=== PATIENT | male | born 1955 | race Caucasian/White ===

== ENCOUNTER → 2017-12-18 15:24 | Outpatient (CLI) | payer OTHER, SELFPAY ==
[2017-12-18 17:50] LABS: Absolute Lymphocyte Count 1.99 X10^3/ul (0.83-4.51); Absolute Neutrophil Count 5.2 X10^3/uL (2.0-7.7); Basophil# 0.02 X10^3/uL; Basophil% 0.2 % (0-1); Eosinophil# 0.21 X10^3/uL; Eosinophils% 2.5 % (0-5); Hematocrit 45.1 % (40-54); Hemoglobin 14.9 g/dl (13.0-16.5); Lymphocyte # 1.99 X10^3/ul (4.0); Lymphocyte % 23.8 % (19-41); Mean Corpuscular Hgb 31.4 pg (27.0-32.0); Mean Corpuscular Volume 94.9 fL (80-94); Mean Platelet Vol. 9.7 fl (6.2-12.0); Monocyte% 10.8 % (0-10); Neutrophil # 5.22 X10^3/uL (2.7-7.7); Neutrophil % 62.3 % (47-70); Platelet Count 208 K/mm3 (150-450); RBC Distribution Width SD 44.8 fl (35.1-43.9); Red Blood Count 4.75 M/mm3 (4.6-6.2); White Blood Count 8.4 K/mm3 (4.4-11.0)
[2017-12-18 17:52] LABS: POSITIVE COUNT NO; POSITIVE DIFFERENTIAL NO; POSITIVE MORPHOLOGY NO
[2017-12-18 18:12] LABS: ALB/GLOB Ratio 1.4 RATIO (0.9-2.4); AST(SGOT) 32 U/L (15-37); Alanine Aminotransfer ALT/SGPT 39 U/L (16-61); Albumin, Serum 4.1 g/dL (3.2-5.0); Alkaline Phosphatase 37 U/L (45-117); Anion Gap 7 (5-15); BUN 19 mg/dL (7-18); BUN/Creat Ratio 15.6 RATIO (10-20); Calcium,Total 9.3 mg/dL (8.5-10.1); Chloride 105 mmol/L (98-107); Creatinine, Serum 1.22 mg/dL (0.70-1.30); EST Glomerular Filtration Rate 64 mL/min (>60); Est Glom Filt Rate - Afr Amer 77 mL/min (>60); Glucose 89 mg/dL (74-106); Potassium 4.1 mmol/L (3.5-5.1); Protein, Total 7.1 g/dL (6.4-8.2); Sodium Level 142 mmol/L (136-145)
== END ==
PROVIDERS: Family Provider Family Medicine; PCP Family Medicine; Visit Provider Internal Medicine Rheumatology
DX: M06.4 Inflammatory polyarthropathy (principal); M79.7 Fibromyalgia; K76.0 Fatty (change of) liver, not elsewhere classified; M48.00 Spinal stenosis, site unspecified; F32.89 Other specified depressive episodes
CPT/HCPCS: 36415; 80053; 85025

== ENCOUNTER → 2018-06-19 14:04 | Outpatient (CLI) | payer OTHER, SELFPAY ==
[2018-06-19 15:49] LABS: Absolute Lymphocyte Count 1.81 X10^3/ul (0.83-4.51); Absolute Neutrophil Count 4.2 X10^3/uL (2.0-7.7); Basophil# 0.03 X10^3/uL; Basophil% 0.4 % (0-1); Eosinophil# 0.21 X10^3/uL; Eosinophils% 3.1 % (0-5); Hematocrit 44.8 % (40-54); Hemoglobin 14.5 g/dl (13.0-16.5); Lymphocyte # 1.81 X10^3/ul (4.0); Lymphocyte % 26.5 % (19-41); Mean Corp Hgb Conc 32.4 g/gl (32-36); Mean Corpuscular Hgb 31.3 pg (27.0-32.0); Mean Corpuscular Volume 96.8 fL (80-94); Mean Platelet Vol. 9.9 fl (6.2-12.0); Monocyte% 8.8 % (0-10); Neutrophil # 4.17 X10^3/uL (2.7-7.7); Neutrophil % 61.1 % (47-70); Platelet Count 171 K/mm3 (150-450); RBC Distribution Width SD 45.5 fl (35.1-43.9); Red Blood Count 4.63 M/mm3 (4.6-6.2); White Blood Count 6.8 K/mm3 (4.4-11.0)
[2018-06-19 15:58] LABS: POSITIVE COUNT NO; POSITIVE DIFFERENTIAL NO; POSITIVE MORPHOLOGY NO
[2018-06-19 16:02] LABS: ALB/GLOB Ratio 1.2 RATIO (0.9-2.4); AST(SGOT) 25 U/L (15-37); Alanine Aminotransfer ALT/SGPT 37 U/L (16-61); Albumin, Serum 3.8 g/dL (3.2-5.0); Alkaline Phosphatase 36 U/L (45-117); Anion Gap 8 (5-15); BUN 21 mg/dL (7-18); BUN/Creat Ratio 20.4 RATIO (10-20); Calcium,Total 9.1 mg/dL (8.5-10.1); Chloride 108 mmol/L (98-107); Creatinine, Serum 1.03 mg/dL (0.70-1.30); EST Glomerular Filtration Rate 77 mL/min (>60); Est Glom Filt Rate - Afr Amer 93 mL/min (>60); Globulin 3.2 g/dL (2.2-4.2); Glucose 98 mg/dL (74-106); Potassium 4.4 mmol/L (3.5-5.1); Sodium Level 144 mmol/L (136-145)
== END ==
PROVIDERS: Family Provider Nurse Practitioner Family; PCP Nurse Practitioner Family; Visit Provider Internal Medicine Rheumatology
DX: M06.4 Inflammatory polyarthropathy (principal); M79.7 Fibromyalgia; K76.0 Fatty (change of) liver, not elsewhere classified; M48.00 Spinal stenosis, site unspecified; F32.89 Other specified depressive episodes
CPT/HCPCS: 36415; 80053; 85025

== ENCOUNTER → 2018-12-20 14:40 | Outpatient (CLI) | payer MEDICARE, OTHER, SELFPAY ==
[2015-10-01 09:45] VITALS: BMI 39.2
[2018-12-20 16:23] LABS: Absolute Lymphocyte Count 2.13 X10^3/ul (0.83-4.51); Absolute Neutrophil Count 4.4 X10^3/uL (2.0-7.7); Basophil# 0.03 X10^3/uL; Basophil% 0.4 % (0-1); Eosinophil# 0.27 X10^3/uL; Eosinophils% 3.6 % (0-5); Hematocrit 46.3 % (40-54); Lymphocyte # 2.13 X10^3/ul (4.0); Lymphocyte % 28.4 % (19-41); Mean Corp Hgb Conc 32.4 g/gl (32-36); Mean Corpuscular Hgb 31.2 pg (27.0-32.0); Mean Corpuscular Volume 96.3 fL (80-94); Mean Platelet Vol. 9.8 fl (6.2-12.0); Neutrophil # 4.44 X10^3/uL (2.7-7.7); Neutrophil % 59.2 % (47-70); Platelet Count 198 K/mm3 (150-450); RBC Distribution Width SD 45.3 fl (35.1-43.9); Red Blood Count 4.81 M/mm3 (4.6-6.2); White Blood Count 7.5 K/mm3 (4.4-11.0)
[2018-12-20 16:26] LABS: POSITIVE COUNT NO; POSITIVE DIFFERENTIAL NO; POSITIVE MORPHOLOGY NO
[2018-12-20 16:52] LABS: ALB/GLOB Ratio 1.2 RATIO (0.9-2.4); AST(SGOT) 26 U/L (15-37); Alanine Aminotransfer ALT/SGPT 42 U/L (16-61); Albumin, Serum 3.8 g/dL (3.2-5.0); Alkaline Phosphatase 36 U/L (45-117); Anion Gap 9 (5-15); BUN 23 mg/dL (7-18); BUN/Creat Ratio 20.7 RATIO (10-20); Calcium,Total 9.2 mg/dL (8.5-10.1); Chloride 111 mmol/L (98-107); Creatinine, Serum 1.11 mg/dL (0.70-1.30); EST Glomerular Filtration Rate 71 mL/min (>60); Est Glom Filt Rate - Afr Amer 85 mL/min (>60); Globulin 3.2 g/dL (2.2-4.2); Glucose 100 mg/dL (74-106); Potassium 4.2 mmol/L (3.5-5.1); Sodium Level 146 mmol/L (136-145)
== END ==
PROVIDERS: Family Provider Nurse Practitioner Family; PCP Nurse Practitioner Family; Referring Provider Internal Medicine Rheumatology; Visit Provider Internal Medicine Rheumatology
DX: M06.4 Inflammatory polyarthropathy (principal); K76.0 Fatty (change of) liver, not elsewhere classified; M48.00 Spinal stenosis, site unspecified; M79.7 Fibromyalgia; F32.89 Other specified depressive episodes
CPT/HCPCS: 36415; 80053; 85025

== ENCOUNTER → 2019-02-17 14:00 | Outpatient (CLI) | payer MEDICARE, OTHER, SELFPAY ==
--- NOTE | 2019-02-17 14:03 | CT_ITS ---
STUDY: CT ABDOMEN AND PELVIS WITH CONTRAST REASON FOR EXAM: Male, 63 years old. Gross hematuria history of TURP procedure and appendectomy. RADIATION DOSAGE (If Supplied By Facility): CTDIvol = ( 28.33 ) mGy, DLP = ( 3852.88 ) mGycm TECHNIQUE: Transaxial images were obtained from the dome of the diaphragm to the symphysis pubis without oral contrast. 100ML IV Isovue 300 was administered. Sagittal and coronal images were reconstructed. Individualized dose optimization techniques were used for this CT. COMPARISON: None. FINDINGS: The visualized lung bases are unremarkable. The visualized portions of the heart are within normal limits. Normal liver. There are at least 3 calcified gallstones without visualized gallbladder wall thickening or inflammatory change. There is no biliary ductal dilatation. Normal spleen. There is a small calcification in the pancreatic head. The possibility of a distal CBD calculus cannot be ruled out although there is no evidence of ductal dilatation. The pancreas is otherwise unremarkable. There is a 1.6 x 1.3 x 1.5 cm soft tissue mass in the right adrenal gland. Question adenoma. Normal left adrenal gland. Normal right kidney. Normal left kidney. Normal visualized ureters. Normal visualized stomach. Normal small intestine. There is descending and sigmoid diverticulosis without acute inflammatory change. The proximal colon is unremarkable. There are surgical clips in the region of the appendix consistent with a prior appendectomy. Normal abdominal aorta. Normal inferior vena cava. Normal retroperitoneum. The urinary bladder is poorly distended with uniformly thickened wall. The prostate is minimally enlarged. There are multiple phleboliths in pelvis without lymphadenopathy. No free air or free fluid is seen within the peritoneal cavity. Normal abdominal wall. There are diffuse degenerative changes of the visualized lumbar spine. CT/Abdomen/Pelvis W IV Cont ONLY IMPRESSION: 1. No evidence of renal or ureteral abnormality. 2. Mildly enlarged prostate with thickened bladder wall. Question outlet obstruction or cystitis. 3. Diverticulosis without acute inflammatory change. 4. Gallstones without acute inflammatory process. 5. Calcification and pancreas. Distal biliary ductal stone versus pancreatic calcification. There is no associated biliary ductal dilatation. 6. Degenerative changes of the lumbar spine. Electronically Signed: Migel Felix DO at 17:10 EDT Tel [phone], Service support ,
[2019-02-17 14:26] LABS: CREATININE FINGERSTICK 1.6 mg/dL (0.70-1.30)
== END ==
PROVIDERS: Family Provider Nurse Practitioner Family; PCP Nurse Practitioner Family; Referring Provider Nurse Practitioner Adult Health; Visit Provider Nurse Practitioner Adult Health
DX: R31.0 Gross hematuria (principal)
CPT/HCPCS: 74177; Q9967

== ENCOUNTER → 2019-06-19 | Outpatient (CLI) | payer MEDICARE, OTHER, SELFPAY ==
[2015-10-01 09:45] VITALS: BMI 39.2
[2019-06-19 14:08] LABS: Absolute Lymphocyte Count 2.01 X10^3/uL (0.83-4.51); Absolute Neutrophil Count 4.3 X10^3/uL (2.0-7.7); Basophil# 0.05 X10^3/uL; Basophil% 0.7 % (0-1); Eosinophil# 0.36 X10^3/uL; Eosinophils% 4.8 % (0-5); Hematocrit 45.9 % (40-54); Hemoglobin 14.9 g/dL (13.0-16.5); Lymphocyte # 2.01 X10^3/ul (4.0); Lymphocyte % 26.9 % (19-41); Mean Corp Hgb Conc 32.5 g/dL (32-36); Mean Corpuscular Volume 98.5 fL (80-94); Mean Platelet Vol. 9.6 fl (6.2-12.0); Monocyte# 0.69 X10^3/uL; Monocyte% 9.2 % (0-10); NRBC Flagged by Analyzer 0 % (0-5); Neutrophil # 4.33 X10^3/uL (2.7-7.7); Neutrophil % 57.9 % (47-70); Platelet Count 192 K/mm3 (150-450); RBC Distribution Width CV 12.8 % (11.6-14.6); Red Blood Count 4.66 M/mm3 (4.6-6.2); White Blood Count 7.5 K/mm3 (4.4-11.0)
[2019-06-19 14:31] LABS: ALB/GLOB Ratio 1.1 RATIO (0.9-2.4); AST(SGOT) 26 U/L (15-37); Alanine Aminotransfer ALT/SGPT 36 U/L (16-61); Albumin, Serum 3.6 g/dL (3.2-5.0); Alkaline Phosphatase 35 U/L (45-117); Anion Gap 7 (5-15); BUN 17 mg/dL (7-18); BUN/Creat Ratio 17.1 RATIO (10-20); Calcium,Total 9.1 mg/dL (8.5-10.1); Chloride 110 mmol/L (98-107); Creatinine, Serum 0.99 mg/dL (0.70-1.30); EST Glomerular Filtration Rate 80 mL/min (>60); Est Glom Filt Rate - Afr Amer 97 mL/min (>60); Globulin 3.4 g/dL (2.2-4.2); Glucose 92 mg/dL (74-106); Potassium 4.7 mmol/L (3.5-5.1); Sodium Level 146 mmol/L (136-145)
== END | disposition home or self-care (01) ==
LOC: MTLAB 11:59
PROVIDERS: Family Provider Nurse Practitioner Family; PCP Nurse Practitioner Family; Referring Provider Internal Medicine Rheumatology; Visit Provider Internal Medicine Rheumatology
DX: M06.4 Inflammatory polyarthropathy (principal); M79.7 Fibromyalgia; K76.0 Fatty (change of) liver, not elsewhere classified; M48.00 Spinal stenosis, site unspecified; F32.89 Other specified depressive episodes
CPT/HCPCS: 36415; 80053; 85025

== ENCOUNTER 2019-09-06 12:53 | Emergency (ER) | payer MEDICARE, OTHER, SELFPAY ==
[2019-09-06] VITALS (9 sets, daily range): BP systolic 118–141; BP diastolic 71–93; PULSE 56–63; RESP 10–18; TEMP 37.2; O2SAT 95–98; BMI 45.8
--- NOTE | 2019-09-06 13:00 | RAD_ITS ---
STUDY: X-RAY - RIGHT ANKLE REASON FOR EXAM: Male, 64 years old. Status post fall TECHNIQUE: 2 view(s) of the ankle. COMPARISON: None. FINDINGS: There is a fracture of the mid fibula with medial apex angulation. The ankle is dislocated with the lateral aspect of the tibia overlying the talus. There is a widened appearance of the intraosseous space. The lateral view shows the offset disrupted ankle. The posterior tibia is not well seen. A fracture is likely. RAD/Ankle min 3 Views IMPRESSION: Fracture dislocation of the ankle. Acute lateral angulated comminuted fracture of the mid fibula. Electronically Signed: Ilsa Pedersen MD at 13:41 EST Tel , Service support ,
--- NOTE | 2019-09-06 13:25 | RAD_ITS ---
STUDY: X-RAY - RIGHT TIBIA AND FIBULA REASON FOR EXAM: Male, 64 years old. Status post fall TECHNIQUE: 2 view(s) of the tibia and fibula were obtained. COMPARISON: None. FINDINGS: Normal visualized tibia. There is a comminuted fracture of the mid shaft of the fibula. The angulation is less apparent than on the ankle x-ray. RAD/Tibia & Fibula 2 Views IMPRESSION: Fracture of the mid shaft of the fibula associated with ankle dislocation. Electronically Signed: Ilsa Pedersen MD at 13:43 EST Tel , Service support ,
[2019-09-06] MEDS: Propofol 200 MG/20 ML Vial IV BOLUS (13:48)
--- NOTE | 2019-09-06 13:56 | CT_ITS ---
Type of exam: CT lower extremity without contrast injection. Right. Reason for exam: trauma. Technique multiple axial images of the left lower extremity were obtained from the proximal tibia and fibula through the calcaneus. Sagittal coronal reformatted images are performed. COMPARISON: September 06, 2019 tibia and fibula x-ray. Prior study there is been improved alignment of the ankle. There is a posterior malleolus fracture in the lumbar or D8. There is a age-indeterminate osteochondral lesion within the medial aspect of the talar surface. There is a visualized comminuted fracture of the mid fibula which appears to have improved alignment since prior study. There is superficial soft tissue edema. There is no visualized fracture of the calcaneus. Impression Improved alignment status post dislocation Better visualize fracture of the posterior malleolus. Fracture of the mid fibula. 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 Recommend follow-up MRI when appropriate. Soft tissue edema. Electronically Signed: Ilsa Pedersen MD at 15:01 EST Tel , Service support , CT/Extremity Lower without Contra
--- NOTE | 2019-09-06 13:56 | RAD_ITS ---
STUDY: X-RAY - RIGHT ANKLE REASON FOR EXAM: Male, 64 years old. Post reduction TECHNIQUE: 3 view(s) of the ankle. COMPARISON: September 06, 2019 FINDINGS: As been a reduction of the fracture dislocation of the ankle. There is a fracture of the posterior malleolus. There is a visualized and age-indeterminate tibiotalar osteochondral lesion seen on the AP view. RAD/Ankle min 3 Views IMPRESSION: Improved alignment. Persistent fracture of the fibula. Visualized fraction of the posterior malleolus. Age-indeterminate talar osteochondral lesion. Electronically Signed: Ilsa Pedersen MD at 15:09 EST Tel , Service support ,
--- NOTE | 2019-09-06 15:04 | ED.VISSUMM ---
- ER Visit Summary Date of Service: 09/06/19 Chief Complaint: [Fall with injury to right ankle] History of Present Illness: The patient is a 64 M [resents to the emergency department with a fall that occurred prior to arrival in the emergency department. Patient presents via EMS. Patient states that he picked up his dog and try to step onto his porch with the dog in his arms when he lost his balance and fell injuring his right foot and ankle. He denies striking his head or loss of consciousness. He denies any chest pain or belly pain. He denies any neck pain or paresthesias. Unable to bear weight afterwards. No significant medical history otherwise.] Physical Examination: [HEENT-PERRLA, EOMI. Cranial nerves II through XII grossly intact. TMs clear. Mucous membranes moist. No adenopathy. Cardiovascular-regular rate and rhythm without murmur or ectopy Lungs-clear to auscultation, chest wall stable without crepitus or subcu emphysema Abdomen-normoactive bowel sounds, soft, nontender, no rebound or rigidity, no peritoneal signs. Extremities-intact ?4, normal range of motion, normal pulses. Right ankle-patient does have obvious ankle dislocation on exam. There is no open skin noted. He is neurovascular intact distally with normal station normal cap refill. He has normal dorsal pedal posterior tibial pulses. She also has tenderness palpation over the mid fibula. Test Results: [Trace of the right tib-fib and right ankle obtained showed a dislocation of the tibiotalar joint and fracture of the mid fibula.] Emergency Department Course and Treatment: [Patient was placed on a lunchroom monitor and IV line was established. Patient had been medicated with fentanyl by EMS. Patient was consented for procedural sedation. Patient was given propofol total of 100 mg IV with good sedation. Using gentle traction we were able to easily reduce the ankle. Patient was placed in a posterior and stirrup type splint. Postreduction x-rays performed showed good reduction of the ankle. At the request of orthopedics I was asked to order a CT scan of the ankle as well as it was suspected possible bony fragment within the joint which was performed. Patient will be given crutches and he will follow-up with orthopedics] Treatment Plan: [Will be given a prescription for pain medication. Patient is to be nonweightbearing. Patient to follow-up with Dr. Snow in 3 to 5 days.] Disposition: [Discharged home in stable condition.] Impression: [Right ankle dislocation-reduced by emergency physician Right mid fibula fracture comminuted] This note was generated with [employer] dictation software. It may contain incorrect words, spelling, and punctuation that were not noted in review of the chart prior to signing ED Disposition - Plan for ED Patient: Referrals: Isiah Bowman, [employer]ICER-C [Primary Care Provider] -
--- NOTE | 2019-09-06 15:07 | ED.DEP ---
ED Disposition - Plan for ED Patient: Instructions: ANKLE FRACTURE (Distal Fibula), closed, ANKLE DISLOCATION, Reduced Prescriptions: Oxycodone HCl/Acetaminophen [Percocet 5/325] 1 tab PO Q6H PRN PRN 5 Days #20 tab PRN Reason: Pain Score 4-10/10 Prescription Printed Referrals: Isiah Bowman, GÓMEZ-C [Primary Care Provider] - Lokesh Snow MD [STAFF PHYSICIAN] - 3-5 Days
[2019-09-06] MEDS: HYDROmorphone 1 MG/ML Syringe IV (15:42)
--- NOTE | 2019-09-06 16:30 | ED.RN ---
PT'S SON BROUGHT IN PATIENTS CRUTCHES FROM HOME. THIS RN DID NOT DISPENSE CRUTCHES FROM ED. DR OWEN SIBLEY.
== END 2019-09-06 16:30 | disposition home or self-care (01) ==
LOC: ED 13:37
PROVIDERS: Emergency Provider Emergency Medicine; Family Provider Nurse Practitioner Family; PCP Nurse Practitioner Family
DX: S82.451A Displaced comminuted fracture of shaft of right fibula, initial encounter for closed fracture (principal); W01.0XXA Fall on same level from slipping, tripping and stumbling without subsequent striking against object, initial encounter; Y93.9 Activity, unspecified; Y92.008 Other place in unspecified non-institutional (private) residence as the place of occurrence of the external cause; Y99.9 Unspecified external cause status; Z79.01 Long term (current) use of anticoagulants; Z79.82 Long term (current) use of aspirin; Z79.899 Other long term (current) drug therapy
CPT/HCPCS: 27781; 73590; 73610; 73700; 99285; J7030; A4216

== ENCOUNTER 2019-09-07 09:40 | Inpatient (IN) | payer MEDICARE, OTHER, SELFPAY ==
[2019-09-06 12:54] VITALS: BMI 45.8
[2019-09-07 09:41] VITALS: BP 158/93; PULSE 63; RESP 20; TEMP 37.1; O2SAT 94; BMI 44.4
[2019-09-07 09:44] VITALS: BP 158/93; PULSE 63; RESP 20; TEMP 37.1; O2SAT 94
[2019-09-07 10:14] LABS: Basophil# 0.04 X10^3/uL; Basophil% 0.5 % (0-1); Eosinophil# 0.19 X10^3/uL; Eosinophils% 2.4 % (0-5); Hematocrit 44.2 % (40-54); Hemoglobin 14.6 g/dL (13.0-16.5); Lymphocyte % 21.2 % (19-41); Mean Corpuscular Hgb 31.5 pg (27.0-32.0); Mean Corpuscular Volume 95.5 fL (80-94); Mean Platelet Vol. 9.5 fl (6.2-12.0); Monocyte# 1.04 X10^3/uL; NRBC Flagged by Analyzer 0 % (0-5); Neutrophil # 5.03 X10^3/uL (2.7-7.7); Neutrophil % 62.5 % (47-70); Platelet Count 158 K/mm3 (150-450); RBC Distribution Width CV 12.4 % (11.6-14.6); RBC Distribution Width SD 43.8 fl (35.1-43.9); Red Blood Count 4.63 M/mm3 (4.6-6.2)
[2019-09-07 10:22] VITALS: BP 134/87; PULSE 61; RESP 22; O2SAT 96
[2019-09-07] MEDS: Ondansetron 4 MG/2 ML Vial IV (10:23)
[2019-09-07] MEDS: HYDROmorphone 1 MG/ML Syringe 0.5 MG IV (10:25)
[2019-09-07 10:26] LABS: Anion Gap 6 (5-15); BUN 19 mg/dL (7-18); BUN/Creat Ratio 18.6 RATIO (10-20); Chloride 108 mmol/L (98-107); Creatinine, Serum 1.02 mg/dL (0.70-1.30); EST Glomerular Filtration Rate 78 mL/min (>60); Est Glom Filt Rate - Afr Amer 94 mL/min (>60); Estimated Creatinine Clearance 73.56 ml/min; Glucose 115 mg/dL (74-106); Potassium 4.1 mmol/L (3.5-5.1); Sodium Level 141 mmol/L (136-145)
--- NOTE | 2019-09-07 11:23 | ED.VIS.GEN ---
History of Present Illness Chief Complaint: Other, Pain/Inj Detail of Chief Complaint: Right leg pain Informant: Patient Onset: Yesterday Current Severity: Moderate Maximum Severity: Severe Narrative: Patient presents with continued pain to his right lower extremity. Patient was seen yesterday after a fall in which he dislocated his ankle and broke his fibula. There is also evidence of a posterior malleolar fracture. Patient was reduced and splinted last evening. He was discharged home with crutches and Percocet. Patient states he had a difficult time getting in his home with his crutches. He was able to get propped up in a recliner. Patient has not been able to get up from the chair since that time. He states he urinated on himself twice overnight because he was unable to get up and care for himself. He has been taking his Percocet every 2 hours and complains of continued pain. He does not have paresthesias and can wiggle toes without difficulty. He has not noted any color change in his toes. - Past Medical History (1) Hypertension Status: Chronic (2) GERD (gastroesophageal reflux disease) Status: Chronic (3) Anxiety Status: Chronic (4) Depression Status: Chronic Past Medical History - Allergies and Home Meds Allergies/Adverse Reactions: Allergies No Known Allergies Allergy (Verified 09/06/19 12:57) Primary Care Physician: Isiah Bowman NP-C [Primary Care Provider] - Prior records reviewed: Yes Lives: Alone Smoking Status: Never smoker Review of Systems General: Denies: Chills, Fever Eyes: Denies: Visual changes - bilaterally ENT: Denies: Bilateral ear pain Cardiovascular: Denies: Chest pain Respiratory: Denies: Dyspnea, Cough Gastrointestinal: Denies: Abdominal pain Musculoskeletal: Reports: Extremity Pain Neurological: Denies: Parasthesia Hematologic: Denies: Easy bruising, Easy bleeding Allergy: Denies: Uticaria Physical Exam Vital Signs/Narrative: Vital Signs Temp Pulse Resp BP Pulse Ox 09/07/19 10:22 61 22 H 134/87 H 96 09/07/19 09:44 98.8 F 63 20 H 158/93 H 94 09/07/19 09:41 98.8 F 63 20 H 158/93 H 94 Inital Vital Signs reviewed: Yes General: Well nourished, Well developed ENT: Moist mucous membranes Cardiovascular: Regular rate, Regular rhythm Respiratory: No distress, CTA bilaterally Abdomen: Soft, Nontender Extremities: - - Right lower extremity in a splint. Patient is able to wiggle toes without difficulty. Good sensation and cap refill in his toes. I am able to palpate pulse in his foot. Neurological: Alert, Oriented x3 Psychological: Normal affect Diagnostic/Tx/Re-eval Laboratory Results 09/07/19 09/07/19 10:05 10:05 WBC 8.0 RBC 4.63 Hgb 14.6 Hct 44.2 MCV 95.5 H MCH 31.5 MCHC 33.0 RDW Std Deviation 43.8 RDW Coeff of Adam 12.4 Plt Count 158 MPV 9.5 Immature Gran % (Auto) 0.400 Neut % (Auto) 62.5 Lymph % (Auto) 21.2 Gordon % (Auto) 13.0 H Eos % (Auto) 2.4 Baso % (Auto) 0.5 Absolute Neuts (auto) 5.0 Absolute Lymphs (auto) 1.70 Nucleated RBC % 0 Sodium 141 Potassium 4.1 Chloride 108 H Carbon Dioxide 27.0 Anion Gap 6 BUN 19 H Creatinine 1.02 Estim Creat Clear Calc 73.56 Est GFR (MDRD) Af Amer 94 Est GFR (MDRD) Non-Af 78 BUN/Creatinine Ratio 18.6 Glucose 115 H Calcium 9.0 - Medical Decision Making Patient was given 0.5 mg of Dilaudid along with Zofran. On repeat evaluation he still reports pain, but it is improved. He will be given a second dose of Dilaudid. Patient is not able to care for himself at home and will require hospitalization tonight and possible placement to rehab or [place] [facility]. ED Disposition - Plan for ED Patient: Disposition: Acute Care [facility] Diagnosis: Leg fracture, right, Declining functional status Referrals: Isiah Bowman, GÓMEZ-C [Primary Care Provider] -
[2019-09-07 12:00] VITALS: BP 156/86; PULSE 82; RESP 19; O2SAT 96
[2019-09-07] MEDS: HYDROmorphone 0.5 MG/0.5 ML SYRINGE IV ×2 (12:14→18:57)
--- NOTE | 2019-09-07 12:39 | PCM.HP.STD ---
Problem List (1) Hypertension Status: Chronic Qualifiers: Hypertension type: essential hypertension Qualified Code(s): I10 - Essential (primary) hypertension (2) GERD (gastroesophageal reflux disease) Status: Chronic Qualifiers: Esophagitis presence: esophagitis presence not specified Qualified Code(s): K21.9 - Gastro-esophageal reflux disease without esophagitis (3) Anxiety Status: Chronic (4) Depression Status: Chronic Qualifiers: Depression Type: unspecified Qualified Code(s): F32.9 - Major depressive disorder, single episode, unspecified (5) Leg fracture, right Status: Acute Qualifiers: Encounter type: initial encounter Fracture type: closed Qualified Code(s): S82.91XA - Unspecified fracture of right lower leg, initial encounter for closed fracture (6) MICHAEL (obstructive sleep apnea) Status: Chronic (7) BPH (benign prostatic hyperplasia) Status: Chronic Qualifiers: Lower urinary tract symptom presence: symptoms absent Qualified Code(s): N40.0 - Benign prostatic hyperplasia without lower urinary tract symptoms History of Present Illness Date of Admission: 09/07/19 Chief Complaint: Inability to walk, right leg pain The patient is a 64 year old M who fell off from his deck in his house on 09/06/19. Patient gives a history of his dog who is very sick and anemic. He was helping the dog go outside to the bathroom. He was carrying his dog. As he was walking back into the house, he stepped onto his porch and lost his balance. He thinks he tried to catch his weight with his right leg. Seen in the emergency department and x-rays showed right fibula fracture and right tibiotalar joint dislocation. Patient's fracture was reduced. He was given crutches, putting splint, and asked to follow-up with Dr. Cordova in 3 to 5 days. Overnight, patient has been unable to move from his recliner. He complains of CVA pain. Unable to ambulate. He is open to even going somewhere for acute rehab. Denied any chest pain or dizziness palpitations or shortness of breath. His blood pressure is 158/93, heart rate 63, respiratory rate is 20, SPO2 is 4% on room air. His CBC D is unremarkable. His BMP is also unremarkable CT Scan of the right ankle done yesterday showed improved alignment status post disc location and reduction, fracture of the posterior malleolus, fracture of the mid fibula, age-indeterminate osteochondral lesion suggestive of osteonecrosis on the medial patella surface, soft tissue edema. Past Medical History Past Medical History (Chronic Problems): Chronic Problems Hypertension (Chronic) GERD (gastroesophageal reflux disease) (Chronic) Anxiety (Chronic) Depression (Chronic) MICHAEL (obstructive sleep apnea) (Chronic) BPH (benign prostatic hyperplasia) (Chronic) Allergies No Known Allergies Allergy (Verified 09/06/19 12:57) Home Medications: Ambulatory Orders Medication Instructions Recorded Aspirin [Aspirin, Baby] 81 mg PO DAILY@0800 11/07/13 Calcium Carbonate/Vitamin D3 1 each PO DAILY 11/07/13 [Calcium 600 + Vit D Tablet] Fenofibrate,Micronized [] 134 mg PO DAILY 11/07/13 Hydroxychloroquine [Plaquenil] 200 mg PO BIDCM 11/07/13 Sertraline HCl [Zoloft] 200 mg PO DAILY 11/07/13 Tramadol HCl [Tramadol HCl ER] 200 mg PO DAILY 11/07/13 Doxepin HCl [Silenor] 10 mg PO DAILY 09/27/15 Finasteride [Proscar] 5 mg PO DAILY 09/27/15 Gabapentin [Neurontin] 100 mg PO BIDCM 09/27/15 Methylphenidate HCl 27 mg PO DAILY 09/27/15 [Methylphenidate ER] Propranolol HCl [Inderal (Beta 20 mg PO DAILY 09/27/15 Edilma)] Tamsulosin HCl [Flomax] 0.4 mg PO BID 09/27/15 Zafirlukast [Accolate] 20 mg PO BID 09/27/15 Ciprofloxacin [Cipro] 250 mg PO BID #10 tablet 10/03/15 Oxycodone HCl/Acetaminophen 1 tab PO Q6H PRN PRN 5 Days #20 tab 09/06/19 [Percocet 5/325] Surgical History: - - Lateral carpal tunnel release, bilateral Achilles surgeries, right knee surgery Psychiatric History: Anxiety, Depression Lives: Alone Smoking Status: Never smoker Tobacco Use: Non-smoker Alcohol: Occasional Drugs: None - *Family History Maternal History Items: Cancer - colon Paternal History Items: Cancer - lung Review of Systems Constitutional: Denies: Anorexia, Chills, Fever, Malaise, Weakness, Weight Change, Fatigue Eyes: Denies: Blurred vision, Cataracts, Conjunctivae Inflammation, Pain, Redness HEENT: Denies: Difficulty Hearing, Difficulty Swallowing, Head Aches, Hearing Changes, Sinus Congestion, Sinus Drainage Cardiovascular: Denies: Chest Pain, Claudication, Orthopnea, Palpitations, Paroxysmal Noc. Dyspnea Respiratory: Denies: Cough, Hemoptysis, Shortness of breath at rest, Shortness of breath upon exertion, Sputum production Gastrointestinal: Denies: Abdominal Pain, Nausea, Vomiting Genitourinary: Denies: Dysuria, Incontinence Musculoskeletal: Denies: Arm Pain, Joint Pain, Joint stiffness, Joint swelling, Joint Tenderness Skin: Denies: Rash, Wounds Neurological: Denies: Numbness, Tingling, Focal weakness Psychiatric: Denies: Anxiety, Depression, Homicidal Ideations, Suicidal Ideations Hematologic/ Lymphatic: Denies: Easy Bruising, Easy Bleeding VTE Information - Inpt Only VTE Present on Admission: No VTE Pharm Prophylaxis ordered?: Yes Patient Problems: Active and Suspected Problems Leg fracture, right (Acute) Declining functional status (Acute) - Physical Exam Vitals/I&O's: Vital Signs Temp Pulse Resp BP Pulse Ox 98.8 F 82 19 H 156/86 H 96 09/07/19 09:44 09/07/19 12:00 09/07/19 12:00 09/07/19 12:00 09/07/19 12:00 Oxygen Delivery Method Room Air Weight: 140.5 kg Body Mass Index (BMI) 44.4 General: Alert, Oriented x3, Cooperative, - - morbidly obese, not on oxygen HEENT: Atraumatic, PERRLA, EOMI, Normocephalic Oral: Moist Mucosa Neck: Supple Lungs: Clear to auscultation, Normal air movement Cardiovascular: Regular rate, Regular Rhythm, Normal S1, Normal S2, No murmurs Abdomen: Bowel Sounds Present, Soft, Non Tender, Non-Distended, Distended, Obese Extremities: Edema - right lower leg is dressed, splinted and KAITLYNN-wrapped, able to wiggle toes Skin: No rashes, No breakdown Musculoskeletal: No Tenderness to Palpation of Joints or Extremities Lymphatic: No Cervical, Supraclavicular, or Inguinal Adenopathy Neurological: Cranial nerves II-XII grossly intact, Neuro grossly intact Psych/Mental Status: Normal Affect, Appropriate Laboratory Results 09/07/19 10:05: WBC 8.0, RBC 4.63, Hgb 14.6, Hct 44.2, MCV 95.5 H, MCH 31.5, MCHC 33.0, RDW Std Deviation 43.8, RDW Coeff of Adam 12.4, Plt Count 158, MPV 9.5, Immature Gran % (Auto) 0.400, Neut % (Auto) 62.5, Lymph % (Auto) 21.2, [place] % (Auto) 13.0 H, Eos % (Auto) 2.4, Baso % (Auto) 0.5, Absolute Neuts (auto) 5.0, Absolute Lymphs (auto) 1.70, Nucleated RBC % 0 09/07/19 10:05: Sodium 141, Potassium 4.1, Chloride 108 H, Carbon Dioxide 27.0, Anion Gap 6, BUN 19 H, Creatinine 1.02, Estim Creat Clear Calc 73.56, Est GFR (MDRD) Af Amer 94, Est GFR (MDRD) Non-Af 78, BUN/Creatinine Ratio 18.6, Glucose 115 H, Calcium 9.0 Assessment/Plan All Active Problems Leg fracture, right (Acute) Declining functional status (Acute) 64 year old M who fell off from his deck in his house on 09/06/19 presented to the emergency department and was diagnosed with acute fracture of the right mid fibula as well as right posterior malleolus. He underwent reduction, splinting and discharged home with crutches. Patient presents with inability to walk and progressive pain. 1. Debility secondary to acute fractures -right mid fibula, right posterior malleolar fracture Admitting EKG showed no acute ST-T changes. He has no previous cardiac problems. No acute current cardiac symptoms Admit to MedSurg, pain control, orthopedic surgery consult, PT and OT to evaluate Patient is moderate risk for planned procedure account of his morbid obesity and underlying MICHAEL 2. Rheumatoid arthritis, on Plaquenil 3. MICHAEL on CPAP 4. BPH, on Flomax, Proscar 5. Anxiety/depression, on Zoloft, doxepin 6. Hyperlipidemia, on fenofibrate 7. DVT prophylaxis with heparin subcu Code Visit Inpatient E&M: 52438 Init Hosp L2
--- NOTE | 2019-09-07 12:50 | EKG12_ITS ---
Test Reason : Blood Pressure : / mmHG Vent. Rate : 064 BPM Atrial Rate : 064 BPM P-R Int : 146 ms QRS Dur : 090 ms QT Int : 416 ms P-R-T Axes : 035 000 050 degrees QTc Int : 429 ms Normal sinus rhythm Normal ECG Confirmed by ALFREDO PEREZ, BLADE ([id number]), editor index CHARLENE PEREZ ([id number]) on 09/09/2019 11:42:07 AM Referred By: Lauryn Ellis Confirmed By:BLADE FUENTES MD
--- NOTE | 2019-09-07 12:53 | NURSING ---
306 debility/ankle fx paintsil
--- NOTE | 2019-09-07 13:16 | ECHOCS_ITS ---
Version 2 Reason For Study: Pre-op clearance Procedure This was a 2D Doppler, Color Flow transthoracic echocardiogram. The study was technically difficult. Exam performed portable in patient room. Left Ventricle Normal LV size. The estimated ejection fraction is 55 %. No regional wall motion abnormalities noted. Right Ventricle Normal RV size. Normal systolic function. Atria Normal left atrium. Normal right atrium. Mitral Valve Normal mitral valve. Tricuspid Valve Normal tricuspid valve. Mild (1+) tricuspid valve insufficiency. Pulmonary artery systolic pressure is 33 mmHg. Aortic Valve Normal aortic valve. Pulmonic Valve Normal pulmonic valve. Great Vessels Normal aortic root. The pulmonary artery is normal size. Normal inferior vena cava. Pericardium/Pleural No pericardial effusion. Medication Diluted definity 5ml given slow IV push to enhance endocardial definition. MMode/2D Measurements & Calculations LVIDd: 5.8 cm IVSd: 1.1 cm Ao root diam: 3.4 cm LVIDs: 2.8 cm LVPWd: 1.2 cm FS: 51.9 % LAV(MOD-bp): 61.6 ml LA A4 area: 16.4 cm2 LA dimension(2D): 4.1 cm LAV(MOD-bp) Indexed: 24.5 ml/m2 LAV(MOD-sp2): 71.9 ml LAV(MOD-sp4): 42.8 ml RA A4 area: 12.0 cm2 Doppler Measurements & Calculations MV E max kendell: 53.7 cm/sec Lat Peak E' Kendell: 9.2 cm/sec Med Peak E' Kendell: 6.6 cm/sec MV A max kendell: 68.6 cm/sec E/E' lat: 5.9 E/E' med: 8.1 MV E/A: 0.78 Ao V2 max: 122.9 cm/sec LV V1 max: 99.5 cm/sec PA V2 max: 89.6 cm/sec Ao max P.0 mmHg LV V1 max P.0 mmHg TR max kendell: 264.0 cm/sec TR max P.5 mmHg Interpretation Summary Normal LV size. The estimated ejection fraction is 55 %. No regional wall motion abnormalities noted. Mild (1+) tricuspid valve insufficiency. Pulmonary artery systolic pressure is 33 mmHg. Structurally normal valves. Ordering Physician: Lauryn Ellis Referring Physician: Isiah Bowman Performed By: Mary Paige RDCS, RVT
[2019-09-07 13:19] VITALS: BMI 42.7; BMI 42.8
[2019-09-07] MEDS: 0.9% Normal Saline 1,000 ML 100 ML IV ×2 (13:46→23:33)
[2019-09-07] MEDS: Morphine 2 MG/ML Syringe IV ×2 (13:49→17:18)
[2019-09-07] MEDS: Heparin Injection (Vial) 5,000 UNIT/ML VIAL 5000 UNIT SC ×2 (13:51→22:44)
[2019-09-07 14:00] VITALS: BP 137/82; PULSE 95; RESP 18; TEMP 36.6; O2SAT 95
[2019-09-07] MEDS: oxyCODONE 5 MG Tablet PO ×2 (15:49→20:11)
[2019-09-07] MEDS: 0.9% Saline Lock 10 ML Syringe IV ×2 (17:19→22:41)
[2019-09-07 19:59] VITALS: BP 106/75; PULSE 71; RESP 18; TEMP 36.7; O2SAT 94
[2019-09-07] MEDS: Morphine 4 MG/ML Syringe IV (22:37)
[2019-09-07] MEDS: Senna/Docusate Sodium 1 Tablet 2 TABLET PO (22:47)
[2019-09-08] VITALS (7 sets, daily range): BP systolic 151–159; BP diastolic 70–94; PULSE 67–78; RESP 16–18; TEMP 36.9–37.4; O2SAT 85–97
[2019-09-08] MEDS: 0.9% Saline Lock 10 ML Syringe IV ×6 (02:13→19:58)
[2019-09-08] MEDS: Morphine 4 MG/ML Syringe IV ×5 (02:14→19:58)
[2019-09-08] MEDS: Ipratropium/Albuterol Sulfate 3 ML AMPUL.NEB INHALATION (02:55)
[2019-09-08] MEDS: oxyCODONE 5 MG Tablet PO ×3 (03:42→23:32)
[2019-09-08 06:15] LABS: Absolute Neutrophil Count 5.2 X10^3/uL (2.0-7.7); Basophil# 0.02 X10^3/uL; Basophil% 0.2 % (0-1); Eosinophil# 0.24 X10^3/uL; Eosinophils% 2.9 % (0-5); Hematocrit 39.1 % (40-54); Hemoglobin 12.8 g/dL (13.0-16.5); Lymphocyte % 20.9 % (19-41); Mean Corp Hgb Conc 32.7 g/dL (32-36); Mean Corpuscular Hgb 31.5 pg (27.0-32.0); Mean Corpuscular Volume 96.3 fL (80-94); Mean Platelet Vol. 9.9 fl (6.2-12.0); Monocyte% 12.3 % (0-10); NRBC Flagged by Analyzer 0 % (0-5); Neutrophil # 5.15 X10^3/uL (2.7-7.7); Neutrophil % 63.3 % (47-70); Platelet Count 156 K/mm3 (150-450); RBC Distribution Width CV 12.6 % (11.6-14.6); RBC Distribution Width SD 44.9 fl (35.1-43.9); Red Blood Count 4.06 M/mm3 (4.6-6.2); White Blood Count 8.1 K/mm3 (4.4-11.0)
[2019-09-08] MEDS: Heparin Injection (Vial) 5,000 UNIT/ML VIAL 5000 UNIT SC ×3 (06:26→22:13)
[2019-09-08] MEDS: Acetaminophen 325 MG Tablet 650 MG PO ×2 (06:31→23:33)
[2019-09-08 06:41] LABS: AST(SGOT) 46 U/L (15-37); Alanine Aminotransfer ALT/SGPT 60 U/L (16-61); Alkaline Phosphatase 28 U/L (45-117); Anion Gap 6 (5-15); BUN 19 mg/dL (7-18); BUN/Creat Ratio 18.3 RATIO (10-20); Calcium,Total 8.4 mg/dL (8.5-10.1); Chloride 108 mmol/L (98-107); Creatinine, Serum 1.04 mg/dL (0.70-1.30); EST Glomerular Filtration Rate 76 mL/min (>60); Est Glom Filt Rate - Afr Amer 92 mL/min (>60); Estimated Creatinine Clearance 72.14 ml/min; Glucose 114 mg/dL (74-106); Potassium 3.8 mmol/L (3.5-5.1); Sodium Level 141 mmol/L (136-145)
--- NOTE | 2019-09-08 08:11 | PN_ITS ---
Patient Problems: Active and Suspected Problems Leg fracture, right (Acute) Declining functional status (Acute) Subjective: CC follow-up fracture involving the right mid fibula as well as a right posterior malleolus Patient is a 64-year-old gentleman who sustained a fall on 09/06/2019 with subsequent fracture involving the right mid fibula as well as a right posterior malleolus. He underwent reduction and splinting and discharged home presented back to the emergency department with intractable pain. Objective: GENERAL: cooperative HEENT: Atraumatic; EYES; Anicteric, Normal Conjunctiva NECK; supple, normal thyroid, RESPIRATORY: Diminished to auscultation CARDIOVASCULAR: Regular S1 S2, GI: soft, normoactive bowel sounds, : No Renal angle tenderness; EXTREMITIES: No edema, no clubbing, MUSCULOSKELETAL: Right ankle foot immobilized NEURO: Awake; no lateralizing signs. SKIN: No Rash PSYCH; Flat affect Vitals/I&O's: Vital Signs Temp Pulse Resp BP Pulse Ox 98.6 F 67 16 159/94 H 93 09/08/19 07:44 09/08/19 07:44 09/08/19 07:47 09/08/19 07:44 09/08/19 07:47 Oxygen Delivery Method Room Air Weight: 142.6 kg Body Mass Index (BMI) 42.7 Intake and Output for Last 24 Hours 09/06/19 09/07/19 09/08/19 23:59 23:59 23:59 Intake Total 978.33 / 1218.33 1140 / 1140 Output Total 950 / 950 Balance 978.33 / 618.33 190 / 190 Laboratory Results 09/07/19 10:05: WBC 8.0, RBC 4.63, Hgb 14.6, Hct 44.2, MCV 95.5 H, MCH 31.5, MCHC 33.0, RDW Std Deviation 43.8, RDW Coeff of Adam 12.4, Plt Count 158, MPV 9.5, Immature Gran % (Auto) 0.400, Neut % (Auto) 62.5, Lymph % (Auto) 21.2, [place] % (Auto) 13.0 H, Eos % (Auto) 2.4, Baso % (Auto) 0.5, Absolute Neuts (auto) 5.0, Absolute Lymphs (auto) 1.70, Nucleated RBC % 0 09/07/19 10:05: Sodium 141, Potassium 4.1, Chloride 108 H, Carbon Dioxide 27.0, Anion Gap 6, BUN 19 H, Creatinine 1.02, Estim Creat Clear Calc 73.56, Est GFR (MDRD) Af Amer 94, Est GFR (MDRD) Non-Af 78, BUN/Creatinine Ratio 18.6, Glucose 115 H, Calcium 9.0 09/08/19 05:28: WBC 8.1, RBC 4.06 L, Hgb 12.8 L, Hct 39.1 L, MCV 96.3 H, MCH 31.5, MCHC 32.7, RDW Std Deviation 44.9 H, RDW Coeff of Adam 12.6, Plt Count 156, MPV 9.9, Immature Gran % (Auto) 0.400, Neut % (Auto) 63.3, Lymph % (Auto) 20.9, [place] % (Auto) 12.3 H, Eos % (Auto) 2.9, Baso % (Auto) 0.2, Absolute Neuts (auto) 5.2, Absolute Lymphs (auto) 1.70, Nucleated RBC % 0 09/08/19 05:28: Sodium 141, Potassium 3.8, Chloride 108 H, Carbon Dioxide 27.0, Anion Gap 6, BUN 19 H, Creatinine 1.04, Estim Creat Clear Calc 72.14, Est GFR (MDRD) Af Amer 92, Est GFR (MDRD) Non-Af 76, BUN/Creatinine Ratio 18.3, Glucose 114 H, Calcium 8.4 L, Total Bilirubin 0.60, AST 46 H, ALT 60, Alkaline Phosphatase 28 L, Total Protein 6.0 L, Albumin 3.0 L, Globulin 3.0, Albumin/Globulin Ratio 1.0 Current Medications Acetaminophen (Tylenol) 650 mg PO Q6H PRN PRN PRN Reason: Pain Score 1-3/Temp > 100.7 F Last Admin: 09/08/19 06:31 Dose: 650 mg Documented by: Al Hydroxide/Mg Hydroxide (Mylanta Ii) 30 ml PO Q6H PRN PRN PRN Reason: Gastric Burning Albuterol/Ipratropium (Duoneb) 3 ml INHALATION Q4HWA.RT PRN PRN Reason: SOB &/OR WHEEZING Last Admin: 09/08/19 02:55 Dose: 3 ml Documented by: Heparin Sodium (Porcine) (Heparin Na) 5,000 unit SC Q8 [facility] Last Admin: 09/08/19 06:26 Dose: 5,000 unit Documented by: Sodium Chloride () 250 mls @ 15 mls/hr IV .[id number] PRN PRN Reason: Saline Flush Morphine Sulfate () 4 mg IV Q3H PRN PRN PRN Reason: Pain Score 6-10/10 Last Admin: 09/08/19 08:01 Dose: 4 mg Documented by: Nutritional Formula (Lactose Free) (Ensure Enlive) 120 ml PO 4X/DAY [facility] Last Admin: 09/07/19 22:41 Dose: 120 ml Documented by: Ondansetron HCl (Zofran) 4 mg IV Q8H PRN PRN PRN Reason: NAUSEA/VOMITING Oxycodone HCl (Oxyir) 5 mg PO Q4H PRN PRN PRN Reason: Pain Score 4-5/10 Last Admin: 09/08/19 03:42 Dose: 5 mg Documented by: Senna/Docusate Sodium (Senokot-S, Flora-Colace) 2 tablet PO BID [facility] Last Admin: 09/07/19 22:47 Dose: 2 tablet Documented by: Sodium Chloride () 10 - 40 ml IV UD PRN PRN Reason: SALINE FLUSH Last Admin: 09/08/19 08:01 Dose: 10 ml Documented by: STROKE Vital Signs/Narrative: Vital Signs Temp Pulse Resp BP Pulse Ox 09/08/19 07:47 16 93 09/08/19 07:44 98.6 F 67 16 159/94 H 93 09/08/19 07:00 94 Medical Necessity - Tobacco Use Smoking Status: Never smoker Tobacco Use: Non-smoker Assessment/Plan All Active Problems Leg fracture, right (Acute) Declining functional status (Acute) Patient is a 64-year-old gentleman who sustained a fall on 09/06/2019 with subsequent fracture involving the right mid fibula as well as a right posterior malleolus. He underwent reduction and splinting and discharged home presented back to the emergency department with intractable pain. 1. Acute mechanical fall ~ with subsequent right mid fibula, right posterior malleolar fracture patient currently being managed with immobilization pain control with consultation placed to orthopedic surgery. Determine management deferred. 2. Rheumatoid arthritis ~ Symptoms controlled on Plaquenil did continue 3. Morbid obesity with BMI of 45.1 ~ Weight loss and lifestyle medication advised 4. Obstructive sleep apnea ~ Patient is on CPAP at nights 5. BPH ~ Patient is on Flomax and Proscar did continue 6. Depression with anxiety ~ patient is on both Zoloft as well as doxepin did continue 7. Dyslipidemia ~Patient is on fenofibrate did continue 8. DVT prophylaxis ~ patient is on SC heparin Code Visit Inpatient E&M: 04323 Subs Hosp L2
[2019-09-08] MEDS: Senna/Docusate Sodium 1 Tablet 2 TABLET PO ×2 (10:43→22:13)
--- NOTE | 2019-09-08 11:13 | CASEMGMT ---
Social Work SW met with pt in room and introduced self and role of SW. Pt grimacing in pain and states his nurse is aware of pain level. Pt waiting on orthopedic consultation and agreeable to talk with SW. Assessment: Advance Directives: No, pt accepted SW rack card with information but not interested at this time. PCP: Isiah Bowman, STEPHANIE Specialists: Liz Núñez Bavis Pharmacy: [facility] Prescription Coverage: yes, [employer] Living Arrangements: Pt lives in a [place] home with two steps in. Pt son Sherman lives with him but does work and goes to school so gone often. Pt sister and brother in law are supportive and can assist some. ADLS: prior to fall and fx pt was independent with all ADLs and transportation DME: shower chair, crutches, walker, BIPAP Previous HHC/SNF: None Per pt, pt presented to ED on sunday and returned home with crutches. Son had to strenuously assist with getting pt up two stairs and into home. Pt was assisted to recliner chair and was unable to move to adjust chair, or get out of chair at all. Pt is now in great pain and awaiting ortho consult to determine further action. At this time pt is agreeable to go to SNF upon d/c as he states he is not able to move at all at this time. SW explained that Pt will need three day hospital stay for medicare to pay for SNF placement. If pt does not have a three day stay he will need to private pay for a facility. Pt stating he will not pay for a nursing facility but if he gets three day stay and still needs SNF at that time he will go to SNF. Written list of area SNFs left in pt room. SW will await ortho consult and followup with pt once treatment plan is decided. D/C plan: Undetermined at this time. Awaiting treatment plan from Orthopedic. MARTA Pelayo
--- NOTE | 2019-09-09 00:42 | NURSING ---
WENT TO GIVE PT X1 DOSE OF TORADOL. PT SLEEPING. WILL CONTINUE TO MONITOR.
[2019-09-09] MEDS: Ketorolac 15 MG/ML Vial IV (02:45)
[2019-09-09 02:50] VITALS: BP 162/89; PULSE 63; RESP 18; TEMP 36.5; O2SAT 94
--- NOTE | 2019-09-09 06:00 | NURSING ---
PT HAS NOT URINATED SINCE 0000. STATES HE NORMALLY SLEEPS THROUGH THE NIGHT WITHOUT URINATION. WILL CONTINUE TO MONITOR.
[2019-09-09] MEDS: Heparin Injection (Vial) 5,000 UNIT/ML VIAL 5000 UNIT SC ×3 (06:43→21:25)
[2019-09-09 07:20] VITALS: O2SAT 94
--- NOTE | 2019-09-09 07:20 | PN_ITS ---
Patient Problems: Active and Suspected Problems Leg fracture, right (Acute) Declining functional status (Acute) Subjective: CC follow-up right mid fibula, right posterior malleolar fracture line patient seen pain is much improved compared to the day prior. Did place a call to Dr. Snow with orthopedic surgery regarding the consult Objective: GENERAL: cooperative HEENT: Atraumatic; EYES; Anicteric, Normal Conjunctiva NECK; supple, normal thyroid, RESPIRATORY: Diminished to auscultation CARDIOVASCULAR: Regular S1 S2, GI: soft, normoactive bowel sounds, : No Renal angle tenderness; EXTREMITIES: No edema, no clubbing, MUSCULOSKELETAL: Right ankle foot immobilized NEURO: Awake; no lateralizing signs. SKIN: No Rash PSYCH; Flat affect Vitals/I&O's: Vital Signs Temp Pulse Resp BP Pulse Ox 97.7 F L 63 18 162/89 H 94 09/09/19 02:50 09/09/19 02:50 09/09/19 02:50 09/09/19 02:50 09/09/19 02:50 Oxygen Delivery Method Room Air Weight: 142.428 kg Body Mass Index (BMI) 42.7 Intake and Output for Last 24 Hours 09/07/19 09/08/19 09/09/19 23:59 23:59 23:59 Intake Total 978.33 / 1218.33 1140 / 1140 1000 / 1000 Output Total 950 / 950 600 / 600 Balance 978.33 / 618.33 190 / 190 400 / 400 Current Medications Acetaminophen (Tylenol) 650 mg PO Q6H PRN PRN PRN Reason: Pain Score 1-3/Temp > 100.7 F Last Admin: 09/08/19 23:33 Dose: 650 mg Documented by: Al Hydroxide/Mg Hydroxide (Mylanta Ii) 30 ml PO Q6H PRN PRN PRN Reason: Gastric Burning Albuterol/Ipratropium (Duoneb) 3 ml INHALATION Q4HWA.RT PRN PRN Reason: SOB &/OR WHEEZING Last Admin: 09/08/19 02:55 Dose: 3 ml Documented by: Heparin Sodium (Porcine) (Heparin Na) 5,000 unit SC Q8 [facility] Last Admin: 09/09/19 06:43 Dose: 5,000 unit Documented by: Sodium Chloride () 250 mls @ 15 mls/hr IV .[id number] PRN PRN Reason: Saline Flush Morphine Sulfate () 4 mg IV Q2H PRN PRN PRN Reason: Pain Score 6-10/10 Last Admin: 09/08/19 19:58 Dose: 4 mg Documented by: Nutritional Formula (Lactose Free) (Ensure Enlive) 120 ml PO 4X/DAY [facility] Last Admin: 09/08/19 22:13 Dose: 120 ml Documented by: Ondansetron HCl (Zofran) 4 mg IV Q8H PRN PRN PRN Reason: NAUSEA/VOMITING Oxycodone HCl (Oxyir) 5 mg PO Q4H PRN PRN PRN Reason: Pain Score 4-5/10 Last Admin: 09/08/19 23:32 Dose: 5 mg Documented by: Senna/Docusate Sodium (Senokot-S, Flora-Colace) 2 tablet PO BID [facility] Last Admin: 09/08/19 22:13 Dose: 2 tablet Documented by: Sodium Chloride () 10 - 40 ml IV UD PRN PRN Reason: SALINE FLUSH Last Admin: 09/08/19 19:58 Dose: 10 ml Documented by: Medical Necessity - Tobacco Use Smoking Status: Never smoker Tobacco Use: Non-smoker Assessment/Plan All Active Problems Leg fracture, right (Acute) Declining functional status (Acute) Patient is a 64-year-old gentleman who sustained a fall on 09/06/2019 with subsequent fracture involving the right mid fibula as well as a right posterior malleolus. He underwent reduction and splinting and discharged home presented back to the emergency department with intractable pain. 1. Acute mechanical fall ~ with subsequent right mid fibula, right posterior malleolar fracture patient currently being managed with immobilization pain control with consultation placed to orthopedic surgery. Determine management deferred. -09/09/2019; patient seen pain is much improved compared to the day prior. Did place a call to Dr. Snow with orthopedic surgery regarding the consult 2. Rheumatoid arthritis ~ Symptoms controlled on Plaquenil did continue 3. Morbid obesity with BMI of 45.1 ~ Weight loss and lifestyle medication advised 4. Obstructive sleep apnea ~ Patient is on CPAP at nights 5. BPH ~ Patient is on Flomax and Proscar did continue 6. Depression with anxiety ~ patient is on both Zoloft as well as doxepin did continue 7. Dyslipidemia ~Patient is on fenofibrate did continue 8. DVT prophylaxis ~ patient is on SC heparin Code Visit Inpatient E&M: 11496 Subs Hosp L2
--- NOTE | 2019-09-09 08:24 | NURSING ---
Dr. Haas called ortho and reminded of consult this AM-
[2019-09-09 09:29] VITALS: BP 161/74; PULSE 71; RESP 16; TEMP 36.9; O2SAT 96
[2019-09-09] MEDS: Senna/Docusate Sodium 1 Tablet 2 TABLET PO ×2 (09:34→21:25)
[2019-09-09] MEDS: 0.9% Saline Lock 10 ML Syringe IV ×2 (09:34→13:08)
[2019-09-09] MEDS: Morphine 4 MG/ML Syringe IV ×2 (09:34→13:08)
--- NOTE | 2019-09-09 14:36 | PN.ORTHO_ITS ---
Patient Problems: Active and Suspected Problems Leg fracture, right (Acute) Declining functional status (Acute) Subjective: The patient is a 64 year old male seen at bedside resting comfortably. After verbal questioning, patient relates that he fell off from his deck in his house on 09/06/19. Patient states that he was helping the dog go outside to the bathroom. He was carrying his dog. As he was walking back into the house, he stepped onto his porch and lost his balance. He thinks he tried to catch his weight with his right leg. Patient was seen in the [facility] emergency department and x-rays showed right fibula fracture and right tibiotalar joint dislocation. Patient's fracture was reduced, and post reduction films were taken showing good ankle alignment. A CT scan was also taken. He was given crutches, placed in a posterior splint, and asked to follow-up with Dr. Snow in 3 to 5 days. Overnight, patient has been unable to move from his recliner. He returned to the ED and was admitted for further workup and analysis. Patient relates that the pain in his right ankle is getting better. He states that it is gradually improving, and is a 6/10 on average. Patient denies fever/chills/nausea/vomiting/shortness of breath/chest pain. Denied any chest pain or dizziness palpitations or shortness of breath. a. Objective: Right lower Extremity exam: Posterior splint removed revealing significant edema of the right ankle and calf. No fracture blisters noted. Vascular: DP/PT palpable of the right foot and ankle. Cap refill time is less than 3 seconds all digits. Temperature gradient is within normal limits. Significant nonpitting edema noted of the right ankle extending proximally to the mid calf. Neuro: Gross and protective sensation intact to the right lower extremity Ortho: Musculoskeletal assessment deferred due to fracture state. No gross deformity upon reviewing the external right foot, ankle, and leg. No pain upon palpation or compression of the right calcaneus. No pain upon palpation compression of the right foot. No pain upon palpation or compression of the tarsometatarsal joint of the right foot. Derm: Ecchymosis noted on the medial lateral aspect of the right ankle extending distally to the calcaneus. No fracture blisters noted. No breaks in the skin noted. CT scan: CT Scan of the right ankle done showed improved alignment status post dislocation and reduction, fracture of the posterior malleolus, fracture of the mid fibula, age-indeterminate osteochondral lesion suggestive of osteonecrosis on the medial patella surface, soft tissue edema. Original x-rays taken on September 06: Show a comminuted fracture of the fibula along with the severe dislocation of the ankle joint with widening of the syndesmosis and medial deltoid injury. Lateral deviation of the talus in the ankle joint complex. X-ray status post reduction taken on 09/06: Show reduced deformity with talus back into anatomical alignment and tibiofibular overlap obtained. Realignment of fibular fracture noted. - Physical Exam Vitals/I&O's: Vital Signs Temp Pulse Resp BP Pulse Ox 98.5 F 71 16 161/74 H 96 09/09/19 09:29 09/09/19 09:29 09/09/19 09:29 09/09/19 09:29 09/09/19 09:29 Oxygen Delivery Method Room Air Weight: 142.428 kg Body Mass Index (BMI) 42.7 Intake and Output for Last 24 Hours 09/07/19 09/08/19 09/09/19 23:59 23:59 23:59 Intake Total 978.33 / 1218.33 1140 / 1140 1000 / 1000 Output Total 950 / 950 600 / 600 Balance 978.33 / 618.33 190 / 190 400 / 400 General: Alert, Oriented x3, Cooperative, No apparent distress, Well developed, Well nourished HEENT: Atraumatic, PERRLA Neck: Supple, No JVD Lungs: Clear to auscultation, Normal air movement, No rhonchi, No wheeze, No rales Cardiovascular: Regular rate, Regular Rhythm, Normal S1, Normal S2 Abdomen: Bowel Sounds Present, Soft, Non Tender, Non-Distended Extremities: Capillary Refill Less than 3 Seconds Skin: No rashes, No breakdown Musculoskeletal: Tenderness - Upon palpation compression of the right ankle. Neurological: Neuro grossly intact Psych/Mental Status: Normal Affect, Alert and oriented to time, place, person, mood and affect Current Medications Acetaminophen (Tylenol) 650 mg PO Q6H PRN PRN PRN Reason: Pain Score 1-3/Temp > 100.7 F Last Admin: 09/08/19 23:33 Dose: 650 mg Documented by: Al Hydroxide/Mg Hydroxide (Mylanta Ii) 30 ml PO Q6H PRN PRN PRN Reason: Gastric Burning Albuterol/Ipratropium (Duoneb) 3 ml INHALATION Q4HWA.RT PRN PRN Reason: SOB &/OR WHEEZING Last Admin: 09/08/19 02:55 Dose: 3 ml Documented by: Heparin Sodium (Porcine) (Heparin Na) 5,000 unit SC Q8 [facility] Last Admin: 09/09/19 13:15 Dose: 5,000 unit Documented by: Sodium Chloride () 250 mls @ 15 mls/hr IV .[id number] PRN PRN Reason: Saline Flush Morphine Sulfate () 4 mg IV Q2H PRN PRN PRN Reason: Pain Score 6-10/10 Last Admin: 09/09/19 13:08 Dose: 4 mg Documented by: Nutritional Formula (Lactose Free) (Ensure Enlive) 120 ml PO 4X/DAY [facility] Last Admin: 09/09/19 13:15 Dose: 120 ml Documented by: Ondansetron HCl (Zofran) 4 mg IV Q8H PRN PRN PRN Reason: NAUSEA/VOMITING Oxycodone HCl (Oxyir) 10 mg PO Q4H PRN PRN PRN Reason: Pain Score 4-10/10 Senna/Docusate Sodium (Senokot-S, Flora-Colace) 2 tablet PO BID [facility] Last Admin: 09/09/19 09:34 Dose: 2 tablet Documented by: Sodium Chloride () 10 - 40 ml IV UD PRN PRN Reason: SALINE FLUSH Last Admin: 09/09/19 13:08 Dose: 10 ml Documented by: Medical Necessity - Tobacco Use Smoking Status: Never smoker Tobacco Use: Non-smoker Assessment/Plan All Active Problems Leg fracture, right (Acute) Declining functional status (Acute) Patient chart reviewed and patient evaluated Full discussion had with patient about his current clinical clinical condition, with discussion of the CT and radiographic findings. At this point I discussed with the patient that he will need fixation of the syndesmosis injury along with the deltoid injury of the right ankle. He will likely not need open reduction internal fixation of the right fibula since it is reduced back into anatomical alignment. I will defer surgical intervention at this time due to the significant swelling of the right lower extremity. I would like the patient to follow-up in my office with me on September 12, where we will plan outpatient operation. Discussed this with patient and will speak with office to reach out to patient. At this time a multilayer compressive dressing with posterior splint was applied to the right lower extremity. I advised that the patient remain nonweightbearing to the right lower extremity with assistive devices and posterior splint. I recommend continuation of DVT prophylaxis per medicine. I recommended continued pain medication management per medicine. At this point there will be no further intervention by me while the patient is in house. I will see the patient on an outpatient basis. Thank you very much for the consultation and allowing us to take part in the care of your patient. If there are any questions please don't hesitate to contact me.
--- NOTE | 2019-09-09 14:36 | CASEMGMT ---
Addendum entered by Rosa Isela Ji 09/09/19 14:45: FÁTIMA placed a call to PT and asked PT/OT to see pt. PT states they are down in PCU and will be up to see pt soon. Original Note: Social Work Note SW met with pt to confirm discharge plans. Ortho doesn't plan on doing surgery at this time. SW introduced self and role at [facility]. Pt is alert and orientated x3. Pt states that he plans on returning home at discharge. Pt states he has crutches and walker at home but is requesting wheelchair. Pt also states he has to make an appointment at [facility] with Dr. Snow and asked about hospital van transportation. FÁTIMA informed pt that this worker will provide pt with hospital van number and then pt can call to arrange transportation. Pt states understanding. SW asked pt about HHC. Pt denied HHC. Pt states he lives with his son and his brother and sister in law live less than a mile away from him. SW provided pt with list of DME companies. Pt states his preference is [facility]. FÁTIMA provided pt with Hospital Van transportation number. FÁTIMA updated RN MYRNA Oquendo on pt's request for wheelchair. Plan: Home with family support. Pt denied HHC Rosa Isela Ji [employer]NER, [employer]DICTION PROFESSIONAL
[2019-09-09] MEDS: oxyCODONE 5 MG Tablet 10 MG PO ×2 (17:44→22:07)
[2019-09-09 19:20] VITALS: BP 150/85; PULSE 90; RESP 16; TEMP 37; O2SAT 96
[2019-09-09 21:18] VITALS: BP 154/81; PULSE 81; RESP 16; TEMP 37.1; O2SAT 95
[2019-09-10] MEDS: DiphenhydrAMINE 25 MG Capsule PO (00:44)
[2019-09-10 02:51] VITALS: BP 162/86; PULSE 77; RESP 18; TEMP 36.6; O2SAT 98
[2019-09-10] MEDS: oxyCODONE 5 MG Tablet 10 MG PO ×3 (02:54→13:24)
[2019-09-10] MEDS: Heparin Injection (Vial) 5,000 UNIT/ML VIAL 5000 UNIT SC ×2 (05:35→13:21)
--- NOTE | 2019-09-10 07:24 | DCINST_ITS ---
- Discharge Diagnoses Current Active Problems: Current Active and Chronic Problems Hypertension (Chronic) GERD (gastroesophageal reflux disease) (Chronic) Anxiety (Chronic) Depression (Chronic) Leg fracture, right (Acute) Declining functional status (Acute) MICHAEL (obstructive sleep apnea) (Chronic) BPH (benign prostatic hyperplasia) (Chronic) You will use the following diet at home:: Regular Your food should be the consistency of: Regular Discharge Activity: Return to Normal Activity Allergies/Adverse Reactions: Allergies No Known Allergies Allergy (Verified 09/06/19 12:57) Medications to take at Discharge Aspirin [Aspirin, Baby] 81 mg PO DAILY@0800 11/07/13 Fenofibrate,Micronized [Lofibra] 134 mg PO DAILY 11/07/13 Hydroxychloroquine [Plaquenil] 200 mg PO BIDCM 11/07/13 Sertraline HCl [Zoloft] 200 mg PO DAILY 11/07/13 Tramadol HCl [Tramadol HCl ER] 200 mg PO DAILY 11/07/13 Propranolol HCl [Inderal (Beta Edilma)] 20 mg PO DAILY 09/27/15 Tamsulosin HCl [Flomax] 0.4 mg PO DAILY 09/27/15 Oxycodone HCl/Acetaminophen [Percocet 5-325] 1 tab PO Q6H PRN PRN 5 Days #20 tab 09/06/19 Multivitamins,Therapeutic [Multivitamin] 1 tab PO DAILY 09/07/19 Ramipril 5 mg PO DAILY 09/07/19 Primary Care Physician: Isiah Bowman, GÓMEZ-C [Primary Care Provider] - Test Results: Test results from this visit will be discussed in further detail at your follow- up appointment, if applicable. Please Follow Up With: Pritesh Wahl DPM When: on 09/12/2019 Proposed Discharge Date: 09/10/19
[2019-09-10 08:36] VITALS: BP 156/90; PULSE 73; RESP 18; TEMP 36.8; O2SAT 96
--- NOTE | 2019-09-10 08:39 | DS.PCM_ITS ---
Discharge Date and Diagnosis - Problem List Patient Problems: Active and Suspected Problems Leg fracture, right (Acute) Declining functional status (Acute) Date of Admission: 09/07/19 Date of Discharge: 09/10/19 - Primary Discharge Diagnosis Active and Suspected Problems Leg fracture, right (Acute) Declining functional status (Acute) - Secondary Discharge Diagnosis Chronic Problems Hypertension (Chronic) GERD (gastroesophageal reflux disease) (Chronic) Anxiety (Chronic) Depression (Chronic) MICHAEL (obstructive sleep apnea) (Chronic) BPH (benign prostatic hyperplasia) (Chronic) Hospital Course and Treatment Summary of Care Provided: Patient is a 64-year-old gentleman who sustained a fall on 09/06/2019 with subsequent fracture involving the right mid fibula as well as a right posterior malleolus. He underwent reduction and splinting and discharged home presented back to the emergency department with intractable pain. 1. Acute mechanical fall ~ with subsequent right mid fibula, right posterior malleolar fracture patient currently being managed with immobilization pain control with consultation placed to orthopedic surgery. Determine management deferred. Was seen in consultation by the orthopedic service. Plan is for patient to continue with conservative management for now. Patient has an appointment with Dr. Pritesh TeranPBrenden on 09/12/2019. 2. Rheumatoid arthritis ~ Symptoms controlled on Plaquenil did continue 3. Morbid obesity with BMI of 45.1 ~ Weight loss and lifestyle medication advised 4. Obstructive sleep apnea ~ Patient is on CPAP at nights 5. BPH ~ Patient is on Flomax and Proscar did continue 6. Depression with anxiety ~ patient is on both Zoloft as well as doxepin did continue 7. Dyslipidemia ~Patient is on fenofibrate did continue 8. DVT prophylaxis ~ patient is on SC heparin Patient Problems: Active and Suspected Problems Leg fracture, right (Acute) Declining functional status (Acute) Objective: GENERAL: cooperative HEENT: Atraumatic; EYES; Anicteric, Normal Conjunctiva NECK; supple, normal thyroid, RESPIRATORY: Diminished to auscultation CARDIOVASCULAR: Regular S1 S2, GI: soft, normoactive bowel sounds, MUSCULOSKELETAL: Right ankle foot immobilized NEURO: Awake; no lateralizing signs. SKIN: No Rash PSYCH; Flat affect - Physical Exam Vitals/I&O's: Vital Signs Temp Pulse Resp BP Pulse Ox 98 F 77 18 162/86 H 98 09/10/19 02:51 09/10/19 02:51 09/10/19 02:51 09/10/19 02:51 09/10/19 02:51 Oxygen Flow Rate (L/min) 2 Oxygen Delivery Method Nasal Cannula Weight: 313.6 kg Body Mass Index (BMI) 42.7 Intake and Output for Last 24 Hours 09/08/19 09/09/19 09/10/19 23:59 23:59 23:59 Intake Total 1140 / 1140 1000 / 1000 Output Total 950 / 950 1200 / 1200 Balance 190 / 190 -200 / -200 Current Medications Acetaminophen (Tylenol) 650 mg PO Q6H PRN PRN PRN Reason: Pain Score 1-3/Temp > 100.7 F Last Admin: 09/08/19 23:33 Dose: 650 mg Documented by: Al Hydroxide/Mg Hydroxide (Mylanta Ii) 30 ml PO Q6H PRN PRN PRN Reason: Gastric Burning Albuterol/Ipratropium (Duoneb) 3 ml INHALATION Q4HWA.RT PRN PRN Reason: SOB &/OR WHEEZING Last Admin: 09/08/19 02:55 Dose: 3 ml Documented by: Diphenhydramine HCl (Benadryl) 25 mg PO TID PRN PRN PRN Reason: PRURITIS Last Admin: 09/10/19 00:44 Dose: 25 mg Documented by: Heparin Sodium (Porcine) (Heparin Na) 5,000 unit SC Q8 [facility] Last Admin: 09/10/19 05:35 Dose: 5,000 unit Documented by: Sodium Chloride () 250 mls @ 15 mls/hr IV .[id number] PRN PRN Reason: Saline Flush Morphine Sulfate () 4 mg IV Q2H PRN PRN PRN Reason: Pain Score 6-10/10 Last Admin: 09/09/19 13:08 Dose: 4 mg Documented by: Nutritional Formula (Lactose Free) (Ensure Enlive) 120 ml PO 4X/DAY [facility] Last Admin: 09/10/19 08:29 Dose: 120 ml Documented by: Ondansetron HCl (Zofran) 4 mg IV Q8H PRN PRN PRN Reason: NAUSEA/VOMITING Oxycodone HCl (Oxyir) 10 mg PO Q4H PRN PRN PRN Reason: Pain Score 4-10/10 Last Admin: 09/10/19 08:29 Dose: 10 mg Documented by: Senna/Docusate Sodium (Senokot-S, Flora-Colace) 2 tablet PO BID JUNI Last Admin: 09/10/19 08:30 Dose: Not Given Documented by: Sodium Chloride () 10 - 40 ml IV UD PRN PRN Reason: SALINE FLUSH Last Admin: 09/09/19 13:08 Dose: 10 ml Documented by: Discharge Diet: No Restrictions Discharge Activity: Return to Normal Activity Home Medications: Medications to take at Discharge Aspirin [Aspirin, Baby] 81 mg PO DAILY@0800 11/07/13 Fenofibrate,Micronized [Lofibra] 134 mg PO DAILY 11/07/13 Hydroxychloroquine [Plaquenil] 200 mg PO BIDCM 11/07/13 Sertraline HCl [Zoloft] 200 mg PO DAILY 11/07/13 Tramadol HCl [Tramadol HCl ER] 200 mg PO DAILY 11/07/13 Propranolol HCl [Inderal (Beta Edilma)] 20 mg PO DAILY 09/27/15 Tamsulosin HCl [Flomax] 0.4 mg PO DAILY 09/27/15 Oxycodone HCl/Acetaminophen [Percocet 5-325] 1 tab PO Q6H PRN PRN 5 Days #20 tab 09/06/19 Multivitamins,Therapeutic [Multivitamin] 1 tab PO DAILY 09/07/19 Ramipril 5 mg PO DAILY 09/07/19 Primary Care Physician: Isiah Bowman NP-C [Primary Care Provider] - Please Follow Up With: Pritesh Wahl DPM When: on 09/12/2019 Disposition: Home Minutes spent on discharge:: 35 Patient Condition:: Stable Medical Necessity - Tobacco Use Smoking Status: Never smoker Tobacco Use: Non-smoker Meaningful Use Info Meaningful Use Diagnoses (Choose all that apply): None applicable Code Visit Inpatient E&M: 50359 Disch Hosp
[2019-09-10 08:40] VITALS: PULSE 76
--- NOTE | 2019-09-10 09:30 | CASEMGMT ---
Addendum entered by Rosa Isela Ji 09/10/19 13:55: SW spoke with PT/OT who recommend pt go to TCU at discharge. SW spoke with Gretchen in TCU who states she is able to accept pt today. SW updated Gretchen that pt's weight is not accurate and per RN pt only weighs around 314 pounds not 691 pounds. SW in to speak with pt. Pt agreeable to TCU. SW updated pt that he is able to discharge to TCU today. Physician and RN updated. Plan: TCU today Original Note: Social Work Note SW placed a call to referral line for TCU to determine if they would be able to accept pt today if pt is not able to return home. SW waiting for call back. Plan. Home vs TCU Rosa Isela Ji TOUCHER UP, CONCRETE CURER
--- NOTE | 2019-09-10 13:43 | PN.ORTHO_ITS ---
Patient Problems: Active and Suspected Problems Leg fracture, right (Acute) Declining functional status (Acute) Subjective: Patient seen at bedside resting comfortably. Patient admits to improved pain of his right ankle and leg. Patient denies acute overnight events. Patient denies fever, chills, nausea, vomiting, shortness of breath, chest pain. Objective: Examination focused on the right lower extremity: Dressing to right ankle and leg clean, dry, intact. Neurovascular status is deemed intact the digits of the right foot with capillary fill time less than 3 seconds. Patient able to move digits up and down freely without pain. - Physical Exam Vitals/I&O's: Vital Signs Temp Pulse Resp BP Pulse Ox 98.2 F 76 18 156/90 H 96 09/10/19 08:36 09/10/19 08:40 09/10/19 08:36 09/10/19 08:36 09/10/19 08:36 Oxygen Flow Rate (L/min) 2 Oxygen Delivery Method Room Air Weight: 313.6 kg Body Mass Index (BMI) 42.7 Intake and Output for Last 24 Hours 09/08/19 09/09/19 09/10/19 23:59 23:59 23:59 Intake Total 1140 / 1140 1000 / 1000 600 / 600 Output Total 950 / 950 1200 / 1200 600 / 600 Balance 190 / 190 -200 / -200 0 / 0 General: Alert, Oriented x3, Cooperative, No apparent distress Current Medications Acetaminophen (Tylenol) 650 mg PO Q6H PRN PRN PRN Reason: Pain Score 1-3/Temp > 100.7 F Last Admin: 09/08/19 23:33 Dose: 650 mg Documented by: Al Hydroxide/Mg Hydroxide (Mylanta Ii) 30 ml PO Q6H PRN PRN PRN Reason: Gastric Burning Albuterol/Ipratropium (Duoneb) 3 ml INHALATION Q4HWA.RT PRN PRN Reason: SOB &/OR WHEEZING Last Admin: 09/08/19 02:55 Dose: 3 ml Documented by: Diphenhydramine HCl (Benadryl) 25 mg PO TID PRN PRN PRN Reason: PRURITIS Last Admin: 09/10/19 00:44 Dose: 25 mg Documented by: Heparin Sodium (Porcine) (Heparin Na) 5,000 unit SC Q8 [facility] Last Admin: 09/10/19 13:21 Dose: 5,000 unit Documented by: Sodium Chloride () 250 mls @ 15 mls/hr IV .[id number] PRN PRN Reason: Saline Flush Morphine Sulfate () 4 mg IV Q2H PRN PRN PRN Reason: Pain Score 6-10/10 Last Admin: 09/09/19 13:08 Dose: 4 mg Documented by: Nutritional Formula (Lactose Free) (Ensure Enlive) 120 ml PO 4X/DAY JUNI Last Admin: 09/10/19 13:21 Dose: 120 ml Documented by: Ondansetron HCl (Zofran) 4 mg IV Q8H PRN PRN PRN Reason: NAUSEA/VOMITING Oxycodone HCl (Oxyir) 10 mg PO Q4H PRN PRN PRN Reason: Pain Score 4-10/10 Last Admin: 09/10/19 13:24 Dose: 10 mg Documented by: Senna/Docusate Sodium (Senokot-S, Flora-Colace) 2 tablet PO BID JUNI Last Admin: 09/10/19 08:30 Dose: Not Given Documented by: Sodium Chloride () 10 - 40 ml IV UD PRN PRN Reason: SALINE FLUSH Last Admin: 09/09/19 13:08 Dose: 10 ml Documented by: Medical Necessity - Tobacco Use Smoking Status: Never smoker Tobacco Use: Non-smoker Assessment/Plan All Active Problems Leg fracture, right (Acute) Declining functional status (Acute) Patient chart reviewed and patient evaluated. At this time we will keep the splint and dressing clean, dry, intact to the right leg. Patient to remain nonweightbearing to the right foot with assistive devices. Discussed with patient that he will need surgical intervention, but would like the edema to be under control before surgical intervention. Patient displayed verbal understanding. Would like the patient to follow-up in my office as an outpatient either on September 12 or September 14 for outpatient operative planning. Please have patient follow-up in the [place] office at [facility] [place]. Patient displayed verbal understanding to all written and oral instructions at this time. Patient is agreeable to the current treatment plan at this time. All of his questions were answered to his satisfaction and all of his concerns were addressed. Patient is encouraged to reach out with any further questions, concerns. I appreciate the consultation of this patient and allowing me to take part in the care of your patient. At this time I will have the patient follow-up with me as an outpatient for further definitive treatment. No plans for surgical intervention while patient is in-house. Please contact me with any further questions, concerns or inquiries.
[2019-09-10 14:15] VITALS: BP 143/81; PULSE 79; RESP 18; TEMP 36.7; O2SAT 98
--- NOTE | 2019-09-10 14:35 | TREXTCAR_ITS ---
- Diet 09/07/19 13:16 Diet: Regular Diet Food consistency:: Regular Liquid Consistency:: Regular/Thin - Routine Orders/Code Status Code Status: Full Code - Therapies Physical Therapy: Eval and Treat Occupational Therapy: Eval and Treat - Allergies/Procedures Done in Hospital Allergies/Adverse Reactions: Allergies No Known Allergies Allergy (Verified 09/06/19 12:57) - Type of Care/Length of Stay Estimated LOS: Convalescent Care Less Than 30 days Type of Care Needed: Skilled Rehab Potential: Good Prognosis: Good - Additional Orders/Day of Discharge Day of Discharge: 09/10/19 - Dietary and Speech Recommendations Dietitian Recommendations/Changes: Rec diet change to Cardiac d/t pmhx and BMI - Follow Up Care Primary Care Physician: Isiah Bowman, SHEET METAL WELDER-C [Primary Care Provider] - Please Follow Up With: Pritseh Wahl DPM When: sunday
== END 2019-09-10 15:20 | disposition skilled nursing facility (03) | DRG 563 ==
LOC: ED 11:30 → MS3 14:56
PROVIDERS: Admitting Provider Internal Medicine; Emergency Provider Emergency Medicine; Family Provider Nurse Practitioner Family; PCP Nurse Practitioner Family; Referring Provider Internal Medicine; Visit Provider Internal Medicine
DX: S82.401A Unspecified fracture of shaft of right fibula, initial encounter for closed fracture (principal); Z68.42 Body mass index [BMI] 45.0-49.9, adult; S82.891A Other fracture of right lower leg, initial encounter for closed fracture; W17.89XA Other fall from one level to another, initial encounter; Y92.018 Other place in single-family (private) house as the place of occurrence of the external cause; E66.01 Morbid (severe) obesity due to excess calories; M06.9 Rheumatoid arthritis, unspecified; G47.33 Obstructive sleep apnea (adult) (pediatric); N40.0 Benign prostatic hyperplasia without lower urinary tract symptoms; E78.5 Hyperlipidemia, unspecified; I10 Essential (primary) hypertension; K21.9 Gastro-esophageal reflux disease without esophagitis; F41.8 Other specified anxiety disorders; Z79.01 Long term (current) use of anticoagulants; Z79.82 Long term (current) use of aspirin; Z79.899 Other long term (current) drug therapy
CPT/HCPCS: 36415; 73590; 73610; 73700; 80048; 80053; 85025; 93005; 93306; 94640; 96374; 96375; 97116; 97162; 97166; 97802; 99251; 99285; J7030; Q9957; A4216; C8929; G0463; J2405

== ENCOUNTER 2019-09-10 15:30 | Inpatient (IN) | payer MEDICARE, OTHER, SELFPAY ==
[2019-09-07 13:19] VITALS: BMI 42.7
[2019-09-10 15:39] VITALS: BP 159/92; PULSE 78; RESP 18; TEMP 36.9; O2SAT 94; BMI 43.0
[2019-09-10 15:46] VITALS: BMI 44.4
[2019-09-10 15:47] VITALS: BMI 44.5
[2019-09-10] MEDS: Senna/Docusate Sodium 1 Tablet 2 TABLET PO (17:19)
[2019-09-10] MEDS: Hydroxychloroquine 200 MG Tablet PO (17:19)
[2019-09-10] MEDS: Acetaminophen 325 MG Tablet 650 MG PO (17:25)
[2019-09-10] MEDS: traMADol 50 MG Tablet PO (17:25)
--- NOTE | 2019-09-10 21:17 | HP.PCM_ITS ---
Problem List (1) Debility Status: Acute (2) Right fibular fracture Status: Acute (3) Dislocation of right ankle joint Status: Acute (4) Fracture of posterior malleolus of right tibia Status: Acute (5) Hyperlipidemia Status: Chronic (6) Overactive bladder Status: Chronic (7) ADHD Status: Chronic (8) Rheumatoid arthritis Status: Chronic (9) Body mass index (BMI) 40.0-44.9, adult Status: Chronic (10) Hypertension Status: Chronic Qualifiers: (11) GERD (gastroesophageal reflux disease) Status: Chronic Qualifiers: (12) Anxiety Status: Chronic (13) Depression Status: Chronic Qualifiers: (14) MICHAEL (obstructive sleep apnea) Status: Chronic (15) BPH (benign prostatic hyperplasia) Status: Chronic Qualifiers: History of Present Illness Date of Admission: 09/10/19 Chief Complaint: Here for rehabilitation, strengthening, prior to discharge home alone. The patient is a 64 year old Male with below past medical history presented to [facility] Emergency Department 09/07/2019 with fall, right lower extremity injury. 09/06/2019 X-ray right tibia/fibula showed fibula fracture with ankle dislocation. 09/06/2019 X-ray right ankle persistent fibular fracture, fracture posterior malleolus. 09/06/2019 CT right lower extremity showed improved alignment, posterior malleolus fracture, fracture mid fibula, medial talus osteonecrosis lesion. Reduced, splinted, discharged home. Unable to get up at home from recliner. Urinated on himself x 2. Percocet every 2 hours not controlling pain. Dilaudid, Zofran given. Unable to care for self. 09/07/2019 Admit to Hospital. Consult orthopedics for right ankle fracture. PT/OT for debility. 09/07/2019 EKG showed normal sinus rhythm, normal EKG. 09/08/2019 Echo Normal LV size. EF 55% Pulmonary artery systolic pressure 33mm HG. Right lower extremity immobilized. Follow up with Dr. Natanael Wahl. 09/10/2019 Admit to TCU with debility, here for rehabilitation, strengthening, prior to discharge home alone. Past Medical History Past Medical History (Chronic Problems): Chronic Problems Hypertension (Chronic) GERD (gastroesophageal reflux disease) (Chronic) Anxiety (Chronic) Depression (Chronic) MICHAEL (obstructive sleep apnea) (Chronic) BPH (benign prostatic hyperplasia) (Chronic) Hyperlipidemia (Chronic) Overactive bladder (Chronic) ADHD (Chronic) Rheumatoid arthritis (Chronic) Body mass index (BMI) 40.0-44.9, adult (Chronic) Allergies No Known Allergies Allergy (Verified 09/06/19 12:57) Home Medications: Ambulatory Orders Medication Instructions Recorded Aspirin [Aspirin, Baby] 81 mg PO DAILY@0800 11/07/13 Fenofibrate,Micronized [Lofibra] 134 mg PO DAILY 11/07/13 Hydroxychloroquine [Plaquenil] 200 mg PO BIDCM 11/07/13 Sertraline HCl [Zoloft] 200 mg PO DAILY 11/07/13 Propranolol HCl [Inderal (Beta 20 mg PO DAILY 09/27/15 Edilma)] Tamsulosin HCl [Flomax] 0.4 mg PO DAILY 09/27/15 Multivitamins,Therapeutic 1 tab PO DAILY 09/07/19 [Multivitamin] Ramipril 5 mg PO DAILY 09/07/19 Acetaminophen [Tylenol Tablet] 650 mg PO Q6H PRN PRN tab 09/10/19 Ensure Enlive 120 ml PO 4X/DAY liquid 09/10/19 Heparin Injection (Vial) [Heparin 5,000 unit SUBCUT Q8 #0 vial 09/10/19 Na] Ipratropium/Albuterol Sulfate 3 ml INHALATION Q4HWA.RT PRN 09/10/19 [Duoneb] ampul.neb Oxycodone HCl/Acetaminophen 1 tab PO Q6H PRN PRN 2 Days #8 tab 09/10/19 [Percocet 5-325] Senna/Docusate Sodium [Senokot-S] 2 tab PO BID tab 09/10/19 Surgical History: - - Lateral carpal tunnel release, bilateral Achilles surgeries, right knee surgery Psychiatric History: Anxiety, Depression Lives: Alone Smoking Status: Never smoker Tobacco Use: Non-smoker Alcohol: Occasional Drugs: None - *Family History Maternal History Items: Cancer - colon Paternal History Items: Cancer - lung Review of Systems Constitutional: Denies: Chills, Fever, Weight Change HEENT: Denies: Head Aches, Sinus Congestion, Sinus Drainage Cardiovascular: Denies: Chest Pain, Palpitations Respiratory: Denies: Cough, Shortness of breath at rest, Sputum production Gastrointestinal: Denies: Abdominal Pain, Nausea, Vomiting Genitourinary: Denies: Dysuria Musculoskeletal: Reports: Joint Pain - Left shoulder.. Denies: Joint Tenderness Skin: Reports: Rash. Denies: Wounds Neurological: Denies: Numbness, Tingling, Focal weakness Psychiatric: Denies: Anxiety, Depression, Homicidal Ideations, Suicidal Ideat ions Hematologic/ Lymphatic: Denies: Easy Bruising, Easy Bleeding VTE Information - Inpt Only VTE Present on Admission: No VTE Mechan Device Prophylaxis: Knee High LEONORA Hose VTE Pharm Prophylaxis ordered?: Yes Patient Problems: Active and Suspected Problems Debility (Acute) Right fibular fracture (Acute) Dislocation of right ankle joint (Acute) Fracture of posterior malleolus of right tibia (Acute) - Physical Exam Vitals/I&O's: Vital Signs Temp Pulse Resp BP Pulse Ox 98.4 F 78 18 159/92 H 94 09/10/19 15:39 09/10/19 15:39 09/10/19 15:39 09/10/19 15:39 09/10/19 15:39 Oxygen Delivery Method Room Air Weight: 140.614 kg Body Mass Index (BMI) 44.4 Intake and Output for Last 24 Hours 09/08/19 09/09/19 09/10/19 23:59 23:59 23:59 Intake Total 120 / 120 Balance 120 / 120 General: Alert, Oriented x3, Cooperative HEENT: Atraumatic, PERRLA, EOMI, Normocephalic Neck: Supple, No JVD, Negative Carotid Bruits Lungs: Clear to auscultation, Normal air movement Cardiovascular: Regular rate, No murmurs Abdomen: Bowel Sounds Present, Soft, Non Tender Extremities: No edema, Capillary Refill Less than 3 Seconds, - - Right lower extremity splint. Skin: No breakdown, Rash Present - diffuse papular rash upper back. Musculoskeletal: No Tenderness to Palpation of Joints or Extremities Neurological: Cranial nerves II-XII grossly intact Psych/Mental Status: Normal Affect, Appropriate Current Medications Acetaminophen (Tylenol) 650 mg PO Q6H PRN PRN PRN Reason: Pain Score 1-3/Temp > 100.7 F Last Admin: 09/10/19 17:25 Dose: 650 mg Documented by: Albuterol/Ipratropium (Duoneb) 3 ml INHALATION Q4HWA.RT PRN PRN Reason: SOB &/OR WHEEZING Aspirin (Aspirin, Baby) 81 mg PO DAILY@0800 [facility] Fenofibrate (Tricor) 145 mg PO DAILY [facility] Finasteride (Proscar) 5 mg PO DAILY [facility] Heparin Sodium (Porcine) (Heparin Na) 5,000 unit SC Q8 [facility] Hydroxychloroquine Sulfate (Plaquenil) 200 mg PO BIDCM [facility] Last Admin: 09/10/19 17:19 Dose: 200 mg Documented by: Mirabegron (Myrbetriq) 50 mg PO DAILY [facility]it[facility]) [facility] Nutritional Formula (Lactose Free) (Ensure Enlive) 120 ml PO 4X/DAY [facility] Last Admin: 09/10/19 17:19 Dose: 120 ml Documented by: Nystatin (Mycostatin Powder) 1 applic TOPICAL BID@0600,2200 [facility]; Protocol Oxycodone HCl (Oxyir) 5 mg PO Q6H PRN PRN PRN Reason: Pain Score 6-10/10 Propranolol HCl (Inderal) 20 mg PO DAILY [facility] Ramipril (Altace) 5 mg PO DAILY [facility] Senna/Docusate Sodium (Senokot-S, Flora-Colace) 2 tablet PO BID [facility] Last Admin: 09/10/19 17:19 Dose: 2 tablet Documented by: Sertraline HCl (Zoloft) 200 mg PO DAILY [facility] Tamsulosin HCl (Flomax) 0.4 mg PO DAILY [facility] Tramadol HCl (Ultram) 50 mg PO Q6H PRN PRN PRN Reason: Pain Score 4-5/10 Last Admin: 09/10/19 17:25 Dose: 50 mg Documented by: Tuberculin PPD (Tubersol, Aplisol, Ppd) 5 tu ID [id number] ONE Stop: 09/11/19 10:01 Tuberculin PPD (Tubersol, Aplisol, Ppd) 5 tu ID [id number] ONE Stop: 09/18/19 10:01 Assessment/Plan All Active Problems Leg fracture, right (Acute) Declining functional status (Acute) Debility (Acute) Right fibular fracture (Acute) Dislocation of right ankle joint (Acute) Fracture of posterior malleolus of right tibia (Acute) 64 year old male with below past medical history hospitalized for right ankle fracture, treated by Dr. Pritesh Wahl, admitted to TCU with debility, here for rehabilitation, strengthening, prior to discharge home alone. * Debility - PT/OT. * Pain - Tylenol 1000MG Q6H PRN pain (1-3), Tramadol 50MG Q6H PRN pain (4-5), Oxycodone 5MG Q4H PRN pain (6-10). * Bowel - Miralax 17GM daily, Senna/colace 2 tablets BID, Dulcolax 10MG daily PRN. * Adult immunization - Administer Prevnar 13, Pneumovax 23, Fluzone as necessary. * DVT prophylaxis - Lovenox 40MG SC daily. * CV prophylaxis - Aspirin 81MG daily. * Nutrition - MVI daily, Ensure Enlive 120ML 4x/day. * Hyperlipidemia - Tricor 145MG daily. * BPH - Finasteride 5MG daily, Tamsulosin 0.4MG daily. * Rheumatoid Arthritis - Plaquenil 200MG BID. * Shortness of breath - Duoneb 3ML nebulized Q4H PRN. * Overactive Bladder - Myrbetriq 50MG daily. * Tinea Corporis - Nystatin powder BID. * Hypertension - Propranolol 20MG daily, Ramipril 5MG daily. * Depression - Sertraline 200MG daily. * Obstructive sleep apnea - CPAP at night. * BMI 44.5 - Diet, exercise for weight loss. * Rash - Medrol Dose pack, HC 2.5% cream BID. * Left shoulder pain - X-ray left shoulder.
[2019-09-10] MEDS: Nystatin Powder 15gm Bottle 1 APPLIC TOPICAL (22:31)
[2019-09-11] MEDS: oxyCODONE 5 MG Tablet PO ×3 (02:25→20:50)
[2019-09-11 06:01] LABS: Absolute Neutrophil Count 4.5 X10^3/uL (2.0-7.7); Basophil# 0.04 X10^3/uL; Basophil% 0.5 % (0-1); Eosinophil# 0.39 X10^3/uL; Eosinophils% 5.1 % (0-5); Hemoglobin 12.8 g/dL (13.0-16.5); Lymphocyte % 23.4 % (19-41); Mean Corp Hgb Conc 32.8 g/dL (32-36); Mean Corpuscular Hgb 31.6 pg (27.0-32.0); Mean Corpuscular Volume 96.3 fL (80-94); Mean Platelet Vol. 9.7 fl (6.2-12.0); Monocyte# 0.93 X10^3/uL; Monocyte% 12.1 % (0-10); NRBC Flagged by Analyzer 0 % (0-5); Neutrophil # 4.48 X10^3/uL (2.7-7.7); Neutrophil % 58.1 % (47-70); Platelet Count 195 K/mm3 (150-450); RBC Distribution Width CV 12.6 % (11.6-14.6); RBC Distribution Width SD 44.7 fl (35.1-43.9); Red Blood Count 4.05 M/mm3 (4.6-6.2); White Blood Count 7.7 K/mm3 (4.4-11.0)
[2019-09-11 06:21] LABS: Anion Gap 7 (5-15); BUN 21 mg/dL (7-18); BUN/Creat Ratio 21.4 RATIO (10-20); Calcium,Total 8.9 mg/dL (8.5-10.1); Chloride 109 mmol/L (98-107); Creatinine, Serum 0.98 mg/dL (0.70-1.30); EST Glomerular Filtration Rate 81 mL/min (>60); Est Glom Filt Rate - Afr Amer 98 mL/min (>60); Estimated Creatinine Clearance 76.56 ml/min; Glucose 110 mg/dL (74-106); Sodium Level 146 mmol/L (136-145)
--- NOTE | 2019-09-11 06:30 | NURSING ---
Patient noted to have a rash on his back. Patient also c/o increased pain to his left shoulder since he fell. States that it has hurt before he fell but has hurt worse since he has fallen. Will update Dr. Chi and argenis on this.
[2019-09-11] MEDS: Nystatin Powder 15gm Bottle 1 APPLIC TOPICAL ×2 (06:32→20:52)
[2019-09-11] MEDS: Mirabegron 50 MG TAB.ER.24H PO (06:32)
[2019-09-11] MEDS: Propranolol 10 MG Tablet 20 MG PO (06:33)
[2019-09-11] MEDS: Senna/Docusate Sodium 1 Tablet 2 TABLET PO ×2 (06:34→17:53)
[2019-09-11] MEDS: Finasteride 5 MG Tablet PO (06:34)
[2019-09-11] MEDS: Tamsulosin HCl 0.4 MG Capsule PO (06:34)
[2019-09-11] MEDS: Ramipril 5 MG Capsule PO (06:34)
[2019-09-11] MEDS: Fenofibrate 145 MG Tablet PO (06:35)
[2019-09-11] MEDS: Sertraline 100 MG Tablet 200 MG PO (06:38)
[2019-09-11] MEDS: Enoxaparin 40 MG/0.4 ML Syringe SC (06:40)
[2019-09-11 06:50] VITALS: BP 176/98; PULSE 64
[2019-09-11] MEDS: Hydroxychloroquine 200 MG Tablet PO ×2 (08:18→17:53)
[2019-09-11] MEDS: Aspirin 81 MG TAB.CHEW PO (08:18)
[2019-09-11] MEDS: Multivitamins,Therapeutic Tablet 1 TABLET PO (08:18)
--- NOTE | 2019-09-11 08:30 | RAD_ITS ---
STUDY: X-RAY - LEFT SHOULDER REASON FOR EXAM: Male, 64 years old. Left shoulder pain following a fall. TECHNIQUE: 4 view(s) of the shoulder. COMPARISON: None. FINDINGS: There is moderate degenerative arthrosis of the glenohumeral articulation. There is degenerative arthrosis of the acromioclavicular joint without inferior osseous spur formation. Normal acromion. Degenerative spur is seen along the inferior aspect of the humeral head. The soft tissue structures are unremarkable. Normal visualized pulmonary apex. RAD/Shoulder min 2 Views IMPRESSION: Degenerative changes of the glenohumeral joint with a spur in the inferior medial aspect of the humeral head. Electronically Signed: Mansoor France, at 14:57 EST , Service support ,
[2019-09-11] MEDS: Tuberculin,Purif.prot.deriv. 50 TU/ML Vial 5 ML ID (11:54)
[2019-09-11] MEDS: MethylPREDNISolone DosePak 4 MG BOX PO ×3 (11:57→20:51)
[2019-09-11] MEDS: traMADol 50 MG Tablet PO (14:08)
[2019-09-11 15:05] VITALS: BP 149/86; PULSE 84; RESP 18; TEMP 35.9; O2SAT 96
--- NOTE | 2019-09-11 16:40 | CHAPLAIN ---
Type of Pastoral Visit _x__ Initial Visit ___ Follow-up Visit ___ On-call Visit ___ General Patient Visit ___ Spiritual Assessment ___ Family Conference ___ Bereavement ___ Rapid Response ___ Code Blue ___ Other (describe below) Pastoral Care Referral From _x__ Patient ___ Family ___ Nurse ___ Physician ___ Conveyor Feeder ___ Cap Parts Cutter ___ Other (describe below) Sacrament/Intervention _x__ Active listening ___ Anointing ___ Faith ___ Bereavement ___ Communion _x__ Ginger exploration ___ _x__ Life review _x__ Prayer ___ Reconciliation ___ Sacrament of Sick _x__ Supportive presence ___ Wedding ___ Other (describe below) Pastoral Comments
[2019-09-11] MEDS: Acetaminophen 500 MG Tablet 1000 MG PO (20:51)
[2019-09-12] MEDS: oxyCODONE 5 MG Tablet PO ×4 (03:18→20:14)
[2019-09-12] MEDS: Propranolol 10 MG Tablet 20 MG PO (05:29)
[2019-09-12] MEDS: Enoxaparin 40 MG/0.4 ML Syringe SC (05:29)
[2019-09-12] MEDS: Nystatin Powder 15gm Bottle 1 APPLIC TOPICAL ×2 (05:30→20:14)
[2019-09-12] MEDS: Sertraline 100 MG Tablet 200 MG PO (05:30)
[2019-09-12] MEDS: Fenofibrate 145 MG Tablet PO (05:30)
[2019-09-12] MEDS: Tamsulosin HCl 0.4 MG Capsule PO (05:30)
[2019-09-12] MEDS: Mirabegron 50 MG TAB.ER.24H PO (05:30)
[2019-09-12] MEDS: Finasteride 5 MG Tablet PO (05:30)
[2019-09-12] MEDS: Ramipril 5 MG Capsule PO (05:30)
[2019-09-12] MEDS: traMADol 50 MG Tablet PO ×2 (05:35→13:07)
[2019-09-12] MEDS: MethylPREDNISolone DosePak 4 MG BOX PO ×4 (08:43→20:14)
[2019-09-12] MEDS: Multivitamins,Therapeutic Tablet 1 TABLET PO (08:43)
[2019-09-12] MEDS: Aspirin 81 MG TAB.CHEW PO (08:43)
[2019-09-12] MEDS: Hydroxychloroquine 200 MG Tablet PO ×2 (08:43→17:05)
[2019-09-12] MEDS: Acetaminophen 500 MG Tablet 1000 MG PO ×2 (08:50→15:34)
--- NOTE | 2019-09-12 11:35 | PHA.CONS_ITS ---
<Betsy Figueredo - Last Filed: 09/12/19 11:35> Progress Note - Pharmacy Subjective: TCU Admission Objective: Allergies No Known Allergies Allergy (Verified 09/06/19 12:57) Current Medications Generic Name Dose Route Start Last Admin Trade Name Freq PRN Reason Stop Dose Admin Acetaminophen 1,000 mg 09/10/19 21:39 09/12/19 08:50 Tylenol PO 1,000 mg Q6H PRN PRN Administration Pain Score 1-3/10 Albuterol/Ipratropium 3 ml 09/10/19 16:04 Duoneb INHALATION Q4HWA.RT PRN SOB &/OR WHEEZING Aspirin 81 mg 09/11/19 08:00 09/12/19 08:43 Aspirin, Baby PO 81 mg DAILY@0800 JUNI Administration Bisacodyl 10 mg 09/10/19 21:39 Dulcolax PO DAILY PRN Constipation Enoxaparin Sodium 40 mg 09/11/19 06:00 09/12/19 05:29 Lovenox SC 40 mg DAILY@0600 JUNI Administration Fenofibrate 145 mg 09/11/19 06:00 09/12/19 05:30 Tricor PO 145 mg DAILY JUNI Administration Finasteride 5 mg 09/11/19 06:00 09/12/19 05:30 Proscar PO 5 mg DAILY JUNI Administration Hydrocortisone 1 applic 09/11/19 08:30 Hytone TOPICAL TID PRN PRN RASH/TOPICAL IRRITATION Protocol Hydroxychloroquine Sulfate 200 mg 09/10/19 17:00 09/12/19 08:43 Plaquenil PO 200 mg BIDCM JUNI Administration Methylprednisolone 4 mg 09/11/19 12:00 09/12/19 08:43 Medrol Dosepak PO 09/16/19 04:59 4 mg 0800,1200,1700 JUNI Administration Taper Mirabegron 50 mg 09/11/19 06:00 09/12/19 05:30 Myrbetriq PO 50 mg DAILY JUNI Administration Multivitamins 1 tablet 09/11/19 08:00 09/12/19 08:43 Multivitamin PO 1 tablet DAILYCM JUNI Administration Nystatin 1 applic 09/10/19 22:00 09/12/19 05:30 Mycostatin Powder TOPICAL 1 applicatio BID@0600,2200 JUNI Administration Protocol Oxycodone HCl 5 mg 09/10/19 21:39 09/12/19 08:50 Oxyir PO 5 mg Q4H PRN PRN Administration Pain Score 6-10/10 Polyethylene Glycol 17 gm 09/11/19 06:00 09/12/19 05:29 Miralax PO Not Given DAILY [facility] Propranolol HCl 20 mg 09/11/19 06:00 09/12/19 05:29 Inderal PO 20 mg DAILY JUNI Administration Ramipril 5 mg 09/11/19 06:00 09/12/19 05:30 Altace PO 5 mg DAILY [facility] Administration Senna/Docusate Sodium 2 tablet 09/10/19 18:00 09/12/19 05:29 Senokot-S, Flora-Colace PO Not Given BID [facility] Sertraline HCl 200 mg 09/11/19 06:00 09/12/19 05:30 Zoloft PO 200 mg DAILY JUNI Administration Tamsulosin HCl 0.4 mg 09/11/19 06:00 09/12/19 05:30 Flomax PO 0.4 mg DAILY [facility] Administration Tramadol HCl 50 mg 09/10/19 15:58 09/12/19 05:35 Ultram PO 50 mg Q6H PRN PRN Administration Pain Score 4-5/10 Tuberculin PPD 5 tu 09/18/19 10:00 Tubersol, Aplisol, Ppd ID 09/18/19 10:01 X1 ONE Problem List Debility (Acute) Right fibular fracture (Acute) Dislocation of right ankle joint (Acute) Fracture of posterior malleolus of right tibia (Acute) Hyperlipidemia (Chronic) Overactive bladder (Chronic) ADHD (Chronic) Rheumatoid arthritis (Chronic) Body mass index (BMI) 40.0-44.9, adult (Chronic) Vital Signs Temp Pulse Resp BP Pulse Ox 96.6 F L 84 18 149/86 H 96 09/11/19 15:05 09/11/19 15:05 09/11/19 15:05 09/11/19 15:05 09/11/19 15:05 Oxygen Delivery Method Room Air Weight: 140.614 kg Body Mass Index (BMI) 44.4 Sodium 146 mmol/L (136-145) H 09/11/19 05:25 Potassium 4.0 mmol/L (3.5-5.1) 09/11/19 05:25 Chloride 109 mmol/L (98-107) H 09/11/19 05:25 Carbon Dioxide 30.0 mmol/L (21.0-32.0) 09/11/19 05:25 Anion Gap 7 (5-15) 09/11/19 05:25 BUN 21 mg/dL (7-18) H 09/11/19 05:25 Creatinine 0.98 mg/dL (0.70-1.30) 09/11/19 05:25 Est GFR (MDRD) Af Amer 98 mL/min (>60) 09/11/19 05:25 Est GFR (MDRD) Non-Af 81 mL/min (>60) 09/11/19 05:25 BUN/Creatinine Ratio 21.4 RATIO (10-20) H 09/11/19 05:25 Glucose 110 mg/dL (74-106) H 09/11/19 05:25 Assessment/Plan: *1. Pain: acetaminophen 1000mg Q6H PRN pain (1-3/10), tramadol 50mg PO Q6H PRN pain (4-5/10), and oxycodone 5mg PO Q4H PRN pain (6-10/10). Patient has received consistent doses of oxycodone. Please consider changing from PRN to scheduled if patient continues to require consistent doses. Please continue to monitor for respiratory depression and constipation. 2. DVT Prophylaxis: enoxaparin 40mg SC daily. Please continue to monitor for S/S of bleeding, platelets and renal function. 3. Rheumatoid arthritis: hydroxychloroquine 200mg PO BIDCM. Please continue to monitor for worsened rash as it could be a side effect of hydroxychloroquine. 4. Rash: methylprednisolone taper (thru 09/16/19) and hydrocortisone 2.5% cream topically BID to upper back. Please continue to monitor for worsened rash and itching. 5. CV Prophylaxis: aspirin 81mg PO DAILYCM. Please continue to monitor for S/S of bleeding. *6. Hyperlipidemia: fenofibrate 145mg PO daily. I did not see a lipid panel in the patient's chart. Please consider a lipid panel now and then annually as clinically appropriate. Thanks. 7. Hypertension: propranolol 20mg PO daily and ramipril 5mg PO daily. Please continue to monitor renal function, HR and BP. 8. Shortness of breath: ipratropium/albuterol 3mL inhalation Q4HWA.RT PRN SOB/wheezing. Please continue to monitor for SOB/wheezing and PRN usage. 9. Overactive Bladder/BPH: mirabegron 50mg PO daily, finasteride 5mg PO daily, and tamsulosin 0.4mg PO daily. Please continue to monitor for anticholinergic side effects, hypotension, and urine flow. 10. Overall Health: multivitamin 1T PO DAILYCM. Please continue to monitor. 12. Tinea corporis: nystatin powder 1 application topically to the groin BID. Please continue to monitor for rash and itching. Psychotropic Medications: *1. Depression: sertraline 200mg PO daily. Please consider GDR by 02/2020. Unnecessary Medications: *Bowel Regimen: Miralax 17gm PO daily, senna/docusate 2T PO BID, and bisacodyl 10mg PO daily PRN constipation. Patient is refusing Miralax and senna/docusate due to diarrhea based on MAR documentation. Please consider changing from scheduled to PRN. Date of Note:: 09/12/19 - Provider Comments Provider responsibility: Provider responsible to enter orders to implement recommendations <Rk Chi Chi - Last Filed: 09/12/19 14:44> Progress Note - Pharmacy Subjective: [] Objective: Allergies No Known Allergies Allergy (Verified 09/06/19 12:57) Current Medications Generic Name Dose Route Start Last Admin Trade Name Freq PRN Reason Stop Dose Admin Acetaminophen 1,000 mg 09/10/19 21:39 09/12/19 08:50 Tylenol PO 1,000 mg Q6H PRN PRN Administration Pain Score 1-3/10 Albuterol/Ipratropium 3 ml 09/10/19 16:04 Duoneb INHALATION Q4HWA.RT PRN SOB &/OR WHEEZING Aspirin 81 mg 09/11/19 08:00 09/12/19 08:43 Aspirin, Baby PO 81 mg DAILY@0800 [facility] Administration Bisacodyl 10 mg 09/10/19 21:39 Dulcolax PO DAILY PRN Constipation Enoxaparin Sodium 40 mg 09/11/19 06:00 09/12/19 05:29 Lovenox SC 40 mg DAILY@0600 JUNI Administration Fenofibrate 145 mg 09/11/19 06:00 09/12/19 05:30 Tricor PO 145 mg DAILY JUNI Administration Finasteride 5 mg 09/11/19 06:00 09/12/19 05:30 Proscar PO 5 mg DAILY JUNI Administration Hydrocortisone 1 applic 09/11/19 08:30 Hytone TOPICAL TID PRN PRN RASH/TOPICAL IRRITATION Protocol Hydroxychloroquine Sulfate 200 mg 09/10/19 17:00 09/12/19 08:43 Plaquenil PO 200 mg BIDCM JUNI Administration Methylprednisolone 4 mg 09/11/19 12:00 09/12/19 12:00 Medrol Dosepak PO 09/16/19 04:59 4 mg 0800,1200,1700 JUNI Administration Taper Mirabegron 50 mg 09/11/19 06:00 09/12/19 05:30 Myrbetriq PO 50 mg DAILY JUNI Administration Multivitamins 1 tablet 09/11/19 08:00 09/12/19 08:43 Multivitamin PO 1 tablet DAILYCM JUNI Administration Nystatin 1 applic 09/10/19 22:00 09/12/19 05:30 Mycostatin Powder TOPICAL 1 applicatio BID@0600,2200 JUNI Administration Protocol Oxycodone HCl 5 mg 09/10/19 21:39 09/12/19 08:50 Oxyir PO 5 mg Q4H PRN PRN Administration Pain Score 6-10/10 Polyethylene Glycol 17 gm 09/11/19 06:00 09/12/19 05:29 Miralax PO Not Given DAILY [facility] Propranolol HCl 20 mg 09/11/19 06:00 09/12/19 05:29 Inderal PO 20 mg DAILY JUNI Administration Ramipril 5 mg 09/11/19 06:00 09/12/19 05:30 Altace PO 5 mg DAILY JUNI Administration Senna/Docusate Sodium 2 tablet 09/10/19 18:00 09/12/19 05:29 Senokot-S, Flora-Colace PO Not Given BID [facility] Sertraline HCl 200 mg 09/11/19 06:00 09/12/19 05:30 Zoloft PO 200 mg DAILY JUNI Administration Tamsulosin HCl 0.4 mg 09/11/19 06:00 09/12/19 05:30 Flomax PO 0.4 mg DAILY JUNI Administration Tramadol HCl 50 mg 09/10/19 15:58 09/12/19 13:07 Ultram PO 50 mg Q6H PRN PRN Administration Pain Score 4-5/10 Tuberculin PPD 5 tu 09/18/19 10:00 Tubersol, Aplisol, Ppd ID 09/18/19 10:01 X1 ONE Problem List Debility (Acute) Right fibular fracture (Acute) Dislocation of right ankle joint (Acute) Fracture of posterior malleolus of right tibia (Acute) Hyperlipidemia (Chronic) Overactive bladder (Chronic) ADHD (Chronic) Rheumatoid arthritis (Chronic) Body mass index (BMI) 40.0-44.9, adult (Chronic) Vital Signs Temp Pulse Resp BP Pulse Ox 96.6 F L 84 18 149/86 H 96 09/11/19 15:05 09/11/19 15:05 09/11/19 15:05 09/11/19 15:05 09/11/19 15:05 Oxygen Delivery Method Room Air Weight: 140.614 kg Body Mass Index (BMI) 44.4 Sodium 146 mmol/L (136-145) H 09/11/19 05:25 Potassium 4.0 mmol/L (3.5-5.1) 09/11/19 05:25 Chloride 109 mmol/L (98-107) H 09/11/19 05:25 Carbon Dioxide 30.0 mmol/L (21.0-32.0) 09/11/19 05:25 Anion Gap 7 (5-15) 09/11/19 05:25 BUN 21 mg/dL (7-18) H 09/11/19 05:25 Creatinine 0.98 mg/dL (0.70-1.30) 09/11/19 05:25 Est GFR (MDRD) Af Amer 98 mL/min (>60) 09/11/19 05:25 Est GFR (MDRD) Non-Af 81 mL/min (>60) 09/11/19 05:25 BUN/Creatinine Ratio 21.4 RATIO (10-20) H 09/11/19 05:25 Glucose 110 mg/dL (74-106) H 09/11/19 05:25 Assessment/Plan: Psychotropic Medications: Unnecessary Medications: Bowel Regimen: - Provider Comments Provider responsibility: Provider responsible to enter orders to implement recommendations Provider Comments to Recommendations by Pharmacy: Agree
--- NOTE | 2019-09-12 11:41 | NURSING ---
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 dr gonsales viewed it and felt it is not shingles. continue with hytone cream as ordered.
--- NOTE | 2019-09-12 12:01 | NURSING ---
pt returned from appt with ortho. pt to have surgery on 09/23 as long as his edema is improved. wants leg elevated at all times and ice applied behind knee. no hopping exercises with therapy, NWB to RT LE. will updated Dr gonsales and therapy
[2019-09-12 15:11] VITALS: BP 141/71; PULSE 70; RESP 16; TEMP 36.6; O2SAT 95
[2019-09-13] MEDS: traMADol 50 MG Tablet PO (02:12)
[2019-09-13] MEDS: Acetaminophen 500 MG Tablet 1000 MG PO ×3 (06:22→23:28)
[2019-09-13] MEDS: oxyCODONE 5 MG Tablet PO ×3 (06:22→21:13)
[2019-09-13] MEDS: Propranolol 10 MG Tablet 20 MG PO (06:23)
[2019-09-13] MEDS: Sertraline 100 MG Tablet 200 MG PO (06:24)
[2019-09-13] MEDS: Tamsulosin HCl 0.4 MG Capsule PO (06:24)
[2019-09-13] MEDS: Fenofibrate 145 MG Tablet PO (06:24)
[2019-09-13] MEDS: Finasteride 5 MG Tablet PO (06:24)
[2019-09-13] MEDS: Enoxaparin 40 MG/0.4 ML Syringe SC (06:25)
[2019-09-13] MEDS: Ramipril 5 MG Capsule PO (06:25)
[2019-09-13] MEDS: Mirabegron 50 MG TAB.ER.24H PO (06:25)
[2019-09-13] MEDS: Nystatin Powder 15gm Bottle 1 APPLIC TOPICAL ×2 (06:27→21:14)
[2019-09-13] MEDS: MethylPREDNISolone DosePak 4 MG BOX PO ×4 (08:05→21:14)
[2019-09-13] MEDS: Aspirin 81 MG TAB.CHEW PO (08:05)
[2019-09-13] MEDS: Hydroxychloroquine 200 MG Tablet PO ×2 (08:05→17:20)
[2019-09-13] MEDS: Multivitamins,Therapeutic Tablet 1 TABLET PO (08:05)
[2019-09-13 16:00] VITALS: BP 145/77; PULSE 74; RESP 18; TEMP 36.8; O2SAT 96
[2019-09-13] MEDS: Hydrocortisone 2.5% Crm 1 APPLIC TOPICAL (21:22)
[2019-09-14] MEDS: traMADol 50 MG Tablet PO ×2 (01:12→16:45)
[2019-09-14] MEDS: oxyCODONE 5 MG Tablet PO ×4 (03:05→19:39)
[2019-09-14] MEDS: Tamsulosin HCl 0.4 MG Capsule PO (04:54)
[2019-09-14] MEDS: Ramipril 5 MG Capsule PO (04:54)
[2019-09-14] MEDS: Enoxaparin 40 MG/0.4 ML Syringe SC (04:55)
[2019-09-14] MEDS: Nystatin Powder 15gm Bottle 1 APPLIC TOPICAL ×2 (04:55→21:14)
[2019-09-14] MEDS: Propranolol 10 MG Tablet 20 MG PO (04:55)
[2019-09-14] MEDS: Fenofibrate 145 MG Tablet PO (04:56)
[2019-09-14] MEDS: Finasteride 5 MG Tablet PO (04:56)
[2019-09-14] MEDS: Mirabegron 50 MG TAB.ER.24H PO (04:56)
[2019-09-14] MEDS: Sertraline 100 MG Tablet 200 MG PO (04:57)
[2019-09-14] MEDS: Acetaminophen 500 MG Tablet 1000 MG PO ×2 (05:29→16:45)
[2019-09-14] MEDS: MethylPREDNISolone DosePak 4 MG BOX PO ×3 (08:18→21:14)
[2019-09-14] MEDS: Multivitamins,Therapeutic Tablet 1 TABLET PO (08:19)
[2019-09-14] MEDS: Hydroxychloroquine 200 MG Tablet PO ×2 (08:19→16:46)
[2019-09-14] MEDS: Aspirin 81 MG TAB.CHEW PO (08:19)
[2019-09-14] MEDS: Hydrocortisone 2.5% Crm 1 APPLIC TOPICAL ×2 (14:06→21:18)
[2019-09-14 15:36] VITALS: BP 150/89; PULSE 78; RESP 17; TEMP 37; O2SAT 94
[2019-09-15] MEDS: oxyCODONE 5 MG Tablet PO ×4 (00:14→20:08)
[2019-09-15] MEDS: Acetaminophen 500 MG Tablet 1000 MG PO ×3 (00:14→23:51)
[2019-09-15] MEDS: traMADol 50 MG Tablet PO ×2 (04:37→23:51)
[2019-09-15] MEDS: Tamsulosin HCl 0.4 MG Capsule PO (04:39)
[2019-09-15] MEDS: Ramipril 5 MG Capsule PO (04:39)
[2019-09-15] MEDS: Propranolol 10 MG Tablet 20 MG PO (04:40)
[2019-09-15] MEDS: Nystatin Powder 15gm Bottle 1 APPLIC TOPICAL ×2 (04:40→20:09)
[2019-09-15] MEDS: Enoxaparin 40 MG/0.4 ML Syringe SC (04:40)
[2019-09-15] MEDS: Fenofibrate 145 MG Tablet PO (04:41)
[2019-09-15] MEDS: Mirabegron 50 MG TAB.ER.24H PO (04:41)
[2019-09-15] MEDS: Finasteride 5 MG Tablet PO (04:41)
[2019-09-15] MEDS: Sertraline 100 MG Tablet 200 MG PO (04:42)
[2019-09-15] MEDS: Aspirin 81 MG TAB.CHEW PO (07:54)
[2019-09-15] MEDS: MethylPREDNISolone DosePak 4 MG BOX PO ×2 (07:54→20:08)
[2019-09-15] MEDS: Multivitamins,Therapeutic Tablet 1 TABLET PO (07:54)
[2019-09-15] MEDS: Hydroxychloroquine 200 MG Tablet PO ×2 (10:07→17:28)
[2019-09-15 15:49] VITALS: BP 172/84; PULSE 68; RESP 16; TEMP 36.8; O2SAT 95
[2019-09-16] MEDS: oxyCODONE 5 MG Tablet PO ×4 (01:15→19:45)
[2019-09-16] MEDS: Enoxaparin 40 MG/0.4 ML Syringe SC (05:22)
[2019-09-16] MEDS: Sertraline 100 MG Tablet 200 MG PO (05:22)
[2019-09-16] MEDS: Fenofibrate 145 MG Tablet PO (05:22)
[2019-09-16] MEDS: Tamsulosin HCl 0.4 MG Capsule PO (05:23)
[2019-09-16] MEDS: Ramipril 5 MG Capsule PO (05:23)
[2019-09-16] MEDS: Propranolol 10 MG Tablet 20 MG PO (05:23)
[2019-09-16] MEDS: Finasteride 5 MG Tablet PO (05:24)
[2019-09-16] MEDS: Mirabegron 50 MG TAB.ER.24H PO (05:24)
[2019-09-16] MEDS: Nystatin Powder 15gm Bottle 1 APPLIC TOPICAL ×2 (05:25→19:48)
[2019-09-16] MEDS: Multivitamins,Therapeutic Tablet 1 TABLET PO (08:36)
[2019-09-16] MEDS: Aspirin 81 MG TAB.CHEW PO (08:36)
[2019-09-16] MEDS: Hydroxychloroquine 200 MG Tablet PO ×2 (08:36→17:29)
[2019-09-16] MEDS: traMADol 50 MG Tablet PO ×3 (08:40→22:59)
[2019-09-16] MEDS: Acetaminophen 500 MG Tablet 1000 MG PO (11:24)
[2019-09-16 15:53] VITALS: BP 154/89; PULSE 74; RESP 20; TEMP 36.4; O2SAT 96
[2019-09-16] MEDS: Senna/Docusate Sodium 1 Tablet 2 TABLET PO (17:29)
[2019-09-17] MEDS: oxyCODONE 5 MG Tablet PO ×4 (02:09→18:06)
[2019-09-17] MEDS: Senna/Docusate Sodium 1 Tablet 2 TABLET PO (05:08)
[2019-09-17] MEDS: Finasteride 5 MG Tablet PO (05:08)
[2019-09-17] MEDS: Sertraline 100 MG Tablet 200 MG PO (05:08)
[2019-09-17] MEDS: Mirabegron 50 MG TAB.ER.24H PO (05:08)
[2019-09-17] MEDS: Ramipril 5 MG Capsule PO (05:08)
[2019-09-17] MEDS: Propranolol 10 MG Tablet 20 MG PO (05:08)
[2019-09-17] MEDS: Fenofibrate 145 MG Tablet PO (05:08)
[2019-09-17] MEDS: Enoxaparin 40 MG/0.4 ML Syringe SC (05:09)
[2019-09-17] MEDS: Tamsulosin HCl 0.4 MG Capsule PO (05:09)
[2019-09-17] MEDS: Nystatin Powder 15gm Bottle 1 APPLIC TOPICAL ×2 (05:10→20:31)
[2019-09-17] MEDS: Multivitamins,Therapeutic Tablet 1 TABLET PO (08:03)
[2019-09-17] MEDS: Hydroxychloroquine 200 MG Tablet PO ×2 (08:03→16:53)
[2019-09-17] MEDS: Aspirin 81 MG TAB.CHEW PO (08:03)
--- NOTE | 2019-09-17 14:32 | CHAPLAIN ---
Type of Pastoral Visit ___ Initial Visit _x__ Follow-up Visit ___ On-call Visit ___ General Patient Visit ___ Spiritual Assessment ___ Family Conference ___ Bereavement ___ Rapid Response ___ Code Blue ___ Other (describe below) Pastoral Care Referral From _x__ Patient ___ Family ___ Nurse ___ Physician ___ Drilling Manager ___ Vault Person ___ Other (describe below) Sacrament/Intervention _x__ Active listening ___ Anointing ___ Latter-Day ___ Bereavement ___ Communion ___ Ginger exploration ___ ___ Life review _x__ Prayer ___ Reconciliation ___ Sacrament of Sick ___ Supportive presence ___ Wedding ___ Other (describe below) Pastoral Comments
[2019-09-17] MEDS: traMADol 50 MG Tablet PO ×2 (15:11→21:17)
[2019-09-17 15:44] VITALS: BP 147/92; PULSE 76; RESP 17; TEMP 36.7; O2SAT 97
--- NOTE | 2019-09-17 16:30 | NURSING ---
Addendum entered by Vanda Jacobo 09/17/19 16:31: pt updated. Original Note: Ortho office called to let pt know that his surgery would be on Sep 24 or but will call us back with date/time.
[2019-09-17] MEDS: Acetaminophen 500 MG Tablet 1000 MG PO (20:31)
[2019-09-18] MEDS: oxyCODONE 5 MG Tablet PO ×3 (01:43→20:25)
[2019-09-18] MEDS: Enoxaparin 40 MG/0.4 ML Syringe SC (05:16)
[2019-09-18] MEDS: Tamsulosin HCl 0.4 MG Capsule PO (05:16)
[2019-09-18] MEDS: Mirabegron 50 MG TAB.ER.24H PO (05:16)
[2019-09-18] MEDS: Fenofibrate 145 MG Tablet PO (05:16)
[2019-09-18] MEDS: Ramipril 5 MG Capsule PO (05:16)
[2019-09-18] MEDS: Finasteride 5 MG Tablet PO (05:16)
[2019-09-18] MEDS: Propranolol 10 MG Tablet 20 MG PO (05:16)
[2019-09-18] MEDS: Sertraline 100 MG Tablet 200 MG PO (05:16)
[2019-09-18] MEDS: traMADol 50 MG Tablet PO ×2 (05:16→16:31)
[2019-09-18] MEDS: Nystatin Powder 15gm Bottle 1 APPLIC TOPICAL ×2 (05:17→20:19)
[2019-09-18] MEDS: Senna/Docusate Sodium 1 Tablet 2 TABLET PO ×2 (05:17→16:32)
[2019-09-18 05:20] VITALS: BP 154/96; PULSE 67
[2019-09-18] MEDS: Multivitamins,Therapeutic Tablet 1 TABLET PO (08:17)
[2019-09-18] MEDS: Aspirin 81 MG TAB.CHEW PO (08:17)
[2019-09-18] MEDS: Hydroxychloroquine 200 MG Tablet PO ×2 (08:17→16:32)
[2019-09-18] MEDS: Tuberculin,Purif.prot.deriv. 50 TU/ML Vial 5 ML ID (08:24)
[2019-09-18] MEDS: Hydrocortisone 2.5% Crm 1 APPLIC TOPICAL (12:07)
[2019-09-18 15:34] VITALS: BP 164/95; PULSE 75; RESP 17; TEMP 36.7; O2SAT 97
[2019-09-18] MEDS: Acetaminophen 500 MG Tablet 1000 MG PO (16:31)
--- NOTE | 2019-09-18 17:35 | NURSING ---
Elevated BP's reported to Delano Bee NP. Orders received to increase Altace medication.
[2019-09-19] MEDS: oxyCODONE 5 MG Tablet PO ×4 (02:07→20:05)
[2019-09-19] MEDS: traMADol 50 MG Tablet PO ×2 (05:18→23:47)
[2019-09-19] MEDS: Tamsulosin HCl 0.4 MG Capsule PO (05:19)
[2019-09-19] MEDS: Enoxaparin 40 MG/0.4 ML Syringe SC (05:20)
[2019-09-19] MEDS: Nystatin Powder 15gm Bottle 1 APPLIC TOPICAL ×2 (05:20→20:06)
[2019-09-19] MEDS: Propranolol 10 MG Tablet 20 MG PO (05:20)
[2019-09-19] MEDS: Finasteride 5 MG Tablet PO (05:21)
[2019-09-19] MEDS: Senna/Docusate Sodium 1 Tablet 2 TABLET PO ×2 (05:21→16:30)
[2019-09-19] MEDS: Mirabegron 50 MG TAB.ER.24H PO (05:21)
[2019-09-19] MEDS: Fenofibrate 145 MG Tablet PO (05:21)
[2019-09-19] MEDS: Sertraline 100 MG Tablet 200 MG PO (05:22)
[2019-09-19] MEDS: Ramipril 10 MG Capsule PO (05:23)
[2019-09-19 05:45] LABS: Absolute Lymphocyte Count 2.13 X10^3/uL (0.83-4.51); Absolute Neutrophil Count 5.5 X10^3/uL (2.0-7.7); Basophil# 0.07 X10^3/uL; Basophil% 0.8 % (0-1); Eosinophil# 0.48 X10^3/uL; Eosinophils% 5.2 % (0-5); Hematocrit 43.1 % (40-54); Hemoglobin 13.9 g/dL (13.0-16.5); Lymphocyte # 2.13 X10^3/ul (4.0); Mean Corp Hgb Conc 32.3 g/dL (32-36); Mean Corpuscular Hgb 31.7 pg (27.0-32.0); Mean Corpuscular Volume 98.4 fL (80-94); Mean Platelet Vol. 9.1 fl (6.2-12.0); Monocyte# 0.99 X10^3/uL; Monocyte% 10.7 % (0-10); NRBC Flagged by Analyzer 0 % (0-5); Neutrophil # 5.49 X10^3/uL (2.7-7.7); Platelet Count 279 K/mm3 (150-450); RBC Distribution Width CV 12.6 % (11.6-14.6); RBC Distribution Width SD 45.2 fl (35.1-43.9); Red Blood Count 4.38 M/mm3 (4.6-6.2); White Blood Count 9.3 K/mm3 (4.4-11.0)
[2019-09-19 06:22] LABS: Anion Gap 6 (5-15); BUN 27 mg/dL (7-18); BUN/Creat Ratio 29.7 RATIO (10-20); Calcium,Total 9.1 mg/dL (8.5-10.1); Chloride 109 mmol/L (98-107); Creatinine, Serum 0.91 mg/dL (0.70-1.30); EST Glomerular Filtration Rate 89 mL/min (>60); Est Glom Filt Rate - Afr Amer 107 mL/min (>60); Estimated Creatinine Clearance 82.45 ml/min; Glucose 85 mg/dL (74-106); Potassium 4.2 mmol/L (3.5-5.1); Sodium Level 143 mmol/L (136-145)
[2019-09-19] MEDS: Aspirin 81 MG TAB.CHEW PO (09:44)
[2019-09-19] MEDS: Hydroxychloroquine 200 MG Tablet PO ×2 (09:44→16:30)
[2019-09-19] MEDS: Multivitamins,Therapeutic Tablet 1 TABLET PO (09:44)
[2019-09-19 16:00] VITALS: BP 136/87; PULSE 76; RESP 16; TEMP 37.3; O2SAT 94
[2019-09-19] MEDS: Acetaminophen 500 MG Tablet 1000 MG PO (20:04)
[2019-09-20] MEDS: oxyCODONE 5 MG Tablet PO ×4 (02:42→21:35)
[2019-09-20] MEDS: Propranolol 10 MG Tablet 20 MG PO (06:35)
[2019-09-20] MEDS: Finasteride 5 MG Tablet PO (06:35)
[2019-09-20] MEDS: Senna/Docusate Sodium 1 Tablet 2 TABLET PO (06:35)
[2019-09-20] MEDS: Mirabegron 50 MG TAB.ER.24H PO (06:35)
[2019-09-20] MEDS: Nystatin Powder 15gm Bottle 1 APPLIC TOPICAL ×2 (06:36→19:46)
[2019-09-20] MEDS: Fenofibrate 145 MG Tablet PO (06:36)
[2019-09-20] MEDS: Enoxaparin 40 MG/0.4 ML Syringe SC (06:36)
[2019-09-20] MEDS: Ramipril 10 MG Capsule PO (06:36)
[2019-09-20] MEDS: Tamsulosin HCl 0.4 MG Capsule PO (06:36)
[2019-09-20] MEDS: Sertraline 100 MG Tablet 200 MG PO (06:36)
[2019-09-20] MEDS: traMADol 50 MG Tablet PO ×2 (06:43→15:46)
[2019-09-20] MEDS: Multivitamins,Therapeutic Tablet 1 TABLET PO (08:13)
[2019-09-20] MEDS: Aspirin 81 MG TAB.CHEW PO (08:13)
[2019-09-20] MEDS: Hydroxychloroquine 200 MG Tablet PO ×2 (08:13→17:23)
[2019-09-20] MEDS: Acetaminophen 500 MG Tablet 1000 MG PO (13:10)
[2019-09-20] MEDS: Hydrocortisone 2.5% Crm 1 APPLIC TOPICAL ×2 (13:17→21:36)
[2019-09-20 15:58] VITALS: BP 133/88; PULSE 69; RESP 18; TEMP 36.8; O2SAT 96
[2019-09-21] MEDS: oxyCODONE 5 MG Tablet PO ×3 (03:42→17:45)
[2019-09-21] MEDS: Tamsulosin HCl 0.4 MG Capsule PO (04:36)
[2019-09-21] MEDS: Ramipril 10 MG Capsule PO (04:36)
[2019-09-21] MEDS: Nystatin Powder 15gm Bottle 1 APPLIC TOPICAL ×2 (04:37→21:00)
[2019-09-21] MEDS: Propranolol 10 MG Tablet 20 MG PO (04:37)
[2019-09-21] MEDS: Enoxaparin 40 MG/0.4 ML Syringe SC (04:37)
[2019-09-21] MEDS: Finasteride 5 MG Tablet PO (04:38)
[2019-09-21] MEDS: Senna/Docusate Sodium 1 Tablet 2 TABLET PO ×2 (04:38→17:45)
[2019-09-21] MEDS: Mirabegron 50 MG TAB.ER.24H PO (04:38)
[2019-09-21] MEDS: Fenofibrate 145 MG Tablet PO (04:38)
[2019-09-21] MEDS: Sertraline 100 MG Tablet 200 MG PO (04:38)
[2019-09-21] MEDS: Multivitamins,Therapeutic Tablet 1 TABLET PO (08:02)
[2019-09-21] MEDS: Hydroxychloroquine 200 MG Tablet PO ×2 (08:02→17:45)
[2019-09-21] MEDS: Aspirin 81 MG TAB.CHEW PO (08:02)
[2019-09-21] MEDS: traMADol 50 MG Tablet PO ×2 (08:06→21:00)
[2019-09-21 15:30] VITALS: BP 136/79; PULSE 77; RESP 19; TEMP 36.4; O2SAT 95
[2019-09-22] MEDS: Enoxaparin 40 MG/0.4 ML Syringe SC (04:26)
[2019-09-22] MEDS: oxyCODONE 5 MG Tablet PO ×3 (04:26→23:08)
[2019-09-22] MEDS: Finasteride 5 MG Tablet PO (04:26)
[2019-09-22] MEDS: Senna/Docusate Sodium 1 Tablet 2 TABLET PO ×2 (04:26→16:58)
[2019-09-22] MEDS: Mirabegron 50 MG TAB.ER.24H PO (04:26)
[2019-09-22] MEDS: Propranolol 10 MG Tablet 20 MG PO (04:26)
[2019-09-22] MEDS: Tamsulosin HCl 0.4 MG Capsule PO (04:26)
[2019-09-22] MEDS: Sertraline 100 MG Tablet 200 MG PO (04:26)
[2019-09-22] MEDS: Ramipril 10 MG Capsule PO (04:27)
[2019-09-22] MEDS: Fenofibrate 145 MG Tablet PO (04:27)
[2019-09-22] MEDS: Nystatin Powder 15gm Bottle 1 APPLIC TOPICAL ×2 (04:31→23:08)
[2019-09-22] MEDS: traMADol 50 MG Tablet PO ×2 (07:55→14:17)
[2019-09-22] MEDS: Multivitamins,Therapeutic Tablet 1 TABLET PO (07:56)
[2019-09-22] MEDS: Aspirin 81 MG TAB.CHEW PO (07:56)
[2019-09-22] MEDS: Hydroxychloroquine 200 MG Tablet PO ×2 (07:56→16:59)
--- NOTE | 2019-09-22 12:43 | NURSING ---
R' ARRIVED BACK FROM APPT WITH DR. DONTRELL PEREZ AT [facility]. ANIRUDH, FROM OFFICE CALLED AND STATED SURGERY IS PLANNED FOR 09/25 AT [facility]. ORDER FOR CXR, EKG, HEMAGLOBIN A1C, PT/PTT, CBC, BMP TO BE COMPLETED AND FAXED TO OFFICE. WILL UPDATE DR. CHOU ON PRE-OP ORDERS. PER DR. PEREZ: CONTINUE NON-WEIGHT BEARING TO RLE, CONTINUE TO ICE AND ELEVATE, CALL OFFICE FOR FURTHER QUESTIONS.
[2019-09-22 12:56] LABS: Hematocrit 47.5 % (40-54); Hemoglobin 15.9 g/dL (13.0-16.5); Mean Corp Hgb Conc 33.5 g/dL (32-36); Mean Corpuscular Hgb 32.3 pg (27.0-32.0); Mean Corpuscular Volume 96.3 fL (80-94); Mean Platelet Vol. 9.3 fl (6.2-12.0); Platelet Count 369 K/mm3 (150-450); RBC Distribution Width CV 12.5 % (11.6-14.6); RBC Distribution Width SD 44.5 fl (35.1-43.9); Red Blood Count 4.93 M/mm3 (4.6-6.2); White Blood Count 11.5 K/mm3 (4.4-11.0)
[2019-09-22 13:12] LABS: Hemoglobin A1c 5.6 % (4.2-6.3)
--- NOTE | 2019-09-22 13:37 | RAD_ITS ---
STUDY: X-RAY CHEST REASON FOR EXAM: Male, 64 years old. Presurgical. TECHNIQUE: PA and lateral views of the chest. COMPARISON: None. FINDINGS: The lungs are clear and expanded. There is no demonstrated pleural abnormality. Normal size heart. Normal mediastinum and luis antonio. Normal visualized pulmonary arteries. There is atherosclerotic calcification of the aortic arch with tortuosity. There are diffuse degenerative changes of the visualized thoracic spine. There is mild degenerative osteoarthritis of the bilateral shoulders. There is no demonstrated abnormality of the visualized soft tissue structures of the upper abdomen. RAD/Chest PA and Lateral IMPRESSION: No acute cardiopulmonary disease. Electronically Signed: Pastora Sampson MD at 0:28 EST , Service support ,
[2019-09-22 13:46] LABS: Anion Gap 9 (5-15); BUN 35 mg/dL (7-18); BUN/Creat Ratio 24.8 RATIO (10-20); Chloride 108 mmol/L (98-107); Creatinine, Serum 1.41 mg/dL (0.70-1.30); EST Glomerular Filtration Rate 53 mL/min (>60); Est Glom Filt Rate - Afr Amer 65 mL/min (>60); Estimated Creatinine Clearance 53.21 ml/min; Glucose 126 mg/dL (74-106); Potassium 4.7 mmol/L (3.5-5.1); Sodium Level 142 mmol/L (136-145)
--- NOTE | 2019-09-22 13:50 | NURSING ---
R' RESTING IN BED WITH RLE ELEVATED AND ICED. APPEARS TO BE RESTING COMFORTABLY. WILL CONT' TO MONITOR.
[2019-09-22 14:21] LABS: International Normalized Ratio 1.1; Prothrombin Time (Protime)PT. 13.9 SECONDS (11.7-14.9)
[2019-09-22 14:22] LABS: Partial Thromboplast Time 27.5 Seconds (24.1-36.2)
[2019-09-22 16:00] VITALS: BP 156/89; PULSE 80; RESP 18; TEMP 36.7; O2SAT 94
[2019-09-22] MEDS: Acetaminophen 500 MG Tablet 1000 MG PO (19:54)
[2019-09-22] MEDS: Hydrocortisone 2.5% Crm 1 APPLIC TOPICAL (20:07)
[2019-09-23] MEDS: traMADol 50 MG Tablet PO ×3 (01:50→20:01)
[2019-09-23] MEDS: Acetaminophen 500 MG Tablet 1000 MG PO ×2 (03:19→14:09)
[2019-09-23] MEDS: Tamsulosin HCl 0.4 MG Capsule PO (05:20)
[2019-09-23] MEDS: Mirabegron 50 MG TAB.ER.24H PO (05:20)
[2019-09-23] MEDS: Propranolol 10 MG Tablet 20 MG PO (05:21)
[2019-09-23] MEDS: Ramipril 10 MG Capsule PO (05:21)
[2019-09-23] MEDS: Enoxaparin 40 MG/0.4 ML Syringe SC (05:21)
[2019-09-23] MEDS: Fenofibrate 145 MG Tablet PO (05:21)
[2019-09-23] MEDS: Sertraline 100 MG Tablet 200 MG PO (05:21)
[2019-09-23] MEDS: Finasteride 5 MG Tablet PO (05:21)
[2019-09-23] MEDS: Senna/Docusate Sodium 1 Tablet 2 TABLET PO ×2 (05:21→17:45)
[2019-09-23] MEDS: Nystatin Powder 15gm Bottle 1 APPLIC TOPICAL (05:22)
[2019-09-23 06:03] LABS: Anion Gap 3 (5-15); BUN 32 mg/dL (7-18); BUN/Creat Ratio 26.2 RATIO (10-20); Calcium,Total 8.9 mg/dL (8.5-10.1); Chloride 105 mmol/L (98-107); Creatinine, Serum 1.22 mg/dL (0.70-1.30); EST Glomerular Filtration Rate 63 mL/min (>60); Est Glom Filt Rate - Afr Amer 76 mL/min (>60); Glucose 91 mg/dL (74-106); Sodium Level 141 mmol/L (136-145)
[2019-09-23] MEDS: Multivitamins,Therapeutic Tablet 1 TABLET PO (08:26)
[2019-09-23] MEDS: Aspirin 81 MG TAB.CHEW PO (08:26)
[2019-09-23] MEDS: Hydroxychloroquine 200 MG Tablet PO ×2 (08:26→17:45)
[2019-09-23] MEDS: oxyCODONE 5 MG Tablet PO ×3 (11:51→23:43)
--- NOTE | 2019-09-23 13:56 | MDS.RN ---
Information for the mds was obtained from review of the clinical record, interview of resident, staff, and direct observation of resident's care.
--- NOTE | 2019-09-23 14:11 | NURSING ---
Complains of pain to top of Rt foot #9/10 hot pain since the cast was rewrapped yesterday. Ice and oxyir took the edge off but did not relieve. I will address with dr Chi.
[2019-09-23 16:00] VITALS: BP 128/87; PULSE 72; RESP 17; TEMP 36.7; O2SAT 93
--- NOTE | 2019-09-23 18:04 | NURSING ---
Resident in a lot of pain this evening. Shaking with pain to top of rt foot. Toes warm, mobile and top of rt foot does not appear to have redness or warmth. He states the pain started last night and then let up again this AM but is now intensely painful again. Dr gonsales aware and would like us to page dr Natanael hidalgo. Dr Kenny calls and orders to take off hard cast and double wrap with kelix and sukhdev wrap.
--- NOTE | 2019-09-23 18:30 | NURSING ---
SPOKE WITH DR. PEREZ. PATIENT STILL IN PAIN, NUMBNESS TO TOES. RED SPOT IS E PAIN IS LOCALIZED TO THE TOP OF THE FOOT. 2+PEDAL AND DORSAL PEDALIS PULSES. OK TO LEAVE WRAP OFF FOR A FEW HOURS TO SEE IF HELPS PAIN
[2019-09-24] MEDS: Acetaminophen 500 MG Tablet 1000 MG PO ×2 (01:49→14:06)
[2019-09-24] MEDS: Enoxaparin 40 MG/0.4 ML Syringe SC (05:49)
[2019-09-24] MEDS: Nystatin Powder 15gm Bottle 1 APPLIC TOPICAL ×2 (05:49→20:39)
[2019-09-24] MEDS: Ramipril 10 MG Capsule PO (05:49)
[2019-09-24] MEDS: Propranolol 10 MG Tablet 20 MG PO (05:49)
[2019-09-24] MEDS: Mirabegron 50 MG TAB.ER.24H PO (05:49)
[2019-09-24] MEDS: Tamsulosin HCl 0.4 MG Capsule PO (05:49)
[2019-09-24] MEDS: Sertraline 100 MG Tablet 200 MG PO (05:50)
[2019-09-24] MEDS: Finasteride 5 MG Tablet PO (05:50)
[2019-09-24] MEDS: Senna/Docusate Sodium 1 Tablet 2 TABLET PO ×2 (05:50→17:02)
[2019-09-24] MEDS: Fenofibrate 145 MG Tablet PO (05:50)
[2019-09-24] MEDS: oxyCODONE 5 MG Tablet PO ×3 (05:52→17:03)
[2019-09-24] MEDS: Multivitamins,Therapeutic Tablet 1 TABLET PO (08:15)
[2019-09-24] MEDS: Hydroxychloroquine 200 MG Tablet PO ×2 (08:15→17:02)
[2019-09-24] MEDS: Aspirin 81 MG TAB.CHEW PO (08:15)
[2019-09-24] MEDS: traMADol 50 MG Tablet PO ×2 (14:05→22:38)
[2019-09-24 15:52] VITALS: BP 165/70; PULSE 71; RESP 18; TEMP 36.5; O2SAT 97
[2019-09-25] MEDS: Acetaminophen 500 MG Tablet 1000 MG PO ×3 (00:09→18:40)
[2019-09-25] MEDS: oxyCODONE 5 MG Tablet PO ×3 (00:09→18:38)
[2019-09-25 04:53] VITALS: BP 138/81; PULSE 65
[2019-09-25] MEDS: Ramipril 10 MG Capsule PO (04:53)
[2019-09-25] MEDS: Propranolol 10 MG Tablet 20 MG PO (04:53)
[2019-09-25] MEDS: traMADol 50 MG Tablet PO ×2 (04:53→22:00)
[2019-09-25 05:03] VITALS: O2SAT 98
--- NOTE | 2019-09-25 12:00 | NURSING ---
pt off unit to surgery via bed
--- NOTE | 2019-09-25 12:00 | NURSING ---
Pt taken to surgery via bed, cefazolin sent with him
[2019-09-25 18:20] VITALS: BP 149/86; PULSE 88; RESP 18; TEMP 37.4; O2SAT 93
--- NOTE | 2019-09-25 18:31 | NURSING ---
patient returned to unit from surgery at 1820, repositioned for comfort and obtained VS. pt reports pain 9/10 of right ankle. This nurse will obtain pain medication for pt. Provided dinner, pt sitting up in bed.
[2019-09-25] MEDS: Hydroxychloroquine 200 MG Tablet PO (18:38)
--- NOTE | 2019-09-25 18:40 | NURSING ---
pt brought back to room, resting with eyes closed, 10 minutes later pt yelling out in pain. Administered pain meds, oxyir & tylenol. It was reported pt had no pain in PACU, so no pain meds given. polar care placed behind RT knee per order. Spline w/KAITLYNN wrap from toes to knees.
[2019-09-26] MEDS: oxyCODONE 5 MG Tablet PO ×4 (01:17→21:06)
[2019-09-26] MEDS: Acetaminophen 500 MG Tablet 1000 MG PO ×4 (01:17→21:05)
[2019-09-26] MEDS: traMADol 50 MG Tablet PO ×3 (05:43→18:43)
[2019-09-26] MEDS: Finasteride 5 MG Tablet PO (05:43)
[2019-09-26] MEDS: Tamsulosin HCl 0.4 MG Capsule PO (05:43)
[2019-09-26] MEDS: Fenofibrate 145 MG Tablet PO (05:43)
[2019-09-26] MEDS: Sertraline 100 MG Tablet 200 MG PO (05:43)
[2019-09-26] MEDS: Ramipril 10 MG Capsule PO (05:43)
[2019-09-26] MEDS: Propranolol 10 MG Tablet 20 MG PO (05:43)
[2019-09-26] MEDS: Mirabegron 50 MG TAB.ER.24H PO (05:43)
[2019-09-26] MEDS: Nystatin Powder 15gm Bottle 1 APPLIC TOPICAL ×2 (05:45→21:07)
[2019-09-26 05:46] VITALS: BP 155/72; PULSE 65
[2019-09-26] MEDS: Multivitamins,Therapeutic Tablet 1 TABLET PO (08:17)
[2019-09-26] MEDS: Hydroxychloroquine 200 MG Tablet PO ×2 (08:17→16:22)
[2019-09-26] MEDS: Aspirin 325 MG Tablet PO (08:17)
[2019-09-26] MEDS: Gabapentin 300 MG Capsule PO ×3 (10:29→22:51)
--- NOTE | 2019-09-26 11:20 | NURSING ---
functional abilities and goals per therapy notes/head nurse.
[2019-09-26 15:39] VITALS: BP 141/70; PULSE 74; RESP 17; TEMP 36.7; O2SAT 92
[2019-09-27] MEDS: traMADol 50 MG Tablet PO (00:56)
[2019-09-27] MEDS: oxyCODONE 5 MG Tablet PO ×2 (04:08→21:02)
[2019-09-27] MEDS: Mirabegron 50 MG TAB.ER.24H PO (04:09)
[2019-09-27] MEDS: Tamsulosin HCl 0.4 MG Capsule PO (04:09)
[2019-09-27] MEDS: Fenofibrate 145 MG Tablet PO (04:09)
[2019-09-27] MEDS: Finasteride 5 MG Tablet PO (04:09)
[2019-09-27] MEDS: Senna/Docusate Sodium 1 Tablet 2 TABLET PO ×2 (04:10→17:22)
[2019-09-27] MEDS: Sertraline 100 MG Tablet 200 MG PO (04:10)
[2019-09-27] MEDS: Propranolol 10 MG Tablet 20 MG PO (04:10)
[2019-09-27] MEDS: Ramipril 10 MG Capsule PO (04:11)
[2019-09-27] MEDS: Nystatin Powder 15gm Bottle 1 APPLIC TOPICAL ×2 (04:11→21:04)
[2019-09-27] MEDS: Acetaminophen 500 MG Tablet 1000 MG PO ×2 (05:34→17:22)
[2019-09-27] MEDS: Hydroxychloroquine 200 MG Tablet PO ×2 (08:28→17:21)
[2019-09-27] MEDS: Gabapentin 300 MG Capsule PO ×2 (08:28→17:22)
[2019-09-27] MEDS: Aspirin 325 MG Tablet PO (08:29)
[2019-09-27] MEDS: Multivitamins,Therapeutic Tablet 1 TABLET PO (08:29)
[2019-09-27 16:00] VITALS: BP 161/82; PULSE 64; RESP 17; TEMP 36.9; O2SAT 98
[2019-09-28] MEDS: traMADol 50 MG Tablet PO (01:49)
[2019-09-28] MEDS: oxyCODONE 5 MG Tablet PO ×2 (05:31→20:22)
[2019-09-28] MEDS: Sertraline 100 MG Tablet 200 MG PO (05:32)
[2019-09-28] MEDS: Senna/Docusate Sodium 1 Tablet 2 TABLET PO ×2 (05:32→17:27)
[2019-09-28] MEDS: Mirabegron 50 MG TAB.ER.24H PO (05:32)
[2019-09-28] MEDS: Propranolol 10 MG Tablet 20 MG PO (05:33)
[2019-09-28] MEDS: Tamsulosin HCl 0.4 MG Capsule PO (05:33)
[2019-09-28] MEDS: Finasteride 5 MG Tablet PO (05:33)
[2019-09-28] MEDS: Fenofibrate 145 MG Tablet PO (05:34)
[2019-09-28] MEDS: Ramipril 10 MG Capsule PO (05:34)
[2019-09-28] MEDS: Nystatin Powder 15gm Bottle 1 APPLIC TOPICAL ×2 (05:35→20:20)
[2019-09-28] MEDS: Aspirin 325 MG Tablet PO (08:01)
[2019-09-28] MEDS: Hydroxychloroquine 200 MG Tablet PO ×2 (08:01→17:27)
[2019-09-28] MEDS: Multivitamins,Therapeutic Tablet 1 TABLET PO (08:01)
[2019-09-28] MEDS: Acetaminophen 500 MG Tablet 1000 MG PO (08:08)
[2019-09-28] MEDS: Gabapentin 300 MG Capsule PO (08:08)
[2019-09-28 15:28] VITALS: BP 147/76; PULSE 65; RESP 18; TEMP 36.9; O2SAT 96
[2019-09-29] MEDS: traMADol 50 MG Tablet PO ×2 (01:32→17:19)
[2019-09-29] MEDS: Acetaminophen 500 MG Tablet 1000 MG PO ×2 (01:33→17:19)
[2019-09-29] MEDS: oxyCODONE 5 MG Tablet PO ×2 (05:44→15:06)
[2019-09-29] MEDS: Finasteride 5 MG Tablet PO (05:44)
[2019-09-29] MEDS: Propranolol 10 MG Tablet 20 MG PO (05:45)
[2019-09-29] MEDS: Fenofibrate 145 MG Tablet PO (05:45)
[2019-09-29] MEDS: Senna/Docusate Sodium 1 Tablet 2 TABLET PO ×2 (05:45→17:21)
[2019-09-29] MEDS: Ramipril 10 MG Capsule PO (05:45)
[2019-09-29] MEDS: Sertraline 100 MG Tablet 200 MG PO (05:45)
[2019-09-29] MEDS: Tamsulosin HCl 0.4 MG Capsule PO (05:46)
[2019-09-29] MEDS: Mirabegron 50 MG TAB.ER.24H PO (05:46)
[2019-09-29] MEDS: Nystatin Powder 15gm Bottle 1 APPLIC TOPICAL (05:48)
[2019-09-29] MEDS: Aspirin 325 MG Tablet PO (08:01)
[2019-09-29] MEDS: Multivitamins,Therapeutic Tablet 1 TABLET PO (08:02)
[2019-09-29] MEDS: Hydroxychloroquine 200 MG Tablet PO ×2 (08:02→17:21)
[2019-09-29 16:00] VITALS: BP 120/71; PULSE 79; RESP 17; TEMP 37; O2SAT 94
[2019-09-30] MEDS: oxyCODONE 5 MG Tablet PO ×3 (00:55→20:58)
[2019-09-30] MEDS: Acetaminophen 500 MG Tablet 1000 MG PO ×2 (00:56→10:12)
[2019-09-30] MEDS: Sertraline 100 MG Tablet 200 MG PO (05:55)
[2019-09-30] MEDS: Finasteride 5 MG Tablet PO (05:55)
[2019-09-30] MEDS: Fenofibrate 145 MG Tablet PO (05:55)
[2019-09-30] MEDS: Senna/Docusate Sodium 1 Tablet 2 TABLET PO ×2 (05:55→16:35)
[2019-09-30] MEDS: traMADol 50 MG Tablet PO (05:56)
[2019-09-30] MEDS: Tamsulosin HCl 0.4 MG Capsule PO (05:56)
[2019-09-30] MEDS: Ramipril 10 MG Capsule PO (05:56)
[2019-09-30] MEDS: Mirabegron 50 MG TAB.ER.24H PO (05:56)
[2019-09-30] MEDS: Propranolol 10 MG Tablet 20 MG PO (05:56)
[2019-09-30] MEDS: Nystatin Powder 15gm Bottle 1 APPLIC TOPICAL (05:57)
[2019-09-30] MEDS: Multivitamins,Therapeutic Tablet 1 TABLET PO (08:13)
[2019-09-30] MEDS: Aspirin 325 MG Tablet PO (08:13)
[2019-09-30] MEDS: Hydroxychloroquine 200 MG Tablet PO ×2 (08:13→16:35)
[2019-09-30 15:27] VITALS: BP 139/86; PULSE 66; RESP 20; TEMP 36.8; O2SAT 94
--- NOTE | 2019-09-30 15:47 | CASEMGMT ---
Social Work [facility] Pt requesting to DC home 10/04. Explained [facility] and outpatient therapy and nursing care. Pt chose [facility] - provided list of agencies - pt chose [facility]. Referral made to [facility] PT/OT/SN. Referral made to [facility] [place] for 18 in w/c with elevating leg rests. Plan: DC home 10/04 with [facility] PT/OT/SN and w/c. Josefina Cantrell, REEL ASSEMBLER NET LEAD ARCHITECT
[2019-09-30] MEDS: Doxycycline 100 MG CAPSULE PO (16:34)
--- NOTE | 2019-09-30 20:50 | PCM.DC ---
- Discharge Diagnoses Current Active Problems: Current Active and Chronic Problems Debility (Acute) Right fibular fracture (Acute) Dislocation of right ankle joint (Acute) Fracture of posterior malleolus of right tibia (Acute) Hyperlipidemia (Chronic) Overactive bladder (Chronic) ADHD (Chronic) Rheumatoid arthritis (Chronic) Body mass index (BMI) 40.0-44.9, adult (Chronic) You will use the following diet at home:: No restrictions, Regular Your food should be the consistency of: Regular Your liquids should be the consistency of: Regular/Thin Discharge Activity: Return to Normal Activity, May Shower, Use Walker Weight Bearing Status: No weight bearing - Right lower extremity. Keep extremity elevated above heart level: Operative Extremity, Right Leg Call your doctor if you observe: Fever of 101 or Higher, Inability to urinate, Inability to have a bowel movement, Shortness of breath, Chest pain, Uncontrolled pain Allergies/Adverse Reactions: Allergies No Known Allergies Allergy (Verified 09/25/19 12:23) Medications to take at Discharge Aspirin [Aspirin, Baby] 81 mg PO DAILY@0800 11/07/13 Fenofibrate,Micronized [Lofibra] 134 mg PO DAILY 11/07/13 Hydroxychloroquine [Plaquenil] 200 mg PO BIDCM 11/07/13 Sertraline HCl [Zoloft] 200 mg PO DAILY 11/07/13 Propranolol HCl [Inderal (Beta Edilma)] 20 mg PO DAILY 09/27/15 Tamsulosin HCl [Flomax] 0.4 mg PO DAILY 09/27/15 Multivitamins,Therapeutic [Multivitamin] 1 tab PO DAILY 09/07/19 Acetaminophen [Tylenol] 1,000 mg PO Q6H PRN PRN tablet 09/30/19 Aspirin 325 mg PO DAILY@0800 #4 tab 09/30/19 Doxycycline 100 mg PO BID #6 cap 09/30/19 Finasteride [Proscar] 5 mg PO DAILY tablet 09/30/19 Gabapentin [Neurontin] 300 mg PO 4X/DAY PRN #120 cap 09/30/19 Mirabegron [Myrbetriq] 50 mg PO DAILY tab.er.24h 09/30/19 Nystatin Powder [Mycostatin Powder] 1 applic TOPICAL BID@0600,2200 bottle 09/30/19 Oxycodone [Oxyir] 5 - 10 mg PO Q6H PRN PRN 7 Days #28 tablet 12/10/19 Polyethylene Glycol 3350 [Miralax] 17 gm PO DAILY #30 packet 09/30/19 Ramipril [Altace] 10 mg PO DAILY #30 cap 09/30/19 Senna/Docusate Sodium [Senokot-S] 2 tab PO BID #120 tab 09/30/19 traMADol [Ultram] 50 mg PO Q6H PRN PRN #28 tablet 09/30/19 The following prescriptions were given: Ramipril [Altace] 10 mg PO DAILY #30 cap Transmission Status: Pending to [address] Aspirin 325 mg PO DAILY@0800 #4 tab Transmission Status: Pending to [address] Doxycycline 100 mg PO BID #6 cap Transmission Status: Pending to [address] Polyethylene Glycol 3350 [Miralax] 17 gm PO DAILY #30 packet Transmission Status: Pending to [address] Gabapentin [Neurontin] 300 mg PO 4X/DAY PRN #120 cap PRN Reason: nerve pain Transmission Status: Pending to [address] Oxycodone [Oxyir] 5 - 10 mg PO Q6H PRN PRN 7 Days #28 tablet PRN Reason: Pain Score 6-10/10 Transmission Status: Received by [address] Senna/Docusate Sodium [Senokot-S] 2 tab PO BID #120 tab Transmission Status: Pending to [address] traMADol [Ultram] 50 mg PO Q6H PRN PRN #28 tablet PRN Reason: Pain Score 4-5/10 Transmission Status: Received by [address] Primary Care Physician: Isiah Bowman, GÓMEZ-C [Primary Care Provider] - Please follow up with your Primary Care Physician in: 1 week. Test Results: Test results from this visit will be discussed in further detail at your follow-up appointment, if applicable. Please Follow Up With: DR. PEREZ When: 2 weeks. Proposed Discharge Date: 10/04/19
--- NOTE | 2019-09-30 20:51 | PCM.DC.SUM ---
Discharge Date and Diagnosis - Problem List Patient Problems: Active and Suspected Problems Debility (Acute) Right fibular fracture (Acute) Dislocation of right ankle joint (Acute) Fracture of posterior malleolus of right tibia (Acute) Date of Admission: 09/10/19 Date of Discharge: 10/04/19 - Primary Discharge Diagnosis Active and Suspected Problems Debility (Acute) Right fibular fracture (Acute) Dislocation of right ankle joint (Acute) Fracture of posterior malleolus of right tibia (Acute) - Secondary Discharge Diagnosis Chronic Problems Hypertension (Chronic) GERD (gastroesophageal reflux disease) (Chronic) Anxiety (Chronic) Depression (Chronic) MICHAEL (obstructive sleep apnea) (Chronic) BPH (benign prostatic hyperplasia) (Chronic) Hyperlipidemia (Chronic) Overactive bladder (Chronic) ADHD (Chronic) Rheumatoid arthritis (Chronic) Body mass index (BMI) 40.0-44.9, adult (Chronic) Hospital Course and Treatment Imaging Results: 09/25/19 18:13 Diet: Regular Diet Food consistency:: Regular Liquid Consistency:: Regular/Thin Is pt able to select menu?: Yes Clinical Impression(s) from Imaging Studies Shoulder X-Ray 09/11/19 08:30 IMPRESSION: Degenerative changes of the glenohumeral joint with a spur in the inferior medial aspect of the humeral head. Electronically Signed: Mansoor France, at 14:57 EST , Service support , Chest X-Ray 09/22/19 13:37 IMPRESSION: No acute cardiopulmonary disease. Electronically Signed: Pastora Sampson MD at 0:28 EST , Service support , Operations: - - 09/25/2019 Right ankle surgery with Dr. Pritesh Perez. Procedures: None Summary of Care Provided: The patient is a 64 year old Male with below past medical history hospitalized for right ankle fracture, treated by Dr. Pritesh Perez, admitted to TCU with debility, here for rehabilitation, strengthening, prior to discharge home alone. 09/25/2019 Right ankle surgery with Dr. Pritesh Perez. Discharge home alone, [facility] for PT/OT. Patient Problems: Active and Suspected Problems Debility (Acute) Right fibular fracture (Acute) Dislocation of right ankle joint (Acute) Fracture of posterior malleolus of right tibia (Acute) - Physical Exam Vitals/I&O's: Vital Signs Temp Pulse Resp BP Pulse Ox 98.2 F 66 20 H 139/86 H 94 09/30/19 15:27 09/30/19 15:27 09/30/19 15:27 09/30/19 15:27 09/30/19 15:27 Oxygen Delivery Method Room Air Weight: 141.237 kg Body Mass Index (BMI) 44.4 Intake and Output for Last 24 Hours 09/28/19 09/29/19 09/30/19 23:59 23:59 23:59 Intake Total 1140 / 1140 840 / 840 800 / 800 Output Total 500 / 500 500 / 500 Balance 640 / 640 840 / 840 300 / 300 Current Medications Acetaminophen (Tylenol) 1,000 mg PO Q6H PRN PRN PRN Reason: Pain Score 1-3/10 Last Admin: 09/30/19 10:12 Dose: 1,000 mg Documented by: Albuterol/Ipratropium (Duoneb) 3 ml INHALATION Q4HWA.RT PRN PRN Reason: SOB &/OR WHEEZING Aspirin (Aspirin, Baby) 81 mg PO DAILY@0800 [facility] Last Admin: 09/24/19 08:15 Dose: 81 mg Documented by: Aspirin (Aspirin) 325 mg PO DAILY@0800 [facility] Stop: 10/08/19 08:01 Last Admin: 09/30/19 08:13 Dose: 325 mg Documented by: Bisacodyl (Dulcolax) 10 mg PO DAILY PRN PRN Reason: Constipation Doxycycline Monohydrate (Doxycycline) 100 mg PO BID [facility] Stop: 10/07/19 18:01 Last Admin: 09/30/19 16:34 Dose: 100 mg Documented by: Fenofibrate (Tricor) 145 mg PO DAILY [facility] Last Admin: 09/30/19 05:55 Dose: 145 mg Documented by: Finasteride (Proscar) 5 mg PO DAILY [facility] Last Admin: 09/30/19 05:55 Dose: 5 mg Documented by: Gabapentin (Neurontin) 300 mg PO 4X/DAY PRN PRN Reason: nerve pain Last Admin: 09/28/19 08:08 Dose: 300 mg Documented by: Hydrocortisone (Hytone) 1 applic TOPICAL TID PRN PRN; Protocol PRN Reason: RASH/TOPICAL IRRITATION Last Admin: 09/22/19 20:07 Dose: 1 applicatio Documented by: [facility] Admin: 09/30/19 16:35 Dose: 200 mg Documented by: Mirabegron (Myrbetriq) 50 mg PO DAILY [facility] Last Admin: 09/30/19 05:56 Dose: 50 mg Documented by: Multivitamins ([facility]itamin) [facility] Last Admin: 09/30/19 08:13 Dose: 1 tablet Documented by: Nystatin (Mycostatin Powder) 1 applic TOPICAL BID@0600,2200 [facility]; Protocol Last Admin: 09/30/19 05:57 Dose: 1 applicatio Documented by: Oxycodone HCl (Oxyir) 5 - 10 mg PO Q6H PRN PRN PRN Reason: Pain Score 6-10/10 Last Admin: 09/30/19 10:13 Dose: 10 mg Documented by: Polyethylene Glycol (Miralax) 17 gm PO DAILY [facility] Last Admin: 09/30/19 05:57 Dose: Not Given Documented by: Propranolol HCl (Inderal) 20 mg PO DAILY [facility] Last Admin: 09/30/19 05:56 Dose: 20 mg Documented by: Ramipril (Altace) 10 mg PO DAILY [facility] Last Admin: 09/30/19 05:56 Dose: 10 mg Documented by: Senna/Docusate Sodium (Senokot-S, Flora-Colace) 2 tablet PO BID [facility] Last Admin: 09/30/19 16:35 Dose: 2 tablet Documented by: Sertraline HCl (Zoloft) 200 mg PO DAILY [facility] Last Admin: 09/30/19 05:55 Dose: 200 mg Documented by: Tamsulosin HCl (Flomax) 0.4 mg PO DAILY [facility] Last Admin: 09/30/19 05:56 Dose: 0.4 mg Documented by: Tramadol HCl (Ultram) 50 mg PO Q6H PRN PRN PRN Reason: Pain Score 4-5/10 Last Admin: 09/30/19 05:56 Dose: 50 mg Documented by: Discharge Diet: No Restrictions Discharge Activity: Return to Normal Activity, May Shower, Use Walker Weight Bearing Status: No weight bearing - Right lower extremity. Keep extremity elevated above heart level: Operative Extremity, Right Leg Call your doctor if you observe: Fever of 101 or Higher, Inability to urinate, Inability to have a bowel movement, Shortness of breath, Chest pain, Uncontrolled pain Home Medications: Medications to take at Discharge Aspirin [Aspirin, Baby] 81 mg PO DAILY@0800 11/07/13 Fenofibrate,Micronized [Lofibra] 134 mg PO DAILY 11/07/13 Hydroxychloroquine [Plaquenil] 200 mg PO BIDCM 11/07/13 Sertraline HCl [Zoloft] 200 mg PO DAILY 11/07/13 Propranolol HCl [Inderal (Beta Edilma)] 20 mg PO DAILY 09/27/15 Tamsulosin HCl [Flomax] 0.4 mg PO DAILY 09/27/15 Multivitamins,Therapeutic [Multivitamin] 1 tab PO DAILY 09/07/19 Acetaminophen [Tylenol] 1,000 mg PO Q6H PRN PRN tablet 09/30/19 Aspirin 325 mg PO DAILY@0800 #4 tab 09/30/19 Doxycycline 100 mg PO BID #6 cap 09/30/19 Finasteride [Proscar] 5 mg PO DAILY tablet 09/30/19 Gabapentin [Neurontin] 300 mg PO 4X/DAY PRN #120 cap 09/30/19 Mirabegron [Myrbetriq] 50 mg PO DAILY tab.er.24h 09/30/19 Nystatin Powder [Mycostatin Powder] 1 applic TOPICAL BID@0600,2200 bottle 09/30/19 Oxycodone [Oxyir] 5 - 10 mg PO Q6H PRN PRN 7 Days #28 tablet 09/30/19 Polyethylene Glycol 3350 [Miralax] 17 gm PO DAILY #30 packet 09/30/19 Ramipril [Altace] 10 mg PO DAILY #30 cap 09/30/19 Senna/Docusate Sodium [Senokot-S] 2 tab PO BID #120 tab 09/30/19 traMADol [Ultram] 50 mg PO Q6H PRN PRN #28 tablet 09/30/19 Following Prescrptions Were Given to Patient: Ramipril [Altace] 10 mg PO DAILY #30 cap Transmission Status: Pending to [facility] [place] [address] Aspirin 325 mg PO DAILY@0800 #4 tab Transmission Status: Pending to [address] Doxycycline 100 mg PO BID #6 cap Transmission Status: Pending to [address] Polyethylene Glycol 3350 [Miralax] 17 gm PO DAILY #30 packet Transmission Status: Pending to [address] Gabapentin [Neurontin] 300 mg PO 4X/DAY PRN #120 cap PRN Reason: nerve pain Transmission Status: Pending to [address] Oxycodone [Oxyir] 5 - 10 mg PO Q6H PRN PRN 7 Days #28 tablet PRN Reason: Pain Score 6-10/10 Transmission Status: Received by [address] Senna/Docusate Sodium [Senokot-S] 2 tab PO BID #120 tab Transmission Status: Pending to [address] traMADol [Ultram] 50 mg PO Q6H PRN PRN #28 tablet PRN Reason: Pain Score 4-5/10 Transmission Status: Received by [address] Primary Care Physician: Isiah Bowman, LUMBER STACKER DRIVER-C [Primary Care Provider] - Please follow up with your Primary Care Physician in: 1 week. Please Follow Up With: DR. PEREZ When: 2 weeks. Disposition: Home with Home Health Minutes spent on discharge:: 35 Patient Condition:: Stable Medical Necessity - Tobacco Use Smoking Status: Never smoker Tobacco Use: Non-smoker Meaningful Use Info Meaningful Use Diagnoses (Choose all that apply): None applicable
--- NOTE | 2019-09-30 20:54 | HHNOTE_ITS ---
Home Health Note - Plan Overview of reason of hospitalization: The patient is a 64 year old Male with below past medical history hospitalized for right ankle fracture, treated by Dr. Pritesh Wahl, admitted to TCU with debility, here for rehabilitation, strengthening, prior to discharge home alone. 09/25/2019 Right [address] surgery [address] Dr. Pritesh Wahl. Discharge home alone, [facility] for PT/OT. Problems: Patient was seen for Debility (Acute) Right fibular fracture (Acute) Dislocation of right ankle joint (Acute) Fracture of posterior malleolus of right tibia (Acute) Hyperlipidemia (Chronic) Overactive bladder (Chronic) ADHD (Chronic) Rheumatoid arthritis (Chronic) Body mass index (BMI) 40.0-44.9, adult (Chronic) Complete List of Medical Problems Hypertension (Chronic) GERD (gastroesophageal reflux disease) (Chronic) Anxiety (Chronic) Depression (Chronic) Leg fracture, right (Acute) Declining functional status (Acute) MICHAEL (obstructive sleep apnea) (Chronic) BPH (benign prostatic hyperplasia) (Chronic) Debility (Acute) Right fibular fracture (Acute) Dislocation of right ankle joint (Acute) Fracture of posterior malleolus of right tibia (Acute) Hyperlipidemia (Chronic) Overactive bladder (Chronic) ADHD (Chronic) Rheumatoid arthritis (Chronic) Body mass index (BMI) 40.0-44.9, adult (Chronic) - Requirements and Reasons Disciplines Needed/Ordered: Physical Therapy Reason for Disciplines: Gait Training, Stair Training, Fall Prevention, Home Safety/Equipment Instruction, Balance and/or Posture Training, Transfer Training Related To: Change in Medical Treatment Plan, Limited/Poor Endurance, Shortness of Breath with Activity, Physical Impairments, Unsteady Gait/Balance, Intractable Pain, Fall Risk Patient is unable to leave the home: Without Aid of Supportive Devices (crutches, cane, wheelchair, walker), Without the assistance of another person, Because it is medically contraindicated Medically Contraindicated related to: Weight Bearing Status - Additional Disciplines Additional Disciplines Needed/Ordered: Occupational Therapy
[2019-10-01] MEDS: oxyCODONE 5 MG Tablet PO ×3 (03:11→23:07)
[2019-10-01] MEDS: Sertraline 100 MG Tablet 200 MG PO (05:56)
[2019-10-01] MEDS: Senna/Docusate Sodium 1 Tablet 2 TABLET PO ×2 (05:56→17:08)
[2019-10-01] MEDS: Ramipril 10 MG Capsule PO (05:57)
[2019-10-01] MEDS: Doxycycline 100 MG CAPSULE PO ×2 (05:57→17:08)
[2019-10-01] MEDS: Fenofibrate 145 MG Tablet PO (05:57)
[2019-10-01] MEDS: Tamsulosin HCl 0.4 MG Capsule PO (05:57)
[2019-10-01] MEDS: Propranolol 10 MG Tablet 20 MG PO (05:57)
[2019-10-01] MEDS: Mirabegron 50 MG TAB.ER.24H PO (05:57)
[2019-10-01] MEDS: Finasteride 5 MG Tablet PO (05:57)
[2019-10-01] MEDS: Nystatin Powder 15gm Bottle 1 APPLIC TOPICAL ×2 (05:59→23:11)
[2019-10-01] MEDS: Aspirin 325 MG Tablet PO (07:36)
[2019-10-01] MEDS: Hydroxychloroquine 200 MG Tablet PO ×2 (07:36→17:08)
[2019-10-01] MEDS: Multivitamins,Therapeutic Tablet 1 TABLET PO (07:36)
[2019-10-01] MEDS: Acetaminophen 500 MG Tablet 1000 MG PO ×3 (07:40→23:07)
[2019-10-01] MEDS: traMADol 50 MG Tablet PO (07:40)
[2019-10-01 16:00] VITALS: BP 153/86; PULSE 73; RESP 17; TEMP 37.1; O2SAT 97
[2019-10-02] MEDS: Sertraline 100 MG Tablet 200 MG PO (04:37)
[2019-10-02] MEDS: Fenofibrate 145 MG Tablet PO (04:38)
[2019-10-02] MEDS: Propranolol 10 MG Tablet 20 MG PO (04:38)
[2019-10-02] MEDS: Finasteride 5 MG Tablet PO (04:38)
[2019-10-02] MEDS: traMADol 50 MG Tablet PO ×2 (04:38→14:01)
[2019-10-02] MEDS: Mirabegron 50 MG TAB.ER.24H PO (04:38)
[2019-10-02] MEDS: Tamsulosin HCl 0.4 MG Capsule PO (04:38)
[2019-10-02] MEDS: Senna/Docusate Sodium 1 Tablet 2 TABLET PO (04:38)
[2019-10-02] MEDS: Doxycycline 100 MG CAPSULE PO ×2 (04:38→17:46)
[2019-10-02] MEDS: Ramipril 10 MG Capsule PO (04:39)
[2019-10-02] MEDS: Nystatin Powder 15gm Bottle 1 APPLIC TOPICAL ×2 (04:40→23:57)
[2019-10-02] MEDS: Multivitamins,Therapeutic Tablet 1 TABLET PO (08:29)
[2019-10-02] MEDS: Aspirin 325 MG Tablet PO (08:29)
[2019-10-02] MEDS: Hydroxychloroquine 200 MG Tablet PO ×2 (08:29→17:47)
[2019-10-02] MEDS: Acetaminophen 500 MG Tablet 1000 MG PO ×2 (10:26→23:54)
[2019-10-02] MEDS: oxyCODONE 5 MG Tablet PO ×2 (10:27→23:54)
[2019-10-02 15:25] VITALS: BP 154/85; PULSE 76; RESP 17; TEMP 36.4; O2SAT 96
[2019-10-03] MEDS: Tamsulosin HCl 0.4 MG Capsule PO (05:34)
[2019-10-03] MEDS: Mirabegron 50 MG TAB.ER.24H PO (05:34)
[2019-10-03] MEDS: Propranolol 10 MG Tablet 20 MG PO (05:34)
[2019-10-03] MEDS: Fenofibrate 145 MG Tablet PO (05:34)
[2019-10-03] MEDS: Finasteride 5 MG Tablet PO (05:34)
[2019-10-03] MEDS: Sertraline 100 MG Tablet 200 MG PO (05:34)
[2019-10-03] MEDS: Doxycycline 100 MG CAPSULE PO ×2 (05:34→17:26)
[2019-10-03] MEDS: Ramipril 10 MG Capsule PO (05:34)
[2019-10-03] MEDS: Nystatin Powder 15gm Bottle 1 APPLIC TOPICAL ×2 (05:34→19:45)
[2019-10-03] MEDS: Senna/Docusate Sodium 1 Tablet 2 TABLET PO ×2 (05:34→17:26)
[2019-10-03] MEDS: Aspirin 325 MG Tablet PO (07:58)
[2019-10-03] MEDS: Hydroxychloroquine 200 MG Tablet PO ×2 (07:58→17:26)
[2019-10-03] MEDS: oxyCODONE 5 MG Tablet PO ×2 (07:58→19:43)
[2019-10-03] MEDS: Multivitamins,Therapeutic Tablet 1 TABLET PO (07:59)
--- NOTE | 2019-10-03 10:42 | CASEMGMT ---
Social Work BIMS and PHQ-9 completed for MDS assessment. Josefina Cantrell, HIDE MILL WORKER SPINDLE MAKER
[2019-10-03] MEDS: Acetaminophen 500 MG Tablet 1000 MG PO (10:56)
[2019-10-03] MEDS: traMADol 50 MG Tablet PO (10:56)
[2019-10-03 16:00] VITALS: BP 153/78; PULSE 71; RESP 18; TEMP 36.2; O2SAT 95
[2019-10-04] MEDS: oxyCODONE 5 MG Tablet PO ×2 (04:04→10:14)
[2019-10-04] MEDS: Senna/Docusate Sodium 1 Tablet 2 TABLET PO (06:45)
[2019-10-04] MEDS: Sertraline 100 MG Tablet 200 MG PO (06:45)
[2019-10-04] MEDS: Mirabegron 50 MG TAB.ER.24H PO (06:46)
[2019-10-04] MEDS: Propranolol 10 MG Tablet 20 MG PO (06:46)
[2019-10-04] MEDS: Doxycycline 100 MG CAPSULE PO (06:46)
[2019-10-04] MEDS: Tamsulosin HCl 0.4 MG Capsule PO (06:46)
[2019-10-04] MEDS: Fenofibrate 145 MG Tablet PO (06:46)
[2019-10-04] MEDS: Finasteride 5 MG Tablet PO (06:46)
[2019-10-04] MEDS: Ramipril 10 MG Capsule PO (06:48)
[2019-10-04] MEDS: Nystatin Powder 15gm Bottle 1 APPLIC TOPICAL (06:49)
[2019-10-04] MEDS: Multivitamins,Therapeutic Tablet 1 TABLET PO (07:56)
[2019-10-04] MEDS: Aspirin 325 MG Tablet PO (07:56)
[2019-10-04] MEDS: Hydroxychloroquine 200 MG Tablet PO (07:56)
[2019-10-04] MEDS: Acetaminophen 500 MG Tablet 1000 MG PO (07:59)
[2019-10-04] MEDS: traMADol 50 MG Tablet PO (07:59)
[2019-10-04 10:45] VITALS: BP 148/80; PULSE 68; RESP 16; TEMP 36.7; O2SAT 96
== END 2019-10-04 10:40 | disposition home health service (06) | DRG 561 ==
PROVIDERS: Nurse Practitioner Family; Admitting Provider Family Medicine Geriatric Medicine; Family Provider Nurse Practitioner Family; PCP Nurse Practitioner Family; Referring Provider Family Medicine Geriatric Medicine; Visit Provider Family Medicine Geriatric Medicine
DX: S82.391D Other fracture of lower end of right tibia, subsequent encounter for closed fracture with routine healing (principal); S82.491D Other fracture of shaft of right fibula, subsequent encounter for closed fracture with routine healing; W19.XXXD Unspecified fall, subsequent encounter; M06.9 Rheumatoid arthritis, unspecified; K21.9 Gastro-esophageal reflux disease without esophagitis; I10 Essential (primary) hypertension; G47.33 Obstructive sleep apnea (adult) (pediatric); N40.0 Benign prostatic hyperplasia without lower urinary tract symptoms; E78.5 Hyperlipidemia, unspecified; F32.9 Major depressive disorder, single episode, unspecified; F41.9 Anxiety disorder, unspecified; N32.81 Overactive bladder; B35.4 Tinea corporis
CPT/HCPCS: 36415; 71046; 73030; 80048; 83036; 85025; 85027; 85610; 85730; 93005; 97110; 97116; 97162; 97166; 97530; 97535; 97802

== ENCOUNTER 2019-09-25 12:07 | Day surgery (SDC) | payer MEDICARE, OTHER, SELFPAY ==
[2019-09-25 12:33] VITALS: BP 125/75; PULSE 69; RESP 16; TEMP 36.7; O2SAT 97; BMI 44.6
[2019-09-25] MEDS: Lactated Ringers 1,000 ML 100 ML IV ×2 (12:52→17:54)
--- NOTE | 2019-09-25 13:30 | RAD_ITS ---
STUDY: X-RAY - RIGHT ANKLE REASON FOR EXAM: Male, 64 years old. Fluoroscopy TECHNIQUE: Fluoroscopic views of the ankle were performed.. COMPARISON: 06 September 2019 FINDINGS: Fluoroscopy demonstrates placement of plate and screws in the tibia and fibula distally. Refer to the operative report for additional details. RAD/Ankle min 3 Views IMPRESSION: Operative ankle fluoroscopy. Electronically Signed: Yusra Reyes, at 17:14 EST Tel , Service support ,
[2019-09-25] MEDS: Bupivacaine Mpf 0.5% 30 ML VIAL (16:51)
--- NOTE | 2019-09-25 17:04 | DCINST_ITS ---
Discharge Diet: No Restrictions Discharge Activity: May Not Drive, May not drive while taking narcotic pain medications., May Take a Tub Bath, Use Walker, Use Crutches Weight Bearing Status: No weight bearing Keep extremity elevated above heart level: Right Leg Call your doctor if your incision/area has: Continuous Slow Oozing, Sudden Increased Bleeding, Increased Pain/ Swelling Call your doctor if you observe: Fever of 101 or Higher, Coldness, Increased Pain, Change in Color, Shortness of breath, Dizziness, Chest pain, Increased palpitations (irregular heartbeat) Suture Line Care: Avoid Pulling/Pushing, Avoid Pinching/Bending Cleanse incision/area with: Keep Dressing Clean & Dry Additional Dressing/Incision Instructions:: keep dressing clean, dry and intact. do not get dressing wet. protect dressing when sponge bathing with plastic bag and tape or cast protector. elevate right foot above level of heart at all times. ice behind right knee 20 minutes on 20 minutes off every hour while awake for next 7 days. take medications as prescribed. No walking/standing on right foot at all. Use assistive devices as needed. Allergies/Adverse Reactions: Allergies No Known Allergies Allergy (Verified 09/25/19 12:23) Medications to take at Discharge Aspirin [Aspirin, Baby] 81 mg PO DAILY@0800 11/07/13 Fenofibrate,Micronized [Lofibra] 134 mg PO DAILY 11/07/13 Hydroxychloroquine [Plaquenil] 200 mg PO BIDCM 11/07/13 Sertraline HCl [Zoloft] 200 mg PO DAILY 11/07/13 Propranolol HCl [Inderal (Beta Edilma)] 20 mg PO DAILY 09/27/15 Tamsulosin HCl [Flomax] 0.4 mg PO DAILY 09/27/15 Multivitamins,Therapeutic [Multivitamin] 1 tab PO DAILY 09/07/19 Ramipril 5 mg PO DAILY 09/07/19 Acetaminophen [Tylenol Tablet] 650 mg PO Q6H PRN PRN tab 09/10/19 Ensure Enlive 120 ml PO 4X/DAY liquid 09/10/19 Heparin Injection (Vial) [Heparin Na] 5,000 unit SUBCUT Q8 #0 vial 09/10/19 Ipratropium/Albuterol Sulfate [Duoneb] 3 ml INHALATION Q4HWA.RT PRN ampul.neb 09/10/19 Oxycodone HCl/Acetaminophen [Percocet 5-325] 1 tab PO Q6H PRN PRN 2 Days #8 tab 09/10/19 Senna/Docusate Sodium [Senokot-S] 2 tab PO BID tab 09/10/19 Primary Care Physician: Isiah Bowman, HAWAC [Primary Care Provider] - Test Results: Test results from this visit will be discussed in further detail at your follow- up appointment, if applicable. Please Follow Up With: Pritesh Wahl DPM When: in 1 week in office
--- NOTE | 2019-09-25 17:08 | OP.PCM_ITS ---
Problem List (1) Right fibular fracture Status: Acute Qualifiers: Encounter type: initial encounter Fibula location: shaft Fracture type: closed Fracture morphology: comminuted Fracture alignment: displaced Qualified Code(s): S82.451A - Displaced comminuted fracture of shaft of right fibula, initial encounter for closed fracture (2) Dislocation of right ankle joint Status: Acute Qualifiers: Encounter type: initial encounter Qualified Code(s): S93.04XA - Dislocation of right ankle joint, initial encounter (3) Fracture of posterior malleolus of right tibia Status: Acute Qualifiers: Encounter type: initial encounter Fracture type: closed Qualified Code(s): S82.391A - Other fracture of lower end of right tibia, initial encounter for closed fracture Report of Operation Date of Procedure: 09/25/19 Pre-Operative Diagnosis: Right ankle syndemosis rupture, right ankle deltoid ligament rupture, right ankle dislocation, right posterior malleolus fracture, right fibula shaft fracture Post-Operative Diagnosis: same as pre-operative Surgery/Procedure Performed:: 1.) right ankle syndesmosis repair using tightrope 2.)right ankle deltoid ligament repair using internal brace 3.) right fibula fracture closed reduction Description of Surgical Findings:: consistent with diagnosis, reduction of ankle joint mortise achieved with internal fixation chopper gun operator: Sol Peraza Type of Anesthesia:: General/Regional - with popliteal/saphenous block to right lower extremity Anesthesiologist: Robel Murphy Special Medications: 3 grams ancef IV Specimen's removed: None Drains: None Estimated Blood Loss (mL): 150mL Description of Procedure: pathology: None Anesthesia: Gen. with a popliteal saphenous block to the right lower extremity Hemostasis: Pneumatic thigh tourniquet placed at the level of the right thigh at 250 mmHg for 117 minutes Materials: 1.) Arthrex tight rope ?2 with associated plate. 2.) Arthrex internal brace with associated fiber tape. 3.) 2-0 Vicryl. 4.) 3-0 Monocryl. 5.) 3-0 nylon injectables: None Complications: Patient was continued on blood thinners even though he was instructed to stop. His last dose of Lovenox was yesterday. All bleeding was stopped during the surgery, but was slow to stop. condition: Stable Indications: Mr. Davis is a 64-year-old male with multiple medical problems who suffered a slip and fall on September 07. Patient states that he was holding his dog outside and slipped off his deck. Patient placed all his weight on his right ankle and noticed immediate pain and deformity. Patient was then brought to the emergency department for further evaluation. At that time x-rays and a CT scan were taken. Patient was placed in a posterior splint after closed reduction was performed and advised to follow up. After leaving the emergency department, patient began to notice chest pain. Patient returned to the emergency department for further evaluation. Patient was subsequently admitted. I then saw the patient for consult while he was an inpatient. At that time I reviewed the pre-and post closed reduction x-rays. The prereduction x-rays showed a significant widening of the inferior tibial fibular joint along with an increase in widening of the medial portion of the ankle joint mortise. Furthermore a mid to proximal fibular shaft fracture was noted. The fracture was confirmed upon CT evaluation, also showing a nondisplaced minimal posterior malleolar fracture. At that time the patient was noted to be significantly swollen in his right lower extremity. I recommend that the patient continue elevation and a posterior splint and wait for swelling to go down before surgical intervention. Patient subsequently followed up with me in the office for further evaluation. At that time I discussed with the patient that the syndesmotic ligaments along with the deltoid ligaments would need to be repaired to get stability back to his right ankle. A discussion was had with the patient about fixation of the fibular fracture. I discussed with the patient that since the ankle joint mortise was in line in the fibula was noted to be out to length, a closed reduction of the fibular fracture can be performed without internal fixation. I discussed the risks and benefits of leaving this fibular fracture alone versus surgical intervention. At that time patient agreed to surgical intervention to fix his ligaments and states that we do not have to fix the fibula at this time. Operative report: Before the patient was brought to the operating room, all the risks, benefits, possible outcomes, possible complications of the procedure were discussed with the patient. All the patient's questions were answered to his satisfaction and all of his concerns were addressed. No guarantees were made to the outcome of the procedure. The patient understood all aspects of the procedure and consent was then signed by the patient. Before the patient brought to the operating room, the anesthesiologist administered a popliteal block to the right lower extremity. The patient was brought to the operating room and placed on the operating table in supine position. After timeout, under general anesthesia, a well-padded pneumatic thigh tourniquet was placed to the level of the right thigh. Next 10 cc of 0.5% Marcaine plain was distributed proximal saphenous nerve block fashion. The right foot, ankle, leg were then scrubbed, prepped, draped in the usual sterile manner. Elevation of the right lower extremity was found by exsanguination via Esmarch and inflation of the pneumatic thigh tourniquet to 250 mmHg. Attentionwas directed to the lateral aspect of the lateral malleolus of the right ankle. At this time radiographic evaluation was performed to determine the level of the distal lateral malleolus, syndesmosis, and approximately 1.5 cm proximal to the ankle joint. All of these were then marked on the patient. Next a linear longitudinal incision was made starting on the lateral aspect of the distal one third of the fibular shaft extending distally to the distal tip of the lateral malleolus. This incision was deepened utilizing sharp and blunt dissection. Care was taken to retract all vital neural and vascular structures. All bleeders were cauterized and ligated as necessary. At this time a linear incision was made in line with the original skin incision and the periosteal and capsular structures. The periosteal and capsule structures were then reflected anteriorly and posteriorly, thus exposing the fibula at the operative site. At this time the ankle joint level was determined on radiographic evaluation. 1.5 cm was measured proximal to this ankle joint level and marked on the fibula. This would be the the level of the distal tight rope. At this time the 2 hole plate for the Arthrex internal brace was placed on the lateral aspect of the fibula with the distal hole at this 1.5 cm marking. This was held via temporary fixation. At this time, a K wire was placed into each plate hole from lateral to medial. Care was taken make sure that the K wire was angulated 30? and a posterior lateral to anterior medial fashion to stimulate the anatomic distribution of the tibia and fibula.the position of these K wires was confirmed upon radiographic evaluation. at this time, a large bone reduction clamp was used to reduce the syndesmosis back into anatomical position. Radiographic evaluation was then performed and the syndesmosis was noted to be reduced and the tibia and fibula overlap was noted to be back in anatomical alignment. Once adequate position of these K wires were then performed, these were then drilled in standard fashion. Once drilled, an Arthrex tight rope was placed from lateral to medial through each drill hole and through the plate. Care was taken to make sure that the medial button engaged in the medial cortex. These were confirmed upon radiographic evaluation.once the medial button adequately engage the cortex, both of these tight ropes were tightened down to be flush against the plate. Once adequate opposition of the button to the plate was had, the excess FiberWire was cut and removed the operative site. Radiograph evaluations and performed once again after the bone clamp was removed. The tibia fibula overlap was noted to be back in anatomical alignment. Stress views were performed under radiograph evaluation, and no tibia fibular widening was noted. The surgical site was then irrigated with copious amounts of normal sterile saline. The periosteal and capsular structures were reapproximated and coapted utilizing 2-0 Vicryl. The subcu tissue was reapproximated and coapted utilizing 3-0 Monocryl. The skin was approximate and coapted using 3-0 nylon in a horizontal mattress fashion. Attention was then turned to the medial aspect of the right ankle in the area of the medial malleolus. at this time radiographic evaluation was used to determine the level of the distal tip of the medial malleolus and the medial aspect of the talus. Next a curvilinear incision was made starting on the medial aspect of the distal medial malleolus extending distally and anteriorly to the medial aspect of the talus. This incision was approximately 5 cm in length. This incision was deepened utilizing blunt dissection. Care was taken to retract all vital neural and vascular structures. All bleeders were cauterized and ligated as necessary. at this time the deltoid ligament was then identified. A transverse incision was made at the distal aspect of the medial malleolus to the level of deltoid ligament. The deltoid ligament was then sharply dissected off of the medial malleolus. Next a K wire was driven from the distal aspect of the medial malleolus extending proximally and laterally into the tibia. Position of this K wire was confirmed upon radiographic evaluation. Once adequate positioning was obtained, this K wire was then drilled. The K wire was then removed in its entirety. At this time the tap for the internal brace was used to tap the surgical site. At this time the Arthrex internal brace 4.5 anchor was placed into the medial aspect of the medial malleolus and the drill site. This was placed with associated size 2 fiber tape. once this anchor was fully inserted, this was then tested the pull test and was adequately in the bone. Attention was then diverted to the medial aspect of the talus. Radiographic evaluation was used to determine the level where the anchor would go. At this time a K wire was driven from the medial aspect of the talus into the talar body. This K wire position was confirmed on radiographic evaluation. Once adequate position was then performed blunt dissection was continued around the K wire down to the level of the medial talus. Next this K wire was then drilled in standard fashion and tapped appropriately. The size 2 fiber tape was then threaded through this anchor, and the Arthrex 3.5 anchor was then placed into the medial aspect of the talus with adequate purchase into bone. During insertion of the anchor, care was taken to make sure that the foot was held in a slightly inverted position. care was taken to make sure to not over tighten this internal brace. Once all anchors were fully inserted, any excessive fiber tape was removed from the operative site. This time radiographic evaluation was used to test the deltoid ligament. The medial gapping noted from preoperative assessment was significantly reduced. Furthermore adequate tension was placed through the internal brace on the medial aspect of the fixation points of the deltoid ligament. It was determined that the internal brace was aiding in the repair of the deltoid ligament. Next the associated sized 2 FiberWire with the anchor was used to help repair the superficial deltoid ligament in a pants over vest stitch fashion. care was taken to make sure that the foot was held in a slightly inverted position during this repair. Testing the deltoid ligament was then performed once again and was revealed to be strengthened when compared to preoperative assessment. The surgical site was then irrigated with copious amounts of normal sterile saline. The subcutsnous tissue was then reapproximated and coapted utilizing 3- 0 Monocryl. The skin was reapproximated and coapted utilizing 3-0 nylon in a horizontal mattress fashion. At this time the pneumatic thigh tourniquet was then released and a prompt hyperemic response noted to the entirety of the right lower extremity. Attention was then directed to the mid shaft of the fibula. Radiographic evaluation was then performed to observe the fibula fracture. The fibula was noted to be out to length. The butterfly fragment on the posterior aspect of the fibula was noted to be reduced from preoperative assessment. It was then determined that this fibula fracture will be left alone to let heal on its own. each surgical site was then dressed with the Arthrex jumpstart antimicrobial wound dressing. These were then dressed with a dry sterile dressing consisting of 4 4 gauze, ABD pads, wrapped with Kerlix. At this time a stockinette was placed over the right foot ankle and leg. Cast padding was wrapped from the metatarsal heads extending proximally to a level just distal to the tibial tuberosity. A posterior splint was fashioned to the right lower extremity and was adhered to the right lower extremity utilizing Georges bandages. Care was taken to make sure the foot and ankle held in neutral position during drying. The patient tolerated anesthesia and procedure well and was transported to the PACU with vital signs stable and neurovascular status intact to the right lower extremity. After pre-to postoperative monitoring the patient be discharged home with written and oral instructions for wound care and follow-up. Grafts/Implants Used: Arthrex tightrope x2, arthrex internal brace - Complications Bleeding present due to patient being on anticoagulation medications - Admit VTE Documentation VTE Present on Admission: No
[2019-09-25 17:35] VITALS: BP 125/75; BP 136/68; PULSE 86; RESP 18; TEMP 37.8; O2SAT 94
--- NOTE | 2019-09-25 17:40 | RAD_ITS ---
STUDY: X-RAY - RIGHT ANKLE REASON FOR EXAM: Male, 64 years old. Postop syndesmosis TECHNIQUE: 3 view(s) of the ankle. COMPARISON: None. FINDINGS: There is a midshaft fracture of the fibula. Orthopedic hardware is noted fixating distal fibula and tibia. Normal tibiotalar articulation and ankle mortise. Normal visualized talus and calcaneus. The visualized subtalar, talonavicular, calcaneocuboid and tarsal articulations are normal. The soft tissue structures are unremarkable. RAD/Ankle min 3 Views IMPRESSION: Postoperative changes with hardware noted fixating the distal fibula and tibia. Mid shaft fibula fracture. Electronically Signed: Chano Stein DO at 20:28 EST Tel [phone], Service support ,
[2019-09-25 17:45] VITALS: BP 125/75; BP 141/74; PULSE 88; RESP 18; O2SAT 96
[2019-09-25 18:00] VITALS: BP 125/75; BP 152/85; PULSE 88; RESP 18; TEMP 37.8; O2SAT 93
== END 2019-09-25 18:09 | disposition skilled nursing facility (03) ==
LOC: SDC 12:09 → AC 12:09
PROVIDERS: Family Provider Nurse Practitioner Family; PCP Nurse Practitioner Family; Referring Provider Podiatrist Foot & Ankle Surgery; Visit Provider Podiatrist Foot & Ankle Surgery
DX: S82.451A Displaced comminuted fracture of shaft of right fibula, initial encounter for closed fracture (principal); S93.04XA Dislocation of right ankle joint, initial encounter; S93.421A Sprain of deltoid ligament of right ankle, initial encounter; S93.431A Sprain of tibiofibular ligament of right ankle, initial encounter; S82.391A Other fracture of lower end of right tibia, initial encounter for closed fracture; W17.89XA Other fall from one level to another, initial encounter; Y93.9 Activity, unspecified; Y92.008 Other place in unspecified non-institutional (private) residence as the place of occurrence of the external cause; Y99.9 Unspecified external cause status; I10 Essential (primary) hypertension; E78.5 Hyperlipidemia, unspecified; M19.90 Unspecified osteoarthritis, unspecified site; M79.7 Fibromyalgia; J45.909 Unspecified asthma, uncomplicated; F32.9 Major depressive disorder, single episode, unspecified; F41.9 Anxiety disorder, unspecified; Z87.891 Personal history of nicotine dependence; Z79.01 Long term (current) use of anticoagulants; Z86.718 Personal history of other venous thrombosis and embolism
CPT/HCPCS: 27695; 27829; 64450; 73610; 76000; C1713; J7120; J2405

== ENCOUNTER → 2019-10-21 10:56 | Outpatient (CLI) | payer MEDICARE, OTHER, SELFPAY ==
[2019-09-25 12:33] VITALS: BMI 44.6
--- NOTE | 2019-10-21 10:59 | VDLE_ITS ---
Reason For Study: pain RIGHT GSV is normal. CFV is compressible, spontaneous, phasic, competent and demonstrates normal augmentation. POP V is compressible, spontaneous, phasic, competent and demonstrates normal augmentation. T/P Trunk is compressible. PTV is compressible. RT PerV is compressible. Prox and Mid FV are compressible. Distal FV is partially compressible with decreased flow. DVT is hypoechoic consistent with acute DVT. Procedure Exam performed in department. The exam was diagnostic. A preliminary report was called and/or faxed to Vesna at [facility]. Interpretation Summary Right great saphenous vein appears patent and compressible segmentally. Acute deep venous thrombosis distal right femoral vein. Ordering Physician: Pritesh Wahl Performed By: Natanael Alvarado RVT
== END ==
PROVIDERS: Family Provider Nurse Practitioner Family; PCP Nurse Practitioner Family; Referring Provider Podiatrist Foot & Ankle Surgery; Visit Provider Podiatrist Foot & Ankle Surgery
DX: M79.661 Pain in right lower leg (principal)
CPT/HCPCS: 93971

== ENCOUNTER → 2020-01-08 14:00 | Outpatient (CLI) | payer MEDICARE, OTHER, SELFPAY ==
[2020-01-08 15:46] LABS: Absolute Lymphocyte Count 1.77 X10^3/uL (0.83-4.51); Absolute Neutrophil Count 4.6 X10^3/uL (2.0-7.7); Basophil# 0.04 X10^3/uL; Basophil% 0.5 % (0-1); Eosinophil# 0.25 X10^3/uL; Eosinophils% 3.4 % (0-5); Hematocrit 44.3 % (40-54); Hemoglobin 14.6 g/dL (13.0-16.5); Lymphocyte # 1.77 X10^3/ul (4.0); Lymphocyte % 23.8 % (19-41); Mean Corpuscular Hgb 31.3 pg (27.0-32.0); Mean Corpuscular Volume 94.9 fL (80-94); Monocyte# 0.81 X10^3/uL; Monocyte% 10.9 % (0-10); NRBC Flagged by Analyzer 0 % (0-5); Neutrophil # 4.56 X10^3/uL (2.7-7.7); Neutrophil % 61.1 % (47-70); Platelet Count 239 K/mm3 (150-450); RBC Distribution Width CV 12.5 % (11.6-14.6); RBC Distribution Width SD 43.3 fl (35.1-43.9); Red Blood Count 4.67 M/mm3 (4.6-6.2); White Blood Count 7.5 K/mm3 (4.4-11.0)
[2020-01-08 16:00] LABS: ALB/GLOB Ratio 1.2 RATIO (0.9-2.4); AST(SGOT) 30 U/L (15-37); Alanine Aminotransfer ALT/SGPT 34 U/L (16-61); Albumin, Serum 3.8 g/dL (3.2-5.0); Alkaline Phosphatase 45 U/L (45-117); Anion Gap 6 (5-15); BUN 21 mg/dL (7-18); BUN/Creat Ratio 18.6 RATIO (10-20); Calcium,Total 9.1 mg/dL (8.5-10.1); Chloride 110 mmol/L (98-107); Creatinine, Serum 1.13 mg/dL (0.70-1.30); EST Glomerular Filtration Rate 69 mL/min (>60); Est Glom Filt Rate - Afr Amer 83 mL/min (>60); Globulin 3.3 g/dL (2.2-4.2); Glucose 96 mg/dL (74-106); Potassium 4.3 mmol/L (3.5-5.1); Protein, Total 7.1 g/dL (6.4-8.2); Sodium Level 141 mmol/L (136-145)
== END ==
PROVIDERS: PCP Nurse Practitioner Family; Referring Provider Internal Medicine Rheumatology; Visit Provider Internal Medicine Rheumatology
DX: M06.4 Inflammatory polyarthropathy (principal); M79.7 Fibromyalgia; K76.0 Fatty (change of) liver, not elsewhere classified; M48.00 Spinal stenosis, site unspecified; M75.102 Unspecified rotator cuff tear or rupture of left shoulder, not specified as traumatic; F32.89 Other specified depressive episodes
CPT/HCPCS: 36415; 80053; 85025

== ENCOUNTER 2020-05-07 08:52 | Day surgery (SDC) | payer MEDICARE, OTHER, SELFPAY ==
[2020-05-03 10:22] LABS: Hematocrit 46.1 % (40-54); Hemoglobin 14.8 g/dL (13.0-16.5); Mean Corp Hgb Conc 32.1 g/dL (32-36); Mean Corpuscular Hgb 31.4 pg (27.0-32.0); Mean Corpuscular Volume 97.7 fL (80-94); Mean Platelet Vol. 9.8 fl (6.2-12.0); Platelet Count 228 K/mm3 (150-450); RBC Distribution Width CV 12.8 % (11.6-14.6); RBC Distribution Width SD 45.9 fl (35.1-43.9); Red Blood Count 4.72 M/mm3 (4.6-6.2); White Blood Count 8.1 K/mm3 (4.4-11.0)
[2020-05-07] VITALS (9 sets, daily range): BP systolic 119–153; BP diastolic 60–81; PULSE 53–68; RESP 16; TEMP 36.3–36.8; O2SAT 96–100; BMI 40.1
[2020-05-07] MEDS: Lactated Ringers 1,000 ML 100 ML IV (09:25)
--- NOTE | 2020-05-07 09:53 | HP.PCM_ITS ---
Problem List (1) BPH (benign prostatic hyperplasia) Status: Chronic Qualifiers: Lower urinary tract symptom presence: symptoms present Lower urinary tract symptom detail: urinary obstruction Qualified Code(s): N40.1 - Benign prostatic hyperplasia with lower urinary tract symptoms; N13.8 - Other obstructive and reflux uropathy History of Present Illness Date of Admission: 05/07/20 Chief Complaint: Obstructive urinary symptoms The patient is a 64 year old male who presents to the hospital for a transurethral resection of the prostate. Past Medical History Past Medical History (Chronic Problems): Chronic Problems Hypertension (Chronic) GERD (gastroesophageal reflux disease) (Chronic) Anxiety (Chronic) Depression (Chronic) MICHAEL (obstructive sleep apnea) (Chronic) BPH (benign prostatic hyperplasia) (Chronic) Hyperlipidemia (Chronic) Overactive bladder (Chronic) ADHD (Chronic) Rheumatoid arthritis (Chronic) Body mass index (BMI) 40.0-44.9, adult (Chronic) Allergies No Known Allergies Allergy (Verified 05/07/20 09:05) Home Medications: Ambulatory Orders Medication Instructions Recorded RX: Aspirin [Aspirin, Baby] 81 mg PO DAILY@0800 11/07/13 RX: Fenofibrate,Micronized 134 mg PO QHS 11/07/13 [Lofibra] RX: Hydroxychloroquine [Plaquenil] 200 mg PO BIDCM 11/07/13 RX: Sertraline HCl [Zoloft] 200 mg PO DAILY 11/07/13 RX: Propranolol HCl [Inderal (Beta 20 mg PO DAILY 09/27/15 Edilma)] RX: Tamsulosin HCl [Flomax] 0.4 mg PO DAILY 09/27/15 RX: Multivitamins,Therapeutic 1 tab PO DAILY 09/07/19 [Multivitamin] RX: Acetaminophen [Tylenol] 1,000 mg PO Q6H PRN PRN tab 09/30/19 RX: Finasteride [Proscar] 5 mg PO DAILY tab 09/30/19 RX: Gabapentin [Neurontin] 300 mg PO 4X/DAY PRN #120 cap 09/30/19 RX: traMADol [Ultram] 50 mg PO Q6H PRN PRN #28 tab 09/30/19 RX: Mirabegron [Myrbetriq] 50 mg PO DAILY 04/29/20 RX: Nystatin Powder [Mycostatin 1 applic TOPICAL BID@0600,2200 PRN 04/29/20 Powder] RX: Ramipril [Altace] 10 mg PO QHS 04/29/20 RX: Senna/Docusate Sodium 2 tab PO DAILY 04/29/20 [Senokot-S] RX: Zafirlukast 20 mg PO BID 04/29/20 Rivaroxaban [Xarelto] 20 mg PO QHS 04/29/20 Tramadol HCl [Tramadol HCl ER] 200 mg PO DAILY 04/29/20 Surgical History: - - Lateral carpal tunnel release, bilateral Achilles surgeries, right knee surgery Psychiatric History: Anxiety, Depression Smoking Status: Never smoker - *Family History Maternal History Items: Cancer - colon Paternal History Items: Cancer - lung Review of Systems Constitutional: Denies: Chills, Fever, Weight Change HEENT: Denies: Head Aches, Sinus Congestion, Sinus Drainage Cardiovascular: Denies: Chest Pain, Palpitations Respiratory: Denies: Cough, Shortness of breath at rest, Sputum production Gastrointestinal: Denies: Abdominal Pain, Nausea, Vomiting Genitourinary: Denies: Dysuria Musculoskeletal: Denies: Joint Pain, Joint Tenderness Skin: Denies: Rash, Wounds Neurological: Denies: Numbness, Tingling, Focal weakness Psychiatric: Denies: Anxiety, Depression, Homicidal Ideations, Suicidal Ideat ions Hematologic/ Lymphatic: Denies: Easy Bruising, Easy Bleeding VTE Information - Inpt Only VTE Present on Admission: No - Physical Exam Vitals/I&O's: Vital Signs Temp Pulse Resp BP Pulse Ox 97.7 F L 68 16 153/81 H 98 05/07/20 09:10 05/07/20 09:10 05/07/20 09:10 05/07/20 09:10 05/07/20 09:10 Oxygen Delivery Method Room Air Weight: 130.5 kg Body Mass Index (BMI) 40.1 General: Alert, Oriented x3, Cooperative HEENT: Atraumatic, PERRLA, EOMI, Normocephalic Neck: Supple, No JVD, Negative Carotid Bruits Lungs: Clear to auscultation, Normal air movement Cardiovascular: Regular rate, No murmurs Abdomen: Bowel Sounds Present, Soft, Non Tender Extremities: No edema, Capillary Refill Less than 3 Seconds Skin: No rashes, No breakdown Musculoskeletal: No Tenderness to Palpation of Joints or Extremities Neurological: Cranial nerves II-XII grossly intact Psych/Mental Status: Normal Affect, Appropriate Laboratory Results 05/03/20 09:30: COVID-19 (RITO) Not Detected Current Medications Cefazolin Sodium 2 gm/ Sodium (Chloride) 110 mls @ 150 mls/hr IV PREOP ONE Stop: 05/07/20 10:53 Lactated Ringer's () 1,000 mls @ 100 mls/hr IV .Q10H JUNI Last Admin: 05/07/20 09:25 Dose: 100 mls/hr Documented by: Assessment/Plan All Active Problems Leg fracture, right (Acute) Declining functional status (Acute) Debility (Acute) Right fibular fracture (Acute) Dislocation of right ankle joint (Acute) Fracture of posterior malleolus of right tibia (Acute) Plan to proceed with transurethral resection of the prostate.
--- NOTE | 2020-05-07 09:56 | DCINST_ITS ---
Discharge Diet: Light diet - advance as tolerated Discharge Activity: Return to Normal Activity Call your doctor if your incision/area has: Sudden Increased Bleeding Allergies/Adverse Reactions: Allergies No Known Allergies Allergy (Verified 05/07/20 09:05) Medications to take at Discharge Aspirin [Aspirin, Baby] 81 mg PO DAILY@0800 11/07/13 Fenofibrate,Micronized [Lofibra] 134 mg PO QHS 11/07/13 Hydroxychloroquine [Plaquenil] 200 mg PO BIDCM 11/07/13 Sertraline HCl [Zoloft] 200 mg PO DAILY 11/07/13 Propranolol HCl [Inderal (Beta Edilma)] 20 mg PO DAILY 09/27/15 Tamsulosin HCl [Flomax] 0.4 mg PO DAILY 09/27/15 Multivitamins,Therapeutic [Multivitamin] 1 tab PO DAILY 09/07/19 Acetaminophen [Tylenol] 1,000 mg PO Q6H PRN PRN tab 09/30/19 Finasteride [Proscar] 5 mg PO DAILY tab 09/30/19 Gabapentin [Neurontin] 300 mg PO 4X/DAY PRN #120 cap 09/30/19 traMADol [Ultram] 50 mg PO Q6H PRN PRN #28 tab 09/30/19 Mirabegron [Myrbetriq] 50 mg PO DAILY 04/29/20 Nystatin Powder [Mycostatin Powder] 1 applic TOPICAL BID@0600,2200 PRN 04/29/20 Ramipril [Altace] 10 mg PO QHS 04/29/20 Rivaroxaban [Xarelto] 20 mg PO QHS 04/29/20 Senna/Docusate Sodium [Senokot-S] 2 tab PO DAILY 04/29/20 Tramadol HCl [Tramadol HCl ER] 200 mg PO DAILY 04/29/20 Zafirlukast 20 mg PO BID 04/29/20 Primary Care Physician: Isiah Bowman NP-C [Primary Care Provider] - Test Results: Test results from this visit will be discussed in further detail at your follow- up appointment, if applicable. Please Follow Up With: Andres Núñez MD When: in 2 weeks, please call to make an appointment.
[2020-05-07] MEDS: Cefazolin 2 GM in 0.9% Normal Saline 100 ML IV (10:02)
--- NOTE | 2020-05-07 10:37 | PCM.OPRPT ---
Problem List (1) BPH (benign prostatic hyperplasia) Status: Chronic Qualifiers: Lower urinary tract symptom presence: symptoms present Lower urinary tract symptom detail: urinary obstruction Qualified Code(s): N40.1 - Benign prostatic hyperplasia with lower urinary tract symptoms; N13.8 - Other obstructive and reflux uropathy Report of Operation Date of Procedure: 05/07/20 Pre-Operative Diagnosis: BPH with obstruction Post-Operative Diagnosis: Same Surgery/Procedure Performed:: Transurethral resection of the prostate with Olympus button Description of Surgical Findings:: 64-year-old male taken back to the operating room at the smooth induction of general anesthesia he was placed in dorsolithotomy position. Went into the urethra with a 24 Macedonian noncontinuous flow resectoscope we used the button and the resectoscope I got to the verumontanum he had a short obstructive prostate I then started on the right lobe of the prostate smooth out this right lobe all the way down to the edges then went to the left low the prostate and smooth out this this side all the way to the edges very carefully got to the apex of the prostate smooth down the apex and then went to the roof the prostate and there was tissue coming down from the roof and this was also smoothed out the way at the end of the flow test had a wide open flow and then checked the sphincter state sphincter was intact and checked the ureters both the left and right ureteral orifices were intact, resection time was about 30 minutes. Put a catheter into the bladder and continuous bladder irrigation is patient anesthetic was reversed taken back to PACU in good condition. Type of Anesthesia:: General Drains: 3 way wasserman - Admit VTE Documentation VTE Present on Admission: No VTE Mechan Device Prophylaxis: SCD's
[2020-05-07] MEDS: 0.9% Normal Saline 1,000 ML 75 ML IV ×2 (11:01→20:56)
[2020-05-07] MEDS: Pantoprazole Sodium 40 MG Tablet PO (14:12)
[2020-05-07] MEDS: Propranolol 10 MG Tablet 20 MG PO (14:12)
[2020-05-07] MEDS: Mirabegron 50 MG TAB.ER.24H PO (14:12)
[2020-05-07] MEDS: Sertraline 100 MG Tablet 200 MG PO (14:13)
[2020-05-07] MEDS: Multivitamins,Therapeutic Tablet 1 TABLET PO (14:14)
[2020-05-07] MEDS: Gabapentin 300 MG Capsule PO ×2 (14:17→20:51)
[2020-05-07] MEDS: traMADol 50 MG Tablet PO ×2 (14:17→17:17)
[2020-05-07] MEDS: Tamsulosin HCl 0.4 MG Capsule PO (16:15)
[2020-05-07] MEDS: oxyCODONE 5 MG Tablet PO ×2 (16:15→20:51)
[2020-05-07] MEDS: Hydroxychloroquine 200 MG Tablet PO (16:15)
[2020-05-07] MEDS: Ramipril 10 MG Capsule PO (20:52)
[2020-05-07] MEDS: Montelukast 10 MG Tablet PO (20:53)
[2020-05-07] MEDS: Fenofibrate 145 MG Tablet PO (20:54)
[2020-05-08] MEDS: traMADol 50 MG Tablet PO ×3 (00:15→12:22)
[2020-05-08 03:48] VITALS: BMI 40.1
[2020-05-08 04:00] VITALS: BP 108/62; PULSE 53; RESP 16; TEMP 36.6; O2SAT 96
[2020-05-08 07:51] VITALS: BMI 40.1
[2020-05-08 09:29] VITALS: BP 113/66; PULSE 59; RESP 97; TEMP 36.7; O2SAT 100
[2020-05-08] MEDS: Hydroxychloroquine 200 MG Tablet PO (09:41)
[2020-05-08] MEDS: Docusate Sodium 100 MG Capsule PO (09:41)
[2020-05-08] MEDS: Propranolol 10 MG Tablet 20 MG PO (09:41)
[2020-05-08] MEDS: Multivitamins,Therapeutic Tablet 1 TABLET PO (09:41)
[2020-05-08] MEDS: Pantoprazole Sodium 40 MG Tablet PO (09:42)
[2020-05-08] MEDS: Sertraline 100 MG Tablet 200 MG PO (09:42)
[2020-05-08] MEDS: Senna/Docusate Sodium 1 Tablet PO (09:42)
[2020-05-08] MEDS: Mirabegron 50 MG TAB.ER.24H PO (09:42)
[2020-05-08 11:50] VITALS: BP 113/66; PULSE 59; RESP 18; TEMP 36.7; O2SAT 100
== END 2020-05-08 12:50 | disposition home or self-care (01) ==
LOC: SDC 08:52 → AC 08:53 → MS3 10:05
PROVIDERS: Anesthesiology; PCP Nurse Practitioner Family; Referring Provider Urology; Visit Provider Urology
PROC: (CPT 52601; principal; 2020-05-07 10:10)
DX: N40.1 Benign prostatic hyperplasia with lower urinary tract symptoms (principal); N13.8 Other obstructive and reflux uropathy; I10 Essential (primary) hypertension; F32.9 Major depressive disorder, single episode, unspecified; F41.9 Anxiety disorder, unspecified; K21.9 Gastro-esophageal reflux disease without esophagitis; G47.33 Obstructive sleep apnea (adult) (pediatric); E78.5 Hyperlipidemia, unspecified; N32.81 Overactive bladder; F90.9 Attention-deficit hyperactivity disorder, unspecified type; M06.9 Rheumatoid arthritis, unspecified; Z79.82 Long term (current) use of aspirin; Z79.01 Long term (current) use of anticoagulants; Z79.899 Other long term (current) drug therapy
CPT/HCPCS: 00914; 52601; 36415; 85027; 87635; G2023; J7030; J7120; J2405; U0003

== ENCOUNTER 2021-08-23 12:58 | Inpatient (IN) | payer MEDICARE, OTHER, SELFPAY ==
[2021-08-23] VITALS (10 sets, daily range): BP systolic 133–157; BP diastolic 66–117; PULSE 65–88; RESP 12–18; TEMP 36.6–37; O2SAT 92–97; BMI 39.8; BMI 38.7
--- NOTE | 2021-08-23 14:09 | EKG12_ITS ---
Test Reason : SOB Blood Pressure : / mmHG Vent. Rate : 061 BPM Atrial Rate : 061 BPM P-R Int : 148 ms QRS Dur : 084 ms QT Int : 462 ms P-R-T Axes : 008 -29 018 degrees QTc Int : 465 ms Normal sinus rhythm Nonspecific ST abnormality Inferior [place], age undetermined, cannot be excluded Abnormal ECG Confirmed by DENISE PEREZ, JUAN ([id number]), tape editor JOSHUA MAHMOOD ([id number]) on 08/25/2021 8:49:17 AM Referred By: KALEIGH Confirmed By:JUAN WALKER MD
--- NOTE | 2021-08-23 14:11 | EX.ED.VIS.UR ---
HPI HPI - URI History of Present Illness Chief Complaint: Diarrhea Detail of Chief Complaint: Covid with diarrhea. Informant: patient Onset/Context/Timing Onset: Days Context: Gradual Onset Timing: Continuous Current Severity: Mild Maximum Severity: Mild Associated Symptoms Associated Symptoms: Positive for Myalgias, Diarrhea and Nonproductive cough; Negative for Nausea and Vomiting Narrative Narrative: 58-year-old male states that he started having symptoms of Covid 11 days ago and since has had a positive Covid test at [facility]. States has been on no medications. States having 5-10 episodes of diarrhea day feels dehydrated and just generally weak. He denies vomiting. He denies being short of breath even though the triage note says shortness of breath. Prior similar symptoms: Yes Recent Illness/Hospitalization: No ROS ROS ED ROS Narrative Cough, body aches, fever, diarrhea Review of Systems ROS Unobtainable: Denies due to encephalopathy Constitutional Constitutional ED: Reports fever(s) Eyes Eyes: Denies change in vision ENT ENT ED: Denies ear pain or sore throat Cardiovascular Cardiovascular: Denies chest pain Respiratory/Chest Respiratory/Chest: Reports cough Gastrointestinal Gastrointestinal: Reports diarrhea; Denies abdominal pain, nausea or vomiting Genitourinary Genitourinary ED: Denies dysuria Musculoskeletal Musculoskeletal: Reports myalgias Integumentary Denies rash Neurologic Neurologic: Denies headache(s) Psychiatric Psychiatric: Denies depression Endocrine Endocrinology: Denies polyuria Hematologic/Lymphatic Hematologic/Lymphatic: Denies easy bruising Allergic/Immunologic Allergic/Immunologic ED: Denies urticaria PFSH PFS Medical History Asthma Blood clot in vein Fibromyalgia Home Medications aspirin 81 mg PO DAILY@0800 11/07/13 [History Last Taken 05/02/20 08:00] fenofibrate micronized [Lofibra] 134 mg PO QHS 11/07/13 [History Last Taken 09/06/19] hydroxychloroquine 200 mg PO BIDCM 11/07/13 [History Last Taken 09/06/19] sertraline 200 mg PO DAILY 11/07/13 [History Last Taken 09/06/19] propranolol 20 mg PO DAILY 09/27/15 [History Last Taken 09/25/19 05:00] multivitamin with folic acid 1 tab PO DAILY 09/07/19 [History Last Taken 09/06/19] acetaminophen 1,000 mg PO Q6H PRN PRN tab 09/30/19 [Rx Last Taken Unknown] tramadol 50 mg PO Q6H PRN PRN #28 tab 09/30/19 [Rx Last Taken Unknown] mirabegron 50 mg PO DAILY 04/29/20 [History Last Taken Unknown] nystatin 1 applic TOPICAL BID@0600,2200 PRN 04/29/20 [History Last Taken Unknown] ramipril 10 mg PO QHS 04/29/20 [History Last Taken Unknown] rivaroxaban 20 mg PO QHS 04/29/20 [History Last Taken Unknown] sennosides-docusate sodium 2 tab PO DAILY 04/29/20 [History Last Taken Unknown] tramadol 200 mg PO DAILY 04/29/20 [History Last Taken Unknown] zafirlukast 20 mg PO BID 04/29/20 [History Last Taken Unknown] acetaminophen 500 mg PO Q4H PRN PRN #20 tab 05/07/20 [Rx Last Taken Unknown] ibuprofen 600 mg PO Q6H PRN PRN #20 tab 05/07/20 [Rx Last Taken Unknown] Allergy/AdvReac Type Severity Reaction Status Date / Time No Known Allergies Allergy Verified 08/23/21 13:03 Surgical History History of ankle surgery Social History Smoking Status: Never smoker EXAM Physical Exam Narrative Exam Narrative: 58-year-old male no acute distress vital signs stable afebrile. Pulse ox 97% room air no signs hypoxia. HEENT exam dry mucous memories. Neck nontender. Lungs clear to auscultation bilaterally. Heart regular rhythm no murmur. Abdomen soft nontender normal bowel sounds no peritoneal signs. Is obese. Moving all 4 extremities. Calves are nontender without edema. Neurologically is awake and alert with no focal motor deficits. Const Vital Signs: 08/23/21 12:59 08/23/21 13:07 08/23/21 14:25 Temperature 98 F 98 F 98.6 F Temperature Source Oral Oral Temporal Pulse Rate 73 71 67 Respiratory Rate 18 13 14 Blood Pressure 157/77 H 157/77 H 139/66 H Blood Pressure Mean 103 103 90 Pulse Ox 97 96 95 Oxygen Delivery Method Room Air Room Air Room Air Positive well nourished, well developed and obese; Negative for cachectic or contractures General Appearance ED: well developed and NAD; Negative for cachectic, contractures, cyanotic, diaphoretic or pallor Nutritional Appearance: obese; Negative for cachectic HEENT Reports dry mucous membranes normocephalic and atraumatic; Negative for scalp tenderness Face and Sinus: Negative for sinus tenderness Mouth ED: Yes dry mucous membranes Mouth: dry mucous membranes Eyes PERRL and EOMs intact bilaterally Neck no lymphadenopathy, supple, no meningeal signs and no JVD General: Negative for anterior neck swelling or lymphadenopathy Resp normal respiratory effort and clear to auscultation bilaterally Auscultation: Negative for rales, rhonchi, wheezes or diminished lung sounds Cardio S1 normal heart sound, S2 normal heart sound and no murmurs Rate: regular rate Rhythm: regular rhythm GI non-tender, non-distended and no masses Inspection: Negative for abdominal distention Auscultation: normoactive bowel sounds; Negative for hyperactive bowel sounds Palpation: soft; Negative for tender or guarding Back/Spine no CVA tenderness and normal ROM General Back: Negative for CVA tenderness Cervical Spine: Negative for cervical spine tenderness Extremity full ROM General Extremety ED: Negative for cyanosis, tenderness or other findings General Extremity: Negative for cyanosis or other findings Neuro oriented x3 Sensorium / Orientation: alert, oriented to person, oriented to place and oriented to time; Negative for orientation impaired, lethargic or stuporous Motor Exam: strength 5/5 throughout Psych mental status grossly normal Mood & Affect: Negative for depressed Skin General Skin Exam: Negative for jaundice or pallor Lesions: no lesions Rashes: no rashes MDM MDM MDM Narrative Medical decision making narrative: 58-year-old male 11-day history of Covid. He has not been on Decadron nor did he receive any monoclonal antibody therapy. He has been having diarrhea and feels dehydrated. IV fluids labs and chest x-ray are pending. Repeat patient doing well he still feels very weak. I went over his lab test with him. Consistent with dehydration acute kidney injury. I will speak to the hospitalist about admission. I discussed that with the patient he said he just does not feel well enough to go home. Lab Data Attestation: I reviewed the patient's lab results. Lab results narrative: CBC shows a white count of 4. Hemoglobin 16. Electrolytes unremarkable gap 7 BUN of 30 creatinine 1.52 consistent with mild dehydration. Liver enzymes are slightly elevated. Chest x-ray consistent with Covid pneumonitis. Labs: Laboratory Results - last 24 hr 08/23/21 08/23/21 13:02 13:02 WBC 4.7 RBC 5.24 Hgb 16.4 Hct 48.9 MCV 93.3 MCH 31.3 MCHC 33.5 RDW Std Deviation 43.8 RDW Coeff of Adam 12.8 Plt Count 185 MPV 10.6 Immature Gran % (Auto) 1.300 H Neut % (Auto) 64.1 Lymph % (Auto) 18.9 L Lea % (Auto) 15.5 H Eos % (Auto) 0.0 Baso % (Auto) 0.2 Absolute Neuts (auto) 3.0 Absolute Lymphs (auto) 0.89 Nucleated RBC % 0 Sodium 140 Potassium 4.4 Chloride 107 Carbon Dioxide 26.0 Anion Gap 7 BUN 30 H Creatinine 1.52 H Estim Creat Clear Calc 48.03 Est GFR (MDRD) Af Amer 59 L Est GFR (MDRD) Non-Af 49 L BUN/Creatinine Ratio 19.7 Glucose 116 H Calcium 9.3 Total Bilirubin 0.80 AST 134 H ALT 114 H Alkaline Phosphatase 35 L Total Protein 7.9 Albumin 3.5 Globulin 4.4 H Albumin/Globulin Ratio 0.8 L Radiography Diagnostic Testing: Clinical Impression(s) from Imaging Studies Chest X-Ray 08/23/21 14:40 IMPRESSION: Patchy right upper lobe infiltrate adjacent to the right minor fissure as well as at the left lung base. Electronically Signed: Mansoor France MD at 15:04 EDT , Service support , Chest x-ray portable 1 view interpreted by myself and the radiologist shows bilateral infiltrates consistent with Covid pneumonitis. Rhythm Strip Rhythm Strip: Sinus Rhythm Rate: 61 Ectopy: None EKG Initial EKG: Attestation: I personally reviewed and interpreted this EKG as follows: Interpretation: Sinus Rhythm and No Acute Injury Pattern Comments: Normal sinus rhythm rate of 61 no acute signs of NE or ischemia. There is some artifact. Prior EKG tracings: not available for review Discharge Plan Triage Chief Complaint: Diarrhea Other Complaint: Shortness of Breath ED Provider: Joaquín Lewis Dx/Rx/DC Orders Clinical Impression: COVID-19, Acute dehydration, Acute kidney injury, Diarrhea, Acute dyspnea, Obesity Prescriptions: No Action sertraline 100 MG tablet 200 mg PO DAILY RF: 0 fenofibrate micronized [Lofibra] 134 MG capsule 134 mg PO QHS RF: 0 aspirin 81 MG tablet,chewable 81 mg PO DAILY@0800 RF: 0 hydroxychloroquine 200 MG tablet 200 mg PO BIDCM RF: 0 propranolol 20 MG tablet 20 mg PO DAILY RF: 0 multivitamin with folic acid 1 TABLET tablet 1 tab PO DAILY RF: 0 tramadol 50 MG tablet 50 mg PO Q6H PRN PRN (Reason: Pain Score 4-5/10) Qty: 28 RF: 0 acetaminophen 500 MG tablet 1,000 mg PO Q6H PRN PRN (Reason: Pain Score 1-3/10) RF: 0 sennosides-docusate sodium 1 TABLET tablet 2 tab PO DAILY RF: 0 nystatin 1 APPLIC bottle 1 applic topical BID@0600,2200 PRN (Reason: Rash/Topical Irritation) RF: 0 ramipril 10 MG capsule 10 mg PO QHS RF: 0 mirabegron 50 MG tablet extended release 24 hr 50 mg PO DAILY RF: 0 zafirlukast 20 MG tablet 20 mg PO BID RF: 0 tramadol 200 MG tablet extended release 24 hr 200 mg PO DAILY RF: 0 rivaroxaban 20 MG tablet 20 mg PO QHS RF: 0 acetaminophen 500 MG tablet 500 mg PO Q4H PRN PRN (Reason: Pain Score 1-10/10) Qty: 20 RF: 0 ibuprofen 600 MG tablet 600 mg PO Q6H PRN PRN (Reason: Pain Score 1-10/10) Qty: 20 RF: 0 Primary Care Provider: Isiah Bowman NP Referrals: Isiah Bowman PRODUCTION EXPEDITER, PRODUCTION EXPEDITER-C [Primary Care Provider] - Disposition Disposition: [facility]
[2021-08-23] MEDS: 0.9% Normal Saline 1,000 ML 1000 ML IV (14:27)
[2021-08-23] MEDS: dexAMETHasone 10 MG/ML Vial IV (14:27)
[2021-08-23 14:33] LABS: Absolute Lymphocyte Count 0.89 X10^3/uL (0.83-4.51); Basophil# 0.01 X10^3/uL; Basophil% 0.2 % (0-1); Hematocrit 48.9 % (40-54); Hemoglobin 16.4 g/dL (13.0-16.5); Lymphocyte # 0.89 X10^3/ul (0.83-4.51); Lymphocyte % 18.9 % (19-41); Mean Corp Hgb Conc 33.5 g/dL (32-36); Mean Corpuscular Hgb 31.3 pg (27.0-32.0); Mean Corpuscular Volume 93.3 fL (80-94); Mean Platelet Vol. 10.6 fl (6.2-12.0); Monocyte# 0.73 X10^3/uL; Monocyte% 15.5 % (0-10); NRBC Flagged by Analyzer 0 % (0-5); Neutrophil # 3.03 X10^3/uL (2.7-7.7); Neutrophil % 64.1 % (47-70); Platelet Count 185 K/mm3 (150-450); RBC Distribution Width CV 12.8 % (11.6-14.6); RBC Distribution Width SD 43.8 fl (35.1-43.9); Red Blood Count 5.24 M/mm3 (4.6-6.2); White Blood Count 4.7 K/mm3 (4.4-11.0)
--- NOTE | 2021-08-23 14:40 | RAD_ITS ---
STUDY: X-RAY CHEST REASON FOR EXAM: Male, 66 years old. covid TECHNIQUE: Single AP portable view of the chest. COMPARISON: Comparison is made with prior study dated 09/22/2019. FINDINGS: EKG electrodes are seen. Focal infiltrate is seen in the right upper lobe adjacent to the right minor fissure as well as at the left lung base. There is no demonstrated pleural abnormality. Normal size heart. Normal mediastinum and luis antonio. Normal visualized pulmonary arteries. There is atherosclerotic tortuosity of the aortic arch and descending thoracic aorta. Normal visualized thoracic spine. There is degenerative osteoarthritis of the bilateral shoulders. There is no demonstrated abnormality of the visualized soft tissue structures of the upper abdomen. RAD/Chest 1 View (Portable) IMPRESSION: Patchy right upper lobe infiltrate adjacent to the right minor fissure as well as at the left lung base. Electronically Signed: Mansoor France MD at 15:04 EDT , Service support ,
[2021-08-23 14:46] LABS: ALB/GLOB Ratio 0.8 RATIO (0.9-2.4); AST(SGOT) 134 U/L (15-37); Alanine Aminotransfer ALT/SGPT 114 U/L (16-61); Albumin, Serum 3.5 g/dL (3.2-5.0); Alkaline Phosphatase 35 U/L (45-117); Anion Gap 7 (5-15); BUN 30 mg/dL (7-18); BUN/Creat Ratio 19.7 RATIO (10-20); Calcium,Total 9.3 mg/dL (8.5-10.1); Chloride 107 mmol/L (98-107); Creatinine, Serum 1.52 mg/dL (0.70-1.30); EST Glomerular Filtration Rate 49 mL/min (>60); Est Glom Filt Rate - Afr Amer 59 mL/min (>60); Estimated Creatinine Clearance 48.03 ml/min; Globulin 4.4 g/dL (2.2-4.2); Glucose 116 mg/dL (74-106); Potassium 4.4 mmol/L (3.5-5.1); Protein, Total 7.9 g/dL (6.4-8.2); Sodium Level 140 mmol/L (136-145)
--- NOTE | 2021-08-23 16:24 | HP.PCM.HOS_ITS ---
HPI - General General Date of Admission: 08/23/21 Date of Service: 08/23/21 Chief Complaint: COVID x 11 days, worsening, diarrhea. HPI Narrative The patient is a 66 y/o M w/ PMHx: MICHAEL on BIPAP q HS, Morbid Obesity, Asthma, Hx DVT, Fibromyalgia, HTN, Anxiety and Depression, GERD, Rheumatoid arthritis who presents to the [facility] ED on 08/23/21 with history of 11 days of Covid symptoms with Covid positive test at [facility] with no initiation of any medications at that time with history of body aches, headache, sore throat, fat igue, malaise, nonproductive cough with appearance of dyspnea although denies, profuse diarrhea with at least 5-10 episodes daily with difficulty maintaining appropriate hydration prompting ED evaluation. He notes that his son has also been ill with COVID. He is unvaccinated status. Work-up in the ED included T 98, heart rate 73, BP 157/77, respiratory rate 18, 97% on room air however patient during evaluation was consistently 90 to 93% on monitor with decent waveform, CBC with WBC 4.7, hemoglobin 16.4, platelet 185 with increased immature granulocytes, CMP with BUN/creatinine 30/1.52, glucose 116, AST/ALT 134/114, alk phos 35, chest x-ray with patchy right upper lobe infiltrate addition the right minor fissure as well as left lung base. Unvaccinated status. In the ED patient administered NS 1L bolus and decadron 10 mg IV x 1. [facility] Medical History (Updated 08/23/21 @ 20:[address] Arelis Garnett MD) Anxiety Anxiety Asthma Blood clot in vein BPH (benign prostatic hyperplasia) Depression Depression DVT (deep venous thrombosis) Fibromyalgia Hyperlipidemia Hypertension Hypoxia Kidney stones Morbid obesity MICHAEL (obstructive sleep apnea) Osteoporosis Overactive bladder Pneumonia due to COVID-19 virus Rheumatoid arthritis Home Medications aspirin 81 mg PO DAILY@0800 11/07/13 [History Last Taken 05/02/20 08:00] fenofibrate micronized [Lofibra] 134 mg PO QHS 11/07/13 [History Last Taken 09/06/19] hydroxychloroquine 200 mg PO BIDCM 11/07/13 [History Last Taken 09/06/19] sertraline 200 mg PO DAILY 11/07/13 [History Last Taken 09/06/19] propranolol 20 mg PO DAILY 09/27/15 [History Last Taken 09/25/19 05:00] mirabegron 50 mg PO DAILY 04/29/20 [History Last Taken Unknown] ramipril 10 mg PO QHS 04/29/20 [History Last Taken Unknown] rivaroxaban 20 mg PO QHS 04/29/20 [History Last Taken Unknown] tramadol 200 mg PO DAILY 04/29/20 [History Last Taken Unknown] zafirlukast 20 mg PO BID 04/29/20 [History Last Taken Unknown] Allergy/AdvReac Type Severity Reaction Status Date / Time No Known Allergies Allergy Verified 08/23/21 13:03 Family History (Updated 08/23/21 @ 16:[address] Arelis Garnett MD) Mother Cancer Colon cancer. Father Cancer Lung cancer. Surgical History (Updated 08/23/21 @ 18:45 by Sammi Hilton) H/O Achilles tendon repair History of ankle surgery History of appendectomy S/P right knee surgery S/P TURP Social History (Updated 08/23/21 @ 20:[address] Arelis Garnett MD) household members: other details: Patient notes his son lives with him. Smoking Status: Never smoker alcohol intake: current alcohol intake frequency: a few times a month substance use type: does not use ROS ROS Narrative Admission Review of Systems: CONSTITUTIONAL: No weight loss, fever, chills, + weakness or fatigue. HEENT: + Headache, sore throat. Eyes: No visual loss, blurred vision, double vision or yellow sclerae. Ears, Nose, Throat: No hearing loss, sneezing, congestion, runny nose. CARDIOVASCULAR: No chest pain, chest pressure or chest discomfort, palpitations, edema, orthopnea, syncopal events. RESPIRATORY: + Cough, No shortness of breath sensation, wheezing, hemoptysis. GASTROINTESTINAL: + Diarrhea. No anorexia, nausea, vomiting, abdominal pain, melena, BRBPR. GENITOURINARY: No dysuria, frequency, urgency or retention. NEUROLOGICAL: + headache, No dizziness, syncope, paralysis, ataxia, numbness or tingling in the extremities, focal weakness, change in bowel or bladder control, seizure. MUSCULOSKELETAL: + muscle, back pain, joint pain or stiffness. HEMATOLOGIC: No anemia, bleeding or bruising. LYMPHATICS: No enlarged nodes. No history of splenectomy. PSYCHIATRIC: No history of depression or anxiety. ENDOCRINOLOGIC: No reports of sweating, cold or heat intolerance. No polyuria or polydipsia. ALLERGIES: + history of asthma, hives, eczema or rhinitis. Vital Signs Vital Signs Vital Signs: 08/23/21 12:59 08/23/21 13:07 08/23/21 14:25 Temperature 98 F 98 F 98.6 F Temperature Source Oral Oral Temporal Pulse Rate 73 71 67 Respiratory Rate 18 13 14 Blood Pressure 157/77 H 157/77 H 139/66 H Blood Pressure Mean 103 103 90 Pulse Ox 97 96 95 Oxygen Delivery Method Room Air Room Air Room Air 08/23/21 16:02 Temperature 98.4 F Temperature Source Temporal Pulse Rate 67 Respiratory Rate 18 Blood Pressure 133/117 H Blood Pressure Mean 122 Pulse Ox Oxygen Delivery Method Room Air Weight Weight: 277 lb 11.2 oz Body Mass Index (BMI) 39.8 Physical Exam Narrative Physical Examination: General: Awake, alert, oriented x 3 and cooperative, laying in the ED bed, fa tigued, visibly evident diarrhea to the lower extremities. Skin: Normal color, normal turgor, no icterus, no cyanosis. HEENT: AT/NC, EOMI, PERRLA, dry MM, no carotid bruits or JVD noted. Lungs: Diffusely diminished, greater bases, no evidence of any distress, no rales, ronchi or wheezing. Heart: Regular rate and rhythm; no gallop, rub audible. Abdomen: Soft, morbidly obese, NTTP, ND, moderately hyperactive BS, difficult to assess HSM given habitus. Extremities: No cyanosis, clubbing, or edema. Neurological: Patient awake, alert, oriented as noted, cognitive function intact; pupils equally reactive to light and accommodation, cranial nerves II- XII grossly normal, moving all 4 extremities, no focal deficits, strength moderately to severely global decrease secondary to acute presentation. Psychiatric: Affect appears fatigued, ill-appearing, no acute evidence of depressive or anxiety feelings. Results Lab / Micro Data Result Diagrams: 08/23/21 13:02 08/23/21 13:02 Labs: Laboratory Results - last 24 hr 08/23/21 13:02: WBC 4.7, RBC 5.24, Hgb 16.4, Hct 48.9, MCV 93.3, MCH 31.3, MCHC 33.5, RDW Std Deviation 43.8, RDW Coeff of Adam 12.8, Plt Count 185, MPV 10.6, Immature Gran % (Auto) 1.300 H, Neut % (Auto) 64.1, Lymph % (Auto) 18.9 L, Hyde % (Auto) 15.5 H, Eos % (Auto) 0.0, Baso % (Auto) 0.2, Absolute Neuts (auto) 3.0, Absolute Lymphs (auto) 0.89, Nucleated RBC % 0 08/23/21 13:02: Sodium 140, Potassium 4.4, Chloride 107, Carbon Dioxide 26.0, Anion Gap 7, BUN 30 H, Creatinine 1.52 H, Estim Creat Clear Calc 48.03, Est GFR (MDRD) Af Amer 59 L, Est GFR (MDRD) Non-Af 49 L, BUN/Creatinine Ratio 19.7, Glucose 116 H, Calcium 9.3, Total Bilirubin 0.80, AST 134 H, ALT 114 H, Alkaline Phosphatase 35 L, Total Protein 7.9, Albumin 3.5, Globulin 4.4 H, Albumin/Globulin Ratio 0.8 L Rhythm Strip Rhythm Strip: Sinus Rhythm Rate: 61 Ectopy: None Radiology Impression Chest X-Ray 08/23/21 14:40 IMPRESSION: Patchy right upper lobe infiltrate adjacent to the right minor fissure as well as at the left lung base. Electronically Signed: Mansoor France MD at 15:04 EDT , Service support , Assessment & Plan Assessment/Plan (1) Hypoxia: (2) Pneumonia due to COVID-19 virus: PLAN: The patient is a 66 y/o M w/ PMHx: MICHAEL on BIPAP q HS, Morbid Obesity, Asthma, Hx DVT, Fibromyalgia, HTN, Anxiety and Depression, GERD, Rheumatoid arthritis who presents to the [facility] ED on 08/23/21 with history of 11 days of Covid symptoms with Covid positive test at [facility] physicians with no initiation of any medications at that time with history of body aches, heada bonilla, sore throat, fatigue, malaise, nonproductive cough with appearance of dyspnea although denies, profuse diarrhea with at least 5-10 episodes daily with difficulty maintaining appropriate hydration prompting ED evaluation. #1. Acute Hypoxia secondary to Bilateral Pneumonia secondary to Acute Viral Syndrome, COVID-19: Will admit to [facility] on COVID precautions, will maintain on oxygen with wean as tolerated to room air, PRN albuterol, HOB, IS parameters w/ pending sputum cultures, respiratory viral panel and urine antigens, will obtain D-dimer, procalcitonin, CRP, CPK, Ferritin, LDH, trop and BNP, continue supportive care including q 2 hour turning including prone given no prone bed availability and judicious hydration given JAVED, closely monitor for worsening status for ARDS and multiorgan failure, start on loperamide, given hypoxia noted upon evaluation and saturations less than 94% we will continue with IV Decadron 6 mg IV x10-day. #2. Acute renal insufficiency: Admission BUN/creatinine 30/1.52, baseline appears primarily 0.9-1.2, admission creatinine 1.52, will continue to judic iously hydrate given number 1 presentation and repeat CMP in a.m. If any worsening of renal function will need to continue to hold nephrotoxic regimen. #3. Elevated LFTs: Secondary to #1, admission AST/ALT 134/114, secondary to acute Covid illness, will continue to treat as noted above #1, repeat CMP in a.m. #4. History of DVT: We will continue patient home Xarelto regimen. #5. Chronic asthma with allergic rhinitis: Patient is not on any routine inhalers, currently not require any oxygen therapy despite acute presentation #1, PRN albuterol, HOB, IS parameters, continue home zafirlukast regimen. #6. Hypertension: Continue home regimen including propranolol, holding ramipril given mild renal insufficiency, add back in a.m. if improved, PRN hydralazine. #7. Hyperlipidemia: We will hold fenofibrate regimen temporarily. #8. Anxiety and depression: We will continue patient home sertraline regimen. #9. Morbid Obesity: Weight loss and lifestyle changes encouraged. #10. MICHAEL: We will maintain on BiPAP nightly. #11. DVT prophylaxis: SCDs, continue Xarelto regimen. #12. CODE status: Patient does not have HCPOA or living will in place. Given COVID BL PNA with hypoxia, non-vaccinated status frankly discussed COVID typical course and concerns. Discussed CODE status at length including difference between FULL code, DNR-CCA and DNR-CC status. Amenable to airvo and BIPAP if needed. Following discussions about the differences in these status, requested Full Code status. Advanced Care Planning Face to Face Time: 16 minutes. Charges/Coding Visit Charges Inpatient E&M: 73466 Init Hosp L3 Procedures Hospitalists Procedures: 70227 Advncd Care Plan 30 Min
[2021-08-23 17:31] LABS: D-Dimer Quantitative (DVT/PE) 0.34 FEU/ug/m (0.27-0.49)
[2021-08-23 17:34] LABS: Ferritin 683 ng/mL (26-388); LDH 392 U/L (87-241); Magnesium 2.3 mg/dL (1.6-2.6); Phosphorus 2.5 mg/dL (2.5-4.9)
[2021-08-23 17:37] LABS: BNP,B-Type NATRIURETIC PEPTIDE 35.5 pg/mL (0-100)
[2021-08-23 17:46] LABS: Procalcitonin 0.32 ng/mL (0.00-0.09)
[2021-08-23] MEDS: 0.9% Saline Lock 10 ML Syringe IV (21:11)
[2021-08-23] MEDS: 0.9% Normal Saline 1,000 ML 125 ML IV (21:11)
[2021-08-23] MEDS: Hydroxychloroquine 200 MG Tablet PO (21:11)
[2021-08-23] MEDS: Loperamide 2 MG Capsule PO (21:11)
[2021-08-23] MEDS: Rivaroxaban 20 MG Tablet PO (21:12)
[2021-08-23] MEDS: Famotidine 20 MG Tablet PO (21:12)
[2021-08-23] MEDS: Menthol/Lanolin/Calamine/Znox 113 GM Tube 1 APPLIC TOPICAL (21:12)
[2021-08-23] MEDS: Montelukast 10 MG Tablet PO (21:27)
[2021-08-23] MEDS: traMADol 50 MG Tablet PO (21:28)
[2021-08-24] VITALS (13 sets, daily range): BP systolic 115–140; BP diastolic 66–92; PULSE 59–82; RESP 18; TEMP 36.8–37.7; O2SAT 93–97
[2021-08-24] MEDS: traMADol 50 MG Tablet PO ×5 (04:24→22:00)
[2021-08-24] MEDS: 0.9% Normal Saline 1,000 ML 125 ML IV ×3 (04:26→22:05)
[2021-08-24 07:40] LABS: Absolute Lymphocyte Count 0.73 X10^3/uL (0.83-4.51); Absolute Neutrophil Count 4.5 X10^3/uL (2.0-7.7); Basophil# 0.01 X10^3/uL; Basophil% 0.2 % (0-1); Hematocrit 41.3 % (40-54); Hemoglobin 13.5 g/dL (13.0-16.5); Lymphocyte # 0.73 X10^3/ul (0.83-4.51); Lymphocyte % 12.2 % (19-41); Mean Corp Hgb Conc 32.7 g/dL (32-36); Mean Corpuscular Volume 94.7 fL (80-94); Monocyte# 0.68 X10^3/uL; Monocyte% 11.4 % (0-10); NRBC Flagged by Analyzer 0 % (0-5); Neutrophil % 75.4 % (47-70); Platelet Count 180 K/mm3 (150-450); RBC Distribution Width CV 12.9 % (11.6-14.6); RBC Distribution Width SD 45.2 fl (35.1-43.9); Red Blood Count 4.36 M/mm3 (4.6-6.2)
[2021-08-24 08:11] LABS: Albumin, Serum 2.5 g/dL (3.2-5.0); BUN 30 mg/dL (7-18); Creatinine, Serum 1.25 mg/dL (0.70-1.30); EST Glomerular Filtration Rate 61 mL/min (>60); Est Glom Filt Rate - Afr Amer 74 mL/min (>60); Globulin 3.7 g/dL (2.2-4.2); Glucose 102 mg/dL (74-106); Protein, Total 6.2 g/dL (6.4-8.2)
[2021-08-24 08:12] LABS: ALB/GLOB Ratio 0.7 RATIO (0.9-2.4); AST(SGOT) 102 U/L (15-37); Alanine Aminotransfer ALT/SGPT 88 U/L (16-61); Alkaline Phosphatase 28 U/L (45-117); Anion Gap 6 (5-15); Calcium,Total 8.1 mg/dL (8.5-10.1); Chloride 113 mmol/L (98-107); Potassium 4.2 mmol/L (3.5-5.1); Sodium Level 141 mmol/L (136-145)
[2021-08-24] MEDS: Multivitamins,Therapeutic Tablet 1 TABLET PO (08:48)
[2021-08-24] MEDS: Aspirin 81 MG TAB.CHEW PO (08:48)
[2021-08-24] MEDS: Mirabegron 50 MG TAB.ER.24H PO (08:48)
[2021-08-24] MEDS: Hydroxychloroquine 200 MG Tablet PO ×2 (08:49→17:18)
[2021-08-24] MEDS: Sertraline 100 MG Tablet 200 MG PO (08:49)
[2021-08-24] MEDS: dexAMETHasone 4 MG/ML Vial 6 MG IV (08:50)
[2021-08-24] MEDS: Famotidine 20 MG Tablet PO ×2 (08:50→22:16)
[2021-08-24] MEDS: Fenofibrate 145 MG Tablet PO (08:50)
[2021-08-24] MEDS: Menthol/Lanolin/Calamine/Znox 113 GM Tube 1 APPLIC TOPICAL ×2 (08:50→21:55)
[2021-08-24] MEDS: Propranolol LA 60 MG Capsule PO (08:56)
--- NOTE | 2021-08-24 12:03 | CASEMGMT ---
RN MYRNA Assessment: Face to Face with pt for initial transition planning/care coordination assessment. RN CM introduced self and role at [facility], pt voices understanding and consents to assessment. Pt is A/O x4 and answers all questions appropriately at this time. Pt sitting up on edge of bed on RA in no distress. Care providers, pharmacy, and demographics verified/updated. Admitting Dx: COVID PNA, diarrhea w/ acute renal insuff PCP: Suraj Bowman DIETETICS DIRECTOR Specialists: [facility] [place] Preferred Pharmacy: [facility] while inpatient Insurance: MCR, MMO Prescription Benefit: yes LW/HPOA: Pt denies having a LW/DPOA and denies need for info regarding AD. LNOK: Ivana Bee, sister; Sherman Davis, son Living Arrangements: Pt lives with son in a single story house with 2 steps to enter. Pt reports being I in ADL's and denies concerns at home. Transportation: Pt drives self and denies concerns with transportation. DME/HHC/SNF: Pt has grab bars in the bathroom, shower chair, cane which he uses occasionally uses and a walker (not using). Pt has had [facility] HHC in the past and been at [facility] TCU. Pt was tested for COVID at [facility] office. Pt son is also positive. He does have family/friends who can supply him with groceries. Provided pt with a list of local in network DME companies should pt need O2, he chose [employer]. Pt denied the need for any home therapy at this time. He is aware to notify the RN CM if he changes his mind prior to dc. Pt states no concerns with going home at time of dc. Pt states no further concerns/needs. CM to follow. Advised pt to ask CM if any further question/concerns/needs arise, voices understanding. Pt Goal: Home Plan: Home
--- NOTE | 2021-08-24 14:19 | PN.HOSP_ITS ---
Subjective Subjective Patient seen and examined. He was still having diarrhea. He denies any shortness of breath, cough, chest pain, palpitations, dizziness, nausea or vomiting. Review of systems is otherwise negative. Objective Data Objective Data Vital Signs: Vital Signs Temp Pulse Resp BP Pulse Ox 98.9 F 63 18 123/66 H 93 08/24/21 13:12 08/24/21 13:12 08/24/21 13:12 08/24/21 13:12 08/24/21 13:12 Oxygen Delivery Method Room Air Weight: 266 lb 8.622 oz Body Mass Index (BMI) 38.7 Intake & Output: Intake and Output for Last 24 Hours 08/22/21 08/23/21 08/24/21 23:59 23:59 23:59 Intake Total 1000 / 1200 2106. / Output Total 125 / 125 Balance 1000 / 1075 / Lab / Micro Data Result Diagrams: 08/24/21 07:18 08/24/21 07:18 Labs: Laboratory Results - last 24 hr 08/23/21 13:02: WBC 4.7, RBC 5.24, Hgb 16.4, Hct 48.9, MCV 93.3, MCH 31.3, MCHC 33.5, RDW Std Deviation 43.8, RDW Coeff of Adam 12.8, Plt Count 185, MPV 10.6, Immature Gran % (Auto) 1.300 H, Neut % (Auto) 64.1, Lymph % (Auto) 18.9 L, [place] % (Auto) 15.5 H, Eos % (Auto) 0.0, Baso % (Auto) 0.2, Absolute Neuts (auto) 3.0, Absolute Lymphs (auto) 0.89, Nucleated RBC % 0 08/23/21 13:02: Sodium 140, Potassium 4.4, Chloride 107, Carbon Dioxide 26.0, Anion Gap 7, BUN 30 H, Creatinine 1.52 H, Estim Creat Clear Calc 48.03, Est GFR (MDRD) Af Amer 59 L, Est GFR (MDRD) Non-Af 49 L, BUN/Creatinine Ratio 19.7, Glucose 116 H, Calcium 9.3, Total Bilirubin 0.80, AST 134 H, ALT 114 H, Alkaline Phosphatase 35 L, Total Protein 7.9, Albumin 3.5, Globulin 4.4 H, Albumin/Globulin Ratio 0.8 L 08/23/21 13:02: Phosphorus 2.5, Magnesium 2.3, Ferritin 683 H, Lactate Dehydrogenase 392 H, C-React Prot Ext Range 50.40 H 08/23/21 17:10: Procalcitonin 0.32 H 08/23/21 17:10: D-Dimer Quant (PE/DVT) 0.34 08/23/21 17:10: B-Natriuretic Peptide 35.5 08/24/21 07:18: WBC 6.0, RBC 4.36 L, Hgb 13.5, Hct 41.3, MCV 94.7 H, MCH 31.0, MCHC 32.7, RDW Std Deviation 45.2 H, RDW Coeff of Adam 12.9, Plt Count 180, MPV 10.0, Immature Gran % (Auto) 0.800, Neut % (Auto) 75.4 H, Lymph % (Auto) 12.2 L, [place] % (Auto) 11.4 H, Eos % (Auto) 0.0, Baso % (Auto) 0.2, Absolute Neuts (auto) 4.5, Absolute Lymphs (auto) 0.73 L, Nucleated RBC % 0 08/24/21 07:18: Sodium 141, Potassium 4.2, Chloride 113 H, Carbon Dioxide 22.0, Anion Gap 6, BUN 30 H, Creatinine 1.25, Estim Creat Clear Calc 58.40, Est GFR (MDRD) Af Amer 74, Est GFR (MDRD) Non-Af 61, BUN/Creatinine Ratio 24.0 H, Glucose 102, Calcium 8.1 L, Total Bilirubin 0.60, AST 102 H, ALT 88 H, Alkaline Phosphatase 28 L, Total Protein 6.2 L, Albumin 2.5 L, Globulin 3.7, Albumin/Globulin Ratio 0.7 L Micro: Microbiology 08/23/21 20:10 Interface Orders Respiratory Panel (PCR) - Final Radiography Diagnostic Testing: Radiology Impression Chest X-Ray 08/23/21 14:40 IMPRESSION: Patchy right upper lobe infiltrate adjacent to the right minor fissure as well as at the left lung base. Electronically Signed: Mansoor France MD at 15:04 EDT , Service support , Rhythm Strip Rhythm Strip: Sinus Rhythm Rate: 61 Ectopy: None Physical Exam Const alert, oriented x3 and no apparent distress Exam Limitations: no limitations HEENT head/scalp atraumatic Head and Scalp: normocephalic Mouth: dry mucous membranes Eyes PERRL, EOMs intact bilaterally and conjunctivae normal Cardio regular rate, regular rhythm, S1 normal heart sound, S2 normal heart sound and no murmurs GI normal to inspection, nondistended, normoactive bowel sounds, soft to palpation, non-tender and non-distended Extremity normal to inspection, full ROM and no clubbing, cyanosis or edema Peripheral Pulses: Yes pulses 2+ throughout Skin no rashes or lesions noted Neuro oriented x3, CN's II-XII intact bilaterally and moves all extremities Sensorium / Orientation: awake and alert Psych Psych Narrative: flat affect Assessment & Plan Assessment/Plan (1) Acute dyspnea: (2) Diarrhea: (3) Acute kidney injury: (4) COVID-19: PLAN: #COVID 19 pneumonia * currently on room air. * On decadron. out of window for remdesivir * Breathing treatments of bronchodilators. Titrate oxygen as needed to maintain saturation above 90%. * #JAVED * Improving. Likely prerenal due to diarrhea * . Creatinine was 1.52 on admission. Continue gentle hydration with IV fluids. * Cr is down to 1.25 #History of DVT: On Xarelto #Diarrhea * Patient still having diarrhea. Continue hydration with IV fluids. If diarrhea persists, will do a complete work-up suggestive for enteric pathogens and C. difficile. * #Hyperlipidemia: On fenofibrate #History of asthma with allergic rhinitis: On zafirlukast. Albuterol as needed. #Anxiety and depression: On sertraline #Hypertension: On propranolol and ramipril. #MICHAEL: On BiPAP nightly. #DVT prophylaxis: On Xarelto Charges/Coding Visit Charges Inpatient E&M: 89887 Subs Hosp L3
[2021-08-24] MEDS: Montelukast 10 MG Tablet PO (21:54)
[2021-08-24] MEDS: Rivaroxaban 20 MG Tablet PO (22:00)
[2021-08-24] MEDS: Loperamide 2 MG Capsule PO (22:07)
--- NOTE | 2021-08-24 23:15 | CPS ---
pt refused BIPAP
[2021-08-25] VITALS (16 sets, daily range): BP systolic 115–132; BP diastolic 64–75; PULSE 51–63; RESP 18–20; TEMP 36.6–37.2; O2SAT 87–97
[2021-08-25] MEDS: Acetaminophen 325 MG Tablet 650 MG PO ×2 (03:38→17:32)
[2021-08-25] MEDS: 0.9% Normal Saline 1,000 ML 125 ML IV (03:38)
[2021-08-25] MEDS: 0.9% Saline Lock 10 ML Syringe IV ×2 (03:38→11:58)
[2021-08-25] MEDS: Loperamide 2 MG Capsule PO (03:38)
[2021-08-25 07:12] LABS: ALB/GLOB Ratio 0.6 RATIO (0.9-2.4); AST(SGOT) 86 U/L (15-37); Alanine Aminotransfer ALT/SGPT 75 U/L (16-61); Albumin, Serum 2.2 g/dL (3.2-5.0); Alkaline Phosphatase 26 U/L (45-117); Anion Gap 4 (5-15); BUN 33 mg/dL (7-18); BUN/Creat Ratio 28.4 RATIO (10-20); Chloride 115 mmol/L (98-107); Creatinine, Serum 1.16 mg/dL (0.70-1.30); EST Glomerular Filtration Rate 67 mL/min (>60); Est Glom Filt Rate - Afr Amer 81 mL/min (>60); Estimated Creatinine Clearance 62.93 ml/min; Globulin 3.5 g/dL (2.2-4.2); Glucose 100 mg/dL (74-106); Magnesium 2.1 mg/dL (1.6-2.6); Potassium 4.3 mmol/L (3.5-5.1); Protein, Total 5.7 g/dL (6.4-8.2); Sodium Level 141 mmol/L (136-145)
[2021-08-25 07:38] LABS: Absolute Lymphocyte Count 1.07 X10^3/uL (0.83-4.51); Basophil# 0.01 X10^3/uL; Basophil% 0.1 % (0-1); Hematocrit 37.5 % (40-54); Hemoglobin 12.6 g/dL (13.0-16.5); Lymphocyte # 1.07 X10^3/ul (0.83-4.51); Lymphocyte % 13.8 % (19-41); Mean Corp Hgb Conc 33.6 g/dL (32-36); Mean Corpuscular Hgb 31.7 pg (27.0-32.0); Mean Corpuscular Volume 94.5 fL (80-94); Mean Platelet Vol. 10.3 fl (6.2-12.0); Monocyte# 0.62 X10^3/uL; NRBC Flagged by Analyzer 0 % (0-5); Neutrophil # 5.97 X10^3/uL (2.7-7.7); Neutrophil % 77.2 % (47-70); Platelet Count 185 K/mm3 (150-450); RBC Distribution Width CV 13.2 % (11.6-14.6); RBC Distribution Width SD 45.8 fl (35.1-43.9); Red Blood Count 3.97 M/mm3 (4.6-6.2); White Blood Count 7.7 K/mm3 (4.4-11.0)
[2021-08-25] MEDS: Sertraline 100 MG Tablet 200 MG PO (08:48)
[2021-08-25] MEDS: Mirabegron 50 MG TAB.ER.24H PO (08:48)
[2021-08-25] MEDS: traMADol 50 MG Tablet PO ×4 (08:48→22:09)
[2021-08-25] MEDS: Aspirin 81 MG TAB.CHEW PO (08:51)
[2021-08-25] MEDS: Fenofibrate 145 MG Tablet PO (08:51)
[2021-08-25] MEDS: Famotidine 20 MG Tablet PO ×2 (08:51→22:10)
[2021-08-25] MEDS: Hydroxychloroquine 200 MG Tablet PO ×2 (08:51→17:32)
[2021-08-25] MEDS: Multivitamins,Therapeutic Tablet 1 TABLET PO (08:51)
[2021-08-25] MEDS: Menthol/Lanolin/Calamine/Znox 113 GM Tube 1 APPLIC TOPICAL ×2 (08:52→22:13)
[2021-08-25] MEDS: dexAMETHasone 4 MG/ML Vial 6 MG IV (08:52)
[2021-08-25] MEDS: Mag Hydrox/Al Hydrox/Simeth 30 ML UDC PO (11:59)
[2021-08-25] MEDS: Nystatin Powder 15gm Bottle 1 APPLIC TOPICAL (11:59)
--- NOTE | 2021-08-25 14:15 | PN.HOSP_ITS ---
Subjective Subjective Patient seen and examined. He feels much better today. Diarrhea is improving. He is on 2L of oxygen. He has no active complaints, and review of systems is otherwise negative. HE has remained hemodynamically stable. Objective Data Objective Data Vital Signs: Vital Signs Temp Pulse Resp BP Pulse Ox 98.2 F 60 18 123/71 H 94 08/25/21 12:06 08/25/21 13:02 08/25/21 12:06 08/25/21 12:06 08/25/21 12:06 Oxygen Flow Rate (L/min) 1 Oxygen Delivery Method Nasal Cannula Weight: 276 lb 3.827 oz Body Mass Index (BMI) 38.7 Intake & Output: Intake and Output for Last 24 Hours 08/23/21 08/24/21 08/25/21 23:59 23:59 23:59 Intake Total 1000 / 1200 4556.25 / 4556.25 1943.75 / 1943.75 Output Total 125 / 125 850 / 850 Balance 1000 / 1075 4431.25 / 4431.25 1093.75 / 1093.75 Lab / Micro Data Result Diagrams: 08/25/21 06:30 08/25/21 06:30 Labs: Laboratory Results - last 24 hr 08/25/21 06:30: Sodium 141, Potassium 4.3, Chloride 115 H, Carbon Dioxide 22.0, Anion Gap 4 L, BUN 33 H, Creatinine 1.16, Estim Creat Clear Calc 62.93, Est GFR (MDRD) Af Amer 81, Est GFR (MDRD) Non-Af 67, BUN/Creatinine Ratio 28.4 H, Glucose 100, Calcium 8.0 L, Magnesium 2.1, Total Bilirubin 0.70, AST 86 H, ALT 75 H, Alkaline Phosphatase 26 L, Total Protein 5.7 L, Albumin 2.2 L, Globulin 3.5, Albumin/Globulin Ratio 0.6 L 08/25/21 06:30: WBC 7.7, RBC 3.97 L, Hgb 12.6 L, Hct 37.5 L, MCV 94.5 H, MCH 31.7, MCHC 33.6, RDW Std Deviation 45.8 H, RDW Coeff of Adam 13.2, Plt Count 185, MPV 10.3, Immature Gran % (Auto) 0.900, Neut % (Auto) 77.2 H, Lymph % (Auto) 13.8 L, [place] % (Auto) 8.0, Eos % (Auto) 0.0, Baso % (Auto) 0.1, Absolute Neuts (auto) 6.0, Absolute Lymphs (auto) 1.07, Nucleated RBC % 0 Micro: Microbiology 08/25/21 04:05 Urine, Clean Catch Legionella Antigen - Final 08/25/21 04:05 Urine, Clean Catch Streptococcus pneumoniae Antigen (M - Final 08/23/21 20:10 Interface Orders Respiratory Panel (PCR) - Final Rhythm Strip Rhythm Strip: Sinus Rhythm Rate: 61 Ectopy: None Physical Exam Const alert, oriented x3 and no apparent distress Exam Limitations: no limitations HEENT head/scalp atraumatic Head and Scalp: normocephalic Eyes PERRL, EOMs intact bilaterally and conjunctivae normal Resp Resp Narrative: diminished breath sounds bibasally, no wheezes or crackles. On 2L of oxygen by nasal canula Cardio regular rate, regular rhythm, S1 normal heart sound, S2 normal heart sound and no murmurs GI normal to inspection, nondistended, normoactive bowel sounds, soft to palpation, non-tender and non-distended Extremity normal to inspection, full ROM and no clubbing, cyanosis or edema Peripheral Pulses: Yes pulses 2+ throughout Skin no rashes or lesions noted Neuro oriented x3, CN's II-XII intact bilaterally and moves all extremities Sensorium / Orientation: awake and alert Psych affect normal Assessment & Plan Assessment/Plan (1) Acute dyspnea: (2) Diarrhea: (3) Acute kidney injury: (4) COVID-19: PLAN: #COVID 19 pneumonia * now on 2L of oxygen * On decadron. out of window for remdesivir * Breathing treatments of bronchodilators. Titrate oxygen as needed to maintain saturation above 90%. * #JAVED * Improving. Likely prerenal due to diarrhea * Creatinine was 1.52 on admission. Continue gentle hydration with IV fluids. * Cr is down to 1.16 * #History of DVT: On Xarelto #Diarrhea * Diarrhea is improving. Will monitor * #Hyperlipidemia: On fenofibrate #History of asthma with allergic rhinitis: On zafirlukast. Albuterol as needed. #Anxiety and depression: On sertraline #Hypertension: On propranolol and ramipril. #MICHAEL: On BiPAP nightly. #DVT prophylaxis: On Xarelto Charges/Coding Visit Charges Inpatient E&M: 73100 Subs Hosp L2
[2021-08-25] MEDS: BENZOCAINE/MENTHOL 1 LOZENGE MUCOUS MEM (17:32)
[2021-08-25] MEDS: guaiFENesin 10 ML UDC (200MG/10ML) 20 ML PO (17:32)
[2021-08-25] MEDS: Rivaroxaban 20 MG Tablet PO (22:10)
[2021-08-25] MEDS: Montelukast 10 MG Tablet PO (22:11)
[2021-08-26] VITALS (14 sets, daily range): BP systolic 136–160; BP diastolic 63–87; PULSE 53–66; RESP 18–20; TEMP 36.4–37.5; O2SAT 92–95
[2021-08-26 07:12] LABS: Absolute Lymphocyte Count 1.12 X10^3/uL (0.83-4.51); Absolute Neutrophil Count 7.8 X10^3/uL (2.0-7.7); Basophil# 0.02 X10^3/uL; Basophil% 0.2 % (0-1); Eosinophil# 0.05 X10^3/uL; Eosinophils% 0.5 % (0-5); Hematocrit 41.9 % (40-54); Hemoglobin 13.9 g/dL (13.0-16.5); Lymphocyte # 1.12 X10^3/ul (0.83-4.51); Lymphocyte % 11.5 % (19-41); Mean Corp Hgb Conc 33.2 g/dL (32-36); Mean Corpuscular Hgb 31.2 pg (27.0-32.0); Mean Corpuscular Volume 94.2 fL (80-94); Mean Platelet Vol. 10.1 fl (6.2-12.0); Monocyte# 0.69 X10^3/uL; Monocyte% 7.1 % (0-10); NRBC Flagged by Analyzer 0 % (0-5); Neutrophil # 7.81 X10^3/uL (2.7-7.7); Platelet Count 259 K/mm3 (150-450); RBC Distribution Width CV 13.2 % (11.6-14.6); RBC Distribution Width SD 45.1 fl (35.1-43.9); Red Blood Count 4.45 M/mm3 (4.6-6.2); White Blood Count 9.8 K/mm3 (4.4-11.0)
[2021-08-26 07:43] LABS: Anion Gap 6 (5-15); BUN 26 mg/dL (7-18); Calcium,Total 8.5 mg/dL (8.5-10.1); Chloride 110 mmol/L (98-107); Creatinine, Serum 1.13 mg/dL (0.70-1.30); EST Glomerular Filtration Rate 69 mL/min (>60); Est Glom Filt Rate - Afr Amer 83 mL/min (>60); Glucose 102 mg/dL (74-106); Potassium 4.4 mmol/L (3.5-5.1); Sodium Level 141 mmol/L (136-145)
[2021-08-26] MEDS: Mirabegron 50 MG TAB.ER.24H PO (08:50)
[2021-08-26] MEDS: traMADol 50 MG Tablet PO ×4 (08:51→21:24)
[2021-08-26] MEDS: Aspirin 81 MG TAB.CHEW PO (08:51)
[2021-08-26] MEDS: Hydroxychloroquine 200 MG Tablet PO ×2 (08:51→18:47)
[2021-08-26] MEDS: Sertraline 100 MG Tablet 200 MG PO (08:51)
[2021-08-26] MEDS: Fenofibrate 145 MG Tablet PO (08:51)
[2021-08-26] MEDS: Multivitamins,Therapeutic Tablet 1 TABLET PO (08:51)
[2021-08-26] MEDS: Menthol/Lanolin/Calamine/Znox 113 GM Tube 1 APPLIC TOPICAL ×2 (09:20→21:23)
[2021-08-26] MEDS: Famotidine 20 MG Tablet PO ×2 (09:21→21:24)
[2021-08-26] MEDS: 0.9% Saline Lock 10 ML Syringe IV ×2 (09:21→09:32)
[2021-08-26] MEDS: dexAMETHasone 4 MG/ML Vial 6 MG IV (09:22)
[2021-08-26] MEDS: proCHLORPERazine 10 MG/2 ML Vial 5 MG IV (09:32)
--- NOTE | 2021-08-26 12:59 | PN.HOSP_ITS ---
Subjective Subjective Patient seen and examined. He did look better today and had no active complaints. He said he felt better. He went up to 5 L of oxygen overnight but had come down to 2 L of oxygen at time of my review this morning. Patient could barely work with therapy today and felt quite weak. He was also noted to be having intermittent bradycardia.Review of systems otherwise negative. Objective Data Objective Data Vital Signs: Vital Signs Temp Pulse Resp BP Pulse Ox 98.2 F 53 L 18 152/78 H 93 08/26/21 08:59 08/26/21 11:39 08/26/21 08:59 08/26/21 08:59 08/26/21 08:59 Oxygen Flow Rate (L/min) 4 Oxygen Delivery Method Nasal Cannula Weight: 273 lb 5.971 oz Body Mass Index (BMI) 38.7 Intake & Output: Intake and Output for Last 24 Hours 08/24/21 08/25/21 08/26/21 23:59 23:59 23:59 Intake Total 4556.25 / 4556.25 2343.75 / 2343.75 50 / 50 Output Total 125 / 125 1300 / 1300 150 / 150 Balance 4431.25 / 4431.25 1043.75 / 1043.75 -100 / -100 Lab / Micro Data Result Diagrams: 08/26/21 06:55 08/26/21 06:55 Labs: Laboratory Results - last 24 hr 08/26/21 06:55: WBC 9.8, RBC 4.45 L, Hgb 13.9, Hct 41.9, MCV 94.2 H, MCH 31.2, MCHC 33.2, RDW Std Deviation 45.1 H, RDW Coeff of Adam 13.2, Plt Count 259, MPV 10.1, Immature Gran % (Auto) 0.700, Neut % (Auto) 80.0 H, Lymph % (Auto) 11.5 L, [place] % (Auto) 7.1, Eos % (Auto) 0.5, Baso % (Auto) 0.2, Absolute Neuts (auto) 7.8 H, Absolute Lymphs (auto) 1.12, Nucleated RBC % 0 08/26/21 06:55: Sodium 141, Potassium 4.4, Chloride 110 H, Carbon Dioxide 25.0, Anion Gap 6, BUN 26 H, Creatinine 1.13, Estim Creat Clear Calc 64.60, Est GFR (MDRD) Af Amer 83, Est GFR (MDRD) Non-Af 69, BUN/Creatinine Ratio 23.0 H, Glucose 102, Calcium 8.5 Micro: Microbiology 08/25/21 04:05 Urine, Clean Catch Legionella Antigen - Final 08/25/21 04:05 Urine, Clean Catch Streptococcus pneumoniae Antigen (M - Final 08/23/21 20:10 Interface Orders Respiratory Panel (PCR) - Final Rhythm Strip Rhythm Strip: Sinus Rhythm Rate: 61 Ectopy: None Physical Exam Const alert, oriented x3 and no apparent distress Exam Limitations: no limitations HEENT head/scalp atraumatic Head and Scalp: normocephalic Eyes PERRL, EOMs intact bilaterally and conjunctivae normal Resp Resp Narrative: diminished breath sounds bibasally, no wheezes or crackles. On 4L of oxygen by nasal canula Cardio regular rhythm, S1 normal heart sound, S2 normal heart sound and no murmurs Cardio Narrative: bradycardic GI normal to inspection, nondistended, normoactive bowel sounds, soft to palpation, non-tender and non-distended Extremity normal to inspection, full ROM and no clubbing, cyanosis or edema Skin no rashes or lesions noted Neuro oriented x3, CN's II-XII intact bilaterally and moves all extremities Sensorium / Orientation: awake and alert Psych Psych Narrative: flat affect Assessment & Plan Assessment/Plan (1) Acute dyspnea: (2) Diarrhea: (3) Acute kidney injury: (4) COVID-19: PLAN: #Acute hypoxic respiratory failure due to COVID 19 pneumonia * now on 4-5L of oxygen * On decadron. out of window for remdesivir * Breathing treatments of bronchodilators. Titrate oxygen as needed to maintain saturation above 90%. * consider ID consult if shortness of breaht worsens #JAVED * resolved. Cr is 1.13 today * #History of DVT: On Xarelto #Diarrhea * resolved. #Bradycardia * HR is 53 this morning. Asymptomatic. Will hold propranolol for now and monitor * #Hyperlipidemia: On fenofibrate #History of asthma with allergic rhinitis: On zafirlukast. Albuterol as needed. #Anxiety and depression: On sertraline #Hypertension: On propranolol and ramipril. PRopranolol held due to bradycardia. #MICHAEL: On BiPAP nightly. #DVT prophylaxis: On Xarelto Charges/Coding Visit Charges Inpatient E&M: 55460 Subs Hosp L3
--- NOTE | 2021-08-26 16:05 | CASEMGMT ---
Social Work Note FÁTIMA received call from pt's son Sherman stating he has concerns with pt and pt's home. Sherman states that he lives with pt and has noticed a decline with pt. Sherman states that pt is neglecting himself, not taking his medications, will go weeks without showering, wears dirty clothes, is severely depressed and isolated. Sherman states that he also thinks pt has sundowners or the start of Dementia. Sherman states that pt will not eat right and forgets the date and time. Sherman states he doesn't want to act like he doesn't care but is just wondering what he needs to do with pt. SW spoke with Sherman about options including APS, talking to pt's PCP about competency evaluation, guardianship, and Direction Home. Sherman states that he thinks pt would do really well in Assisted Living. SW informed Sherman that pt would need to be agreeable and unless pt can get on a waiver program, Assisted Livings are private pay. Sherman states that pt is also two months late on his house payment. FÁTIMA spoke with Sherman about financial POA and that he would need to go see a [employer] for financial POA. Sherman states that pt is on medication for his depression and will forget to take his medications though. Sherman states that he has called pt's PCP to see about a competency evaluation and states that he will be calling APS. Sherman is also agreeable to Direction Home referral being made. Sherman thanked this worker for talking to him. SW in to speak with pt. FÁTIMA introduced self and role at [facility]. Pt participated appropriately in conversation with this worker. Pt states that he lives with his son Sherman and denied any concerns with home. Pt states that before he got sick he would shower 2x a week. Pt states that he takes his medication when he is supposed to and in regards to his house, pt states I have two dogs. Pt didn't elaborate on how clean his house is. SW spoke with pt about Mental Health. Pt states that he has anxiety and depression. Pt states that he is on depression and anxiety medication, takes his depression/anxiety medication when he is supposed to, and states that his depression and anxiety are well managed. Pt denied any history of any suicidal thoughts/plans/ideations. Pt denied any current suicidal thoughts/plans/ideations. Pt states that he used to be in counseling, states not in counseling currently, and denied wanting any counseling resources. SW spoke with pt about Direction Home. Pt agreeable to Direction Home Referral. Pt denied any concerns at this time. SW faxed referral to Direction Home. SW did call Ramy with APS and left message with APS referral due to reports/concerns made by pt's son Max. Natarajan Garrison SPA DIRECTOR, GROUND [employer]PERATIONS SUPERINTENDENT
[2021-08-26] MEDS: Montelukast 10 MG Tablet PO (21:24)
[2021-08-26] MEDS: Rivaroxaban 20 MG Tablet PO (21:24)
[2021-08-27] VITALS (12 sets, daily range): BP systolic 134–162; BP diastolic 64–96; PULSE 59–67; RESP 20; TEMP 36.6–37; O2SAT 76–94
[2021-08-27 07:12] LABS: Absolute Lymphocyte Count 0.99 X10^3/uL (0.83-4.51); Absolute Neutrophil Count 5.3 X10^3/uL (2.0-7.7); Basophil# 0.02 X10^3/uL; Basophil% 0.3 % (0-1); Eosinophil# 0.09 X10^3/uL; Eosinophils% 1.3 % (0-5); Hematocrit 40.6 % (40-54); Hemoglobin 13.2 g/dL (13.0-16.5); Lymphocyte # 0.99 X10^3/ul (0.83-4.51); Lymphocyte % 13.8 % (19-41); Mean Corp Hgb Conc 32.5 g/dL (32-36); Mean Corpuscular Hgb 30.8 pg (27.0-32.0); Mean Corpuscular Volume 94.9 fL (80-94); Mean Platelet Vol. 9.9 fl (6.2-12.0); Monocyte# 0.69 X10^3/uL; Monocyte% 9.6 % (0-10); NRBC Flagged by Analyzer 0 % (0-5); Neutrophil % 73.9 % (47-70); Platelet Count 249 K/mm3 (150-450); RBC Distribution Width CV 12.9 % (11.6-14.6); RBC Distribution Width SD 44.8 fl (35.1-43.9); Red Blood Count 4.28 M/mm3 (4.6-6.2); White Blood Count 7.2 K/mm3 (4.4-11.0)
[2021-08-27 07:33] LABS: Anion Gap 2 (5-15); BUN 23 mg/dL (7-18); Calcium,Total 8.6 mg/dL (8.5-10.1); Chloride 113 mmol/L (98-107); Creatinine, Serum 0.88 mg/dL (0.70-1.30); EST Glomerular Filtration Rate 91 mL/min (>60); Est Glom Filt Rate - Afr Amer 110 mL/min (>60); Estimated Creatinine Clearance 82.95 ml/min; Glucose 92 mg/dL (74-106); Potassium 4.1 mmol/L (3.5-5.1); Sodium Level 144 mmol/L (136-145)
[2021-08-27] MEDS: Sertraline 100 MG Tablet 200 MG PO (09:42)
[2021-08-27] MEDS: traMADol 50 MG Tablet PO ×4 (09:43→20:50)
[2021-08-27] MEDS: Menthol/Lanolin/Calamine/Znox 113 GM Tube 1 APPLIC TOPICAL ×2 (09:43→20:50)
[2021-08-27] MEDS: Hydroxychloroquine 200 MG Tablet PO ×2 (09:43→16:39)
[2021-08-27] MEDS: Fenofibrate 145 MG Tablet PO (09:43)
[2021-08-27] MEDS: Aspirin 81 MG TAB.CHEW PO (09:44)
[2021-08-27] MEDS: Mirabegron 50 MG TAB.ER.24H PO (09:44)
[2021-08-27] MEDS: Multivitamins,Therapeutic Tablet 1 TABLET PO (09:44)
[2021-08-27] MEDS: Famotidine 20 MG Tablet PO ×2 (09:44→20:50)
[2021-08-27] MEDS: Propranolol LA 60 MG Capsule PO (09:45)
[2021-08-27] MEDS: dexAMETHasone 4 MG/ML Vial 6 MG IV (09:45)
--- NOTE | 2021-08-27 10:43 | PN.HOSP_ITS ---
Subjective Subjective Patient seen and examined. He is on 4-5L of oxygen. He still feels weak, but is feeling better. He has no active complaints, and review of systems is otherwise negative. He has otherwise remained hemodynamically stable. Objective Data Objective Data Vital Signs: Vital Signs Temp Pulse Resp BP Pulse Ox 98.3 F 62 20 H 134/64 H 92 08/27/21 09:45 08/27/21 09:45 08/27/21 09:45 08/27/21 09:45 08/27/21 09:55 Oxygen Flow Rate (L/min) [ 6 AMBULATING with Oxygen #2] Oxygen Flow Rate (L/min) [ 4 AMBULATING with Oxygen #1] Oxygen Flow Rate (L/min) [At 4 REST with Oxygen] Oxygen Flow Rate (L/min) 4 Oxygen Delivery Method Nasal Cannula Weight: 273 lb 2.444 oz Body Mass Index (BMI) 38.7 Intake & Output: Intake and Output for Last 24 Hours 08/25/21 08/26/21 08/27/21 23:59 23:59 23:59 Intake Total 2343.75 / 2343.75 500 / 500 150 / 150 Output Total 1300 / 1300 150 / 150 Balance 1043.75 / 1043.75 350 / 350 150 / 150 Lab / Micro Data Result Diagrams: 08/27/21 06:50 08/27/21 06:50 Labs: Laboratory Results - last 24 hr 08/27/21 06:50: WBC 7.2, RBC 4.28 L, Hgb 13.2, Hct 40.6, MCV 94.9 H, MCH 30.8, MCHC 32.5, RDW Std Deviation 44.8 H, RDW Coeff of Adam 12.9, Plt Count 249, MPV 9.9, Immature Gran % (Auto) 1.100 H, Neut % (Auto) 73.9 H, Lymph % (Auto) 13.8 L , [place] % (Auto) 9.6, Eos % (Auto) 1.3, Baso % (Auto) 0.3, Absolute Neuts (auto) 5.3, Absolute Lymphs (auto) 0.99, Nucleated RBC % 0 08/27/21 06:50: Sodium 144, Potassium 4.1, Chloride 113 H, Carbon Dioxide 29.0, Anion Gap 2 L, BUN 23 H, Creatinine 0.88, Estim Creat Clear Calc 82.95, Est GFR (MDRD) Af Amer 110, Est GFR (MDRD) Non-Af 91, BUN/Creatinine Ratio 26.0 H, Glucose 92, Calcium 8.6 Micro: Microbiology 08/25/21 04:05 Urine, Clean Catch Legionella Antigen - Final 08/25/21 04:05 Urine, Clean Catch Streptococcus pneumoniae Antigen (M - Final 08/23/21 20:10 Interface Orders Respiratory Panel (PCR) - Final Rhythm Strip Rhythm Strip: Sinus Rhythm Rate: 61 Ectopy: None Physical Exam Const alert, oriented x3 and no apparent distress Exam Limitations: no limitations HEENT head/scalp atraumatic Head and Scalp: normocephalic Eyes PERRL, EOMs intact bilaterally and conjunctivae normal Resp Resp Narrative: diminished breath sounds bibasally, no wheezes or crackles. still On 4L of oxygen by nasal canula Cardio regular rate, regular rhythm, S1 normal heart sound, S2 normal heart sound and no murmurs GI normal to inspection, nondistended, normoactive bowel sounds, soft to palpation, non-tender and non-distended Extremity normal to inspection, full ROM and no clubbing, cyanosis or edema Peripheral Pulses: Yes pulses 2+ throughout Skin no rashes or lesions noted Neuro oriented x3, CN's II-XII intact bilaterally and moves all extremities Sensorium / Orientation: awake and alert Psych affect normal Assessment & Plan Assessment/Plan (1) Acute dyspnea: (2) Diarrhea: (3) Acute kidney injury: (4) COVID-19: PLAN: #Acute hypoxic respiratory failure due to COVID 19 pneumonia * now on 4L of oxygen * On decadron. out of window for remdesivir * Breathing treatments of bronchodilators. Titrate oxygen as needed to maintain saturation above 90%. * consider ID consult if shortness of breaht worsens #JAVED * resolved. Cr is 0.88 today. * #History of DVT: On Xarelto #Bradycardia * propranolol on hold. Resolving. Will monitor * #Hyperlipidemia: On fenofibrate #History of asthma with allergic rhinitis: On zafirlukast. Albuterol as needed. #Anxiety and depression: On sertraline #Hypertension: On propranolol and ramipril. PRopranolol held due to bradycardia. #MICHAEL: On BiPAP nightly. #DVT prophylaxis: On Xarelto Charges/Coding Visit Charges Inpatient E&M: 11627 Subs Hosp L2
[2021-08-27] MEDS: Rivaroxaban 20 MG Tablet PO (20:50)
[2021-08-27] MEDS: Montelukast 10 MG Tablet PO (20:50)
[2021-08-27] MEDS: 0.9% Saline Lock 10 ML Syringe IV (20:51)
[2021-08-28] VITALS (16 sets, daily range): BP systolic 142–170; BP diastolic 56–88; PULSE 53–71; RESP 18–20; TEMP 36.6–37; O2SAT 91–94
[2021-08-28 06:58] LABS: Absolute Lymphocyte Count 0.93 X10^3/uL (0.83-4.51); Absolute Neutrophil Count 5.6 X10^3/uL (2.0-7.7); Basophil# 0.02 X10^3/uL; Basophil% 0.3 % (0-1); Eosinophil# 0.15 X10^3/uL; Hematocrit 38.8 % (40-54); Hemoglobin 12.8 g/dL (13.0-16.5); Lymphocyte # 0.93 X10^3/ul (0.83-4.51); Lymphocyte % 12.4 % (19-41); Mean Corpuscular Hgb 31.1 pg (27.0-32.0); Mean Corpuscular Volume 94.2 fL (80-94); Mean Platelet Vol. 9.7 fl (6.2-12.0); Monocyte# 0.73 X10^3/uL; Monocyte% 9.7 % (0-10); NRBC Flagged by Analyzer 0 % (0-5); Neutrophil # 5.57 X10^3/uL (2.7-7.7); Platelet Count 287 K/mm3 (150-450); RBC Distribution Width CV 12.8 % (11.6-14.6); RBC Distribution Width SD 44.5 fl (35.1-43.9); Red Blood Count 4.12 M/mm3 (4.6-6.2); White Blood Count 7.5 K/mm3 (4.4-11.0)
[2021-08-28 07:19] LABS: Anion Gap 5 (5-15); BUN 22 mg/dL (7-18); BUN/Creat Ratio 26.2 RATIO (10-20); Calcium,Total 8.6 mg/dL (8.5-10.1); Chloride 111 mmol/L (98-107); Creatinine, Serum 0.84 mg/dL (0.70-1.30); EST Glomerular Filtration Rate 97 mL/min (>60); Est Glom Filt Rate - Afr Amer 117 mL/min (>60); Glucose 93 mg/dL (74-106); Sodium Level 142 mmol/L (136-145)
[2021-08-28] MEDS: Hydroxychloroquine 200 MG Tablet PO ×2 (09:41→17:13)
[2021-08-28] MEDS: Multivitamins,Therapeutic Tablet 1 TABLET PO (09:41)
[2021-08-28] MEDS: Aspirin 81 MG TAB.CHEW PO (09:41)
[2021-08-28] MEDS: Propranolol LA 60 MG Capsule PO (09:59)
[2021-08-28] MEDS: Sertraline 100 MG Tablet 200 MG PO (09:59)
[2021-08-28] MEDS: Menthol/Lanolin/Calamine/Znox 113 GM Tube 1 APPLIC TOPICAL ×2 (09:59→21:12)
[2021-08-28] MEDS: Famotidine 20 MG Tablet PO ×2 (09:59→21:13)
[2021-08-28] MEDS: traMADol 50 MG Tablet PO ×4 (10:01→21:13)
[2021-08-28] MEDS: Fenofibrate 145 MG Tablet PO (10:01)
[2021-08-28] MEDS: Mirabegron 50 MG TAB.ER.24H PO (10:01)
[2021-08-28] MEDS: dexAMETHasone 4 MG/ML Vial 6 MG IV (10:04)
[2021-08-28] MEDS: 0.9% Saline Lock 10 ML Syringe IV ×2 (10:05→21:13)
--- NOTE | 2021-08-28 10:53 | PN.HOSP_ITS ---
Subjective Subjective Patient seen and examined. He still feels weak and lethargic. He feels his breathing is getting better, and has no active complaints. Review of systems is otherwise negative. He remains on 4L of oxygen. Objective Data Objective Data Vital Signs: Vital Signs Temp Pulse Resp BP Pulse Ox 98 F 61 20 H 170/68 H 93 08/28/21 08:20 08/28/21 09:48 08/28/21 09:48 08/28/21 08:20 08/28/21 09:48 Oxygen Flow Rate (L/min) [ 4 AMBULATING with Oxygen #2] Oxygen Flow Rate (L/min) [ 4 AMBULATING with Oxygen #1] Oxygen Flow Rate (L/min) [At 4 REST with Oxygen] Oxygen Flow Rate (L/min) 4 Oxygen Delivery Method Nasal Cannula Weight: 272 lb 4.334 oz Body Mass Index (BMI) 38.7 Intake & Output: Intake and Output for Last 24 Hours 08/26/21 08/27/21 08/28/21 23:59 23:59 22:59 Intake Total 500 / 500 150 / 150 Output Total 150 / 150 550 / 550 Balance 350 / 350 150 / -150 -550 / -550 Lab / Micro Data Result Diagrams: 08/28/21 06:26 08/28/21 06:26 Labs: Laboratory Results - last 24 hr 08/28/21 06:26: WBC 7.5, RBC 4.12 L, Hgb 12.8 L, Hct 38.8 L, MCV 94.2 H, MCH 31.1, MCHC 33.0, RDW Std Deviation 44.5 H, RDW Coeff of Adam 12.8, Plt Count 287, MPV 9.7, Immature Gran % (Auto) 1.600 H, Neut % (Auto) 74.0 H, Lymph % (Auto) 12.4 L, [place] % (Auto) 9.7, Eos % (Auto) 2.0, Baso % (Auto) 0.3, Absolute Neuts (auto) 5.6, Absolute Lymphs (auto) 0.93, Nucleated RBC % 0 08/28/21 06:26: Sodium 142, Potassium 4.0, Chloride 111 H, Carbon Dioxide 26.0, Anion Gap 5, BUN 22 H, Creatinine 0.84, Estim Creat Clear Calc 86.90, Est GFR (MDRD) Af Amer 117, Est GFR (MDRD) Non-Af 97, BUN/Creatinine Ratio 26.2 H, Glucose 93, Calcium 8.6 Micro: Microbiology 08/25/21 04:05 Urine, Clean Catch Legionella Antigen - Final 08/25/21 04:05 Urine, Clean Catch Streptococcus pneumoniae Antigen (M - Final 08/23/21 20:10 Interface Orders Respiratory Panel (PCR) - Final Rhythm Strip Rhythm Strip: Sinus Rhythm Rate: 61 Ectopy: None Physical Exam Const alert, oriented x3 and no apparent distress Orientation / Consciousness: lethargic Exam Limitations: no limitations HEENT head/scalp atraumatic Head and Scalp: normocephalic Eyes PERRL, EOMs intact bilaterally and conjunctivae normal Resp Resp Narrative: diminished breath sounds bibasally, no wheezes or crackles. still On 4L of oxygen by nasal canula Cardio regular rate, regular rhythm, S1 normal heart sound, S2 normal heart sound and no murmurs GI normal to inspection, nondistended, normoactive bowel sounds, soft to palpation, non-tender and non-distended Extremity normal to inspection, full ROM and no clubbing, cyanosis or edema Peripheral Pulses: Yes pulses 2+ throughout Skin no rashes or lesions noted Neuro oriented x3, CN's II-XII intact bilaterally and moves all extremities Sensorium / Orientation: awake and alert Psych affect normal Assessment & Plan Assessment/Plan (1) Acute dyspnea: (2) Diarrhea: (3) Acute kidney injury: (4) COVID-19: PLAN: #Acute hypoxic respiratory failure due to COVID 19 pneumonia * still on 4L of oxygen * On decadron. out of window for remdesivir * Breathing treatments of bronchodilators. * Titrate oxygen as needed to maintain saturation above 90%. * #JAVED * resolved * #History of DVT: On Xarelto #Bradycardia * propranolol on hold. Resolving. Will monitor * #Hyperlipidemia: On fenofibrate #History of asthma with allergic rhinitis: On zafirlukast. Albuterol as needed. #Anxiety and depression: On sertraline #Hypertension: On propranolol and ramipril. PRopranolol remains on hold due to bradycardia, which is now resolving. #MICHAEL: On BiPAP nightly. #DVT prophylaxis: On Xarelto Disposition: was hoping to discharge patient home today, but patient still feels weak. Anticipate likely discharge tomorrow. Charges/Coding Visit Charges Inpatient E&M: 70268 Subs Hosp L2
[2021-08-28] MEDS: Nystatin Powder 15gm Bottle 1 APPLIC TOPICAL (21:12)
[2021-08-28] MEDS: Montelukast 10 MG Tablet PO (21:13)
[2021-08-28] MEDS: Rivaroxaban 20 MG Tablet PO (21:13)
[2021-08-29] VITALS (15 sets, daily range): BP systolic 128–163; BP diastolic 80–87; PULSE 51–64; RESP 18–20; TEMP 36.4–37.1; O2SAT 83–95
[2021-08-29 07:05] LABS: Absolute Lymphocyte Count 1.12 X10^3/uL (0.83-4.51); Absolute Neutrophil Count 4.7 X10^3/uL (2.0-7.7); Basophil# 0.03 X10^3/uL; Basophil% 0.4 % (0-1); Eosinophil# 0.19 X10^3/uL; Eosinophils% 2.8 % (0-5); Hematocrit 39.1 % (40-54); Hemoglobin 12.6 g/dL (13.0-16.5); Lymphocyte # 1.12 X10^3/ul (0.83-4.51); Lymphocyte % 16.3 % (19-41); Mean Corp Hgb Conc 32.2 g/dL (32-36); Mean Corpuscular Hgb 30.7 pg (27.0-32.0); Mean Corpuscular Volume 95.4 fL (80-94); Mean Platelet Vol. 9.6 fl (6.2-12.0); Monocyte# 0.73 X10^3/uL; Monocyte% 10.6 % (0-10); NRBC Flagged by Analyzer 0 % (0-5); Neutrophil # 4.67 X10^3/uL (2.7-7.7); Neutrophil % 68.2 % (47-70); Platelet Count 305 K/mm3 (150-450); RBC Distribution Width CV 12.6 % (11.6-14.6); RBC Distribution Width SD 44.6 fl (35.1-43.9); White Blood Count 6.9 K/mm3 (4.4-11.0)
[2021-08-29 07:40] LABS: Anion Gap 1 (5-15); BUN 23 mg/dL (7-18); BUN/Creat Ratio 26.5 RATIO (10-20); Chloride 109 mmol/L (98-107); Creatinine, Serum 0.87 mg/dL (0.70-1.30); EST Glomerular Filtration Rate 93 mL/min (>60); Est Glom Filt Rate - Afr Amer 112 mL/min (>60); Estimated Creatinine Clearance 83.91 ml/min; Glucose 95 mg/dL (74-106); Potassium 4.2 mmol/L (3.5-5.1); Sodium Level 142 mmol/L (136-145)
[2021-08-29] MEDS: Aspirin 81 MG TAB.CHEW PO (08:39)
[2021-08-29] MEDS: Hydroxychloroquine 200 MG Tablet PO ×2 (08:39→18:00)
[2021-08-29] MEDS: Multivitamins,Therapeutic Tablet 1 TABLET PO (08:39)
[2021-08-29] MEDS: traMADol 50 MG Tablet PO ×4 (10:21→21:21)
[2021-08-29] MEDS: Mirabegron 50 MG TAB.ER.24H PO (10:21)
[2021-08-29] MEDS: Famotidine 20 MG Tablet PO ×2 (10:21→21:21)
[2021-08-29] MEDS: Sertraline 100 MG Tablet 200 MG PO (10:21)
[2021-08-29] MEDS: Fenofibrate 145 MG Tablet PO (10:21)
[2021-08-29] MEDS: dexAMETHasone 4 MG/ML Vial 6 MG IV (10:21)
[2021-08-29] MEDS: 0.9% Saline Lock 10 ML Syringe IV (10:21)
[2021-08-29] MEDS: Propranolol LA 60 MG Capsule PO (10:21)
[2021-08-29] MEDS: Menthol/Lanolin/Calamine/Znox 113 GM Tube 1 APPLIC TOPICAL ×2 (10:22→21:22)
--- NOTE | 2021-08-29 12:53 | PCM.DC.SUM ---
Providers Date of Admission: 08/24/21 Primary Care Physician: John Bowman, FORGING DIES FINAL FINISHER-C Reason For Visit: COVID PNA, DIARRHEA W/ ACUTE RENAL INSUFFICIENCY Diagnosis Discharge Diagnosis (1) Acute dyspnea: Status: Acute Code(s): R06.00 - Dyspnea, unspecified (2) Diarrhea: Status: Acute Code(s): R19.7 - Diarrhea, unspecified (3) Acute kidney injury: Status: Acute Code(s): N17.9 - Acute kidney failure, unspecified (4) COVID-19: Status: Acute Code(s): U07.1 - COVID-19 Medications at Discharge Home Medications aspirin 81 mg PO DAILY@0800 11/07/13 fenofibrate micronized [Lofibra] 134 mg PO QHS 11/07/13 hydroxychloroquine 200 mg PO BIDCM 11/07/13 sertraline 200 mg PO DAILY 11/07/13 propranolol 20 mg PO DAILY 09/27/15 mirabegron 50 mg PO DAILY 04/29/20 ramipril 10 mg PO QHS 04/29/20 rivaroxaban 20 mg PO QHS 04/29/20 tramadol 200 mg PO DAILY 04/29/20 zafirlukast 20 mg PO BID 04/29/20 dexamethasone [Decadron] 6 mg PO DAILY #4 tab 08/29/21 Hospital Course Operations None Procedures None Summary of Care Provided Minutes Spent on Discharge: 38 Hospital Course: Mr. Davis is a 66-year-old white male who presented to the emergency department at [facility] on 08/23/2021 with a chief complaint of worsening Covid symptoms and diarrhea. Upon admission he reported starting having Covid symptoms 11 days prior to presentation with body aches, headache, sore throat, fatigue, malaise, nonproductive cough and dyspnea with profuse diarrhea. Given his diarrhea he was having difficulty maintaining adequate hydration and this is what prompted evaluation in the emergency department. He was unvaccinated prior to admission. On admission his serum creatinine was 1.52 with an elevated BUN at 30 and he had mildly elevated transaminases. His chest x-ray showed patchy bilateral infiltrates and he was treated with IV fluids and Decadron in the emergency department. Decadron was continued on admission but unfortunately he was out of the window for remdesivir. He was initially on room air on admission but required additional oxygen for support secondary to hypoxia. On 08/27/2021 he was up to 5 to 6 L of nasal cannula to keep his sats greater than 90%. Since then we have slowly been able to wean his oxygen he is now on 3 L nasal cannula at rest and requires 5 L with exertion but is overall improving. His diarrhea has since resolved and his serum creatinine is down to 0.87 which appears to be baseline when compared to previous data. He will need to continue 4 more days of Decadron for which a prescription was written and sent to the pharmacy and require continued quarantine until 09/01/2021 which is 20 days since symptom onset. It was recommended he follow-up with both his PCP and pulmonary medicine after discharge given his need for oxygen at discharge. His other home medications were continued. Discharge diagnoses: Acute hypoxic respiratory failure secondary to COVID-19 pneumonia COVID-19 pneumonia Transaminitis-resolved Mild anemia secondary to COVID-19 MICHAEL Obesity Asthma History of DVT on Eliquis Fibromyalgia Hypertension Anxiety/depression GERD RA Physical Exam Const alert, oriented x3 and no apparent distress Constitutional Narrative: Obese white male sitting up in a chair eating lunch, appears comfortable, nontoxic, Currently on 3 L nasal cannula at rest General Appearance: cooperative, comfortable, well kempt and well developed Orientation / Consciousness: awake Exam Limitations: no limitations Nutritional Appearance: obese HEENT normocephalic, head/scalp atraumatic, hearing grossly normal bilaterally, moist oral mucous membranes, oropharynx normal and gingiva normal HEENT Narrative: Fair dentition, no thrush Eyes PERRL, EOMs intact bilaterally and conjunctivae normal Eyes Narrative: No scleral icterus Neck no lymphadenopathy, supple and no JVD Neck Narrative: Trachea midline, no thyroid enlargement Resp normal respiratory effort, no retractions, no use of accessory muscles and clear to auscultation bilaterally Resp Narrative: Diffusely diminished but clear, No signs of respiratory distress Auscultation: Negative for crackles, rales, rhonchi or wheezes Cardio regular rate, regular rhythm, S1 normal heart sound, S2 normal heart sound, no murmurs, no rub, no gallops, no clicks and no JVD GI normal to inspection, nondistended, normoactive bowel sounds, soft to palpation, non-tender and non-distended Extremity normal to inspection and no clubbing, cyanosis or edema Skin no rashes or lesions noted, no wounds, skin turgor normal and no jaundice Neuro oriented x3, CN's II-XII intact bilaterally, moves all extremities and no focal motor deficits Neuro Narrative: Mild generalized weakness Sensorium / Orientation: awake, alert, oriented to person, oriented to place and oriented to time Speech: speech normal Psych affect normal Weight / BMI Weight Weight: 124.3 kg Body Mass Index (BMI) 38.7 ABG / Lab / Microbiology Data Result Diagrams: 08/29/21 06:30 08/29/21 06:30 Laboratory: Laboratory Results - last 24 hr 08/29/21 06:30: WBC 6.9, RBC 4.10 L, Hgb 12.6 L, Hct 39.1 L, MCV 95.4 H, MCH 30.7, MCHC 32.2, RDW Std Deviation 44.6 H, RDW Coeff of Adam 12.6, Plt Count 305, MPV 9.6, Immature Gran % (Auto) 1.700 H, Neut % (Auto) 68.2, Lymph % (Auto) 16.3 L, [place] % (Auto) 10.6 H, Eos % (Auto) 2.8, Baso % (Auto) 0.4, Absolute Neuts (auto) 4.7, Absolute Lymphs (auto) 1.12, Nucleated RBC % 0 08/29/21 06:30: Sodium 142, Potassium 4.2, Chloride 109 H, Carbon Dioxide 32.0, Anion Gap 1 L, BUN 23 H, Creatinine 0.87, Estim Creat Clear Calc 83.91, Est GFR (MDRD) Af Amer 112, Est GFR (MDRD) Non-Af 93, BUN/Creatinine Ratio 26.5 H, Glucose 95, Calcium 9.0 Microbiology: Microbiology 08/25/21 04:05 Urine, Clean Catch Legionella Antigen - Final 08/25/21 04:05 Urine, Clean Catch Streptococcus pneumoniae Antigen (M - Final 08/23/21 20:10 Interface Orders Respiratory Panel (PCR) - Final D/C Instructions Discharge Diet: Low fat / Low cholesterol Return to work on: 09/02/21 Meaningful Use Info Meaningful Use Diagnoses (Choose all that apply): None applicable Discharge Plan Admission Admit Date/Time: 08/24/21 10:16 Primary Reason for Your Visit: COVID-19 pneumonia Attending Provider: Kyra Vora Primary Care Provider: John Bowman NP Instructions Additional Instructions / Restrictions: 1. Please complete Decadron for 4 more days 2. Please continue supplemental oxygen until discontinued by physician 3. Recommend follow-up with pulmonary medicine within 1 month 4. Please quarantine until 09/01/2021 Discharge Orders/Prescriptions Prescriptions: New dexamethasone [Decadron] 6 mg tablet 6 mg PO DAILY Qty: 4 RF: 0 Continued sertraline 100 MG tablet 200 mg PO DAILY RF: 0 fenofibrate micronized [Lofibra] 134 MG capsule 134 mg PO QHS RF: 0 aspirin 81 MG tablet,chewable 81 mg PO DAILY@0800 RF: 0 hydroxychloroquine 200 MG tablet 200 mg PO BIDCM RF: 0 propranolol 20 MG tablet 20 mg PO DAILY RF: 0 ramipril 10 MG capsule 10 mg PO QHS RF: 0 mirabegron 50 MG tablet extended release 24 hr 50 mg PO DAILY RF: 0 zafirlukast 20 MG tablet 20 mg PO BID RF: 0 tramadol 200 MG tablet extended release 24 hr 200 mg PO DAILY RF: 0 rivaroxaban 20 MG tablet 20 mg PO QHS RF: 0 Referrals / Follow Up: Quincy Contreras MD [STAFF PHYSICIAN] - Within 1 Month (COVID-19 pneumonia LEFT MESSAGE FOR DR. CONTRERAS'S OFFICE TO CALL THE PATIENT.) John Bowman NP, FORGING DIES FINAL FINISHER-C [Primary Care Provider] - Within 2 Weeks (APPOINTMENT: JONH BOWMAN NP ON Sunday @ 1:20.) Disposition Disposition (needs filled in before D/C Order can be placed): Home, Self Care Charges/Coding Visit Charges Inpatient E&M: 43091 Disch Hosp
--- NOTE | 2021-08-29 13:30 | CASEMGMT ---
Pt qualifies for home O2, referral faxed to [facility] [place]. TC to Micky to make aware of referral and that the portable tank will be taken from stock.
--- NOTE | 2021-08-29 13:37 | DCINST_ITS ---
Discharge Instructions Diet Discharge Diet: Low fat / Low cholesterol Activity Return to work on:: 09/02/21 Follow Up Care Test Results: Test results from this visit will be discussed in further detail at your follow-up appointment, if applicable. Discharge Plan Admission Admit Date/Time: 08/24/21 10:16 Primary Reason for Your Visit: COVID-19 pneumonia Attending Provider: Kyra Vora Primary Care Provider: Isiah Bowman NP Instructions Additional Instructions / Restrictions: 1. Please complete Decadron for 4 more days 2. Please continue supplemental oxygen until discontinued by physician 3. Recommend follow-up with pulmonary medicine within 1 month 4. Please quarantine until 09/01/2021 Discharge Orders/Prescriptions Prescriptions: New dexamethasone [Decadron] 6 mg tablet 6 mg PO DAILY Qty: 4 RF: 0 Continued sertraline 100 MG tablet 200 mg PO DAILY RF: 0 fenofibrate micronized [Lofibra] 134 MG capsule 134 mg PO QHS RF: 0 aspirin 81 MG tablet,chewable 81 mg PO DAILY@0800 RF: 0 hydroxychloroquine 200 MG tablet 200 mg PO BIDCM RF: 0 propranolol 20 MG tablet 20 mg PO DAILY RF: 0 ramipril 10 MG capsule 10 mg PO QHS RF: 0 mirabegron 50 MG tablet extended release 24 hr 50 mg PO DAILY RF: 0 zafirlukast 20 MG tablet 20 mg PO BID RF: 0 tramadol 200 MG tablet extended release 24 hr 200 mg PO DAILY RF: 0 rivaroxaban 20 MG tablet 20 mg PO QHS RF: 0 Referrals / Follow Up: Quincy Contreras MD [STAFF PHYSICIAN] - Within 1 Month (COVID-19 pneumonia LEFT MESSAGE FOR DR. CONTRERAS'S OFFICE TO CALL THE PATIENT.) Isiah Bowman NP, TERMITE TREATER-C [Primary Care Provider] - Within 2 Weeks (APPOINTMENT: ISIAH BOWMAN NP ON Sunday @ 1:20.) Disposition Disposition (needs filled in before D/C Order can be placed): Home, Self Care
--- NOTE | 2021-08-29 14:30 | PHA.DC.MR ---
Pharmacy Service has performed discharge medication reconciliation for this patient. The patient's discharge medication list was reviewed for discrepancies and discrepancies were resolved. Home Medications aspirin 81 mg PO DAILY@0800 11/07/13 fenofibrate micronized [Lofibra] 134 mg PO QHS 11/07/13 hydroxychloroquine 200 mg PO BIDCM 11/07/13 sertraline 200 mg PO DAILY 11/07/13 propranolol 20 mg PO DAILY 09/27/15 mirabegron 50 mg PO DAILY 04/29/20 ramipril 10 mg PO QHS 04/29/20 rivaroxaban 20 mg PO QHS 04/29/20 tramadol 200 mg PO DAILY 04/29/20 zafirlukast 20 mg PO BID 04/29/20 dexamethasone [Decadron] 6 mg PO DAILY #4 tab 08/29/21
--- NOTE | 2021-08-29 18:13 | CASEMGMT ---
Social Work Note FÁTIMA updated that pt's son Sherman is not able to transport pt home today. Pt's sister is not able to transport home. residential treatment staff asking for transportation options. SW offered taxi home, wheelchair van home. Pt is not safe for taxi discharge home. FÁTIMA in to speak with pt. SW spoke with pt about transportation options. Pt confirms that his son is not able to transport pt tonight. SW informed pt that this worker can arrange a wheelchair van but informed pt that it will be private pay. Pt states that he won't be able to go home tonight as he will be alone. SW asked pt why he cannot be alone at home. Pt states I need to learn this oxygen and I have bad diarrhea. SW informed pt that when he gets home he will just need to call his Oxygen company and they will come out to pt's home to educate pt on Oxygen. SW informed pt that he is up supervision with PT, asked if he is able to make it to the bathroom when he has to go. Pt states the diarrhea comes so fast, I cannot make it. SW asked pt if he could be close to his bathroom at home until his son is home tonight and informed pt that transportation could be arranged for later this evening. Pt becoming frustrated with this worker, and states just set the damn transportation up. FÁTIMA updated then that pt's son Sherman is on the phone. FÁTIMA spoke with Max. SW informed Max that this worker is trying to arrange transportation home. SW informed Max that this worker would arrange wheelchair van transport but informed Max that it would be private pay. Max states I understand that, but no one will be home, and I was trying to talk to my father. FÁTIMA passed pt the phone to speak to Max. FÁTIMA overheard Max's conversation with pt. Max is stating that he has class tonight till 10:30pm and won't be able to transport pt till 10:30pm but informed pt that he can be at [facility] tomorrow morning to transport. Max states the nurses didn't call me till 4:00pm stating you are ready for discharge and at that time, I didn't have enough time to get to [facility] to transport you home as I have class. Pt states he understands that and informs Max to just be at [facility] tomorrow to transport pt. Max told pt he prefers to be home when pt arrives so he can help pt initially when pt is home and wants to be home to be educated on pt's oxygen. Pt hangs up the phone with Max. FÁTIMA spoke with pt then. FÁTIMA informed pt that this worker would update physician on pt's situation but informed pt that the discharge is in for today, this worker is not sure if pt's insurance will cover another night in the hospital. Pt states well then just fucking charge me for it. Pt states this is bull shit. Pt becoming more agitated so this worker left the room. FÁTIMA updated physician on this worker's conversation with pt. Pt to remain at [facility], will discharge home tomorrow. FÁTIMA placed a call to pt's son Sherman and updated him that pt will stay at [facility] today and will discharge tomorrow. Pt states he can be at [facility] tomorrow morning. FÁTIMA updated RN. Rosa Isela Ji PAYROLL MACHINE OPERATOR, STEEL PLACER
[2021-08-29] MEDS: Rivaroxaban 20 MG Tablet PO (21:21)
[2021-08-29] MEDS: Montelukast 10 MG Tablet PO (21:22)
[2021-08-30 03:38] VITALS: BP 160/81; PULSE 52; RESP 16; TEMP 36.8; O2SAT 95
[2021-08-30 03:59] VITALS: PULSE 55
[2021-08-30 07:58] LABS: Absolute Lymphocyte Count 1.12 X10^3/uL (0.83-4.51); Absolute Neutrophil Count 5.4 X10^3/uL (2.0-7.7); Basophil# 0.04 X10^3/uL; Basophil% 0.5 % (0-1); Eosinophil# 0.25 X10^3/uL; Eosinophils% 3.2 % (0-5); Hematocrit 39.6 % (40-54); Hemoglobin 13.1 g/dL (13.0-16.5); Lymphocyte # 1.12 X10^3/ul (0.83-4.51); Lymphocyte % 14.4 % (19-41); Mean Corp Hgb Conc 33.1 g/dL (32-36); Mean Corpuscular Hgb 30.9 pg (27.0-32.0); Mean Corpuscular Volume 93.4 fL (80-94); Mean Platelet Vol. 9.4 fl (6.2-12.0); Monocyte# 0.79 X10^3/uL; Monocyte% 10.1 % (0-10); NRBC Flagged by Analyzer 0 % (0-5); Neutrophil % 69.2 % (47-70); Platelet Count 338 K/mm3 (150-450); RBC Distribution Width CV 12.5 % (11.6-14.6); RBC Distribution Width SD 42.6 fl (35.1-43.9); Red Blood Count 4.24 M/mm3 (4.6-6.2); White Blood Count 7.8 K/mm3 (4.4-11.0)
[2021-08-30 08:22] LABS: Anion Gap 4 (5-15); BUN 24 mg/dL (7-18); BUN/Creat Ratio 29.4 RATIO (10-20); Calcium,Total 8.9 mg/dL (8.5-10.1); Chloride 109 mmol/L (98-107); Creatinine, Serum 0.82 mg/dL (0.70-1.30); EST Glomerular Filtration Rate 100 mL/min (>60); Est Glom Filt Rate - Afr Amer 121 mL/min (>60); Estimated Creatinine Clearance 89.02 ml/min; Glucose 92 mg/dL (74-106); Sodium Level 141 mmol/L (136-145)
--- NOTE | 2021-08-30 08:52 | NURSING ---
Spoke with patient's son, Sherman and confirmed that he would be picking patient up between 10 and 1030.
[2021-08-30 09:46] VITALS: BP 128/75; PULSE 65; RESP 18; TEMP 36.6; O2SAT 95
[2021-08-30 10:03] VITALS: O2SAT 95
--- NOTE | 2021-08-30 10:36 | CASEMGMT ---
Social Work Note Pt discharged home today. SW placed a call to Ramy with [facility] and left message that pt discharged home. Rosa Isela Ji EDGER OPERATOR, EVENT STAFF
--- NOTE | 2021-08-30 12:54 | PCM.HOSP.N ---
Hospitalist Note Patient was to be discharged on 08/29/2021 but we were informed later in the evening that his son would not be able to come pick him up and therefore he would not be able to go home. He was not kept for medical reasons and kept entirely for lack of transportation.
--- NOTE | 2021-08-30 12:54 | PCM.DC.SUM ---
Providers Date of Admission: 08/24/21 Primary Care Physician: John Bowman, WASTE CHOPPER-C Reason For Visit: COVID PNA, DIARRHEA W/ ACUTE RENAL INSUFFICIENCY Diagnosis Discharge Diagnosis (1) Acute dyspnea: Status: Acute Code(s): R06.00 - Dyspnea, unspecified (2) Diarrhea: Status: Acute Code(s): R19.7 - Diarrhea, unspecified (3) Acute kidney injury: Status: Acute Code(s): N17.9 - Acute kidney failure, unspecified (4) COVID-19: Status: Acute Code(s): U07.1 - COVID-19 Medications at Discharge Home Medications aspirin 81 mg PO DAILY@0800 11/07/13 fenofibrate micronized [Lofibra] 134 mg PO QHS 11/07/13 hydroxychloroquine 200 mg PO BIDCM 11/07/13 sertraline 200 mg PO DAILY 11/07/13 propranolol 20 mg PO DAILY 09/27/15 mirabegron 50 mg PO DAILY 04/29/20 ramipril 10 mg PO QHS 04/29/20 rivaroxaban 20 mg PO QHS 04/29/20 tramadol 200 mg PO DAILY 04/29/20 zafirlukast 20 mg PO BID 04/29/20 dexamethasone [Decadron] 6 mg PO DAILY #4 tab 08/29/21 Hospital Course Operations None Procedures None Summary of Care Provided Minutes Spent on Discharge: 38 Hospital Course: Hospital Course: Mr. Davis is a 66-year-old white male who presented to the emergency department at [facility] on 08/23/2021 with a chief complaint of worsening Covid symptoms and diarrhea. Upon admission he reported starting having Covid symptoms 11 days prior to presentation with body aches, headache, sore throat, fatigue, malaise, nonproductive cough and dyspnea with profuse diarrhea. Given his diarrhea he was having difficulty maintaining adequate hydration and this is what prompted evaluation in the emergency department. He was unvaccinated prior to admission. On admission his serum creatinine was 1.52 with an elevated BUN at 30 and he had mildly elevated transaminases. His chest x-ray showed patchy bilateral infiltrates and he was treated with IV fluids and Decadron in the emergency department. Decadron was continued on admission but unfortunately he was out of the window for remdesivir. He was initially on room air on admission but required additional oxygen for support secondary to hypoxia. On 08/27/2021 he was up to 5 to 6 L of nasal cannula to keep his sats greater than 90%. Since then we have slowly been able to wean his oxygen he is now on 3 L nasal cannula at rest and requires 5 L with exertion but is overall improving. His diarrhea has since resolved and his serum creatinine is down to 0.87 which appears to be baseline when compared to previous data. He will need to continue 4 more days of Decadron for which a prescription was written and sent to the pharmacy and require continued quarantine until 09/01/2021 which is 20 days since symptom onset. It was recommended he follow-up with both his PCP and pulmonary medicine after discharge given his need for oxygen at discharge. His other home medications were continued. As noted per documentation patient was to be discharged on 08/29/2021 but was unable to obtain a ride from his son as he had to go to a class and therefore was discharged on 08/30/2021. His extra day stay was not related to any medical issues. Discharge diagnoses: Acute hypoxic respiratory failure secondary to COVID-19 pneumonia COVID-19 pneumonia Transaminitis-resolved Mild anemia secondary to COVID-19 MICHAEL Obesity Asthma History of DVT on Eliquis Fibromyalgia Hypertension Anxiety/depression GERD RA Physical Exam Const alert, oriented x3 and no apparent distress Constitutional Narrative: Obese white male sitting up in a chair eating lunch, appears comfortable, nontoxic, Currently on 3 L nasal cannula at rest General Appearance: cooperative, comfortable, well kempt and well developed Orientation / Consciousness: awake Exam Limitations: no limitations Nutritional Appearance: obese HEENT normocephalic, head/scalp atraumatic, hearing grossly normal bilaterally, moist oral mucous membranes and oropharynx normal Eyes PERRL, EOMs intact bilaterally and conjunctivae normal Eyes Narrative: No scleral icterus Neck no lymphadenopathy, supple and no JVD Neck Narrative: Trachea midline, no thyroid enlargement Resp normal respiratory effort, no retractions, no use of accessory muscles and clear to auscultation bilaterally Resp Narrative: Diffusely diminished but clear, No signs of respiratory distress Auscultation: Negative for crackles, rales, rhonchi or wheezes Cardio regular rate, regular rhythm, S1 normal heart sound, S2 normal heart sound, no murmurs, no rub, no gallops, no clicks and no JVD Cardio Narrative: bradycardic GI normal to inspection, nondistended, normoactive bowel sounds, soft to palpation, non-tender and non-distended Extremity normal to inspection, full ROM and no clubbing, cyanosis or edema Skin no rashes or lesions noted, no wounds, skin turgor normal and no jaundice Neuro oriented x3, CN's II-XII intact bilaterally, moves all extremities and no focal motor deficits Neuro Narrative: Mild generalized weakness Sensorium / Orientation: awake, alert, oriented to person, oriented to place and oriented to time Speech: speech normal Psych affect normal Psych Narrative: flat affect Weight / BMI Weight Weight: 124.3 kg Body Mass Index (BMI) 38.7 ABG / Lab / Microbiology Data Result Diagrams: 08/30/21 07:14 08/30/21 07:14 Laboratory: Laboratory Results - last 24 hr 08/30/21 07:14: WBC 7.8, RBC 4.24 L, Hgb 13.1, Hct 39.6 L, MCV 93.4, MCH 30.9, MCHC 33.1, RDW Std Deviation 42.6, RDW Coeff of Adam 12.5, Plt Count 338, MPV 9.4, Immature Gran % (Auto) 2.600 H, Neut % (Auto) 69.2, Lymph % (Auto) 14.4 L, [place] % (Auto) 10.1 H, Eos % (Auto) 3.2, Baso % (Auto) 0.5, Absolute Neuts (auto) 5.4, Absolute Lymphs (auto) 1.12, Nucleated RBC % 0 08/30/21 07:14: Sodium 141, Potassium 4.0, Chloride 109 H, Carbon Dioxide 28.0, Anion Gap 4 L, BUN 24 H, Creatinine 0.82, Estim Creat Clear Calc 89.02, Est GFR (MDRD) Af Amer 121, Est GFR (MDRD) Non-Af 100, BUN/Creatinine Ratio 29.4 H, Glucose 92, Calcium 8.9 Microbiology: Microbiology 08/25/21 04:05 Urine, Clean Catch Legionella Antigen - Final 08/25/21 04:05 Urine, Clean Catch Streptococcus pneumoniae Antigen (M - Final 08/23/21 20:10 Interface Orders Respiratory Panel (PCR) - Final D/C Instructions Discharge Diet: Low fat / Low cholesterol Return to work on: 09/02/21 Please Follow Up With: DR.BRUCE CONTRERAS Meaningful Use Info Meaningful Use Diagnoses (Choose all that apply): None applicable Discharge Plan Admission Admit Date/Time: 08/24/21 10:16 Primary Reason for Your Visit: COVID-19 pneumonia Attending Provider: Kyra Vora Primary Care Provider: John Bowman NP Instructions Additional Instructions / Restrictions: 1. Please complete Decadron for 4 more days 2. Please continue supplemental oxygen until discontinued by physician 3. Recommend follow-up with pulmonary medicine within 1 month 4. Please quarantine until 09/01/2021 Discharge Orders/Prescriptions Prescriptions: New dexamethasone [Decadron] 6 mg tablet 6 mg PO DAILY Qty: 4 RF: 0 Continued sertraline 100 MG tablet 200 mg PO DAILY RF: 0 fenofibrate micronized [Lofibra] 134 MG capsule 134 mg PO QHS RF: 0 aspirin 81 MG tablet,chewable 81 mg PO DAILY@0800 RF: 0 hydroxychloroquine 200 MG tablet 200 mg PO BIDCM RF: 0 propranolol 20 MG tablet 20 mg PO DAILY RF: 0 ramipril 10 MG capsule 10 mg PO QHS RF: 0 mirabegron 50 MG tablet extended release 24 hr 50 mg PO DAILY RF: 0 zafirlukast 20 MG tablet 20 mg PO BID RF: 0 tramadol 200 MG tablet extended release 24 hr 200 mg PO DAILY RF: 0 rivaroxaban 20 MG tablet 20 mg PO QHS RF: 0 Referrals / Follow Up: Quincy Contreras MD [STAFF PHYSICIAN] - Within 1 Month (COVID-19 pneumonia APPOINTMENT : DR. CONTRERAS ON NOVEMBER 17, 944AM. PT WILL GO ON A WAIT LIST IF SOMEONE CANCEL THE OFFICE WILL CALL.) John Bowman NP, WASTE CHOPPER-C [Primary Care Provider] - Within 2 Weeks (APPOINTMENT: JOHN BOWMAN WASTE CHOPPER ON Sunday @ 1:20.) Disposition Disposition (needs filled in before D/C Order can be placed): Home, Self Care Charges/Coding Visit Charges Inpatient E&M: 57351 Disch Hosp
--- NOTE | 2021-08-31 14:49 | CASEMGMT ---
CHANCE NORRIS Discharge Follow-Up Phone Call. Preethi: 12 Strata: 3 Discharge Date: 08/30/21 Adm Dx: COVID PNA, diarrhea w/acute renal insufficiency Call to pt to inquire about how he has been doing since being discharged from the hospital. Pt states he is doing fine. He states his breathing has been good, I just still have a tickle cough. His pulse ox was reading 96% w/O2 in place this AM. [employer] delivered the oxygen to his home last evening and went over the equipment w/him and he denies having any questions about the O2. He was able to get the Decadron and denies having any questions about it or his other medications. He denies having questions about the discharge instructions. He is aware of appt w/PCP on 09/12. Dr Contreras's office has not contacted him re: appt. He was advised to contact Dr Contreras's office to schedule an appt if he has not heard from them this week. He voices understanding. He denies having any questions/concerns. Ginny MCCRARY RN, CM
== END 2021-08-30 10:14 | disposition home or self-care (01) | DRG 177 ==
LOC: ED 15:59 → MS3 17:13
PROVIDERS: Student in an Organized Health Care Education/Training Program; Admitting Provider Family Medicine; Emergency Provider Emergency Medicine; PCP Nurse Practitioner Family; Visit Provider Internal Medicine
DX: U07.1 COVID-19 (principal); J12.82 Pneumonia due to coronavirus disease 2019; J96.01 Acute respiratory failure with hypoxia; N17.9 Acute kidney failure, unspecified; I10 Essential (primary) hypertension; G47.33 Obstructive sleep apnea (adult) (pediatric); J45.909 Unspecified asthma, uncomplicated; K21.9 Gastro-esophageal reflux disease without esophagitis; M06.9 Rheumatoid arthritis, unspecified; M79.7 Fibromyalgia; F32.A Depression, unspecified; F41.9 Anxiety disorder, unspecified; R19.7 Diarrhea, unspecified; R00.1 Bradycardia, unspecified; E86.0 Dehydration; E66.01 Morbid (severe) obesity due to excess calories; Z68.39 Body mass index [BMI] 39.0-39.9, adult; Z79.82 Long term (current) use of aspirin; Z79.01 Long term (current) use of anticoagulants; Z79.899 Other long term (current) drug therapy; Z86.718 Personal history of other venous thrombosis and embolism
CPT/HCPCS: 36415; 71045; 80048; 80053; 82728; 83615; 83735; 83880; 84100; 84145; 85025; 85379; 86140; 87449; 87633; 93005; 97110; 97162; 97166; 97530; 97535; 99251; 99285; J7030; A4216; G0463

== ENCOUNTER 2021-09-02 23:35 | Emergency (ER) | payer MEDICARE, OTHER, SELFPAY ==
[2021-09-02 23:36] VITALS: BP 127/84; PULSE 64; RESP 16; TEMP 36.9; O2SAT 97; BMI 39.5
[2021-09-02] MEDS: dexAMETHasone 4 MG Tablet 6 MG PO (23:48)
--- NOTE | 2021-09-02 23:57 | EX.ED.DYSGE1 ---
HPI History of Present Illness Chief Complaint: Other, Pain/Inj Informant: patient Onset/Context/Timing Onset: Yesterday Context: Gradual Onset Timing: Continuous Quality: Aching Location: Bilateral arms and legs Worsened by: Nothing Relieved by: Nothing Narrative Narrative: Patient presents with diffuse joint pain that has been getting worse since yesterday. Patient states it is gradually getting worse. Patient states it feels like an aching in his arms and legs. Patient states nothing makes it worse and nothing makes it better. Patient was recently admitted to the hospital for COVID-19 pneumonia. Patient did not get his prescription for Decadron filled after he was discharged. Patient called EMS tonight to try and get his prescription filled. [facility] Medical History Anxiety Anxiety Asthma Blood clot in vein BPH (benign prostatic hyperplasia) Depression Depression DVT (deep venous thrombosis) Fibromyalgia Hyperlipidemia Hypertension Hypoxia Kidney stones Morbid obesity MICHAEL (obstructive sleep apnea) Osteoporosis Overactive bladder Pneumonia due to COVID-19 virus Rheumatoid arthritis Home Medications aspirin 81 mg PO DAILY@0800 11/07/13 [History Last Taken 05/02/20 08:00] fenofibrate micronized [Lofibra] 134 mg PO QHS 11/07/13 [History Last Taken 09/06/19] hydroxychloroquine 200 mg PO BIDCM 11/07/13 [History Last Taken 09/06/19] sertraline 200 mg PO DAILY 11/07/13 [History Last Taken 09/06/19] propranolol 20 mg PO DAILY 09/27/15 [History Last Taken 09/25/19 05:00] mirabegron 50 mg PO DAILY 04/29/20 [History Last Taken Unknown] ramipril 10 mg PO QHS 04/29/20 [History Last Taken Unknown] rivaroxaban 20 mg PO QHS 04/29/20 [History Last Taken Unknown] tramadol 200 mg PO DAILY 04/29/20 [History Last Taken Unknown] zafirlukast 20 mg PO BID 04/29/20 [History Last Taken Unknown] dexamethasone [Decadron] 6 mg PO DAILY #4 tab 08/29/21 [Rx Last Taken Unknown] Allergy/AdvReac Type Severity Reaction Status Date / Time No Known Allergies Allergy Verified 09/02/21 23:43 Family History (Updated 08/23/21 @ 16:[address] Arelis Garnett MD) Mother Cancer Colon cancer. Father Cancer Lung cancer. Surgical History H/O Achilles tendon repair History of ankle surgery History of appendectomy S/P right knee surgery S/P TURP Social History household members: other details: Patient notes his son lives with him. Smoking Status: Never smoker alcohol intake: current alcohol intake frequency: a few times a month substance use type: does not use ROS ROS ED Constitutional Constitutional ED: Denies chills or fever(s) Eyes Eyes: Denies blurry vision or change in vision ENT ENT ED: Denies rhinorrhea or sore throat Cardiovascular Cardiovascular: Denies chest pain or palpitations Respiratory/Chest Respiratory/Chest: Reports cough; Denies dyspnea Gastrointestinal Gastrointestinal: Denies nausea or vomiting Genitourinary Genitourinary ED: Denies dysuria or hematuria Musculoskeletal Musculoskeletal: Reports arthralgias, back pain and neck pain Integumentary Denies abscess or rash Neurologic Neurologic: Denies headache(s) or weakness Allergic/Immunologic Allergic/Immunologic ED: Denies mouth swelling or urticaria EXAM Physical Exam Const Vital Signs: 09/02/21 23:36 09/02/21 23:44 Temperature 98.4 F Temperature Source Temporal Pulse Rate 64 Respiratory Rate 16 Respiratory Effort Normal Respiratory Pattern Normal Blood Pressure 127/84 H Blood Pressure Mean 98 Pulse Ox 97 Positive well nourished, well developed and obese General Appearance ED: well developed Nutritional Appearance: obese HEENT Reports moist mucous membranes Neck supple and no JVD Resp normal respiratory effort and clear to auscultation bilaterally Cardio regular rate, regular rhythm and no murmurs GI normal to inspection, nondistended, normoactive bowel sounds and non-tender Palpation: soft Extremity normal to inspection General Extremety ED: Negative for edema or tenderness General Extremity: Negative for edema Neuro oriented x3, CN's II-XII intact bilaterally and no sensory deficits noted Sensorium / Orientation: alert Motor Exam: strength 5/5 throughout Psych mental status grossly normal Skin no rashes or lesions noted MDM MDM MDM Narrative Medical decision making narrative: Patient was given a dose of Decadron here since he did not get his prescriptions filled when he was discharged from the hospital. CBC and basic metabolic profile were obtained and were within normal limits with the exception of a mild leukocytosis of 11.5 and a slight increased BUN of 25. Patient is feeling better on reevaluation. Patient was instructed to fill his prescriptions and take them as prescribed. Patient was instructed to follow-up with his primary care physician in 3 to 5 days. Patient understood and was agreeable with the plan. All questions were answered. Lab Data Attestation: I reviewed the patient's lab results. Labs: Laboratory Results - last 24 hr 09/03/21 09/03/21 00:10 00:10 WBC 11.5 H RBC 4.69 Hgb 14.5 Hct 43.5 MCV 92.8 MCH 30.9 MCHC 33.3 RDW Std Deviation 42.8 RDW Coeff of Adam 12.6 Plt Count 403 MPV 9.3 Immature Gran % (Auto) 1.700 H Neut % (Auto) 66.1 Lymph % (Auto) 22.6 [place] % (Auto) 8.6 Eos % (Auto) 0.4 Baso % (Auto) 0.6 Absolute Neuts (auto) 7.6 Absolute Lymphs (auto) 2.60 Nucleated RBC % 0 Sodium 140 Potassium 3.5 Chloride 110 H Carbon Dioxide 24.0 Anion Gap 6 BUN 25 H Creatinine 1.09 Estim Creat Clear Calc 64.86 Est GFR (MDRD) Af Amer 87 Est GFR (MDRD) Non-Af 72 BUN/Creatinine Ratio 22.9 H Glucose 98 Calcium 8.7 Discharge Plan Triage Chief Complaint: Other, Pain/Inj ED Provider: Robel Montilla Dx/Rx/DC Orders Clinical Impression: COVID-19, Arthralgia Instructions: Coronavirus Disease 2019 (COVID-19): Overview, ED Arthralgia Prescriptions: No Action sertraline 100 MG tablet 200 mg PO DAILY RF: 0 fenofibrate micronized [Lofibra] 134 MG capsule 134 mg PO QHS RF: 0 aspirin 81 MG tablet,chewable 81 mg PO DAILY@0800 RF: 0 hydroxychloroquine 200 MG tablet 200 mg PO BIDCM RF: 0 propranolol 20 MG tablet 20 mg PO DAILY RF: 0 ramipril 10 MG capsule 10 mg PO QHS RF: 0 mirabegron 50 MG tablet extended release 24 hr 50 mg PO DAILY RF: 0 zafirlukast 20 MG tablet 20 mg PO BID RF: 0 tramadol 200 MG tablet extended release 24 hr 200 mg PO DAILY RF: 0 rivaroxaban 20 MG tablet 20 mg PO QHS RF: 0 dexamethasone [Decadron] 6 mg tablet 6 mg PO DAILY Qty: 4 RF: 0 Primary Care Provider: Isiah Bowman NP Referrals: Isiah Bowman NP, [employer] [Primary Care Provider] - 3-5 Days Disposition Disposition: Home, Self Care
[2021-09-03 00:17] LABS: Absolute Neutrophil Count 7.6 X10^3/uL (2.0-7.7); Basophil# 0.07 X10^3/uL; Basophil% 0.6 % (0-1); Eosinophil# 0.05 X10^3/uL; Eosinophils% 0.4 % (0-5); Hematocrit 43.5 % (40-54); Hemoglobin 14.5 g/dL (13.0-16.5); Lymphocyte % 22.6 % (19-41); Mean Corp Hgb Conc 33.3 g/dL (32-36); Mean Corpuscular Hgb 30.9 pg (27.0-32.0); Mean Corpuscular Volume 92.8 fL (80-94); Mean Platelet Vol. 9.3 fl (6.2-12.0); Monocyte# 0.99 X10^3/uL; Monocyte% 8.6 % (0-10); NRBC Flagged by Analyzer 0 % (0-5); Neutrophil # 7.58 X10^3/uL (2.7-7.7); Neutrophil % 66.1 % (47-70); Platelet Count 403 K/mm3 (150-450); RBC Distribution Width CV 12.6 % (11.6-14.6); RBC Distribution Width SD 42.8 fl (35.1-43.9); Red Blood Count 4.69 M/mm3 (4.6-6.2); White Blood Count 11.5 K/mm3 (4.4-11.0)
[2021-09-03 00:42] LABS: Anion Gap 6 (5-15); BUN 25 mg/dL (7-18); BUN/Creat Ratio 22.9 RATIO (10-20); Calcium,Total 8.7 mg/dL (8.5-10.1); Chloride 110 mmol/L (98-107); Creatinine, Serum 1.09 mg/dL (0.70-1.30); EST Glomerular Filtration Rate 72 mL/min (>60); Est Glom Filt Rate - Afr Amer 87 mL/min (>60); Estimated Creatinine Clearance 64.86 ml/min; Glucose 98 mg/dL (74-106); Potassium 3.5 mmol/L (3.5-5.1); Sodium Level 140 mmol/L (136-145)
[2021-09-03 01:00] VITALS: BP 137/75; PULSE 78; RESP 18; O2SAT 91
[2021-09-03] MEDS: traMADol 50 MG Tablet PO (02:00)
== END 2021-09-03 02:01 | disposition home or self-care (01) ==
PROVIDERS: Emergency Provider Emergency Medicine; PCP Nurse Practitioner Family
DX: U07.1 COVID-19 (principal); I10 Essential (primary) hypertension; E78.5 Hyperlipidemia, unspecified; M06.9 Rheumatoid arthritis, unspecified; N32.81 Overactive bladder; F32.A Depression, unspecified; F41.9 Anxiety disorder, unspecified; E66.01 Morbid (severe) obesity due to excess calories; Z68.39 Body mass index [BMI] 39.0-39.9, adult; Z79.01 Long term (current) use of anticoagulants; Z79.82 Long term (current) use of aspirin; Z79.899 Other long term (current) drug therapy
CPT/HCPCS: 80048; 85025; 99284; A4216

== ENCOUNTER 2022-01-18 14:45 | Outpatient (CLI) | payer MEDICARE, OTHER, SELFPAY ==
[2022-01-18 17:42] LABS: Absolute Lymphocyte Count 1.64 X10^3/uL (0.83-4.51); Absolute Neutrophil Count 5.4 X10^3/uL (2.0-7.7); Basophil# 0.06 X10^3/uL; Basophil% 0.8 % (0-1); Eosinophil# 0.18 X10^3/uL; Eosinophils% 2.3 % (0-5); Hemoglobin 16.1 g/dL (13.0-16.5); Lymphocyte # 1.64 X10^3/ul (0.83-4.51); Lymphocyte % 20.5 % (19-41); Mean Corp Hgb Conc 34.3 g/dL (32-36); Mean Corpuscular Volume 93.4 fL (80-94); Monocyte# 0.72 X10^3/uL; NRBC Flagged by Analyzer 0 % (0-5); Neutrophil # 5.36 X10^3/uL (2.7-7.7); Neutrophil % 66.9 % (47-70); Platelet Count 200 K/mm3 (150-450); RBC Distribution Width CV 12.8 % (11.6-14.6); RBC Distribution Width SD 43.7 fl (35.1-43.9); Red Blood Count 5.03 M/mm3 (4.6-6.2)
[2022-01-18 18:12] LABS: ALB/GLOB Ratio 1.3 RATIO (0.9-2.4); AST(SGOT) 30 U/L (15-37); Alanine Aminotransfer ALT/SGPT 42 U/L (16-61); Albumin, Serum 4.2 g/dL (3.2-5.0); Alkaline Phosphatase 36 U/L (45-117); Anion Gap 6 (5-15); BUN 30 mg/dL (7-18); BUN/Creat Ratio 23.3 RATIO (10-20); Calcium,Total 9.4 mg/dL (8.5-10.1); Chloride 109 mmol/L (98-107); Creatinine, Serum 1.29 mg/dL (0.70-1.30); EST Glomerular Filtration Rate 59 mL/min (>60); Est Glom Filt Rate - Afr Amer 71 mL/min (>60); Globulin 3.3 g/dL (2.2-4.2); Glucose 99 mg/dL (74-106); Potassium 4.8 mmol/L (3.5-5.1); Protein, Total 7.5 g/dL (6.4-8.2); Sodium Level 142 mmol/L (136-145)
== END 2022-01-18 23:59 | disposition home or self-care (01) ==
PROVIDERS: PCP Nurse Practitioner Family; Referring Provider Internal Medicine Rheumatology; Visit Provider Internal Medicine Rheumatology
DX: M06.4 Inflammatory polyarthropathy (principal); M79.7 Fibromyalgia; K76.0 Fatty (change of) liver, not elsewhere classified; M48.00 Spinal stenosis, site unspecified; M75.102 Unspecified rotator cuff tear or rupture of left shoulder, not specified as traumatic; F32.89 Other specified depressive episodes; Z79.899 Other long term (current) drug therapy
CPT/HCPCS: 36415; 80053; 85025

== ENCOUNTER 2022-08-07 10:37 | Observation (INO) | payer MEDICARE, OTHER, SELFPAY ==
[2022-08-07 10:39] VITALS: BP 158/86; PULSE 69; RESP 18; TEMP 35.9; O2SAT 97; BMI 40.6
--- NOTE | 2022-08-07 10:48 | CT_ITS ---
STUDY: CT PELVIS WITHOUT CONTRAST REASON FOR EXAM: Male, 67 years old. Fall, right hip pain, hematoma RADIATION DOSAGE (If Supplied By Facility): CTDIvol = ( 28.21 ) mGy, DLP = ( 1233.12 ) mGycm TECHNIQUE: Transaxial imaging of the pelvis was performed with oral contrast, and without intravenous administration of contrast material. Multiplanar coronal and sagittal images were reformatted. Individualized dose optimization techniques were used for this CT. COMPARISON: None. FINDINGS: There is a 14.6 cm x 5.9 cm x 12.5 cm hematoma overlying the right hip joint. There is also evidence of diffuse increased markings in the subcutaneous fat in keeping with the edema. There is no evidence of fracture or dislocation. Degenerative changes of the visualized lumbar spine. Normal urinary bladder. Normal visualized small intestine. There are multiple colonic diverticula of the sigmoid colon consistent with chronic diverticulosis. There is no pelvic fluid. There is no pelvic mass lesion or lymphadenopathy. Normal visualized pelvic arteries. Normal abdominal wall. There are diffuse degenerative changes of the visualized lumbar spine. CT/Pelvis without IV Contrast IMPRESSION: Large hematoma overlying the right hip joint as well as diffuse subcutaneous edematous changes in keeping with ecchymosis. No evidence of a fracture or dislocation. Electronically Signed: Mansoor France MD at 11:22 EDT ,
--- NOTE | 2022-08-07 10:49 | EDS_ITS ---
HPI History of Present Illness Chief Complaint: Lower Extremity Injury Detail of Chief Complaint: Right hip pain Informant: patient Onset/Context/Timing Onset: Yesterday Context: Gradual Onset Current Severity: Moderate Maximum Severity: Moderate Narrative Narrative: Patient presents secondary to right hip pain. He tripped over a tree root and fell in his yard yesterday around 2 or 3 PM. He states was able to get himself up and get around. He even did some grocery shopping. After laying all night he has increased pain and difficulty with any ambulation. He denies striking his head or any other injury. [facility] Medical History Anxiety Asthma Blood clot in vein BPH (benign prostatic hyperplasia) COVID-19 Depression DVT (deep venous thrombosis) Fibromyalgia Hyperlipidemia Hypertension Hypoxia Kidney stones Morbid obesity MICHAEL (obstructive sleep apnea) Osteoporosis Overactive bladder Pneumonia due to COVID-19 virus Rheumatoid arthritis Home Medications aspirin 81 mg chewable tablet 81 mg PO DAILY@0800 ANTI COAGULANT 11/07/13 [History Last Taken 05/02/20 08:00] fenofibrate micronized 134 mg capsule (Lofibra) 134 mg PO QHS CHOLESTEROL 11/07/13 [History Last Taken 09/06/19] sertraline 100 mg tablet 200 mg PO DAILY DEPRESSION 11/07/13 [History Last Taken 09/06/19] propranolol 20 mg tablet 20 mg PO DAILY BLOOD PRESSURE 09/27/15 [History Last Taken 09/25/19 05:00] mirabegron 50 mg tablet,extended release 24 hr 50 mg PO DAILY overactive bladder 04/29/20 [History Last Taken Unknown] ramipril 10 mg capsule 10 mg PO QHS liver and kidney 04/29/20 [History Last Taken Unknown] rivaroxaban 20 mg tablet 20 mg PO QHS blood thinner 04/29/20 [History Last Taken Unknown] zafirlukast 20 mg tablet 20 mg PO BID allergies 04/29/20 [History Last Taken Unknown] dexamethasone 6 mg tablet (Decadron) 6 mg PO DAILY #4 tabs 08/29/21 [Rx Last Taken Unknown] hydroxychloroquine 200 mg tablet 200 mg PO BIDCM ARTHRITIS #6 tabs 09/03/21 [Rx Last Taken Unknown] tramadol 200 mg tablet,extended release 24 hr 200 mg PO DAILY #3 tabs 09/03/21 [Rx Last Taken Unknown] Allergy/AdvReac Type Severity Reaction Status Date / Time No Known Allergies Allergy Verified 09/02/21 23:43 Family History Mother Cancer Colon cancer. Father Cancer Lung cancer. Surgical History H/O Achilles tendon repair History of ankle surgery History of appendectomy S/P right knee surgery S/P TURP Social History household members: other details: Patient notes his son lives with him. Smoking Status: Never smoker alcohol intake: current alcohol intake frequency: a few times a month substance use type: does not use ROS ROS ED Constitutional Constitutional ED: Denies chills or fever(s) Eyes Eyes: Denies change in vision or discharge from eye(s) ENT ENT ED: Denies discharge from eye(s), rhinorrhea or sore throat Cardiovascular Cardiovascular: Denies chest pain or palpitations Respiratory/Chest Respiratory/Chest: Denies cough or dyspnea Gastrointestinal Gastrointestinal: Denies abdominal pain, diarrhea, nausea or vomiting Genitourinary Genitourinary ED: Denies dysuria Musculoskeletal Musculoskeletal: Reports extremity pain; Denies back pain Integumentary Denies Abrasions or rash Neurologic Neurologic: Denies headache(s) or weakness Psychiatric Psychiatric: Denies anxiety or depression Allergic/Immunologic Allergic/Immunologic ED: Denies lip swelling or urticaria EXAM Physical Exam Const Vital Signs: 08/07/22 10:39 Temperature 96.7 F L Temperature Source Oral Pulse Rate 69 Respiratory Rate 18 Blood Pressure 158/86 H Blood Pressure Mean 110 Pulse Ox 97 Positive well nourished and well developed General Appearance ED: well developed HEENT Reports normocephalic and head/scalp atraumatic Eyes PERRL and EOMs intact bilaterally Neck supple Chest Wall inspection of chest normal and palpation of chest normal Resp normal respiratory effort and clear to auscultation bilaterally Cardio regular rate and regular rhythm GI normal to inspection, nondistended, normoactive bowel sounds Palpation: soft Extremity Extremity Narrative: Edema and tenderness around the lateral and posterior portion of the right hip with ecchymosis. Neuro oriented x3 and no sensory deficits noted Sensorium / Orientation: alert Psych mental status grossly normal Skin Skin Narrative: Ecchymosis over the lateral right hip and buttock. MDM MDM MDM Narrative Medical decision making narrative: Patient given morphine and Zofran for pain. Lab work obtained along with CT scan of the pelvis. Lab Data Attestation: I reviewed the patient's lab results. Labs: Laboratory Results - last 24 hr 08/07/22 08/07/22 08/07/22 10:45 10:45 10:45 WBC 15.5 H RBC 3.83 L Hgb 12.3 L Hct 38.0 L MCV 99.2 H MCH 32.1 H MCHC 32.4 RDW Std Deviation 49.2 H RDW Coeff of Adam 13.7 Plt Count 250 MPV 10.0 Immature Gran % (Auto) 0.500 Neut % (Auto) 84.4 H Lymph % (Auto) 8.4 L [place] % (Auto) 6.1 Eos % (Auto) 0.3 Baso % (Auto) 0.3 Absolute Neuts (auto) 13.1 H Absolute Lymphs (auto) 1.30 Nucleated RBC % 0 PT 14.6 INR 1.2 APTT 25.0 Sodium 143 Potassium 4.5 Chloride 109 H Carbon Dioxide 26.0 Anion Gap 8 BUN 35 H Creatinine 1.38 H Estim Creat Clear Calc 52.16 Est GFR (MDRD) Af Amer 66 Est GFR (MDRD) Non-Af 54 L BUN/Creatinine Ratio 25.4 H Glucose 180 H Calcium 9.1 Radiography Diagnostic Testing: Clinical Impression(s) from Imaging Studies Pelvis CT 08/07/22 10:48 IMPRESSION: Large hematoma overlying the right hip joint as well as diffuse subcutaneous edematous changes in keeping with ecchymosis. No evidence of a fracture or dislocation. Electronically Signed: Mansoor France MD at 11:22 EDT , Treatment and Re-Evaluation Narrative: White count is elevated at 15.5 with left shift. Hemoglobin is 12.3. This is compared to a hemoglobin of 16.1 in December of this year. His hemoglobin was noted to be down in the 12 range last August when he was admitted for COVID- pneumonia. Coags are unremarkable. Chemistry studies significant for BUN of 35 and creatinine 1.38. His glucose is 180. CT scan of the pelvis reveals a large hematoma overlying the right hip and diffuse subcutaneous edema. No evidence of fracture or dislocation. After analgesics patient was able to get up and ambulate a short distance, however states that he would have to walk a lot further at home. He does feel somewhat lightheaded when he gets up and walks. To be cautious I think it would be prudent to observe him overnight to monitor his hemoglobin levels, pain control, and have him work with physical therapy to ensure safety. I will speak with the hospitalist. Discharge Plan Triage Chief Complaint: Lower Extremity Injury ED Provider: Nayeli Reich Dx/Rx/DC Orders Clinical Impression: Fall, Hematoma of right hip, Medication induced coagulopathy Prescriptions: No Action sertraline 100 MG tablet 200 mg PO DAILY Label Comments: DEPRESSION fenofibrate micronized [Lofibra] 134 MG capsule 134 mg PO QHS Label Comments: CHOLESTEROL aspirin 81 MG tablet,chewable 81 mg PO DAILY@0800 Label Comments: [facility] anticoagulant propranolol 20 MG tablet 20 mg PO DAILY Label Comments: BLOOD PRESSURE ramipril 10 MG capsule 10 mg PO QHS mirabegron 50 MG tablet extended release 24 hr 50 mg PO DAILY zafirlukast 20 MG tablet 20 mg PO BID rivaroxaban 20 MG tablet 20 mg PO QHS dexamethasone [Decadron] 6 mg tablet 6 mg PO DAILY Qty: 4 0RF hydroxychloroquine 200 MG tablet 200 mg PO BIDCM Qty: 6 0RF tramadol 200 MG tablet extended release 24 hr 200 mg PO DAILY Qty: 3 0RF Primary Care Provider: Isiah Bowman NP Referrals: Isiah Bowman [employer], [employer] [Primary Care Provider] - Disposition Disposition: Acute Care Hospital [facility]
[2022-08-07] MEDS: Ondansetron 4 MG/2 ML Vial IV (10:57)
[2022-08-07] MEDS: Morphine 4 MG/ML Syringe IV (10:58)
[2022-08-07 11:08] LABS: Absolute Neutrophil Count 13.1 X10^3/uL (2.0-7.7); Basophil# 0.04 X10^3/uL; Basophil% 0.3 % (0-1); Eosinophil# 0.04 X10^3/uL; Eosinophils% 0.3 % (0-5); Hemoglobin 12.3 g/dL (13.0-16.5); Lymphocyte % 8.4 % (19-41); Mean Corp Hgb Conc 32.4 g/dL (32-36); Mean Corpuscular Hgb 32.1 pg (27.0-32.0); Mean Corpuscular Volume 99.2 fL (80-94); Monocyte# 0.94 X10^3/uL; Monocyte% 6.1 % (0-10); NRBC Flagged by Analyzer 0 % (0-5); Neutrophil # 13.09 X10^3/uL (2.7-7.7); Neutrophil % 84.4 % (47-70); Platelet Count 250 K/mm3 (150-450); RBC Distribution Width CV 13.7 % (11.6-14.6); RBC Distribution Width SD 49.2 fl (35.1-43.9); Red Blood Count 3.83 M/mm3 (4.6-6.2); White Blood Count 15.5 K/mm3 (4.4-11.0)
[2022-08-07 11:12] LABS: International Normalized Ratio 1.2; Prothrombin Time (Protime)PT. 14.6 SECONDS (11.7-14.9)
[2022-08-07 11:14] LABS: Anion Gap 8 (5-15); BUN 35 mg/dL (7-18); BUN/Creat Ratio 25.4 RATIO (10-20); Calcium,Total 9.1 mg/dL (8.5-10.1); Chloride 109 mmol/L (98-107); Creatinine, Serum 1.38 mg/dL (0.70-1.30); EST Glomerular Filtration Rate 54 mL/min (>60); Est Glom Filt Rate - Afr Amer 66 mL/min (>60); Estimated Creatinine Clearance 52.16 ml/min; Glucose 180 mg/dL (74-106); Potassium 4.5 mmol/L (3.5-5.1); Sodium Level 143 mmol/L (136-145)
--- NOTE | 2022-08-07 12:40 | PCM.HP.STD ---
HPI - General General Date of Admission: 08/07/22 Date of Service: 08/07/22 Chief Complaint: Right hip pain HPI Narrative ARAVIND LAUREN, is a 67 M who presents who presents with right hip pain. Patient apparently sustained a fall while fixing his yard fence. He apparently tripped over a tree and hit his right hip. Patient has past medical history significant for DVT for which he is on Xarelto. He later noticed significant bruising involving the right hip presented to the emergency department as a result. Imaging studies obtained did show large hematoma overlying the right hip joint as well as diffuse subcutaneous edema changes in keeping with ecchymosis. There was no evidence of fracture nor dislocation. Attempt to ambulate patient in the ED was unsuccessful subsequently placed on a regular nursing floor for pain management [facility] Medical History Anxiety Asthma Blood clot in vein BPH (benign prostatic hyperplasia) COVID-19 Depression DVT (deep venous thrombosis) Fibromyalgia Hyperlipidemia Hypertension Hypoxia Kidney stones Morbid obesity MICHAEL (obstructive sleep apnea) Osteoporosis Overactive bladder Pneumonia due to COVID-19 virus Rheumatoid arthritis Home Medications aspirin 81 mg chewable tablet 81 mg PO DAILY@0800 ANTI COAGULANT 11/07/13 [History Last Taken 05/02/20 08:00] fenofibrate micronized 134 mg capsule (Lofibra) 134 mg PO QHS CHOLESTEROL 11/07/13 [History Last Taken 09/06/19] sertraline 100 mg tablet 200 mg PO DAILY DEPRESSION 11/07/13 [History Last Taken 09/06/19] propranolol 20 mg tablet 20 mg PO DAILY BLOOD PRESSURE 09/27/15 [History Last Taken 09/25/19 05:00] mirabegron 50 mg tablet,extended release 24 hr 50 mg PO DAILY overactive bladder 04/29/20 [History Last Taken Unknown] ramipril 10 mg capsule 10 mg PO QHS liver and kidney 04/29/20 [History Last Taken Unknown] rivaroxaban 20 mg tablet 20 mg PO QHS blood thinner 04/29/20 [History Last Taken Unknown] zafirlukast 20 mg tablet 20 mg PO BID allergies 04/29/20 [History Last Taken Unknown] dexamethasone 6 mg tablet (Decadron) 6 mg PO DAILY #4 tabs 08/29/21 [Rx Last Taken Unknown] hydroxychloroquine 200 mg tablet 200 mg PO BIDCM ARTHRITIS #6 tabs 09/03/21 [Rx Last Taken Unknown] tramadol 200 mg tablet,extended release 24 hr 200 mg PO DAILY #3 tabs 09/03/21 [Rx Last Taken Unknown] Allergy/AdvReac Type Severity Reaction Status Date / Time No Known Allergies Allergy Verified 09/02/21 23:43 Family History Mother Cancer Colon cancer. Father Cancer Lung cancer. Surgical History H/O Achilles tendon repair History of ankle surgery History of appendectomy S/P right knee surgery S/P TURP Social History household members: other details: Patient notes his son lives with him. Smoking Status: Never smoker alcohol intake: current alcohol intake frequency: a few times a month substance use type: does not use ROS ROS Narrative GENERAL: denies fever, chills, night sweats, weight loss, anorexia HEENT: denies headache, sinus congestion, or drainage, dysphagia RESPIRATORY: denies cough, sputum production, shortness of breath, CARDIAC: denies chest pain, palpitations, orthopnea, PND GASTROINTESTINAL: denies abdominal pain, nausea, vomiting, melena, GENITOURINARY: denies dysuria, urgency, frequency, heamaturia EXTREMITY: denies swelling MUSCULOSKELETAL: Right hip pain NEUROLOGIC: denies focal numbness, weakness, tingling HEMATOLOGIC: Bruising involving the right hip INTEGUMENT: denies rashes PSYCHIATRIC: denies suicidal or homicidal ideation Vital Signs Vital Signs Vital Signs: 08/07/22 10:39 Temperature 96.7 F L Temperature Source Oral Pulse Rate 69 Respiratory Rate 18 Blood Pressure 158/86 H Blood Pressure Mean 110 Pulse Ox 97 Weight Weight: 128.6 kg Body Mass Index (BMI) 40.6 Physical Exam Narrative GENERAL: cooperative HEENT: Atraumatic; normocephalic EYES; Anicteric, Normal Conjunctiva NECK; supple, normal thyroid, RESPIRATORY: Diminished to auscultation CARDIOVASCULAR: Regular S1 S2, GI: soft, normoactive bowel sounds, : No Renal angle tenderness; EXTREMITIES: No edema, no clubbing, MUSCULOSKELETAL: Significant bruising involving the right hip NEURO: Awake; no lateralizing signs. SKIN: No Rash PSYCH; Flat affect Results Medical Records Data Attestation: I reviewed the patient's medical records Lab / Micro Data Attestation: I reviewed the patient's lab results. Result Diagrams: 08/07/22 10:45 08/07/22 10:45 Labs: Laboratory Results - last 24 hr 08/07/22 10:45: WBC 15.5 H, RBC 3.83 L, Hgb 12.3 L, Hct 38.0 L, MCV 99.2 H, MCH 32.1 H, MCHC 32.4, RDW Std Deviation 49.2 H, RDW Coeff of Adam 13.7, Plt Count 250, MPV 10.0, Immature Gran % (Auto) 0.500, Neut % (Auto) 84.4 H, Lymph % (Auto) 8.4 L, [place] % (Auto) 6.1, Eos % (Auto) 0.3, Baso % (Auto) 0.3, Absolute Neuts (auto) 13.1 H, Absolute Lymphs (auto) 1.30, Nucleated RBC % 0 08/07/22 10:45: PT 14.6, INR 1.2, APTT 25.0 08/07/22 10:45: Sodium 143, Potassium 4.5, Chloride 109 H, Carbon Dioxide 26.0, Anion Gap 8, BUN 35 H, Creatinine 1.38 H, Estim Creat Clear Calc 52.16, Est GFR (MDRD) Af Amer 66, Est GFR (MDRD) Non-Af 54 L, BUN/Creatinine Ratio 25.4 H, Glucose 180 H, Calcium 9.[address] 08/07/22 10:48 IMPRESSION: Large hematoma overlying the right hip joint as well as diffuse subcutaneous edematous changes in keeping with ecchymosis. No evidence of a fracture or dislocation. Electronically Signed: Mansoor France MD at 11:22 EDT , Assessment & Plan Assessment/Plan (1) Hematoma of right hip: (2) Fall: PLAN: Plan Patient is a 67-year-old gentleman presenting with a fall and subsequent right hip swelling and bruising 1. Acute nonsyncopal mechanical fall ? Imaging studies obtained did show large hematoma overlying the right hip joint as well as diffuse subcutaneous edematous changes in keeping with ecchymosis there was no evidence of fracture nor dislocation. Has been placed on a monitored bed managed with pain management, PT OT 2. Previous history of DVT ? Patient is on Xarelto which is currently being held given above. Plan is to assess in a.m. for possible resumption 3. Rheumatoid arthritis ? Did continue patient home meds 4. Hypertension - Blood pressure controlled, home medications continued with dose adjustment as needed 5. Class III obesity with BMI of 40.7 ? Weight loss advised 5. Dyslipidemia ? Patient is on fenofibrate did continue Charges/Coding Visit Charges OBSV E&M: 82495 Initial observation care L2
[2022-08-07 12:42] VITALS: BP 158/79; PULSE 102; RESP 18; TEMP 36.4; O2SAT 99
[2022-08-07 13:04] VITALS: BP 119/56; PULSE 69; RESP 18; TEMP 36.6; O2SAT 94
[2022-08-07 13:05] VITALS: BMI 39.7
[2022-08-07] MEDS: Acetaminophen 500 MG Tablet 1000 MG PO ×2 (13:32→21:15)
[2022-08-07 17:00] VITALS: BP 105/35; PULSE 87; RESP 18; TEMP 35.9; O2SAT 94
[2022-08-07] MEDS: oxyCODONE 5 MG Tablet PO (18:53)
[2022-08-07 21:01] VITALS: BP 142/72; PULSE 73; RESP 18; TEMP 36.5; O2SAT 95
[2022-08-07] MEDS: 0.9% Saline Lock 10 ML Syringe IV (21:16)
[2022-08-08 02:42] VITALS: BP 116/65; PULSE 72; RESP 18; TEMP 36.8; O2SAT 96
[2022-08-08] MEDS: oxyCODONE 5 MG Tablet PO ×2 (02:42→10:15)
[2022-08-08] MEDS: Acetaminophen 500 MG Tablet 1000 MG PO (05:25)
[2022-08-08] MEDS: 0.9% Saline Lock 10 ML Syringe IV (05:26)
[2022-08-08 07:00] LABS: Absolute Lymphocyte Count 1.94 X10^3/uL (0.83-4.51); Absolute Neutrophil Count 8.4 X10^3/uL (2.0-7.7); Basophil# 0.04 X10^3/uL; Basophil% 0.3 % (0-1); Eosinophil# 0.11 X10^3/uL; Eosinophils% 0.9 % (0-5); Hematocrit 31.1 % (40-54); Hemoglobin 9.9 g/dL (13.0-16.5); Lymphocyte # 1.94 X10^3/ul (0.83-4.51); Lymphocyte % 15.5 % (19-41); Mean Corp Hgb Conc 31.8 g/dL (32-36); Mean Corpuscular Hgb 31.4 pg (27.0-32.0); Mean Corpuscular Volume 98.7 fL (80-94); Mean Platelet Vol. 10.2 fl (6.2-12.0); Monocyte# 1.99 X10^3/uL; Monocyte% 15.9 % (0-10); NRBC Flagged by Analyzer 0 % (0-5); Neutrophil # 8.36 X10^3/uL (2.7-7.7); Neutrophil % 66.8 % (47-70); POSITIVE DIFFERENTIAL YES; Platelet Count 189 K/mm3 (150-450); RBC Distribution Width CV 13.7 % (11.6-14.6); RBC Distribution Width SD 49.1 fl (35.1-43.9); Red Blood Count 3.15 M/mm3 (4.6-6.2); White Blood Count 12.5 K/mm3 (4.4-11.0)
[2022-08-08 07:05] LABS: Differential Indicated SCAN CRITERIA MET
[2022-08-08 07:20] LABS: Differential Comment SCANNED
[2022-08-08 07:35] LABS: Anion Gap 5 (5-15); BUN 48 mg/dL (7-18); Calcium,Total 8.7 mg/dL (8.5-10.1); Chloride 108 mmol/L (98-107); EST Glomerular Filtration Rate 49 mL/min (>60); Est Glom Filt Rate - Afr Amer 60 mL/min (>60); Estimated Creatinine Clearance 47.99 ml/min; Glucose 144 mg/dL (74-106); Phosphorus 3.6 mg/dL (2.5-4.9); Potassium 4.6 mmol/L (3.5-5.1); Sodium Level 140 mmol/L (136-145)
[2022-08-08 08:18] VITALS: BP 116/61; PULSE 62; RESP 16; TEMP 36.4; O2SAT 96
--- NOTE | 2022-08-08 08:23 | DS.PCM_ITS ---
Providers Date of Admission: 08/07/22 Date of Discharge: 08/08/22 Primary Care Physician: Isiah Bowman, KAI WHAKARURUHAU-C Reason For Visit: hip pain Diagnosis Discharge Diagnosis (1) Hematoma of right hip: Status: Acute Code(s): S70.01XA - Contusion of right hip, initial encounter (2) Fall: Status: Acute Code(s): W19.XXXA - Unspecified fall, initial encounter Plan Patient is a 67-year-old gentleman presenting with a fall and subsequent right hip swelling and bruising 1. Acute nonsyncopal mechanical fall ? Imaging studies obtained did show large hematoma overlying the right hip joint as well as diffuse subcutaneous edematous changes in keeping with ecchymosis there was no evidence of fracture nor dislocation. Has been placed on a monitored bed managed with pain management, PT OT ? 08/08/2022 patient pain did stabilize was discharged home with pain medication. Patient was instructed to hold both his aspirin as well as rivaroxaban for 1 week. Patient to follow-up with PCP prior to resumption 2. Previous history of DVT ? Patient is on Xarelto which is currently being held given above. Plan is to assess in a.m. for possible resumption 3. Rheumatoid arthritis ? Did continue patient home meds 4. Hypertension - Blood pressure controlled, home medications continued with dose adjustment as needed 5. Class III obesity with BMI of 40.7 ? Weight loss advised 5. Dyslipidemia ? Patient is on fenofibrate did continue Medications at Discharge Home Medications aspirin 81 mg chewable tablet 81 mg PO DAILY@0800 ANTI COAGULANT 11/07/13 fenofibrate micronized 134 mg capsule (Lofibra) 134 mg PO QHS CHOLESTEROL 11/07/13 sertraline 100 mg tablet 200 mg PO DAILY DEPRESSION 11/07/13 propranolol 20 mg tablet 20 mg PO DAILY BLOOD PRESSURE 09/27/15 mirabegron 50 mg tablet,extended release 24 hr 50 mg PO DAILY overactive bladder 04/29/20 ramipril 10 mg capsule 10 mg PO QHS liver and kidney 04/29/20 rivaroxaban 20 mg tablet 20 mg PO QHS blood thinner 04/29/20 zafirlukast 20 mg tablet 20 mg PO BID allergies 04/29/20 hydroxychloroquine 200 mg tablet 200 mg PO BIDCM ARTHRITIS #6 tabs 09/03/21 tramadol 200 mg tablet,extended release 24 hr 50 mg PO TID PRN Pain 08/07/22 oxycodone 5 mg tablet 5 mg PO Q4H PRN PRN Pain Score 4-10 5 days #20 tabs 08/08/22 tizanidine 2 mg tablet 4 mg PO Q8H PRN PRN spasms/musculoskeletal pain #20 tabs 08/08/22 Physical Exam Narrative GENERAL: cooperative HEENT: Atraumatic; normocephalic EYES; Anicteric, Normal Conjunctiva NECK; supple, normal thyroid, RESPIRATORY: Diminished to auscultation CARDIOVASCULAR: Regular S1 S2, GI: soft, normoactive bowel sounds, : No Renal angle tenderness; EXTREMITIES: No edema, no clubbing, MUSCULOSKELETAL: Significant bruising involving the right hip NEURO: Awake; no lateralizing signs. SKIN: No Rash PSYCH; Flat affect Weight / BMI Weight Weight: 125.69 kg Body Mass Index (BMI) 39.7 ABG / Lab / Microbiology Data Result Diagrams: 08/08/22 06:15 08/08/22 06:15 Laboratory: Laboratory Results - last 24 hr 08/07/22 10:45: WBC 15.5 H, RBC 3.83 L, Hgb 12.3 L, Hct 38.0 L, MCV 99.2 H, MCH 32.1 H, MCHC 32.4, RDW Std Deviation 49.2 H, RDW Coeff of Adam 13.7, Plt Count 250, MPV 10.0, Immature Gran % (Auto) 0.500, Neut % (Auto) 84.4 H, Lymph % (Auto) 8.4 L, [place] % (Auto) 6.1, Eos % (Auto) 0.3, Baso % (Auto) 0.3, Absolute Neuts (auto) 13.1 H, Absolute Lymphs (auto) 1.30, Nucleated RBC % 0 08/07/22 10:45: PT 14.6, INR 1.2, APTT 25.0 08/07/22 10:45: Sodium 143, Potassium 4.5, Chloride 109 H, Carbon Dioxide 26.0, Anion Gap 8, BUN 35 H, Creatinine 1.38 H, Estim Creat Clear Calc 52.16, Est GFR (MDRD) Af Amer 66, Est GFR (MDRD) Non-Af 54 L, BUN/Creatinine Ratio 25.4 H, Glucose 180 H, Calcium 9.1 08/08/22 06:15: WBC 12.5 H, RBC 3.15 L, Hgb 9.9 L, Hct 31.1 L, MCV 98.7 H, MCH 31.4, MCHC 31.8 L, RDW Std Deviation 49.1 H, RDW Coeff of Adam 13.7, Plt Count 189, MPV 10.2, Immature Gran % (Auto) 0.600, Neut % (Auto) 66.8, Lymph % (Auto) 15.5 L, [place] % (Auto) 15.9 H, Eos % (Auto) 0.9, Baso % (Auto) 0.3, Absolute Neuts (auto) 8.4 H, Absolute Lymphs (auto) 1.94, Nucleated RBC % 0, Differential Comment SCANNED, Diff Path Review February08/08/22 06:15: Sodium 140, Potassium 4.6, Chloride 108 H, Carbon Dioxide 27.0, Anion Gap 5, BUN 48 H, Creatinine 1.50 H, Estim Creat Clear Calc 47.99, Est GFR (MDRD) Af Amer 60, Est GFR (MDRD) Non-Af 49 L, BUN/Creatinine Ratio 32.0 H, Glucose 144 H, Calcium 8.7, Phosphorus 3.6, Magnesium 2.0 Radiography Diagnostic Testing: Radiology Impression Pelvis CT 08/07/22 10:48 IMPRESSION: Large hematoma overlying the right hip joint as well as diffuse subcutaneous edematous changes in keeping with ecchymosis. No evidence of a fracture or dislocation. Electronically Signed: Mansoor France MD at 11:22 EDT , D/C Instructions Discharge Diet: No restrictions Discharge Activity: Return to Normal Activity Call your doctor if you observe: Fever of 101 or Higher, Shortness of breath, Fainting spells and Chest pain Meaningful Use Info Meaningful Use Diagnoses (Choose all that apply): None applicable Discharge Plan Admission Admit Date/Time: 08/07/22 12:11 Attending Provider: Giovanny Haas Primary Care Provider: Isiah Bowman KAI WHAKARURUHAU Discharge Orders/Prescriptions Prescriptions: New tizanidine 2 mg Tablet 4 mg PO Q8H PRN PRN (Reason: spasms/musculoskeletal pain) Qty: 20 0RF oxycodone 5 mg Tablet 5 mg PO Q4H PRN PRN (Reason: Pain Score 4-10) 5 Days Qty: 20 0RF Continued sertraline 100 MG tablet 200 mg PO DAILY Label Comments: DEPRESSION fenofibrate micronized [Lofibra] 134 MG capsule 134 mg PO QHS Label Comments: CHOLESTEROL propranolol 20 MG tablet 20 mg PO DAILY Label Comments: BLOOD PRESSURE ramipril 10 MG capsule 10 mg PO QHS mirabegron 50 MG tablet extended release 24 hr 50 mg PO DAILY zafirlukast 20 MG tablet 20 mg PO BID hydroxychloroquine 200 MG tablet 200 mg PO BIDCM Qty: 6 0RF tramadol 200 MG tablet extended release 24 hr 50 mg PO TID PRN (Reason: Pain) Held aspirin 81 MG tablet,chewable 81 mg PO DAILY@0800 Hold Instructions: Resume on 08/15/22. When okay by primary provider Label Comments: [facility] anticoagulant rivaroxaban 20 MG tablet 20 mg PO QHS Hold Instructions: Resume on 08/15/22. When okayed by primary provider Referrals / Follow Up: Isiah Bowman KAI WHAKARURUHAU, KAI WHAKARURUHAU-C [Primary Care Provider] - In 1 Week Disposition Disposition (needs filled in before D/C Order can be placed): Home, Self Care Charges/Coding Visit Charges OBSV E&M: 93713 Observation care discharge
[2022-08-08 08:59] VITALS: BP 159/65; PULSE 84; RESP 18; TEMP 36.4; O2SAT 97
[2022-08-08] MEDS: FLU VACC QS2022-23(6MOS UP)/PF 60 MCG/0.5 ML SYRINGE IM (09:18)
[2022-08-08] MEDS: Propranolol 10 MG Tablet 20 MG PO (09:34)
[2022-08-08] MEDS: Sertraline 100 MG Tablet 200 MG PO (09:34)
[2022-08-08] MEDS: Hydroxychloroquine 200 MG Tablet PO (09:34)
[2022-08-08] MEDS: Mirabegron 50 MG TAB.ER.24H PO (09:34)
[2022-08-08 09:39] VITALS: O2SAT 96
--- NOTE | 2022-08-08 11:01 | PHA.DC.MR ---
Addendum entered and electronically signed by Betsy Bee 08/08/22 11:02: Unable to health counselor, medications reviewed. Original Note: Pharmacy Service has performed discharge medication reconciliation for this patient. The patient's discharge medication list was reviewed for discrepancies and discrepancies were resolved. Home Medications aspirin 81 mg chewable tablet 81 mg PO DAILY@0800 ANTI COAGULANT 11/07/13 fenofibrate micronized 134 mg capsule (Lofibra) 134 mg PO QHS CHOLESTEROL 11/07/13 sertraline 100 mg tablet 200 mg PO DAILY DEPRESSION 11/07/13 propranolol 20 mg tablet 20 mg PO DAILY BLOOD PRESSURE 09/27/15 mirabegron 50 mg tablet,extended release 24 hr 50 mg PO DAILY overactive bladder 04/29/20 ramipril 10 mg capsule 10 mg PO QHS liver and kidney 04/29/20 rivaroxaban 20 mg tablet 20 mg PO QHS blood thinner 04/29/20 zafirlukast 20 mg tablet 20 mg PO BID allergies 04/29/20 hydroxychloroquine 200 mg tablet 200 mg PO BIDCM ARTHRITIS #6 tabs 09/03/21 tramadol 200 mg tablet,extended release 24 hr 50 mg PO TID PRN Pain 08/07/22 oxycodone 5 mg tablet 5 mg PO Q4H PRN PRN Pain Score 4-10 5 days #20 tabs 08/08/22 tizanidine 2 mg tablet 4 mg PO Q8H PRN PRN spasms/musculoskeletal pain #20 tabs 08/08/22
--- NOTE | 2022-08-08 13:05 | CM.UR ---
CHANCE CM to pt's room. Pt sitting in chair eating lunch. Discussed FWW as advised by PT. Pt states he already has a FWW at home. Discussed therapy in the home. Pt denied needing therapy in the home. Pt plans to do exercises given by therapy. Pt feels he is able to be DC home with no needs.
[2022-08-08 14:00] LABS: Pathologist Review Reviewed
== END 2022-08-08 14:40 | disposition home or self-care (01) ==
LOC: ED 12:03 → MS3 12:44
PROVIDERS: Admitting Provider Internal Medicine; Emergency Provider Emergency Medicine; PCP Nurse Practitioner Family; Visit Provider Internal Medicine
DX: S70.01XA Contusion of right hip, initial encounter (principal); M06.9 Rheumatoid arthritis, unspecified; Z68.41 Body mass index [BMI] 40.0-44.9, adult; E66.01 Morbid (severe) obesity due to excess calories; E78.5 Hyperlipidemia, unspecified; W14.XXXA Fall from tree, initial encounter; I10 Essential (primary) hypertension; Y93.H9 Activity, other involving exterior property and land maintenance, building and construction; Y92.096 Garden or yard of other non-institutional residence as the place of occurrence of the external cause; Z86.16 Personal history of COVID-19; Z79.899 Other long term (current) drug therapy; Z79.82 Long term (current) use of aspirin; F41.9 Anxiety disorder, unspecified; M79.7 Fibromyalgia; Z86.718 Personal history of other venous thrombosis and embolism; N40.0 Benign prostatic hyperplasia without lower urinary tract symptoms; G47.33 Obstructive sleep apnea (adult) (pediatric); Z79.01 Long term (current) use of anticoagulants; N32.81 Overactive bladder; F32.A Depression, unspecified; Z23 Encounter for immunization
CPT/HCPCS: 36415; 72192; 80048; 83735; 84100; 85025; 85610; 85730; 96374; 96375; 97162; 97166; 97530; 97535; 99218; 99251; 99285; G0008; 90686; A4216; G0378; G0463; J2405

== ENCOUNTER → 2023-08-21 | Outpatient (CLI) | payer MEDICARE, OTHER, SELFPAY ==
[2023-08-21 17:37] LABS: Absolute Lymphocyte Count 2.33 X10^3/uL (0.83-4.51); Absolute Neutrophil Count 5.7 X10^3/uL (2.0-7.7); Basophil# 0.08 X10^3/uL; Basophil% 0.8 % (0-1); Eosinophil# 0.29 X10^3/uL; Hemoglobin 15.9 g/dL (13.0-16.5); Lymphocyte # 2.33 X10^3/ul (0.83-4.51); Lymphocyte % 24.2 % (19-41); Mean Corp Hgb Conc 32.4 g/dL (32-36); Mean Corpuscular Hgb 31.9 pg (27.0-32.0); Mean Corpuscular Volume 98.2 fL (80-94); Mean Platelet Vol. 9.6 fl (6.2-12.0); Monocyte# 1.16 X10^3/uL; NRBC Flagged by Analyzer 0 % (0-5); Neutrophil % 59.3 % (47-70); Platelet Count 220 K/mm3 (150-450); RBC Distribution Width CV 13.1 % (11.6-14.6); RBC Distribution Width SD 46.9 fl (35.1-43.9); Red Blood Count 4.99 M/mm3 (4.6-6.2); White Blood Count 9.6 K/mm3 (4.4-11.0)
[2023-08-21 18:11] LABS: ALB/GLOB Ratio 1.1 RATIO (0.9-2.4); AST(SGOT) 25 U/L (15-37); Alanine Aminotransfer ALT/SGPT 46 U/L (16-61); Albumin, Serum 3.7 g/dL (3.2-5.0); Alkaline Phosphatase 40 U/L (45-117); Anion Gap 2 (5-15); BUN 29 mg/dL (7-18); BUN/Creat Ratio 24.8 RATIO (10-20); Calcium,Total 9.6 mg/dL (8.5-10.1); Chloride 111 mmol/L (98-107); Creatinine, Serum 1.17 mg/dL (0.70-1.30); EST Glomerular Filtration Rate 66 mL/min (>60); Est Glom Filt Rate - Afr Amer 79 mL/min (>60); Globulin 3.5 g/dL (2.2-4.2); Glucose 100 mg/dL (74-106); Potassium 4.6 mmol/L (3.5-5.1); Protein, Total 7.2 g/dL (6.4-8.2); Sodium Level 140 mmol/L (136-145)
== END | disposition home or self-care (01) ==
LOC: MTLAB 15:17
PROVIDERS: PCP Nurse Practitioner Family; Referring Provider Internal Medicine Rheumatology; Visit Provider Internal Medicine Rheumatology
DX: M06.4 Inflammatory polyarthropathy (principal); M79.7 Fibromyalgia; K76.0 Fatty (change of) liver, not elsewhere classified; M48.02 Spinal stenosis, cervical region; M75.102 Unspecified rotator cuff tear or rupture of left shoulder, not specified as traumatic; F32.89 Other specified depressive episodes; Z79.899 Other long term (current) drug therapy
CPT/HCPCS: 36415; 80053; 85025

== ENCOUNTER → 2024-02-15 | Outpatient (CLI) | payer MEDICARE, OTHER, SELFPAY ==
[2024-02-15 15:19] LABS: Absolute Lymphocyte Count 2.04 X10^3/uL (0.83-4.51); Basophil# 0.06 X10^3/uL; Basophil% 0.7 % (0-1); Eosinophil# 0.22 X10^3/uL; Eosinophils% 2.7 % (0-5); Hematocrit 47.4 % (40-54); Hemoglobin 15.5 g/dL (13.0-16.5); Lymphocyte # 2.04 X10^3/ul (0.83-4.51); Lymphocyte % 24.8 % (19-41); Mean Corp Hgb Conc 32.7 g/dL (32-36); Mean Corpuscular Hgb 31.9 pg (27.0-32.0); Mean Corpuscular Volume 97.5 fL (80-94); Mean Platelet Vol. 9.8 fl (6.2-12.0); Monocyte# 0.85 X10^3/uL; Monocyte% 10.3 % (0-10); NRBC Flagged by Analyzer 0 % (0-5); Neutrophil # 5.01 X10^3/uL (2.7-7.7); Neutrophil % 60.8 % (47-70); Platelet Count 214 K/mm3 (150-450); RBC Distribution Width CV 13.2 % (11.6-14.6); RBC Distribution Width SD 47.4 fl (35.1-43.9); Red Blood Count 4.86 M/mm3 (4.6-6.2); White Blood Count 8.2 K/mm3 (4.4-11.0)
[2024-02-15 15:26] LABS: ALB/GLOB Ratio 1.1 RATIO (0.9-2.4); AST(SGOT) 39 U/L (15-37); Alanine Aminotransfer ALT/SGPT 53 U/L (16-61); Albumin, Serum 3.9 g/dL (3.2-5.0); Alkaline Phosphatase 32 U/L (45-117); Anion Gap 3 (5-15); BUN 28 mg/dL (7-18); Calcium,Total 9.7 mg/dL (8.5-10.1); Chloride 112 mmol/L (98-107); Creatinine, Serum 1.27 mg/dL (0.70-1.30); EST Glomerular Filtration Rate 60 mL/min (>60); Est Glom Filt Rate - Afr Amer 72 mL/min (>60); Globulin 3.4 g/dL (2.2-4.2); Glucose 98 mg/dL (74-106); Potassium 4.5 mmol/L (3.5-5.1); Protein, Total 7.3 g/dL (6.4-8.2); Sodium Level 144 mmol/L (136-145)
== END | disposition home or self-care (01) ==
LOC: MTLAB 13:51
PROVIDERS: PCP Nurse Practitioner Family; Referring Provider Internal Medicine Rheumatology; Visit Provider Internal Medicine Rheumatology
DX: M06.4 Inflammatory polyarthropathy (principal); Z79.899 Other long term (current) drug therapy
CPT/HCPCS: 36415; 80053; 85025

== ENCOUNTER → 2024-08-13 | Outpatient (CLI) | payer MEDICARE, OTHER, SELFPAY ==
[2024-08-13 18:08] LABS: Absolute Lymphocyte Count 1.71 X10^3/uL (0.83-4.51); Absolute Neutrophil Count 5.4 X10^3/uL (2.0-7.7); Basophil# 0.06 X10^3/uL; Basophil% 0.7 % (0-1); Eosinophil# 0.22 X10^3/uL; Eosinophils% 2.6 % (0-5); Hematocrit 45.2 % (40-54); Hemoglobin 14.7 g/dL (13.0-16.5); Lymphocyte # 1.71 X10^3/ul (0.83-4.51); Lymphocyte % 20.4 % (19-41); Mean Corp Hgb Conc 32.5 g/dL (32-36); Mean Corpuscular Hgb 31.7 pg (27.0-32.0); Mean Corpuscular Volume 97.4 fL (80-94); Mean Platelet Vol. 9.8 fl (6.2-12.0); Monocyte# 0.96 X10^3/uL; Monocyte% 11.4 % (0-10); NRBC Flagged by Analyzer 0 % (0-5); Neutrophil # 5.42 X10^3/uL (2.7-7.7); Neutrophil % 64.5 % (47-70); Platelet Count 202 K/mm3 (150-450); RBC Distribution Width CV 12.9 % (11.6-14.6); Red Blood Count 4.64 M/mm3 (4.6-6.2); White Blood Count 8.4 K/mm3 (4.4-11.0)
[2024-08-13 18:43] LABS: ALB/GLOB Ratio 1.2 RATIO (0.9-2.4); AST(SGOT) 32 U/L (15-37); Alanine Aminotransfer ALT/SGPT 40 U/L (16-61); Albumin, Serum 3.7 g/dL (3.2-5.0); Alkaline Phosphatase 36 U/L (45-117); Anion Gap 4 (5-15); BUN 28 mg/dL (7-18); BUN/Creat Ratio 23.3 RATIO (10-20); Calcium,Total 9.7 mg/dL (8.5-10.1); Chloride 112 mmol/L (98-107); EST Glomerular Filtration Rate 63 mL/min (>60); Est Glom Filt Rate - Afr Amer 77 mL/min (>60); Globulin 3.1 g/dL (2.2-4.2); Glucose 97 mg/dL (74-106); Potassium 4.5 mmol/L (3.5-5.1); Protein, Total 6.8 g/dL (6.4-8.2); Sodium Level 144 mmol/L (136-145)
== END | disposition home or self-care (01) ==
LOC: MTLAB 14:59
PROVIDERS: PCP Nurse Practitioner Family; Referring Provider Internal Medicine Rheumatology; Visit Provider Internal Medicine Rheumatology
DX: M06.4 Inflammatory polyarthropathy (principal); M79.7 Fibromyalgia; Z79.899 Other long term (current) drug therapy
CPT/HCPCS: 36415; 80053; 85025

== ENCOUNTER → 2024-09-08 | Outpatient (CLI) | payer MEDICARE, OTHER, SELFPAY ==
--- NOTE | 2024-09-08 16:20 | RAD_ITS ---
STUDY: X-RAY - LUMBAR SPINE REASON FOR EXAM: Male, 69 years old. EVALUATE FOR SECONDARY CAUSES OF BACK PAIN SUCH DEGENERATIVE C TECHNIQUE: 4 view(s) of the lumbar spine were obtained. Flexion and extension views obtained. COMPARISON: None FINDINGS: Normal lumbar lordosis. There is minimal levoconvex scoliosis. There is a normal alignment of the vertebrae. There is multilevel mild endplate spondylosis of the lumbar vertebrae. There is multi-level degenerative disc disease with mild multi-level disc space narrowing. There is no demonstrated fracture. There is limited range of motion on flexion and extension. No subluxations. The soft tissue structures are unremarkable. RAD/L/S Spine Bending Flex/Ext IMPRESSION: Multilevel mild degenerative changes. Normal curvature and alignment with decreased range of motion and no subluxations. Electronically Signed: Jose Dominguez MD at 16:45 EST ,
--- NOTE | 2024-09-08 16:20 | RAD_ITS ---
STUDY: X-RAY - PELVIS AND LEFT HIP REASON FOR EXAM: Male, 69 years old. EVALUATE FOR FEATURES OF UNDERLYING OSTEOARTHRITIS TO EXCLUDE O TECHNIQUE: 3 views of the pelvis and hip. COMPARISON: None. FINDINGS: There is a non-specific bowel gas pattern. Normal visualized soft tissue structures. Normal bilateral iliac wings, sacroiliac joints and visualized sacrum. Normal bilateral superior and inferior pubic rami. Normal pubic symphysis. Normal bilateral ischial tuberosities. Normal visualized femoral head. Normal acetabulum. Normal hip joint. RAD/HIP, UNI W/ Pelvis 2-3 Views IMPRESSION: Normal x-ray examination of the pelvis and hip. Electronically Signed: Jose Dominguez MD at 16:40 EST ,
== END | disposition home or self-care (01) ==
LOC: RAD 16:08
PROVIDERS: PCP Nurse Practitioner Family; Referring Provider Nurse Practitioner Family; Visit Provider Nurse Practitioner Family
DX: M25.552 Pain in left hip (principal); M54.32 Sciatica, left side
CPT/HCPCS: 72120; 73502

== ENCOUNTER → 2024-09-25 | Outpatient (CLI) | payer MEDICARE, OTHER, SELFPAY ==
--- NOTE | 2024-09-25 12:50 | ECHOCS_ITS ---
Reason For Study: RHEUMATIC TRICUSPID INSUFF Procedure This was a 2D Doppler, Color Flow transthoracic echocardiogram. The study was technically difficult. Contrast injection was performed. Exam performed in department. Left Ventricle Normal LV size. The estimated ejection fraction is 65 %. Diastolic function is indeterminate. No regional wall motion abnormalities noted. Right Ventricle Normal RV size. Normal systolic function. Atria The left and right atria are normal. No doppler evidence for ASD. Mitral Valve There is no mitral valve stenosis. No mitral valve insufficiency. Tricuspid Valve There is no tricuspid stenosis. Trivial tricuspid valve insufficiency. Pulmonary artery systolic pressure is 35 mmHg. Aortic Valve Aortic sclerosis, no stenosis. Trisinus/trileaflet aortic valve. There is no aortic stenosis. No aortic valve insufficiency. Pulmonic Valve There is no pulmonic valvular stenosis. No pulmonic valve insufficiency. Great Vessels Normal aortic root. Pericardium/Pleural No pericardial effusion. Medication 22 gauge I.V. with prn adaptor inserted into right arm. Diluted definity 4ml given slow IV push to enhance endocardial definition. MMode/2D Measurements & Calculations LVIDd: 4.8 cm IVSd: 1.6 cm LVOT diam: 2.0 cm LVIDs: 3.4 cm LVPWd: 1.6 cm FS: 28.5 % LVOT area: 3.2 cm2 Ao root diam: 3.8 cm LAV(MOD-bp): 61.7 ml LVAd ap4: 40.5 cm2 LAV(MOD-bp) Indexed: 25.4 ml/m2 LVLd ap4: 9.7 cm LAV(MOD-sp2): 54.1 ml EDV(MOD-sp4): 139.1 ml LAV(MOD-sp4): 64.4 ml EDV(sp4-el): 144.5 ml LVAs ap4: 18.6 cm2 LVLs ap4: 6.9 cm ESV(MOD-sp4): 40.4 ml ESV(sp4-el): 42.7 ml EF(MOD-sp4): 71.0 % EF(sp4-el): 70.4 % SV(MOD-sp4): 98.7 ml SV(sp4-el): 101.8 ml LA A4 area: 20.2 cm2 SI(MOD-sp4): 40.7 ml/m2 LA dimension(2D): 4.1 cm RA A4 area: 15.0 cm2 TAPSE: 2.0 cm Time Measurements MV dec time: 0.24 sec Doppler Measurements & Calculations MV E max kendell: 55.0 cm/sec Lat Peak E' Kendell: 9.4 cm/sec Med Peak E' Kendell: 7.0 cm/sec MV A max kendell: 53.5 cm/sec E/E' lat: 5.9 E/E' med: 7.8 MV E/A: 1.0 MV V2 max: 89.2 cm/sec MV dec slope: 233.7 cm/sec2 Ao V2 max: 105.7 cm/sec MV max P.2 mmHg Ao max P.5 mmHg MV V2 mean: 47.4 cm/sec Ao V2 mean: 73.5 cm/sec MV mean P.0 mmHg Ao mean P.5 mmHg MV V2 VTI: 27.3 cm Ao V2 VTI: 25.1 cm MVA(VTI): 2.6 cm2 AV (velocity ratio): 0.89 ELADIO(I,D): 2.8 cm2 ELADIO(V,D): 2.7 cm2 LV V1 max: 91.5 cm/sec SV(LVOT): 70.8 ml PA V2 max: 125.7 cm/sec LV V1 max P.3 mmHg PA V2 mean: 86.1 cm/sec LV V1 mean P.7 mmHg LV V1 mean: 60.3 cm/sec LV V1 VTI: 22.4 cm TR max kendell: 295.5 cm/sec TR max P.9 mmHg ECHO/Echo Complete W/ Contrast Interpretation Summary The estimated ejection fraction is 65 %. Diastolic function is indeterminate. Ordering Physician: Rene Barnhart Referring Physician: Rene Barnhart Performed By: Mahi Hayes RCS
== END | disposition home or self-care (01) ==
LOC: CVS 12:40
PROVIDERS: PCP Nurse Practitioner Family; Referring Provider Internal Medicine Cardiovascular Disease; Visit Provider Internal Medicine Cardiovascular Disease
DX: I07.1 Rheumatic tricuspid insufficiency (principal)
CPT/HCPCS: 93306; Q9957; A4216; C8929

== ENCOUNTER → 2024-11-11 | Outpatient (CLI) | payer MEDICARE, OTHER, SELFPAY ==
--- NOTE | 2024-11-11 15:13 | MRI_ITS ---
HISTORY: Pain, left hip pain x 3 months. TECHNIQUE: Multiplanar and multisequence MR images of the lumbar spine were obtained without intravenous contrast. 173 images. COMPARISON: XR 09/08/2024. FINDINGS: VERTEBRAE: Vertebral body heights maintained. Small L1 vertebral body hemangioma incidentally noted. Mild degenerative endplate changes of L2-3 and L5-S1. ALIGNMENT: Minimal 1-2 mm retrolisthesis of L1-2. Mild levoscoliosis. CONUS: Normal morphology and position of the conus medullaris at T12-L1. INTERVERTEBRAL DISCS: T12-L1: Mild disc bulge and facet arthropathy resulting in minimal narrowing of the thecal sac and mild right foraminal narrowing based on the sagittal images. L1-2: Mild disc bulge and facet arthropathy. No significant central canal stenosis or foraminal narrowing. L2-3: Mild disc bulge and facet arthropathy resulting in minimal narrowing of the thecal sac and mild right foraminal narrowing. L3-4: Mild posterior disc bulge osteophyte complex with facet arthropathy resulting in minimal narrowing of the thecal sac and mild bilateral foraminal narrowing. L4-5: Mild annular fissure and left paracentral disc extrusion with inferior migration resulting in left L5 nerve root impingement, minimal narrowing of the thecal sac, and mild bilateral foraminal narrowing in combination with facet arthropathy. L5-S1: Mild posterior disc bulge osteophyte complex with facet arthropathy resulting in minimal narrowing of the thecal sac, mild left, and moderate right foraminal narrowing. SOFT TISSUES: No paraspinal fluid collection. Mild posterior subcutaneous edema. Small cyst in the lower pole of the left kidney. MRI/Spine Lumbar (Routine) IMPRESSION: Mild L4-5 left paracentral disc extrusion with inferior migration resulting in left nerve root impingement. Mild multilevel degenerative disc disease of the lumbar spine without significant spinal canal stenosis. Foraminal narrowing as above. Electronically Signed: Jenelle Parikh MD at 9:38 EST ,
== END | disposition home or self-care (01) ==
LOC: MRI 15:12
PROVIDERS: PCP Nurse Practitioner Family; Referring Provider Student in an Organized Health Care Education/Training Program; Visit Provider Student in an Organized Health Care Education/Training Program
DX: M21.372 Foot drop, left foot (principal)
CPT/HCPCS: 72148

== ENCOUNTER → 2025-01-29 | Outpatient (CLI) | payer MEDICARE, OTHER, SELFPAY ==
[2025-01-29 17:48] LABS: Absolute Lymphocyte Count 1.77 X10^3/uL (0.83-4.51); Absolute Neutrophil Count 5.7 X10^3/uL (2.0-7.7); Basophil# 0.06 X10^3/uL; Basophil% 0.7 % (0-1); Eosinophil# 0.25 X10^3/uL; Eosinophils% 2.9 % (0-5); Hematocrit 44.6 % (40-54); Hemoglobin 14.7 g/dL (13.0-16.5); Lymphocyte # 1.77 X10^3/ul (0.83-4.51); Lymphocyte % 20.5 % (19-41); Mean Corpuscular Hgb 32.2 pg (27.0-32.0); Mean Corpuscular Volume 97.6 fL (80-94); Mean Platelet Vol. 9.8 fl (6.2-12.0); Monocyte# 0.85 X10^3/uL; Monocyte% 9.8 % (0-10); NRBC Flagged by Analyzer 0 % (0-5); Neutrophil # 5.68 X10^3/uL (2.7-7.7); Neutrophil % 65.6 % (47-70); Platelet Count 214 K/mm3 (150-450); RBC Distribution Width CV 13.4 % (11.6-14.6); Red Blood Count 4.57 M/mm3 (4.6-6.2); White Blood Count 8.7 K/mm3 (4.4-11.0)
[2025-01-29 18:05] LABS: ALB/GLOB Ratio 1.5 RATIO (0.9-2.4); AST(SGOT) 37 U/L (<=37); Alanine Aminotransfer ALT/SGPT 33 U/L (<=46); Albumin, Serum 4.2 g/dL (3.4-4.8); Alkaline Phosphatase 41 U/L (40-129); Anion Gap 11 (5-15); BUN 30 mg/dL (4-19); BUN/Creat Ratio 21.8 RATIO (10-20); Calcium,Total 9.7 mg/dL (7.6-11.0); Carbon Dioxide 23.9 mmol/L (21.0-32.0); Chloride 105 mmol/L (98-108); Creatinine, Serum 1.36 mg/dL (0.70-1.20); EST Glomerular Filtration Rate 56 (>60); Globulin 2.7 g/dL (2.2-4.2); Glucose 92 mg/dL (70-99); Potassium 4.6 mmol/L (3.3-5.1); Protein, Total 6.9 g/dL (5.9-8.4); Sodium Level 140 mmol/L (133-145); Total Bilirubin 0.69 mg/dL (0.00-1.30)
== END | disposition home or self-care (01) ==
LOC: MTLAB 15:13
PROVIDERS: PCP Nurse Practitioner Family; Referring Provider Internal Medicine Rheumatology; Visit Provider Internal Medicine Rheumatology
DX: M06.4 Inflammatory polyarthropathy (principal); M79.7 Fibromyalgia; Z79.899 Other long term (current) drug therapy
CPT/HCPCS: 36415; 80053; 85025

== ENCOUNTER → 2025-05-11 | Outpatient (CLI) | payer MEDICARE, OTHER, SELFPAY ==
[2025-05-11 17:52] LABS: Hematocrit 46.1 % (40-54); Hemoglobin 15.1 g/dL (13.0-16.5); Immature Granulocytes Count 0.090 X10^3/uL (0.0-0.0); Mean Corp Hgb Conc 32.8 g/dL (32-36); Mean Corpuscular Volume 97.3 fL (80-94); Mean Platelet Vol. 10.0 fl (6.2-12.0); NRBC Flagged by Analyzer 0 % (0-5); Platelet Count 230 K/mm3 (150-450); RBC Distribution Width CV 13.5 % (11.6-14.6); RBC Distribution Width SD 48.6 fl (35.1-43.9); Red Blood Count 4.74 M/mm3 (4.6-6.2); White Blood Count 7.5 K/mm3 (4.4-11.0)
[2025-05-11 18:06] LABS: AST(SGOT) 41 U/L (<=37); Alanine Aminotransfer ALT/SGPT 35 U/L (<=46); Albumin, Serum 4.3 g/dL (3.4-4.8); Alkaline Phosphatase 42 U/L (40-129); Anion Gap 11 (5-15); BUN 26 mg/dL (4-19); BUN/Creat Ratio 19.4 RATIO (10-20); Calcium,Total 9.8 mg/dL (7.6-11.0); Carbon Dioxide 23.9 mmol/L (21.0-32.0); Chloride 108 mmol/L (98-108); Globulin 2.5 g/dL (2.2-4.2); Glucose 91 mg/dL (70-99); Potassium 4.8 mmol/L (3.3-5.1)
== END | disposition home or self-care (01) ==
LOC: MTLAB 14:45
PROVIDERS: PCP Nurse Practitioner Family; Referring Provider Internal Medicine Rheumatology; Visit Provider Internal Medicine Rheumatology
DX: M06.4 Inflammatory polyarthropathy (principal); M79.7 Fibromyalgia; Z79.899 Other long term (current) drug therapy
CPT/HCPCS: 36415; 80053; 85025

== ENCOUNTER → 2025-08-04 | Outpatient (CLI) | payer MEDICARE, OTHER, SELFPAY ==
[2025-08-04 12:40] LABS: Hematocrit 45.7 % (40-54); Hemoglobin 15.2 g/dL (13.0-16.5); Immature Granulocytes Count 0.060 X10^3/uL (0.0-0.0); Mean Corp Hgb Conc 33.3 g/dL (32-36); Mean Corpuscular Volume 97.0 fL (80-94); Mean Platelet Vol. 10.1 fl (6.2-12.0); NRBC Flagged by Analyzer 0 % (0-5); Platelet Count 210 K/mm3 (150-450); RBC Distribution Width CV 13.1 % (11.6-14.6); RBC Distribution Width SD 47.0 fl (35.1-43.9); Red Blood Count 4.71 M/mm3 (4.6-6.2); White Blood Count 7.1 K/mm3 (4.4-11.0)
[2025-08-04 13:10] LABS: AST(SGOT) 34 U/L (<=37); Alanine Aminotransfer ALT/SGPT 35 U/L (<=46); Albumin, Serum 4.3 g/dL (3.4-4.8); Alkaline Phosphatase 37 U/L (40-129); Anion Gap 10 (5-15); BUN 24 mg/dL (4-19); BUN/Creat Ratio 21.6 RATIO (10-20); Calcium,Total 9.5 mg/dL (7.6-11.0); Carbon Dioxide 26.0 mmol/L (21.0-32.0); Chloride 107 mmol/L (98-108); Globulin 2.5 g/dL (2.2-4.2); Glucose 106 mg/dL (70-99); Potassium 4.6 mmol/L (3.3-5.1)
== END | disposition home or self-care (01) ==
LOC: MTLAB 09:56
PROVIDERS: PCP Nurse Practitioner Family; Referring Provider Internal Medicine Rheumatology; Visit Provider Internal Medicine Rheumatology
DX: M06.4 Inflammatory polyarthropathy (principal); K76.0 Fatty (change of) liver, not elsewhere classified; Z79.899 Other long term (current) drug therapy
CPT/HCPCS: 36415; 80053; 85025